=== PATIENT | male | born 1935 | race Caucasian/White ===

== ENCOUNTER 2016-10-02 16:54 | Inpatient (IN) | payer OTHER, MEDICARE ==
[~2016-10-02] VITALS: Ht 180.3 cm; Wt 67.2 kg
[~2016-10-02 16:54] MED LIST: APR25 PO; ATOR10TA88 PO; CHOL1TAB42 PO; CLON0.1T12 PO; DIGO0.122 PO; FURO-85 PO; HMLI SC; INSUINJ4 SQ; LISI-729 PO; METO1TAB70 PO; NIAC500T7 PO; OMEP40CA PO; RIVA1.5T PO
[2016-10-02] MEDS ORDERED: SODIUM CHLORIDE 0.9% 1000ML 1,000 ML IV STA (17:34)
--- NOTE | 2016-10-02 17:37 | EMERGENCY ROOM VISIT NOTE ---
History Report prepared by Ofe: Ilda Shirley. Under the Supervision of: Dr. Julia Champion D.O. First contact with patient: 17:20 Chief Complaint: ABNORMAL LABS Stated Complaint: DEHYDRATED- PHYSICIAN REFERRED History of Present Illness The patient is a 80 year old male who presents to the Emergency Room with complaints of persistent abnormal labs that began prior to arrival. The patient states that for the past two years he has had a swallowing problem. The patient states that over the past two years he has lost 25-30 pounds because he has difficulty eating. He states that he just arrived back to the area after spending two weeks at the [facility]. The patient states that while he was there he had difficulties with hyperkalemia and was hospitalized. He states that he has had difficulties in the past with his electrolytes. The patient additionally notes that over the past two years his creatinine has increased. He reports a history of hypertension, diabetes, atrial fibrillation , pancreatic cancer, and a previous Whipple. The patient states that he is scheduled to have a feeding tube placed next week. He reports normal urination , but irregular bowel movements. The patient denies any pain or vomiting. He states that he was called by both his primary care physician and framework developer and told to come to the emergency department for further evaluation and treatment. The patient had outpatient labs drawn yesterday that showed a potassium of 5.3, Sodium 128, and Creatinine of 2.9. Source of History: patient Onset: prior to arrival Position: other (global) Quality: other (abnormal labs) Timing: other (persistent) Associated Symptoms: No vomiting, No urinary symptoms Review of Systems See HPI for pertinent positives & negatives. A total of 10 systems reviewed and were otherwise negative. 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 Family History Heart disease Hypertension Social History Smoking Status: Former Smoker Alcohol Use: occasionally Drug Use: none Marital Status: Housing Status: lives with family Occupation Status: retired Current/Historical Medications Scheduled Cholecalciferol (Vitamin D), 1 TAB PO QAM Clonidine Hcl (Clonidine Hcl), 1 PATCH TD WK Furosemide (Lasix), 80 MG PO BID Hydralazine HCl (Hydralazine HCl), 150 MG PO BID Insulin Glargine (Lantus), 15 UNITS SC QPM Metoprolol Succinate (Toprol Xl), 200 MG PO QAM Omeprazole (Prilosec), 40 MG PO DAILYBB Rivaroxaban (Xarelto), 15 MG PO QPM Scheduled PRN Loperamide Hcl (Imodium), 2 MG PO for Diarrhea Miscellaneous Medications Hyoscyamine Sulfate (Hyoscyamine Sulfate), 1 TAB PO Insulin Lispro (Human) (Humalog), 1 DOSE SC Allergies Coded Allergies: No Known Allergies (Verified , 10/02/16) Physical Exam Vital Signs Date Time Temp Pulse Resp B/P (MAP) Pulse Ox O2 Delivery O2 Flow Rate FiO2 10/02/16 20:01 81 16 156/82 96 Room Air 10/02/16 18:38 92 18 156/82 98 Room Air 10/02/16 17:24 88 10/02/16 17:02 36.7 86 18 128/76 98 Room Air Physical Exam GENERAL: Thin, alert, well appearing, well nourished, no distress, non-toxic EYE EXAM: normal conjunctiva, PERRL and EOM's grossly intact OROPHARYNX: no exudate, no erythema, lips, buccal mucosa, and tongue normal and mucous membranes are mildly dry. NECK: supple, no nuchal rigidity, no adenopathy, non-tender LUNGS: Clear to auscultation. Normal chest wall mechanics HEART: no murmurs, S1 normal and S2 normal ABDOMEN: abdomen soft, non-tender, normo-active bowel sounds, no masses, no rebound or guarding. BACK: Back is symmetrical on inspection and there is no deformity, no midline tenderness, no CVA tenderness. SKIN: no rashes and no bruising UPPER EXTREMITIES: upper extremities are grossly normal. LOWER EXTREMITIES: 1+ lower extremity pedal edema. NEURO EXAM: Normal sensorium, cranial nerves II-XII grossly intact, normal speech, no gross weakness of arms, no gross weakness of legs. Medical Decision & Procedures Laboratory Results 10/02/16 17:45 Red Blood Count 3.20, Mean Corpuscular Volume 85.9, Mean Corpuscular Hemoglobin 30.3, Mean Corpuscular Hemoglobin Concent 35.3, Mean Platelet Volume 8.8, Neutrophils (%) (Auto) 69.1, Lymphocytes (%) (Auto) 16.3, Monocytes (%) (Auto) 10.9, Eosinophils (%) (Auto) 2.6, Basophils (%) (Auto) 0.5, Neutrophils # (Auto ) 4.51, Lymphocytes # (Auto) 1.06, Monocytes # (Auto) 0.71, Eosinophils # (Auto ) 0.17, Basophils # (Auto) 0.03 Test 10/02/16 17:45 White Blood Count 6.52 K/uL (4.8-10.8) Red Blood Count 3.20 M/uL (4.7-6.1) Hemoglobin 9.7 g/dL (14.0-18.0) Hematocrit 27.5 % (42-52) Mean Corpuscular Volume 85.9 fL (80-100) Mean Corpuscular Hemoglobin 30.3 pg (25-34) Mean Corpuscular Hemoglobin Concent 35.3 g/dl (32-36) Platelet Count 249 K/uL (130-400) Mean Platelet Volume 8.8 fL (7.4-10.4) Neutrophils (%) (Auto) 69.1 % Lymphocytes (%) (Auto) 16.3 % Monocytes (%) (Auto) 10.9 % Eosinophils (%) (Auto) 2.6 % Basophils (%) (Auto) 0.5 % Neutrophils # (Auto) 4.51 K/uL (1.4-6.5) Lymphocytes # (Auto) 1.06 K/uL (1.2-3.4) Monocytes # (Auto) 0.71 K/uL (0.11-0.59) Eosinophils # (Auto) 0.17 K/uL (0-0.5) Basophils # (Auto) 0.03 K/uL (0-0.2) RDW Standard Deviation 41.7 fL (36.4-46.3) RDW Coefficient of Variation 13.2 % (11.5-14.5) Immature Granulocyte % (Auto) 0.6 % Immature Granulocyte # (Auto) 0.04 K/uL (0.00-0.02) Osmolality 298 mOsm/kg (280-300) Phosphorus Level 5.6 mg/dl (2.5-4.9) Magnesium Level 1.8 mg/dl (1.8-2.4) Total Bilirubin 0.4 mg/dl (0.2-1) Aspartate Amino Transf (AST/SGOT) 35 U/L (15-37) Alanine Aminotransferase (ALT/SGPT) 50 U/L (12-78) Alkaline Phosphatase 265 U/L (45-117) Total Protein 6.5 gm/dl (6.4-8.2) Albumin 2.6 gm/dl (3.4-5.0) Globulin 3.9 gm/dl (2.5-4.0) Albumin/Globulin Ratio 0.7 (0.9-2) 25-Hydroxy Vitamin D Total 44.4 ng/ml (30-100) Beta-Hydroxybutyric Acid 1.06 mg/dL (0.2-2.81) Laboratory results per my review. Medications Administered Medications (Trade) Dose Ordered Sig/Mindy Route Start Time Stop Time Status Last Admin Dose Admin Sodium Chloride 1,000 ml @ 999 mls/hr Q1H1M STAT IV 10/02/16 17:34 10/02/16 18:34 DC 10/02/16 17:47 999 MLS/HR Insulin Human Regular (novoLIN-R U-100 PER UNIT) 6 units NOW STAT SC 10/02/16 18:52 10/02/16 18:53 DC 10/02/16 18:59 6 UNITS ED Course 1722: The patient was evaluated in room B7. A complete history and physical exam was performed. 1734: Ordered Sodium Chloride 1000 ml @ 999 mls/hr IV. 1852: Ordered Insulin Human Regular 6 units SC. 1912: I reevaluated the patient and he is resting comfortably. I discussed the exam findings with him and I discussed the treatment plan. He verbalized complete understanding and agreement. He will be evaluated for further treatment. 1923: I discussed the patients case with Sarah Jacobsen. She is going to evaluate the patient for further treatment. Medical Decision Medication Reconciliation: I attest that I have personally reviewed the patient' s current medication list. Blood pressure screening: Patient was found to have a slightly elevated blood pressure due to circumstances. I do not believe that the patient requires hypertension monitoring. She well-appearing here without complaints was advised to come in by family doctor. Patient found to have worsening creatinine, worsening hyponatremia. Discussed with patient possibly related to recent increase in furosemide daily. Doubt bacteremia/sepsis. No symptoms to suggest obstructive process. No symptoms to suggest UTI. Patient with chronic anemia that appears stable compared to prior also. Patient with ongoing outpatient evaluation for dysphagia and weight loss. Doubt GI bleed. Patient and aware of all results were agreeable with plan. Consults Time Called: 1917 Consulting Physician: Sarah Jacobsen Returned Call: 1923 I discussed the patients case with Sarah Jacobsen. She is going to evaluate the patient for further treatment. Impression Primary Impression: Acute kidney injury superimposed on chronic kidney disease Additional Impression: Hyponatremia Scribe Attestation The scribe's documentation has been prepared under my direction and personally reviewed by me in its entirety. I confirm that the note above accurately reflects all work, treatment, procedures, and medical decision making performed by me. Departure Information Dispostion Being Evaluated By Hospitalist Referrals Esther Donaldson M.D. (PCP) Problem Qualifiers
[2016-10-02] MEDS ORDERED: FURO80TA63 PO (17:58)
[2016-10-02] MEDS ORDERED: OMEP40CA41 PO (17:58)
[2016-10-02] MEDS ORDERED: INSDGI SC (17:58)
[2016-10-02] MEDS ORDERED: RIVA1.5T PO (17:58)
[2016-10-02] MEDS ORDERED: HYDR100T3 PO (17:58)
[2016-10-02] MEDS ORDERED: CLON0.3D5 TD (17:58)
[2016-10-02] MEDS ORDERED: IMD/2 PO (18:01)
[2016-10-02] MEDS ORDERED: INSU100I SC (18:01)
[2016-10-02] MEDS ORDERED: LVS125 PO (18:01)
[2016-10-02 18:11] LABS: BASO % 0.5 %; BASO ABS # 0.03 K/uL (0-0.2); COMPLETE YES; EOS % 2.6 %; HEMATOCRIT 27.5 % (42-52); IG% 0.6 %; LYMPH % 16.3 %; LYMPH ABS # 1.06 K/uL (1.2-3.4); MEAN CELL VOLUME 85.9 fL (80-100); MEAN CORPUSCULAR HEMOGLOBIN 30.3 pg (25-34); MEAN CORPUSCULAR HGB CONC 35.3 g/dl (32-36); MEAN PLATELET VOLUME 8.8 fL (7.4-10.4); MONO % 10.9 %; NEUT % 69.1 %; PLATELET COUNT 249 K/uL (130-400); WHITE BLOOD COUNT 6.52 K/uL (4.8-10.8)
[2016-10-02 18:49] LABS: ALB/GLOB RATIO 0.7 (0.9-2); BUN/CREATININE RATIO 15.6 (10-20); CALCIUM 8.6 mg/dl (8.5-10.1); CREATININE 3.3 mg/dl (0.60-1.40); MAGNESIUM 1.8 mg/dl (1.8-2.4); POTASSIUM 4.8 mmol/L (3.5-5.1)
[2016-10-02] MEDS ORDERED: NovoLIN-R INSULIN PER UNIT CHARGE SC STA (18:52)
[2016-10-02 19:20] LABS: BETA-HYDROXYBUTYRATE 1.06 mg/dL (0.2-2.81)
[2016-10-02] MEDS ORDERED: PHARMACY GLYCEMIC MGMT CONSULT PRN (20:29)
[2016-10-02] MEDS ORDERED: GLUCAGON FOR INJ 1 MG VIAL SQ PRN (20:30)
[2016-10-02] MEDS ORDERED: DEXTROSE 50% 50 ML SYR IV PRN (20:30)
[2016-10-02] MEDS ORDERED: GLUCOSE 40% GEL 15 GM TUBE PO PRN (20:30)
[2016-10-02] MEDS ORDERED: ONDANSETRON INJ 2 MG/ML 2 ML VIAL IV PRN (20:30)
[2016-10-02] MEDS ORDERED: ACETAMINOPHEN 325 MG TAB PO PRN (20:30)
[2016-10-02] MEDS ORDERED: SODIUM CHLORIDE 0.9% 1000ML 1,000 ML IV SCH (20:45)
[2016-10-02] MEDS ORDERED: RIVAROXABAN TAB 15 MG TAB PO SCH (21:00)
[2016-10-02] MEDS: INSULIN ASPART 100 UNITS/ML 3 ML PEN SC SCH ×2 (21:00→23:35)
[2016-10-02 21:10] VITALS: BP 158/64; PULSE 88; TEMP 37; O2SAT 98; BMI 19.2
[2016-10-02] MEDS ORDERED: CLONIDINE HCL 0.3 MG/24 HR TRANSDERM SYS TD SCH (22:00)
[2016-10-02] MEDS ORDERED: INSULIN GLARGINE SOLOSTAR 100 UNITS/ML 3 ML PEN SC SCH (22:00)
--- NOTE | 2016-10-02 22:21 | Pharmacy Progress Note ---
Glycemic Control Intl Consult Date of Service Oct 02, 2016. Scope Glycemic Pharmacist consulted by Dr Rosenberg on 10/02/16 for glycemic control and to write orders per [facility] inpatient glycemic control protocol Objective Weight (Kilograms): 62.600 Accuchecks BSG (last 24hrs): Test 10/02/16 17:45 10/02/16 19:28 10/02/16 21:10 Random Glucose 439 mg/dl (70-99) Bedside Glucose 351 mg/dl (70-99) 221 mg/dl (70-99) Laboratory Data (last 24hrs) Test 10/02/16 17:45 Anion Gap 9.0 mmol/L BUN/Creatinine Ratio 15.6 Blood Urea Nitrogen 51 mg/dl Creatinine 3.30 mg/dl Potassium Level 4.8 mmol/L Sodium Level 126 mmol/L White Blood Count 6.52 K/uL Red Blood Count 3.20 M/uL Hemoglobin 9.7 g/dL Hematocrit 27.5 % Mean Corpuscular Volume 85.9 fL Mean Corpuscular Hemoglobin 30.3 pg Mean Corpuscular Hemoglobin Concent 35.3 g/dl Platelet Count 249 K/uL Mean Platelet Volume 8.8 fL Neutrophils (%) (Auto) 69.1 % Lymphocytes (%) (Auto) 16.3 % Monocytes (%) (Auto) 10.9 % Eosinophils (%) (Auto) 2.6 % Basophils (%) (Auto) 0.5 % Neutrophils # (Auto) 4.51 K/uL Lymphocytes # (Auto) 1.06 K/uL Monocytes # (Auto) 0.71 K/uL Eosinophils # (Auto) 0.17 K/uL Basophils # (Auto) 0.03 K/uL Recent Pertinent Medications Outpatient Anti-diabetic Regimen: * Lantus 15 units sq qPM - patient reports adjusting Lantus dose based on oral intake throughout the day * Lispro SSI 2-8 units * 201 - 250 mg/dL 2 units * 251 - 300 mg/dL 4 units * 301 - 350 mg/dL 6 units * 351 - 480 mg/dL 8 units * A1c pending Risk Factors for Insulin Resistance: * Diet: full liquid, T2DM Assessment & Plan ASSESSMENT: * 80 yr old T2DM male admitted with dehydration secondary to progressive dysphagia and recent weight loss. * Outpatient glycemic control unknown - Alc ordered for 10/03 * Patient presented with severe hyperglycemia BSG of 439 mg/dL, which improved to 221 mg/dL 2 hours after 6 units of SQ regular insulin was given. * Spoke with patient regarding home insulin regimen * He notes self-adjusting his Lantus dose based on oral intake to avoid hypoglycemia. He took a decreased dose of 10 units last evening. * He reports feeling hypoglycemic at BSG of 100 mg/dL or less and is fearful of lows * I would be hesitant to base insulin regimen off patients home dose since dosing is not consistent. Patient refuses to take more than 5 units of Lantus tonight. * ADA & AACE recommend a goal blood sugar range 140-180 mg/dl for the majority of critically ill & non-critically ill patients. Will utilize this range initially until needs are established and A1c is known. Also, to limit the risk of hypoglycemia. PLAN FOR INPATIENT GLYCEMIC CONTROL: * A1c ordered * Basal insulin: LANTUS 5 units SQ tonight - reassess on 10/03 * Correctional Insulin with NOVOLOG per scale ACHS * Goal Range: Low 1400 mg/dL - High 180 mg/dL * Correction Factor: 35 mg/dL/unit * Nutritional / Prandial insulin per carb ratio of 1 unit per 12 grams CHO consumed * Add overnight checks at 00 and 04 * Please note that the plan above was derived based on current level of insulin resistance and hospital stress. These recommendations are appropriate for inpatient admission only. Plan of care upon discharge will need to be reassessed to avoid potential outpatient hypo/hyperglycemia. Thank you.
--- NOTE | 2016-10-02 22:54 | History and Physical ---
History & Physical Date & Time of Service: Oct 02, 2016 at 20:37 Chief Complaint: Dehydrated- Physician Referred Primary Care Physician: Esther Donaldson M.D. History of Present Illness Source: patient, clinic records, hospital records 80 yo M with prolonged progressive dysphagia and significant weight loss over two years presents to the ER at the advice of his physician for abnormal labwork. He has a history of CKD with a baseline creat around 2 and recent increase to 3.3. He was also found to have a K of 5.3 which is improved to normal today. His sodium has also decreased to 126 from normal levels. Na wsa 139 on 08/28 and 128 yesterday. The patient admits to being significantly undernourished as a result of his limited access to food from dysphagia. He exists on cream soups, milkshakes and other full liquids such as this. He reports drinking 2-3 glasses of water daily and no excessive water intake. He denies any lightheadedness with standing. He denies any nausea, vomiting or diarrhea. He was recently seen in multiple outpatient clinics at [facility] in [place] a couple of weeks ago. The following changes to his medications were made. Lasix was increased to 80mg PO BID (he takes this for h/o lymphedema and chronic leg swelling), Toprol XL was decreased to 200mg daily, digoxin was stopped and lisinopril was also stopped. He doesn't feel well overall but this is no different than over the last two years. He denies any headaches, fevers, chills, shortness of breath, chest pain, abdominal pain, or other symptom at this time. He states the issue with swallowing is structural and that he has no heartburn or problems with types of foods, no IBS. As a result of the cream in his diet, however, he can alternate between diarrhea and constipation. He denies any international travel to [place], [place] or [place] in the past. In the ER, his glucose was also found to be elevated to 430 and he was given 6 units of SQ insulin. He typically takes long and short-acting insulin at home but has been poorly controlled because of his poor diet. 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 Social History Smoking Status: Former Smoker Smokeless Tobacco Use: No Alcohol Use: socially Drug Use: none Marital Status: Housing status: lives with significant other Occupational Status: retired Immunizations History of Influenza Vaccine: Yes Influenza Vaccine Date: Dec 21, 2012 History of Tetanus Vaccine?: Yes (UTD) Tetanus Immunization Date: Aug 22, 2014 History of Pneumococcal: Yes Pneumococcal Date: July 31, 2014 History of Hepatitis B Vaccine: Yes Hepatitis Immunization Date: Sep 22, 2016 Multi-Drug Resistant Organisms History of MDRO: No Allergies Coded Allergies: No Known Allergies (Verified , 10/02/16) Home Medications Scheduled Cholecalciferol (Vitamin D), 1 TAB PO QAM Clonidine Hcl (Clonidine Hcl), 1 PATCH TD WK Furosemide (Lasix), 80 MG PO BID Hydralazine HCl (Hydralazine HCl), 150 MG PO BID Insulin Glargine (Lantus), 15 UNITS SC QPM Metoprolol Succinate (Toprol Xl), 200 MG PO QAM Omeprazole (Prilosec), 40 MG PO DAILYBB Rivaroxaban (Xarelto), 15 MG PO QPM Scheduled PRN Loperamide Hcl (Imodium), 2 MG PO for Diarrhea Miscellaneous Medications Hyoscyamine Sulfate (Hyoscyamine Sulfate), 1 TAB PO Insulin Lispro (Human) (Humalog), 1 DOSE SC Review of Systems Constitutional: + weight loss (8 lbs in last 2-3 weeks), No fever, No chills, No weakness Eyes: No problem reported ENT: + trouble swallowing, No sore throat Respiratory: No cough, No shortness of breath Cardiovascular: + edema, No chest pain, No palpitations Abdomen: + diarrhea (chronic since whipples), No pain, No nausea, No vomiting, No GI bleeding Musculoskeletal: + swelling (LE swelling chronic) Genitourinary - Male: No dysuria Neurologic: No weakness, No balance problems Psychiatric: No substance abuse Endocrine: No excessive thirst Hematologic / Lymphatic: No swollen lymph nodes Integumentary: No new/changing skin lesions Allergic / Immunologic: No food allergies Physical Exam Vital Signs Date Time Temp Pulse Resp B/P (MAP) Pulse Ox O2 Delivery O2 Flow Rate FiO2 10/02/16 20:30 84 156/78 87 172/80 91 176/86 10/02/16 20:01 81 16 156/82 96 Room Air 10/02/16 18:38 92 18 156/82 98 Room Air 10/02/16 17:24 88 10/02/16 17:02 36.7 86 18 128/76 98 Room Air GEN: thin, frail, in no acute distress, alert and appropriate HEENT: NC/AT, PERRL, normal sclerae/conjunctivae, MMM CARDIO: reg rate, S1/2 heard without m/g/r LUNGS: CTA bilaterally, no crackles, rales or wheezes, good diaphragmatic excursion ABD: soft, non-tender, non-distended, no rebound or guarding, +BS EXTREMITY: RP and DP palpable 2+ bilat, no LE swelling or edema, extremities are warm and well-perfused NEURO: CN 2-12 grossly intact, sensation intact throughout MUSC: 5/5 strength throughout, no gross focal deficits, moves all extremities with ease. Can sit up in bed on his own. SKIN: warm and dry Diagnostics Laboratory Results Results Past 24 Hours Test 10/02/16 17:45 10/02/16 19:28 10/02/16 20:32 Range/Units White Blood Count 6.52 4.8-10.8 K/uL Red Blood Count 3.20 4.7-6.1 M/uL Hemoglobin 9.7 14.0-18.0 g/dL Hematocrit 27.5 42-52 % Mean Corpuscular Volume 85.9 80-100 fL Mean Corpuscular Hemoglobin 30.3 25-34 pg Mean Corpuscular Hemoglobin Concent 35.3 32-36 g/dl Platelet Count 249 130-400 K/uL Mean Platelet Volume 8.8 7.4-10.4 fL Neutrophils (%) (Auto) 69.1 % Lymphocytes (%) (Auto) 16.3 % Monocytes (%) (Auto) 10.9 % Eosinophils (%) (Auto) 2.6 % Basophils (%) (Auto) 0.5 % Neutrophils # (Auto) 4.51 1.4-6.5 K/uL Lymphocytes # (Auto) 1.06 1.2-3.4 K/uL Monocytes # (Auto) 0.71 0.11-0.59 K/uL Eosinophils # (Auto) 0.17 0-0.5 K/uL Basophils # (Auto) 0.03 0-0.2 K/uL RDW Standard Deviation 41.7 36.4-46.3 fL RDW Coefficient of Variation 13.2 11.5-14.5 % Immature Granulocyte % (Auto) 0.6 % Immature Granulocyte # (Auto) 0.04 0.00-0.02 K/uL Sodium Level 126 136-145 mmol/L Potassium Level 4.8 3.5-5.1 mmol/L Chloride Level 87 98-107 mmol/L Carbon Dioxide Level 30 21-32 mmol/L Anion Gap 9.0 3-11 mmol/L Blood Urea Nitrogen 51 7-18 mg/dl Creatinine 3.30 0.60-1.40 mg/dl Est Creatinine Clear Calc Drug Dose 16.1 ml/min Estimated GFR () 19.5 Estimated GFR (Non- 16.8 BUN/Creatinine Ratio 15.6 10-20 Random Glucose 439 70-99 mg/dl Calcium Level 8.6 8.5-10.1 mg/dl Magnesium Level 1.8 1.8-2.4 mg/dl Total Bilirubin 0.4 0.2-1 mg/dl Aspartate Amino Transf (AST/SGOT) 35 15-37 U/L Alanine Aminotransferase (ALT/SGPT) 50 12-78 U/L Alkaline Phosphatase 265 45-117 U/L Total Protein 6.5 6.4-8.2 gm/dl Albumin 2.6 3.4-5.0 gm/dl Globulin 3.9 2.5-4.0 gm/dl Albumin/Globulin Ratio 0.7 0.9-2 Beta-Hydroxybutyric Acid 1.06 0.2-2.81 mg/dL Bedside Glucose 351 70-99 mg/dl EKG afib 81, no ST changes Impression Assessment and Plan 80 yo M with progressive dysphagia and weight loss admitted for BRANDI and hyponatremia. 1. Hypertonic hyponatremia-2/2 elevated glucose. Corrected serum sodium is 131 on admission. Will give IVF in setting of BRANDI and poor PO intake and monitor sodium frequently overnight. Correction of glucose should allow improvement. 2. BRANDI on CKD III-baseline creat 2.0, now 3.3. Lasix was recently increased which may be contributing to this issue. Holding Lasix for now; he takes this for chronic LE edema. 1L IVF ordered, urine studies still pending. Reassess PRP in am. 3. Dysphagia with progressive weight loss-ongoing for last two years, GI following patient as outpatient. Plan is for PEG tube placement next week. Goal of this admission is to optimize him from a kidney and electrolyte perspective in preparation for this. Will order Lab Clerk consult for assistance with appropriate intake. 4. h/o pancreatic cancer s/p Whipple's in 2001 5. DMII-ISS/Lantus and carb coverage ordered based on weight. Consult placed to inpatient glycemic pharmacist 6. Ecchymosis 2/2 thin skin with multiple areas on arms requiring light bandage. Pt on anticoagulation making things worse. Wound care consult placed for assistance with skin care. 7. Atrial fibrillation-chronic, on Xarelto for stroke prophylaxis and metoprolol for rate control. 8. HTN-controlled, cont current meds. Of note, patient is duet for new clonidine patch to be placed today. Cont clonidine TTS-3, Hydralazine 150 9. anemia-chronic, likely multifactorial. Cont workup and monitoring as outpatient. DVT proph-Xarelto Full Code Dispo-telemetry Safia Rosenberg DO [facility] Hospitalist Level of Care Telemetry Resuscitation Status FULL RESUSCITATION VTE Prophylaxis VTE Risk Assessment Done? Y/N: Yes Risk Level: Moderate Given or contraindicated: Other Anticoagulation
[2016-10-02 22:58] LABS: BUN/CREATININE RATIO 15.4 (10-20); CALCIUM 8.6 mg/dl (8.5-10.1); CREATININE 3.1 mg/dl (0.60-1.40); POTASSIUM 4.5 mmol/L (3.5-5.1)
[2016-10-02 23:43] VITALS: BP 143/82; PULSE 73; TEMP 36.5; O2SAT 99
[2016-10-03] VITALS (9 sets, daily range): BP systolic 119–184; BP diastolic 64–102; PULSE 76–90; TEMP 36.4–36.9; O2SAT 97–99; Ht 180.3 cm; Wt 67.2 kg
[2016-10-03 01:53] LABS: BUN/CREATININE RATIO 16.9 (10-20); CALCIUM 8.3 mg/dl (8.5-10.1); CREATININE 2.8 mg/dl (0.60-1.40); POTASSIUM 4.3 mmol/L (3.5-5.1)
[2016-10-03] MEDS: INSULIN ASPART 100 UNITS/ML 3 ML PEN SC SCH ×5 (04:00→20:52)
[2016-10-03 07:02] LABS: BUN/CREATININE RATIO 16.4 (10-20); CALCIUM 8.5 mg/dl (8.5-10.1); CREATININE 2.8 mg/dl (0.60-1.40); MAGNESIUM 1.7 mg/dl (1.8-2.4); POTASSIUM 4.4 mmol/L (3.5-5.1)
--- NOTE | 2016-10-03 07:08 | Clinical Documentation Query ---
CLINICAL DOCUMENTATION QUERY Dr. ARTHUR, In your clinical opinion is this patient being managed for: ( X ) Severe protein-calorie malnutrition ( ) Other explanation of clinical findings (Please Explain) ( ) Unable to determine (Please Define) ( ) Need to Discuss ( ) Not Agree The medical record reflects the following clinical findings, treatment, and risk factors. Clinical Indicators: 80 yo male presenting with BRANDI and hyponatremia. Pt has had a 9 kg (12%) weight loss in the past 4 weeks. Very limited oral intake--mostly full liquids due to dysphagia over the last 2 years. Treatment: IV fluids, loss prevention specialist consult pending, planning for PEG placement Risk Factors:dysphagia, DM Severe Malnutrition Criteria: (2 criteria needed) Energy intake: <75% of estimated energy requirement for > 1 month Wt loss: >5% in 1 month, > 7.5% in 3 months, >10% in 6 months, >20% in 1 year Body fat: severe loss of SQ fat from the orbits, triceps or fat overlying the ribs Muscle mass: severe muscle wasting at the temples, clavicles, shoulders, interosseous spaces, scapula, thigh, calf Fluid accumulation: severe localized or generalized edema of the extremities, vulva, scrotum-wt loss may be masked by edema Please clarify and document your clinical opinion in the progress notes and discharge summary. Terms such as "probable", "suspected", "likely", "questionable", "possible", or "still to be ruled out" are acceptable. IF IN AGREEMENT, YOU MUST DOCUMENT ABOVE DIAGNOSTIC STATEMENT IN DAILY PROGRESS NOTES AND DISCHARGE SUMMARY. This document is not part of the patient's record. Thank You, Fatuma Washington, RN [phone]
[2016-10-03] MEDS: METOPROLOL SUCC 50MG EXT REL TAB PO SCH (07:40)
[2016-10-03] MEDS: PANTOprazole SOD 40 MG TAB PO SCH (07:40)
--- NOTE | 2016-10-03 07:57 | Nephrology Consultation ---
Nephrology Consultation Date of Consultation: Oct 03, 2016. Attending Physician: Sherry Reason for Consultation: BRANDI History of Present Illness Patient is a 80 year old male with ckd stage 4 with creatinine of 2 at baseline who has had a progressive dysphagia where all he can eat is liquids and milk shakes and ice cream. pt has decided to undergo a peg tube. pt was at [facility] in [place] for a couple weeks and was evaluated there. He was having progressive lymphedema and lasix was increased to 80mg po bid and leg swelling improved immensely. pt with underlying diabetes which is not well controlled secondary to his limited food choices tertiary to the progressive dysphagia. Pt presented with brandi on ckd with creatinine up to 3.3 and k of 5.3 and sodium of 126. diuretics were held and pt was given iv fluids. currently on a clear liquid diet. Past Medical/Surgical History Medical Problems: (1) Acute kidney injury superimposed on chronic kidney disease Status: Acute (2) Hyponatremia Status: Acute Anorexia Afib ckd stage 4 with baseline creatinine of 2 Progressive dysphagia htn pancreatic cancer s/p whippe in 2001 DM Social History Smoking Status: Former Smoker Alcohol Use: occasionally Drug Use: none Marital Status: Housing Status: lives with family Occupation Status: retired Allergies Coded Allergies: No Known Allergies (Verified , 10/02/16) Medications Current Inpatient Medications Medications (Trade) Dose Ordered Sig/Mindy Route Start Time Stop Time Status Last Admin Dose Admin Acetaminophen (Tylenol Tab) 650 mg Q4H PRN PO 10/02/16 20:30 11/01/16 20:29 Ondansetron HCl (Zofran Inj) 4 mg Q6H PRN IV 10/02/16 20:30 11/01/16 20:29 Insulin Aspart (novoLOG ASPART) SLIDING SCALE If C... ACHS SC 10/02/16 21:00 11/01/16 20:59 Glucose (Glucose 40% Gel) 15-30 GRAMS 15 GRAMS... UD PRN PO 10/02/16 20:30 11/01/16 20:29 Glucose (Glucose Chew Tab) 4-8 Tablets 4 Tabl... UD PRN PO 10/02/16 20:30 11/01/16 20:29 Dextrose (Dextrose 50% 50ML Syringe) 25-50ML OF 50% DW IV FOR... UD PRN IV 10/02/16 20:30 11/01/16 20:29 Glucagon (Glucagon Inj) 1 mg UD PRN SQ 10/02/16 20:30 11/01/16 20:29 Miscellaneous Information (Consult Glycemic Management Pharmacy) 1 ea UD PRN N/A 10/02/16 20:29 11/01/16 20:28 Clonidine HCl ([id number]-2 0.3mg/24hr Patch) 1 patch Q7D@2100 TD 10/02/16 22:00 11/01/16 21:59 10/02/16 22:30 1 PATCH Metoprolol Succinate (Toprol Xl Tab) 200 mg QAM PO 10/03/16 09:00 11/02/16 08:59 Rivaroxaban (Xarelto Tab) 15 mg QPM PO 10/02/16 21:00 11/01/16 20:59 10/02/16 22:32 15 MG Hydralazine HCl (Apresoline Tab) 150 mg BID PO 10/02/16 21:00 11/01/16 20:59 10/02/16 22:32 150 MG Pantoprazole Sodium (Protonix Tab) 40 mg QAM PO 10/03/16 09:00 11/02/16 08:59 Home Meds and Scripts Medications Dose Route/Sig Max Daily Dose Days Date Category Dose Instructions Hyoscyamine Sulfate 0.125 Mg Tab 1 Tab PO 10/02/16 Reported PRN Imodium (Loperamide HCl) 2 Mg Cap 2 Mg PO PRN 10/02/16 Reported Humalog (Insulin Lispro (Human)) 100 Unit/Ml Inj 1 Dose SC 10/02/16 Reported SLIDING SCALE 201-250 = 2UNITS 251-300 = 4UNITS 301-350 = 6UNITS 351-400 = 8UNITS Clonidine Hcl 0.3 Mg/24 Hr Dis 1 Patch TD WK 10/02/16 Reported Lantus (Insulin Glargine) 100 Unit/Ml Inj 15 Units SC QPM 10/02/16 Reported Xarelto (Rivaroxaban) 15 Mg Tab 15 Mg PO QPM 10/02/16 Reported Prilosec (Omeprazole) 40 Mg Cap 40 Mg PO DAILYBB 10/02/16 Reported Hydralazine HCl 100 Mg Tab 150 Mg PO BID 10/02/16 Reported Lasix (Furosemide) 80 Mg Tab 80 Mg PO BID 10/02/16 Reported Toprol Xl (Metoprolol Succinate) 200 Mg Tab 200 Mg PO QAM 10/10/15 Reported Vitamin D (Cholecalciferol) 5,000 Unit Tab 1 Tab PO QAM 10/10/15 Reported Review of Systems Constitutional: + chills, + fatigue, No fever Eyes: No worsening of vision ENT: No hearing loss Respiratory: No shortness of breath Cardiac: + edema, No chest pain Abdomen: + dysphagia Male : No dysuria Endo: + fatigue all other review of systems otherwise negative Physical Exam Date Time Temp Pulse Resp B/P (MAP) Pulse Ox O2 Delivery O2 Flow Rate FiO2 10/03/16 04:41 36.8 76 16 122/79 (93) 98 Room Air 10/03/16 04:00 97 Room Air 10/03/16 00:00 99 Room Air 10/02/16 23:43 36.5 73 18 143/82 (102) 99 Room Air 10/02/16 21:10 37.0 88 19 158/64 98 Room Air 10/02/16 20:30 84 156/78 87 172/80 91 176/86 10/02/16 20:01 81 16 156/82 96 Room Air 10/02/16 18:38 92 18 156/82 98 Room Air 10/02/16 17:24 88 10/02/16 17:02 36.7 86 18 128/76 98 Room Air General Appearance: no apparent distress, + thin Eyes: normal inspection ENT: + pertinent finding (mmm) Neck: supple Respiratory/Chest: lungs clear, normal breath sounds Cardiovascular: regular rate, rhythm, no edema Abdomen: normal bowel sounds, non tender, soft Extremities: no pedal edema Neurologic/Psych: no motor/sensory deficits, alert Skin: normal color Diagnostics Last 24 Hours Test 10/02/16 17:45 10/02/16 19:28 10/02/16 21:10 10/02/16 22:10 White Blood Count 6.52 K/uL Red Blood Count 3.20 M/uL Hemoglobin 9.7 g/dL Hematocrit 27.5 % Mean Corpuscular Volume 85.9 fL Mean Corpuscular Hemoglobin 30.3 pg Mean Corpuscular Hemoglobin Concent 35.3 g/dl Platelet Count 249 K/uL Mean Platelet Volume 8.8 fL Neutrophils (%) (Auto) 69.1 % Lymphocytes (%) (Auto) 16.3 % Monocytes (%) (Auto) 10.9 % Eosinophils (%) (Auto) 2.6 % Basophils (%) (Auto) 0.5 % Neutrophils # (Auto) 4.51 K/uL Lymphocytes # (Auto) 1.06 K/uL Monocytes # (Auto) 0.71 K/uL Eosinophils # (Auto) 0.17 K/uL Basophils # (Auto) 0.03 K/uL RDW Standard Deviation 41.7 fL RDW Coefficient of Variation 13.2 % Immature Granulocyte % (Auto) 0.6 % Immature Granulocyte # (Auto) 0.04 K/uL Sodium Level 126 mmol/L Potassium Level 4.8 mmol/L Chloride Level 87 mmol/L Carbon Dioxide Level 30 mmol/L Anion Gap 9.0 mmol/L Blood Urea Nitrogen 51 mg/dl Creatinine 3.30 mg/dl Est Creatinine Clear Calc Drug Dose 16.1 ml/min Estimated GFR () 19.5 Estimated GFR (Non- 16.8 BUN/Creatinine Ratio 15.6 Random Glucose 439 mg/dl Osmolality 298 mOsm/kg Calcium Level 8.6 mg/dl Phosphorus Level 5.6 mg/dl Magnesium Level 1.8 mg/dl Total Bilirubin 0.4 mg/dl Aspartate Amino Transf (AST/SGOT) 35 U/L Alanine Aminotransferase (ALT/SGPT) 50 U/L Alkaline Phosphatase 265 U/L Total Protein 6.5 gm/dl Albumin 2.6 gm/dl Globulin 3.9 gm/dl Albumin/Globulin Ratio 0.7 25-Hydroxy Vitamin D Total 44.4 ng/ml Beta-Hydroxybutyric Acid 1.06 mg/dL Bedside Glucose 351 mg/dl 221 mg/dl Urine Osmolality 251 mOms/kg Urine Random Creatinine 19.0 mg/dl Urine Random Sodium 55 mEq/L Urine Random Urea Nitrogen 187 mg/dl Test 10/02/16 22:32 10/02/16 23:25 10/03/16 01:24 10/03/16 04:14 Sodium Level 130 mmol/L 133 mmol/L Potassium Level 4.5 mmol/L 4.3 mmol/L Chloride Level 92 mmol/L 95 mmol/L Carbon Dioxide Level 30 mmol/L 29 mmol/L Anion Gap 8.0 mmol/L 9.0 mmol/L Blood Urea Nitrogen 48 mg/dl 47 mg/dl Creatinine 3.10 mg/dl 2.80 mg/dl Est Creatinine Clear Calc Drug Dose 17.1 ml/min 18.9 ml/min Estimated GFR () 21.0 23.8 Estimated GFR (Non- 18.1 20.5 BUN/Creatinine Ratio 15.4 16.9 Random Glucose 227 mg/dl 144 mg/dl Calcium Level 8.6 mg/dl 8.3 mg/dl Bedside Glucose 222 mg/dl 116 mg/dl Test 10/03/16 06:05 Sodium Level 133 mmol/L Potassium Level 4.4 mmol/L Chloride Level 98 mmol/L Carbon Dioxide Level 28 mmol/L Anion Gap 7.0 mmol/L Blood Urea Nitrogen 46 mg/dl Creatinine 2.80 mg/dl Est Creatinine Clear Calc Drug Dose 19.0 ml/min Estimated GFR () 23.8 Estimated GFR (Non- 20.5 BUN/Creatinine Ratio 16.4 Random Glucose 113 mg/dl Calcium Level 8.5 mg/dl Magnesium Level 1.7 mg/dl Assessment & Plan brandi on ckd stage 4 with baseline creatinine of 2 and worsened to 3.3 in the setting of overdiuresis. edema in legs much improved on presentation in the setting of higher dose lasix. creatinine has improved to 2.8 with iv fluids and holding lasix. Will give albumin to help improve intravascular volume and continue the fluids for another 24 hours. has underlying hypertension, advanced age and diabetes contributing to his baseline ckd. hyperkalemia-k 4.8 to 4.4 and k is better with improved kidney function hyponatremia-normal serum osm, with elevated blood sugars in the 400s, sodium corrects to normal range. sodium this morning now, sodium 133. to check tsh levels to be thorough. lymphedema-edema much improved and has poor nutritional stores. albumin 2.6 and has third spacing of fluids. with no edema-pt has intravascular volume depletion. continue albumin and iv fluids. Anemia-to check iron sat and ferritin to be thorough. may benefit from iv venofer.
[2016-10-03] MEDS: ALBUMIN HUMAN 25% 12.5 GM/50 ML VIAL IV SCH ×2 (08:24→20:41)
[2016-10-03] MEDS: SODIUM CHLORIDE 0.9% 1000ML 1,000 ML IV SCH ×3 (08:25→20:00)
--- NOTE | 2016-10-03 10:33 | Pharmacy Progress Note ---
Glycemic Control Progress Note Date of Service Oct 03, 2016. Scope Glycemic Pharmacist consulted for glycemic control to write orders per [facility] inpatient glycemic control protocol. Objective Accuchecks BSG (last 24hrs): Test 10/02/16 17:45 10/02/16 19:28 10/02/16 21:10 10/02/16 22:32 Random Glucose 439 mg/dl (70-99) 227 mg/dl (70-99) Bedside Glucose 351 mg/dl (70-99) 221 mg/dl (70-99) Test 10/02/16 23:25 10/03/16 01:24 10/03/16 04:14 10/03/16 06:05 Bedside Glucose 222 mg/dl (70-99) 116 mg/dl (70-99) Random Glucose 144 mg/dl (70-99) 113 mg/dl (70-99) HbA1c: Test 10/03/16 06:05 Recent Pertinent Medications The patient is currently receiving: * Basal insulin: Lantus 5 units X 1 * Correctional Insulin: Novolog Correction per scale ACHS Goal Range: Low 140 mg/dL - High 180 mg/dL Correction Factor: 35 mg/dL/unit * Prandial insulin: Per carb ratio of 1 unit per 12 grams CHO consumed Outpatient Anti-Diabetic Meds * Lantus 15 units sq qPM - patient reports adjusting Lantus dose based on oral intake throughout the day * Lispro SSI 2-8 units * 201 - 250 mg/dL 2 units * 251 - 300 mg/dL 4 units * 301 - 350 mg/dL 6 units * 351 - 480 mg/dL 8 units Assessment & Plan ASSESSMENT: * See progress note from 10/02 for more background info, in short: * Pt receiving SQ basal bolus insulin regimen for hyperglycemia secondary to baseline DM (outpatient regimen on hold) * Patient is currently receiving an average of ~5-10 units of insulin per day * 5 units of basal insulin * BSGs improved significantly over the past 24 hours * Changes needed to insulin regimen: * AM Fasting BSG = 113 mg/dl. This is at goal range for patient based on inpatient targets and co-morbidities. Will continue basal dose. * Post-prandial BSGs are difficult to assess at this point since patient was just admitted PLAN FOR INPATIENT GLYCEMIC CONTROL: * Continue Lantus 5 units qHS * Continue correction factor of 35 mg/dl/unit * Continue carb ratio of 1 unit per 12 grams CHO consumed * Continue goal range of Low 140 mg/dL - High 180 mg/dL RECOMMENDATIONS FOR DISCHARGE: * A1c still pending - will provide recommendations once this is resulted * Please note that the plan above was derived based on current level of insulin resistance and hospital stress. These recommendations are appropriate for inpatient admission only. Plan of care upon discharge will need to be reassessed to avoid potential outpatient hypo/hyperglycemia. Thank you.
[2016-10-03 10:52] LABS: HEMATOCRIT 25.3 % (42-52); MEAN CELL VOLUME 86.1 fL (80-100); MEAN CORPUSCULAR HEMOGLOBIN 29.9 pg (25-34); MEAN CORPUSCULAR HGB CONC 34.8 g/dl (32-36); MEAN PLATELET VOLUME 9.1 fL (7.4-10.4); PLATELET COUNT 219 K/uL (130-400); RED BLOOD COUNT 2.94 M/uL (4.7-6.1); WHITE BLOOD COUNT 6.48 K/uL (4.8-10.8)
[2016-10-03 11:45] LABS: ESTIMATED AVERAGE GLUCOSE 217 mg/dl; HA1C FLAG Normal (Normal)
--- NOTE | 2016-10-03 11:49 | Progress Note ---
Internal Med Progress Note Date of Service: Oct 03, 2016. Provider Documentation: SUBJECTIVE: Seen and examined at bedside. States he is concerned about his diet and inability to maintain weight and blood sugar levels. Seen at [facility] recently for progressive dysphagia Family at bedside. Denies chest pain, SOB, abdominal pain. OBJECTIVE: Vital Signs-as noted below Physical Exam: General Appearance:Thin, frail, no apparent distress Head: normocephalic, Atraumatic Eyes: normal inspection, EOMI, PERRL Neck: supple, Trachea midline Respiratory/Chest: Diminished breath sounds, CTA Cardiovascular: Irregularly irregular, No murmur Abdomen/GI:Soft, Non tender, Bowel sounds present Extremities/Musculoskelatal:normal inspection, no edema Neurologic/Psych:AAOX3, grossly no focal neurological deficits Skin: normal color, warm Lab data as noted below. ASSESSMENT & PLAN: Patient is 80 yr male with progressive dysphagia and weight loss admitted for BRANDI and hyponatremia. Hypertonic Hyponatremia: Secondary to elevated glucose. Corrected serum sodium is 133 Continue IV fluids per Nephrology Monitor sodium levels Nephrology following TSH pending BRANDI on CKD III Likely secondary to over diuresis and poor PO intake Diuretics recently increased for leg edema baseline cr 2.0 Cr: 2.8 today Hold Lasix for now Monitor renal function Albumin per Nephrology to improve intravascular volume Severe Protein Calorie Malnutrition Progressive Dysphagia with weight loss: Recently evaluated at [facility] (Family reports it neuromuscular cause and reports no treatment available) Tabulating Supervisor and GI consulted for assistance with appropriate intake May need PEG tube CT abd pending H/O pancreatic cancer s/p Whipple's in 2001: Family reports had multiple PET scans recently which were negative Will obtain records from his Oncologist in [place] DM II: Uncontrolled secondary to diet (limited options secondary to dysphagia) ISS/Lantus Consult placed to inpatient glycemic pharmacist A1C pending Ecchymosis 2/2 thin skin with multiple areas on arms requiring light bandage. Pt on anticoagulation Wound care consulted Atrial fibrillation: chronic, on Xarelto for stroke prophylaxis and metoprolol for rate control. Xarelto on hold currently for PEG tube placement HTN: controlled continue current meds. Chronic Anemia: likely multifactorial. Cont workup: Iron studies monitor DVT Px: Xarelto Code Status: Full Code Disposition: Monitor in Tele Vital Signs: Date Time Temp Pulse Resp B/P (MAP) Pulse Ox O2 Delivery O2 Flow Rate FiO2 10/03/16 11:05 36.5 90 20 154/80 (104) 97 Room Air 10/03/16 08:04 Room Air 10/03/16 07:08 36.6 83 20 129/76 (93) 97 10/03/16 04:41 36.8 76 16 122/79 (93) 98 Room Air 10/03/16 04:00 97 Room Air 10/03/16 00:00 99 Room Air 10/02/16 23:43 36.5 73 18 143/82 (102) 99 Room Air 10/02/16 21:10 37.0 88 19 158/64 98 Room Air 10/02/16 20:30 84 156/78 87 172/80 91 176/86 10/02/16 20:01 81 16 156/82 96 Room Air 10/02/16 18:38 92 18 156/82 98 Room Air 10/02/16 17:24 88 10/02/16 17:02 36.7 86 18 128/76 98 Room Air Lab Results: Results Past 24 Hours Test 10/02/16 17:45 10/02/16 19:28 10/02/16 21:10 10/02/16 22:10 Range/Units White Blood Count 6.52 4.8-10.8 K/uL Red Blood Count 3.20 4.7-6.1 M/uL Hemoglobin 9.7 14.0-18.0 g/dL Hematocrit 27.5 42-52 % Mean Corpuscular Volume 85.9 80-100 fL Mean Corpuscular Hemoglobin 30.3 25-34 pg Mean Corpuscular Hemoglobin Concent 35.3 32-36 g/dl Platelet Count 249 130-400 K/uL Mean Platelet Volume 8.8 7.4-10.4 fL Neutrophils (%) (Auto) 69.1 % Lymphocytes (%) (Auto) 16.3 % Monocytes (%) (Auto) 10.9 % Eosinophils (%) (Auto) 2.6 % Basophils (%) (Auto) 0.5 % Neutrophils # (Auto) 4.51 1.4-6.5 K/uL Lymphocytes # (Auto) 1.06 1.2-3.4 K/uL Monocytes # (Auto) 0.71 0.11-0.59 K/uL Eosinophils # (Auto) 0.17 0-0.5 K/uL Basophils # (Auto) 0.03 0-0.2 K/uL RDW Standard Deviation 41.7 36.4-46.3 fL RDW Coefficient of Variation 13.2 11.5-14.5 % Immature Granulocyte % (Auto) 0.6 % Immature Granulocyte # (Auto) 0.04 0.00-0.02 K/uL Sodium Level 126 136-145 mmol/L Potassium Level 4.8 3.5-5.1 mmol/L Chloride Level 87 98-107 mmol/L Carbon Dioxide Level 30 21-32 mmol/L Anion Gap 9.0 3-11 mmol/L Blood Urea Nitrogen 51 7-18 mg/dl Creatinine 3.30 0.60-1.40 mg/dl Est Creatinine Clear Calc Drug Dose 16.1 ml/min Estimated GFR () 19.5 Estimated GFR (Non- 16.8 BUN/Creatinine Ratio 15.6 10-20 Random Glucose 439 70-99 mg/dl Osmolality 298 280-300 mOsm/kg Calcium Level 8.6 8.5-10.1 mg/dl Phosphorus Level 5.6 2.5-4.9 mg/dl Magnesium Level 1.8 1.8-2.4 mg/dl Total Bilirubin 0.4 0.2-1 mg/dl Aspartate Amino Transf (AST/SGOT) 35 15-37 U/L Alanine Aminotransferase (ALT/SGPT) 50 12-78 U/L Alkaline Phosphatase 265 45-117 U/L Total Protein 6.5 6.4-8.2 gm/dl Albumin 2.6 3.4-5.0 gm/dl Globulin 3.9 2.5-4.0 gm/dl Albumin/Globulin Ratio 0.7 0.9-2 25-Hydroxy Vitamin D Total 44.4 30-100 ng/ml Beta-Hydroxybutyric Acid 1.06 0.2-2.81 mg/dL Bedside Glucose 351 221 70-99 mg/dl Urine Osmolality 251 500-800 mOms/kg Urine Random Creatinine 19.0 mg/dl Urine Random Sodium 55 mEq/L Urine Random Urea Nitrogen 187 mg/dl Test 10/02/16 22:32 10/02/16 23:25 10/03/16 01:24 10/03/16 04:14 Range/Units Sodium Level 130 133 136-145 mmol/L Potassium Level 4.5 4.3 3.5-5.1 mmol/L Chloride Level 92 95 98-107 mmol/L Carbon Dioxide Level 30 29 21-32 mmol/L Anion Gap 8.0 9.0 3-11 mmol/L Blood Urea Nitrogen 48 47 7-18 mg/dl Creatinine 3.10 2.80 0.60-1.40 mg/dl Est Creatinine Clear Calc Drug Dose 17.1 18.9 ml/min Estimated GFR () 21.0 23.8 Estimated GFR (Non- 18.1 20.5 BUN/Creatinine Ratio 15.4 16.9 10-20 Random Glucose 227 144 70-99 mg/dl Calcium Level 8.6 8.3 8.5-10.1 mg/dl Bedside Glucose 222 116 70-99 mg/dl Test 10/03/16 06:05 10/03/16 06:55 10/03/16 11:07 Range/Units White Blood Count 6.48 4.8-10.8 K/uL Red Blood Count 2.94 4.7-6.1 M/uL Hemoglobin 8.8 14.0-18.0 g/dL Hematocrit 25.3 42-52 % Mean Corpuscular Volume 86.1 80-100 fL Mean Corpuscular Hemoglobin 29.9 25-34 pg Mean Corpuscular Hemoglobin Concent 34.8 32-36 g/dl RDW Standard Deviation 42.4 36.4-46.3 fL RDW Coefficient of Variation 13.3 11.5-14.5 % Platelet Count 219 130-400 K/uL Mean Platelet Volume 9.1 7.4-10.4 fL Sodium Level 133 136-145 mmol/L Potassium Level 4.4 3.5-5.1 mmol/L Chloride Level 98 98-107 mmol/L Carbon Dioxide Level 28 21-32 mmol/L Anion Gap 7.0 3-11 mmol/L Blood Urea Nitrogen 46 7-18 mg/dl Creatinine 2.80 0.60-1.40 mg/dl Est Creatinine Clear Calc Drug Dose 19.0 ml/min Estimated GFR () 23.8 Estimated GFR (Non- 20.5 BUN/Creatinine Ratio 16.4 10-20 Random Glucose 113 70-99 mg/dl Estimated Average Glucose 217 mg/dl Hemoglobin A1c 9.2 4.5-5.6 % Calcium Level 8.5 8.5-10.1 mg/dl Magnesium Level 1.7 1.8-2.4 mg/dl Bedside Glucose 121 161 70-99 mg/dl
--- NOTE | 2016-10-03 12:32 | Gastrointestinal Consultation ---
Gastrointestinal Consultation Date of Consultation: Oct 03, 2016 Attending Physician: Navjot White Consulting Physician: Bella Tucker Reason for Consultation: Dysphagia History of Present Illness Patient is a 80 year old male referred to ED for admission for progressive dysphagia, weight loss of abot 20 lbs in last 4 months, ARF (Cr ran to 2.9) and several electrolyte derangements (K 5.3, Na 128), glucose 423. He had been followed by Dr. Ibrahima Yanes in the GI office for dysphagia and malnutrition. Hx of Whipple, pylorus sparing in 2001 for pancreas cancer. He mentioned numerous workup and procedures not only by [facility], but also at [facility] and recently at [facility] for his dysphagia. Testings included manometry, barium swallowing, EGD w dilation - all quite unrevealing as etiology of pt's dysphagia. Eventually suggested by [facility] for feeding tube placement for nutrition. This had been set up for outpt procedure to be done on 10/14/16. Since admitted, Cr down to 2.8, Na 133, K 4.4, glucose 161. He feels frustrated about his chronic dysphagia and inability to get his weight up, malnourished. He admits to be able to tolerate certain solids such as chicken at times, but mostly on cream/liquid consistency foods. Past Medical/Surgical History Medical Problems: (1) Acute kidney injury superimposed on chronic kidney disease Status: Acute (2) Hyponatremia Status: Acute Past Medical History: See above, anemia, Afib on Xarelto, CKD III, Depression, GERD, HTN, Past Surgical History: Whipple Appendectomy Umbilical hernia repair T&A Family History Unrelated to current admission Social History Smoking Status: Former Smoker Alcohol Use: occasionally Drug Use: none Marital Status: Housing Status: lives with family Occupation Status: retired Allergies Coded Allergies: No Known Allergies (Verified , 10/02/16) Current Medications Home Meds and Scripts Medications Dose Route/Sig Max Daily Dose Days Date Category Dose Instructions Hyoscyamine Sulfate 0.125 Mg Tab 1 Tab PO 10/02/16 Reported PRN Imodium (Loperamide HCl) 2 Mg Cap 2 Mg PO PRN 10/02/16 Reported Humalog (Insulin Lispro (Human)) 100 Unit/Ml Inj 1 Dose SC 10/02/16 Reported SLIDING SCALE 201-250 = 2UNITS 251-300 = 4UNITS 301-350 = 6UNITS 351-400 = 8UNITS Clonidine Hcl 0.3 Mg/24 Hr Dis 1 Patch TD WK 10/02/16 Reported Lantus (Insulin Glargine) 100 Unit/Ml Inj 15 Units SC QPM 10/02/16 Reported Xarelto (Rivaroxaban) 15 Mg Tab 15 Mg PO QPM 10/02/16 Reported Prilosec (Omeprazole) 40 Mg Cap 40 Mg PO DAILYBB 10/02/16 Reported Hydralazine HCl 100 Mg Tab 150 Mg PO BID 10/02/16 Reported Lasix (Furosemide) 80 Mg Tab 80 Mg PO BID 10/02/16 Reported Toprol Xl (Metoprolol Succinate) 200 Mg Tab 200 Mg PO QAM 10/10/15 Reported Vitamin D (Cholecalciferol) 5,000 Unit Tab 1 Tab PO QAM 10/10/15 Reported Review of Systems Constitutional: + weight loss, + weakness, No fever, No chills ENT: + trouble swallowing, No pain on swallowing Respiratory: No cough, No shortness of breath Cardiac: No chest pain Abdomen: No pain, No nausea, No vomiting Endo: + fatigue Skin: No rash, No itch Physical Exam Date Time Temp Pulse Resp B/P (MAP) Pulse Ox O2 Delivery O2 Flow Rate FiO2 10/03/16 11:05 36.5 90 20 154/80 (104) 97 Room Air 10/03/16 08:04 Room Air 10/03/16 07:08 36.6 83 20 129/76 (93) 97 10/03/16 04:41 36.8 76 16 122/79 (93) 98 Room Air 10/03/16 04:00 97 Room Air 10/03/16 00:00 99 Room Air 10/02/16 23:43 36.5 73 18 143/82 (102) 99 Room Air 10/02/16 21:10 37.0 88 19 158/64 98 Room Air 10/02/16 20:30 84 156/78 87 172/80 91 176/86 10/02/16 20:01 81 16 156/82 96 Room Air 10/02/16 18:38 92 18 156/82 98 Room Air 10/02/16 17:24 88 10/02/16 17:02 36.7 86 18 128/76 98 Room Air General Appearance: WD/WN, no apparent distress, + thin Eyes: normal inspection, PERRL, EOMI Neck: supple, no JVD, trachea midline Respiratory/Chest: normal breath sounds, no respiratory distress, no accessory muscle use Cardiovascular: regular rate, rhythm, no gallop, no murmur Abdomen: normal bowel sounds, non tender, soft Extremities: normal inspection, no pedal edema, no calf tenderness Neurologic/Psych: alert, normal mood/affect, oriented x 3 Skin: normal color, no jaundice, no rash Laboratory Results Last 24 Hours Test 10/02/16 17:45 10/02/16 19:28 10/02/16 21:10 10/02/16 22:10 White Blood Count 6.52 K/uL Red Blood Count 3.20 M/uL Hemoglobin 9.7 g/dL Hematocrit 27.5 % Mean Corpuscular Volume 85.9 fL Mean Corpuscular Hemoglobin 30.3 pg Mean Corpuscular Hemoglobin Concent 35.3 g/dl Platelet Count 249 K/uL Mean Platelet Volume 8.8 fL Neutrophils (%) (Auto) 69.1 % Lymphocytes (%) (Auto) 16.3 % Monocytes (%) (Auto) 10.9 % Eosinophils (%) (Auto) 2.6 % Basophils (%) (Auto) 0.5 % Neutrophils # (Auto) 4.51 K/uL Lymphocytes # (Auto) 1.06 K/uL Monocytes # (Auto) 0.71 K/uL Eosinophils # (Auto) 0.17 K/uL Basophils # (Auto) 0.03 K/uL RDW Standard Deviation 41.7 fL RDW Coefficient of Variation 13.2 % Immature Granulocyte % (Auto) 0.6 % Immature Granulocyte # (Auto) 0.04 K/uL Sodium Level 126 mmol/L Potassium Level 4.8 mmol/L Chloride Level 87 mmol/L Carbon Dioxide Level 30 mmol/L Anion Gap 9.0 mmol/L Blood Urea Nitrogen 51 mg/dl Creatinine 3.30 mg/dl Est Creatinine Clear Calc Drug Dose 16.1 ml/min Estimated GFR () 19.5 Estimated GFR (Non- 16.8 BUN/Creatinine Ratio 15.6 Random Glucose 439 mg/dl Osmolality 298 mOsm/kg Calcium Level 8.6 mg/dl Phosphorus Level 5.6 mg/dl Magnesium Level 1.8 mg/dl Total Bilirubin 0.4 mg/dl Aspartate Amino Transf (AST/SGOT) 35 U/L Alanine Aminotransferase (ALT/SGPT) 50 U/L Alkaline Phosphatase 265 U/L Total Protein 6.5 gm/dl Albumin 2.6 gm/dl Globulin 3.9 gm/dl Albumin/Globulin Ratio 0.7 25-Hydroxy Vitamin D Total 44.4 ng/ml Beta-Hydroxybutyric Acid 1.06 mg/dL Bedside Glucose 351 mg/dl 221 mg/dl Urine Osmolality 251 mOms/kg Urine Random Creatinine 19.0 mg/dl Urine Random Sodium 55 mEq/L Urine Random Urea Nitrogen 187 mg/dl Test 10/02/16 22:32 10/02/16 23:25 10/03/16 01:24 10/03/16 04:14 Sodium Level 130 mmol/L 133 mmol/L Potassium Level 4.5 mmol/L 4.3 mmol/L Chloride Level 92 mmol/L 95 mmol/L Carbon Dioxide Level 30 mmol/L 29 mmol/L Anion Gap 8.0 mmol/L 9.0 mmol/L Blood Urea Nitrogen 48 mg/dl 47 mg/dl Creatinine 3.10 mg/dl 2.80 mg/dl Est Creatinine Clear Calc Drug Dose 17.1 ml/min 18.9 ml/min Estimated GFR () 21.0 23.8 Estimated GFR (Non- 18.1 20.5 BUN/Creatinine Ratio 15.4 16.9 Random Glucose 227 mg/dl 144 mg/dl Calcium Level 8.6 mg/dl 8.3 mg/dl Bedside Glucose 222 mg/dl 116 mg/dl Test 10/03/16 06:05 10/03/16 06:55 10/03/16 11:07 White Blood Count 6.48 K/uL Red Blood Count 2.94 M/uL Hemoglobin 8.8 g/dL Hematocrit 25.3 % Mean Corpuscular Volume 86.1 fL Mean Corpuscular Hemoglobin 29.9 pg Mean Corpuscular Hemoglobin Concent 34.8 g/dl RDW Standard Deviation 42.4 fL RDW Coefficient of Variation 13.3 % Platelet Count 219 K/uL Mean Platelet Volume 9.1 fL Sodium Level 133 mmol/L Potassium Level 4.4 mmol/L Chloride Level 98 mmol/L Carbon Dioxide Level 28 mmol/L Anion Gap 7.0 mmol/L Blood Urea Nitrogen 46 mg/dl Creatinine 2.80 mg/dl Est Creatinine Clear Calc Drug Dose 19.0 ml/min Estimated GFR () 23.8 Estimated GFR (Non- 20.5 BUN/Creatinine Ratio 16.4 Random Glucose 113 mg/dl Estimated Average Glucose 217 mg/dl Hemoglobin A1c 9.2 % Calcium Level 8.5 mg/dl Magnesium Level 1.7 mg/dl Bedside Glucose 121 mg/dl 161 mg/dl Impression Patient is a 80 year old male admitted worsening renal function, hyperkalemia, hypokalemia, hyperglycemia, progressive dysphagia and weight loss. Was already scheduled for PEG placement for the dysphagia on 10/14/16, though will try to achieve this while he's admitted. Plan - OK for MS or puree diet - Desizing Pad Operator eval - Obtain CT abd/pelvis w PO contrast only given hx of pancreatic ca and weight loss. - Hold Xarelto; need off x 5 days before PEG placement - Tenatively schedule him for PEG placement on 10/09, NPO after midnight before this procedure and will need premed w Ancef 1g IV (ordered) - He was requesting for parenteral nutrition, though I discussed w him the risk of bacteremia, further electrolyte derangements w TPN use. Would favor deferring this route of nutrition as PEG placement is already planned for next week.
--- NOTE | 2016-10-03 16:46 | DIAGNOSTIC IMAGING REPORT ---
CT OF THE ABDOMEN AND PELVIS WITH ORAL CONTRAST ONLY CLINICAL HISTORY: Weight loss and hyponatremia. Whipple procedure. COMPARISON STUDY: CT of the abdomen and pelvis September 04, 2014. TECHNIQUE: Axial images of the abdomen and pelvis were obtained without IV contrast. Oral contrast was administered. FINDINGS: Visualized portions of the lower chest demonstrate a small right pleural effusion with pleural calcification. This is unchanged since CT of September 04, 2014 and is likely chronic. Evaluation of the abdomen and pelvis is suboptimal on this unenhanced exam. Pneumobilia is noted which is expected following Whipple procedure. There is no evidence for a bowel obstruction. Evaluation of the liver is suboptimal on this unenhanced exam but no hepatic lesions are identified. There is reflux of contrast into the biliary tree which is not unexpected. Unenhanced images of the spleen, adrenal glands and kidneys are unremarkable. There is no hydronephrosis. Note is made of a 3.8 x 1.9 cm mass located anterior to the inferior vena cava just below the level of the right renal vein. This is shown on axial image 171 of 466. Note is also made of a 1.1 cm nodule located anterior to the right psoas muscle shown image 272. There is extensive sigmoid diverticulosis without evidence for acute diverticulitis. A left hip arthroplasty is noted. There is no pneumatosis, free air or portal venous gas. No suspicious skeletal lesions are present. There is partial ankylosis of the sacroiliac joints. IMPRESSION: 1. 3.8 x 1.9 cm mass located anterior to the inferior vena cava, just below level of the right renal vein. This is suspicious for neoplastic process. 2. Indeterminate 1.1 cm nodule located anterior to the right psoas muscle. 3. Status post Whipple procedure. No bowel obstruction. 4. Left colon diverticulosis without evidence for acute diverticulitis. Electronically signed by: Fabián Hutson M.D. 10/03/2016 4:44 PM Dictated Date/Time: 10/03/2016 4:18 PM
[2016-10-03] MEDS: BOOST GLUCOSE CONTROL PO SCH ×2 (17:00→20:47)
[2016-10-03] MEDS ORDERED: INSULIN GLARGINE SOLOSTAR 100 UNITS/ML 3 ML PEN SC SCH (21:00)
[2016-10-04] VITALS: O2SAT 98
[2016-10-04] MEDS: GLUCOSE 10 TABS/TUBE PO PRN ×2 (02:20→02:40)
[2016-10-04 04:00] VITALS: O2SAT 97
[2016-10-04 04:12] VITALS: BP 118/70; PULSE 100; TEMP 36.6; O2SAT 97
[2016-10-04] MEDS: SODIUM CHLORIDE 0.9% 1000ML 1,000 ML IV SCH (05:54)
[2016-10-04 06:45] LABS: BASO % 0.4 %; BASO ABS # 0.03 K/uL (0-0.2); HEMATOCRIT 23.8 % (42-52); IG% 0.4 %; LYMPH % 10.5 %; LYMPH ABS # 0.72 K/uL (1.2-3.4); MEAN CORPUSCULAR HGB CONC 35.3 g/dl (32-36); MEAN PLATELET VOLUME 8.3 fL (7.4-10.4); MONO % 8.9 %; NEUT % 78.8 %; PLATELET COUNT 207 K/uL (130-400); WHITE BLOOD COUNT 6.88 K/uL (4.8-10.8)
[2016-10-04] MEDS ORDERED: INSULIN ASPART 100 UNITS/ML 3 ML PEN SC SCH ×2 (07:00)
[2016-10-04 07:20] LABS: BUN/CREATININE RATIO 15.2 (10-20); CALCIUM 8.2 mg/dl (8.5-10.1); CREATININE 2.4 mg/dl (0.60-1.40); MAGNESIUM 1.6 mg/dl (1.8-2.4); POTASSIUM 4.7 mmol/L (3.5-5.1)
[2016-10-04 07:22] VITALS: BP 145/78; PULSE 84; TEMP 36.7; O2SAT 97
[2016-10-04 07:34] LABS: COMPLETE YES; POIKILOCYTOSIS PRESENT
[2016-10-04 07:41] LABS: FERRITIN 139.9 ng/ml (8.0-388.0); PHOSPHORUS 3.2 mg/dl (2.5-4.9); THYROID STIMULATING HORMONE 1.51 uIu/ml (0.300-4.500)
[2016-10-04] MEDS: ALBUMIN HUMAN 25% 12.5 GM/50 ML VIAL IV SCH (07:53)
[2016-10-04] MEDS: PANTOprazole SOD 40 MG TAB PO SCH (07:53)
[2016-10-04] MEDS: BOOST GLUCOSE CONTROL PO SCH (07:54)
[2016-10-04] MEDS: METOPROLOL SUCC 50MG EXT REL TAB PO SCH (07:54)
[2016-10-04] MEDS ORDERED: MAGNESIUM OXIDE 400 MG TAB PO ONE (09:45)
--- NOTE | 2016-10-04 09:49 | Progress Note ---
Internal Med Progress Note Date of Service: Oct 04, 2016. Provider Documentation: SUBJECTIVE: Seen and examined at bedside. States feeling well and eager to get discharged. Family at bedside. Denies chest pain, SOB, abdominal pain. OBJECTIVE: Vital Signs-as noted below Physical Exam: General Appearance:Thin, frail, no apparent distress Head: normocephalic, Atraumatic Eyes: normal inspection, EOMI, PERRL Neck: supple, Trachea midline Respiratory/Chest: Diminished breath sounds, CTA Cardiovascular: Irregularly irregular, No murmur Abdomen/GI:Soft, Non tender, Bowel sounds present Extremities/Musculoskelatal:normal inspection, no edema Neurologic/Psych:AAOX3, grossly no focal neurological deficits Skin: normal color, warm Lab data as noted below. ASSESSMENT & PLAN: Patient is 80 yr male with progressive dysphagia and weight loss admitted for BRANDI and hyponatremia. Hypertonic Hyponatremia: Secondary to elevated glucose. Serum sodium is 134 Continue IV fluids per Nephrology Monitor sodium levels Nephrology following TSH: normal BRANDI on CKD III Likely secondary to over diuresis and poor PO intake Diuretics recently increased for leg edema baseline cr 2.0 Cr: 3.3 >>>2.8 >>>2.4 Hold Lasix for now Monitor renal function Albumin per Nephrology to improve intravascular volume Continue IV fluids Discussed with today: cleared for discharge. Hypomagnesemia: Will replace and monitor Severe Protein Calorie Malnutrition Progressive Dysphagia with weight loss: Recently evaluated at [facility] (Family reports it neuromuscular cause and reports no treatment available) Planning Consultant and GI consulted for assistance with appropriate intake CT abd; 3.8 x 1.9 cm mass located anterior to the inferior vena cava, just below level of the right renal vein which is suspicious for neoplastic process. Discussed with today:Cleared for discharge and GI will plan to arrange for PEG placement as outpatient and contact patient with the date of procedure. H/O pancreatic cancer s/p Whipple's in 2001: Family reports had multiple PET scans recently which were negative for any activity Follow up with your oncologist as outpatient DM II: Uncontrolled secondary to diet (limited options secondary to dysphagia) ISS/Lantus Consult placed to inpatient glycemic pharmacist A1C:9.2 Ecchymosis 2/2 thin skin with multiple areas on arms requiring light bandage. Pt on anticoagulation Wound care consulted Atrial fibrillation: chronic, on Xarelto for stroke prophylaxis and metoprolol for rate control. Xarelto on hold currently for PEG tube placement HTN: controlled continue current meds. Chronic Anemia: likely multifactorial. monitor No active bleeding DVT Px: Xarelto on hold for now Code Status: Full Code Disposition: Follow up with your primary care doctor Dr.Manisha Donaldson on October 09 at 11: 05AM Follow up with clinical project coordinator for PEG tube placement as advised Get Blood test (Basic Metabolic Panel) in 1 week and follow up with with results. Follow up with your Oncologist as outpatient as advised. Follow up with your Mold Technician in 1 month. Seek immediate medical attention if your symptoms reoccur or worsen Hold Xarelto for now. Hold Xarelto for 5 days prior to procedure for PEG tube placement as advised. PROCEDURES: CT ABD: 1. 3.8 x 1.9 cm mass located anterior to the inferior vena cava, just below level of the right renal vein. This is suspicious for neoplastic process. 2. Indeterminate 1.1 cm nodule located anterior to the right psoas muscle. 3. Status post Whipple procedure. No bowel obstruction. 4. Left colon diverticulosis without evidence for acute diverticulitis. Vital Signs: Date Time Temp Pulse Resp B/P (MAP) Pulse Ox O2 Delivery O2 Flow Rate FiO2 10/04/16 08:04 Room Air 10/04/16 07:22 36.7 84 18 145/78 (100) 97 Room Air 10/04/16 04:12 36.6 100 22 118/70 (86) 97 Room Air 10/04/16 04:00 97 Room Air 10/04/16 00:00 98 Room Air 10/03/16 23:32 36.9 89 22 119/64 (82) 98 Room Air 10/03/16 20:00 99 Room Air 10/03/16 19:33 36.4 89 18 173/102 (125) 99 Room Air 10/03/16 16:05 Room Air 10/03/16 15:13 36.4 84 18 184/93 (123) 99 Room Air 10/03/16 12:03 Room Air 10/03/16 11:05 36.5 90 20 154/80 (104) 97 Room Air Lab Results: Results Past 24 Hours Test 10/03/16 11:07 10/03/16 16:05 10/03/16 20:17 10/03/16 23:05 Range/Units Bedside Glucose 161 362 392 155 70-99 mg/dl Test 10/04/16 00:27 10/04/16 02:03 10/04/16 02:25 10/04/16 02:43 Range/Units Bedside Glucose 95 86 93 163 70-99 mg/dl Test 10/04/16 04:06 10/04/16 06:27 10/04/16 06:48 Range/Units Bedside Glucose 307 216 70-99 mg/dl White Blood Count 6.88 4.8-10.8 K/uL Red Blood Count 2.80 4.7-6.1 M/uL Hemoglobin 8.4 14.0-18.0 g/dL Hematocrit 23.8 42-52 % Mean Corpuscular Volume 85.0 80-100 fL Mean Corpuscular Hemoglobin 30.0 25-34 pg Mean Corpuscular Hemoglobin Concent 35.3 32-36 g/dl Platelet Count 207 130-400 K/uL Mean Platelet Volume 8.3 7.4-10.4 fL Neutrophils (%) (Auto) 78.8 % Lymphocytes (%) (Auto) 10.5 % Monocytes (%) (Auto) 8.9 % Eosinophils (%) (Auto) 1.0 % Basophils (%) (Auto) 0.4 % Neutrophils # (Auto) 5.42 1.4-6.5 K/uL Lymphocytes # (Auto) 0.72 1.2-3.4 K/uL Monocytes # (Auto) 0.61 0.11-0.59 K/uL Eosinophils # (Auto) 0.07 0-0.5 K/uL Basophils # (Auto) 0.03 0-0.2 K/uL RDW Standard Deviation 41.3 36.4-46.3 fL RDW Coefficient of Variation 13.2 11.5-14.5 % Immature Granulocyte % (Auto) 0.4 % Immature Granulocyte # (Auto) 0.03 0.00-0.02 K/uL Poikilocytosis PRESENT Sodium Level 134 136-145 mmol/L Potassium Level 4.7 3.5-5.1 mmol/L Chloride Level 100 98-107 mmol/L Carbon Dioxide Level 27 21-32 mmol/L Anion Gap 7.0 3-11 mmol/L Blood Urea Nitrogen 37 7-18 mg/dl Creatinine 2.40 0.60-1.40 mg/dl Est Creatinine Clear Calc Drug Dose 23.7 ml/min Estimated GFR () 28.7 Estimated GFR (Non- 24.7 BUN/Creatinine Ratio 15.2 10-20 Random Glucose 206 70-99 mg/dl Calcium Level 8.2 8.5-10.1 mg/dl Phosphorus Level 3.2 2.5-4.9 mg/dl Magnesium Level 1.6 1.8-2.4 mg/dl Iron Level 51 35-175 mcg/dl Total Iron Binding Capacity 181 250-450 mcg/dl Transferrin 142 200-360 mg/dl Transferrin % Saturation 26 20-50 % Ferritin 139.9 8.0-388.0 ng/ml Thyroid Stimulating Hormone (TSH) 1.510 0.300-4.500 uIu/ml
[2016-10-04 10:50] VITALS: BP 169/90; PULSE 78; TEMP 36.5; O2SAT 99
[2016-10-04] MEDS ORDERED: FURO80TA63 PO (10:50)
[2016-10-04] MEDS ORDERED: PRT40 PO (10:50)
--- NOTE | 2016-10-04 10:53 | Discharge Summary ---
Discharge Summary Date of Service Oct 04, 2016. Discharge Summary Admission Date: Oct 02, 2016 at 20:27 Discharge Date: Oct 04, 2016 Discharge Disposition: Home with services Principal Diagnosis: BRANDI, Hyponatremia, Dysphagia Procedures: CT ABD: 1. 3.8 x 1.9 cm mass located anterior to the inferior vena cava, just below level of the right renal vein. This is suspicious for neoplastic process. 2. Indeterminate 1.1 cm nodule located anterior to the right psoas muscle. 3. Status post Whipple procedure. No bowel obstruction. 4. Left colon diverticulosis without evidence for acute diverticulitis. Consultations: GI, Nephrology Pending Studies/Follow-Up: Follow up with your primary care doctor Dr.Manisha Donaldson on October 09 at 11: 05AM Follow up with twister tender for PEG tube placement as advised Get Blood test (Basic Metabolic Panel) in 1 week and follow up with with results. Follow up with your Oncologist as outpatient as advised. Follow up with your Seam Rubbing Machine Operator in 1 month. Seek immediate medical attention if your symptoms reoccur or worsen Hold Xarelto for now. Hold Xarelto for 5 days prior to procedure for PEG tube placement as advised. Medication Reconciliation New Medications: Pantoprazole (Pantoprazole Sodium) 40 Mg Tab 40 MG PO QAM for 30 Days, #30 TAB Changed Medications: Furosemide (Lasix) 80 Mg Tab 40 MG PO BID for 30 Days, #30 TAB (Changed from: 80 MG) Continued Medications: Cholecalciferol (Vitamin D) 5,000 Unit Tab 1 TAB PO QAM Clonidine Hcl (Clonidine Hcl) 0.3 Mg/24 Hr Dis 1 PATCH TD WK Hydralazine HCl (Hydralazine HCl) 100 Mg Tab 150 MG PO BID Hyoscyamine Sulfate (Hyoscyamine Sulfate) 0.125 Mg Tab 1 TAB PO PRN Insulin Glargine (Lantus) 100 Unit/Ml Inj 15 UNITS SC QPM Insulin Lispro (Human) (Humalog) 100 Unit/Ml Inj 1 DOSE SC SLIDING SCALE 201-250 = 2UNITS 251-300 = 4UNITS 301-350 = 6UNITS 351-400 = 8UNITS Loperamide Hcl (Imodium) 2 Mg Cap 2 MG PO PRN for Diarrhea, CAP Metoprolol Succinate (Toprol Xl) 200 Mg Tab 200 MG PO QAM, TAB Omeprazole (Prilosec) 40 Mg Cap 40 MG PO DAILYBB, CAP Rivaroxaban (Xarelto) 15 Mg Tab 15 MG PO QPM, TAB Admission Information HPI (per Admitting provider): 80 yo M with prolonged progressive dysphagia and significant weight loss over two years presents to the ER at the advice of his physician for abnormal labwork. He has a history of CKD with a baseline creat around 2 and recent increase to 3.3. He was also found to have a K of 5.3 which is improved to normal today. His sodium has also decreased to 126 from normal levels. Na wsa 139 on 08/28 and 128 yesterday. The patient admits to being significantly undernourished as a result of his limited access to food from dysphagia. He exists on cream soups, milkshakes and other full liquids such as this. He reports drinking 2-3 glasses of water daily and no excessive water intake. He denies any lightheadedness with standing. He denies any nausea, vomiting or diarrhea. He was recently seen in multiple outpatient clinics at [facility] in [place] a couple of weeks ago. The following changes to his medications were made. Lasix was increased to 80mg PO BID (he takes this for h/o lymphedema and chronic leg swelling), Toprol XL was decreased to 200mg daily, digoxin was stopped and lisinopril was also stopped. He doesn't feel well overall but this is no different than over the last two years. He denies any headaches, fevers, chills, shortness of breath, chest pain, abdominal pain, or other symptom at this time. He states the issue with swallowing is structural and that he has no heartburn or problems with types of foods, no IBS. As a result of the cream in his diet, however, he can alternate between diarrhea and constipation. He denies any international travel to [place], [place] or [place] in the past. In the ER, his glucose was also found to be elevated to 430 and he was given 6 units of SQ insulin. He typically takes long and short-acting insulin at home but has been poorly controlled because of his poor diet. Physical Exam (per Admitting): GEN: thin, frail, in no acute distress, alert and appropriate HEENT: NC/AT, PERRL, normal sclerae/conjunctivae, MMM CARDIO: reg rate, S1/2 heard without m/g/r LUNGS: CTA bilaterally, no crackles, rales or wheezes, good diaphragmatic excursion ABD: soft, non-tender, non-distended, no rebound or guarding, +BS EXTREMITY: RP and DP palpable 2+ bilat, no LE swelling or edema, extremities are warm and well-perfused NEURO: CN 2-12 grossly intact, sensation intact throughout MUSC: 5/5 strength throughout, no gross focal deficits, moves all extremities with ease. Can sit up in bed on his own. SKIN: warm and dry Hospital Course Patient is 80 yr male with progressive dysphagia and weight loss admitted for BRANDI and hyponatremia. Hypertonic Hyponatremia: Secondary to elevated glucose. Serum sodium is 134 Continue IV fluids per Nephrology Monitor sodium levels Nephrology following TSH: normal BRANDI on CKD III Likely secondary to over diuresis and poor PO intake Diuretics recently increased for leg edema baseline cr 2.0 Cr: 3.3 >>>2.8 >>>2.4 Hold Lasix for now Monitor renal function Albumin per Nephrology to improve intravascular volume Continue IV fluids Discussed with today: cleared for discharge. Hypomagnesemia: Will replace and monitor Severe Protein Calorie Malnutrition Progressive Dysphagia with weight loss: Recently evaluated at [facility] (Family reports it neuromuscular cause and reports no treatment available) Government Sales Manager and GI consulted for assistance with appropriate intake CT abd; 3.8 x 1.9 cm mass located anterior to the inferior vena cava, just below level of the right renal vein which is suspicious for neoplastic process. Discussed with today:Cleared for discharge and GI will plan to arrange for PEG placement as outpatient and contact patient with the date of procedure. H/O pancreatic cancer s/p Whipple's in 2001: Family reports had multiple PET scans recently which were negative for any activity Follow up with your oncologist as outpatient DM II: Uncontrolled secondary to diet (limited options secondary to dysphagia) ISS/Lantus Consult placed to inpatient glycemic pharmacist A1C:9.2 Ecchymosis 2/2 thin skin with multiple areas on arms requiring light bandage. Pt on anticoagulation Wound care consulted Atrial fibrillation: chronic, on Xarelto for stroke prophylaxis and metoprolol for rate control. Xarelto on hold currently for PEG tube placement HTN: controlled continue current meds. Chronic Anemia: likely multifactorial. monitor No active bleeding DVT Px: Xarelto on hold for now Code Status: Full Code Disposition: Follow up with your primary care doctor Dr.Manisha Donaldson on October 09 at 11: 05AM Follow up with twister tender for PEG tube placement as advised Get Blood test (Basic Metabolic Panel) in 1 week and follow up with with results. Follow up with your Oncologist as outpatient as advised. Follow up with your Seam Rubbing Machine Operator in 1 month. Seek immediate medical attention if your symptoms reoccur or worsen Hold Xarelto for now. Hold Xarelto for 5 days prior to procedure for PEG tube placement as advised. PROCEDURES: CT ABD: 1. 3.8 x 1.9 cm mass located anterior to the inferior vena cava, just below level of the right renal vein. This is suspicious for neoplastic process. 2. Indeterminate 1.1 cm nodule located anterior to the right psoas muscle. 3. Status post Whipple procedure. No bowel obstruction. 4. Left colon diverticulosis without evidence for acute diverticulitis. Total time spent on discharge = 40 minutes This includes examination of the patient, discharge planning, medication reconciliation, and communication with other providers. Discharge Instructions Discharge Instructions Date of Service Oct 04, 2016. Admission Reason for Admission: Hyponatremia Discharge Discharge Diagnosis / Problem: BRANDI, Hyponatremia, Dysphagia Discharge Goals Goal(s): Decrease discomfort, Improve function Activity Recommendations Activity Limitations: resume your previous activity Exercise/Sports Limitations: as tolerated . Instructions / Follow-Up Instructions / Follow-Up Follow up with your primary care doctor Dr.Manisha Donaldson on October 09 at 11: 05AM Follow up with twister tender for PEG tube placement as advised Get Blood test (Basic Metabolic Panel) in 1 week and follow up with with results. Follow up with your Oncologist as outpatient as advised. Follow up with your Seam Rubbing Machine Operator in 1 month. Seek immediate medical attention if your symptoms reoccur or worsen Hold Xarelto for now. Hold Xarelto for 5 days prior to procedure for PEG tube placement as advised. Current Hospital Diet Patient's current hospital diet: Diabetes Type 2 Diet Discharge Diet Recommended Diet: Diabetes Type 2 Diet Diet Texture: Mechanical Soft (ground) Pending Studies Studies pending at discharge: no Laboratory Results Hemoglobin A1c Test 10/03/16 06:05 Range/Units Estimated Average Glucose 217 mg/dl Hemoglobin A1c 9.2 H 4.5-5.6 % Medical Emergencies . Who to Call and When: Medical Emergencies: If at any time you feel your situation is an emergency, please call 911 immediately. . Non-Emergent Contact Non-Emergency issues call your: Primary Care Provider, Band Teacher Call Non-Emergent contact if: you have a fever, your pain is not controlled, your pain is worsening, your pain is unusual for you, wound has increased pain If your symptoms reoccur or worsen. . "Provider Documentation" section prepared by Navjot White. . VTE Core Measure Inpt VTE Proph given/why not?: Other Anticoagulation (Xarelto)
[2016-10-04 11:06] VITALS: BP 169/90; PULSE 78; TEMP 36.5; O2SAT 99
[2016-10-06] MEDS ORDERED: PRLSR20 PO (14:54)
[2016-10-06] MEDS ORDERED: HYDR-4717 PO (14:54)
[2016-10-06] MEDS ORDERED: RIVA1.5T PO (14:54)
[2016-10-06] MEDS ORDERED: FRS/40 PO (14:54)
[2016-10-06] MEDS ORDERED: TYLC/3 PO (14:54)
[2016-10-09] MEDS ORDERED: CEFAZOLIN SOD 1000MG/55 ML D5W IV SCH (07:00)
== END 2016-10-04 11:27 | disposition home or self-care (01) | DRG 682 ==
LOC: C.EDB 16:55 → C.2T 20:27 → ENRESERV 20:39
PROVIDERS: ADMIT Hospitalist; ATTEND Internal Medicine
DX: N17.9 Acute kidney failure, unspecified (principal); E43 Unspecified severe protein-calorie malnutrition; E87.1 Hypo-osmolality and hyponatremia; I12.9 Hypertensive chronic kidney disease with stage 1 through stage 4 chronic kidney disease, or unspecified chronic kidney disease; I48.91 Unspecified atrial fibrillation; N18.3 Chronic kidney disease, stage 3 (moderate); F32.9 Major depressive disorder, single episode, unspecified; E11.9 Type 2 diabetes mellitus without complications; D64.9 Anemia, unspecified; Z85.07 Personal history of malignant neoplasm of pancreas; Z87.891 Personal history of nicotine dependence

== ENCOUNTER → 2016-10-08 | Day surgery (SDC) | payer OTHER, MEDICARE ==
[2016-10-06 14:55] VITALS: BMI 19.0
[~2016-10-08] VITALS: Ht 180.3 cm; Wt 62.7 kg
[~2016-10-08] MED LIST changes: -APR25 PO; -ATOR10TA88 PO; -CLON0.1T12 PO; +CLON0.3D5 TOP; -DIGO0.122 PO; +FRS/40 PO; -FURO-85 PO; -HMLI SC; +HYDR-4717 PO; +IMD/2 PO; +INSDGI SC; +INSU100I SC; -INSUINJ4 SQ; -LISI-729 PO; +LVS125 PO; -NIAC500T7 PO; -OMEP40CA PO; +PRLSR20 PO; +TYLC/3 PO
[2016-10-08 08:55] VITALS: BP 160/93; PULSE 89; TEMP 36.5; O2SAT 99; Ht 180.3 cm; Wt 62.7 kg
--- NOTE | 2016-10-08 10:11 | Anesthesiology Progress Note ---
Anesthesia Progress Note Date of Service Oct 08, 2016. Progress Notes The procedure was cancelled by Dr. Ospina because he was concerned about the patient's abdominal mass.
== END | disposition home or self-care (01) ==
LOC: C.GI 08:34
PROVIDERS: ATTEND Internal Medicine Gastroenterology
DX: Z53.09 Procedure and treatment not carried out because of other contraindication (principal); R13.10 Dysphagia, unspecified

== ENCOUNTER 2016-10-15 11:53 | Day surgery (SDC) | payer OTHER, MEDICARE ==
[~2016-10-15] VITALS: Ht 180.3 cm; Wt 65.9 kg
[~2016-10-15 11:53] MED LIST changes: +CEFAZOLIN 1000MG/55 ML D5W IV SCH; -CHOL1TAB42 PO; -CLON0.3D5 TOP; -FRS/40 PO; -HYDR-4717 PO; -IMD/2 PO; -INSDGI SC; -INSU100I SC; +LACTATED RINGER'S 1000ML 1,000 ML IV ONE; -LVS125 PO; -METO1TAB70 PO; -PRLSR20 PO; -RIVA1.5T PO; +SODIUM CHLORIDE 0.9% 1000ML 1,000 ML IV SCH; -TYLC/3 PO
--- NOTE | 2016-10-15 12:18 | Endo History and Physical ---
History & Physical Date of Service: Oct 15, 2016. Chief Complaint: Dysphagia and an abnormal CT Referring Physician: Dr. Esther Donaldson History of Present Illness 80 year old male with a prior hx of pancreatic cancer s/p pyloric sparring whipple for EUS and EGD with PEG placement today. The patient has a history of progressive solid / liquid dysphagia of unclear etiology nonresponive to medical therapy or esophageal dilation. Patient seen at [facility] recently who suggest a feeding tube due to progressive weight loss and lack of a reversible etiology to his symptoms. A recent CT did show a nonspecific mass in the right quadrant (? tumor recurrance or post-surgical changes). Past Medical History Atrial Fibrillation, Diabetes, Eating Disorders, Fractures, Cancer, High Cholesterol, Hypertension, Kidney Disease, CVA/TIA Pancreatic Cancer (s/p Whipple) Past Surgical History Hx Cardiac Surgery: No Hx Internal Defibrillator: No Hx Pacemaker: No Hx Abdominal Surgery: Yes (WHIPPLE PROCEDURE, APPENDECTOMY) Hx Post-Op Nausea and Vomiting: No Hx Cancer Surgery: Yes (MULTIPLE MOHS PROCEDURE,WHIPPLE PRODECURE) Hx Thoracic Surgery: No Hx Orthopedic: Yes (L HIP RESURFACING) Hx Urinary Tract Surgery: No Whipple procedure (Pylorus sparring) Appendectomy Umbilcal hernia repair Social History Smoking Status: Former Smoker Hx Substance Use: No Hx Alcohol Use: Yes (OCCASIONALLY) Allergies Coded Allergies: No Known Allergies (Verified , 10/15/16) Current Medications Reported Home Medications Medications Dose Route/Sig Max Daily Dose Days Date Category Dose Instructions Xarelto (Rivaroxaban) 15 Mg Tab 15 Mg PO HS 10/06/16 Reported PER PT WAS INSTRUCTED TO STOP 10/12/16 BEFORE SURG Prilosec (Omeprazole) 20 Mg Capcr 20 Mg PO QAM 10/06/16 Reported Acetaminophen/Codeine (Acetaminophen W/ Codeine) 1 Tab Tab 1 Tab PO Q4H PRN 10/06/16 Reported Apresoline (Hydralazine Hcl) 50 Mg Tab 3 Tab PO BID 10/06/16 Reported Lasix (Furosemide) 40 Mg Tab 40 Mg PO QAM 10/06/16 Reported Hyoscyamine Sulfate 0.125 Mg Tab 1 Tab PO 10/02/16 Reported PRN Imodium (Loperamide HCl) 2 Mg Cap 2 Mg PO PRN 10/02/16 Reported Humalog (Insulin Lispro (Human)) 100 Unit/Ml Inj 1 Dose SC DIRECTED 10/02/16 Reported SLIDING SCALE 201-250 = 2UNITS 251-300 = 4UNITS 301-350 = 6UNITS 351-400 = 8UNITS Clonidine Hcl 0.3 Mg/24 Hr Dis 1 Patch TD WK 10/02/16 Reported Lantus (Insulin Glargine) 100 Unit/Ml Inj 15 Units SC QPM 10/02/16 Reported WILL ADJUST PER BSG Toprol Xl (Metoprolol Succinate) 200 Mg Tab 200 Mg PO QAM 10/10/15 Reported Vitamin D (Cholecalciferol) 5,000 Unit Tab 1 Tab PO QAM 10/10/15 Reported Vital Signs Weight (Kilograms): 65.91 Height (Feet): 5 Height (Inches): 11 Physical Exam General Appearance: no apparent distress Respiratory/Chest: Auscultation: breath sounds normal Cardiovascular: Heart Auscultation: II/ YANET, pertinent finding (irregular (history of a fib)) Abdomen: Inspection & Palpation: soft Assessment and Plan Patient for EUS / EGD with PEG today. We have discussed the risks to include perforation, pain, infection, peritonitis, insufficient cellularity and need for follow--up studies.
[2016-10-15 12:31] VITALS: BP 154/75; PULSE 97; TEMP 36.5; O2SAT 97; Ht 180.3 cm; Wt 65.9 kg
[2016-10-15] MEDS ORDERED: LIDOCAINE HCL 2% 2 ML VIAL (20MG/ML) ONE (13:25)
[2016-10-15] MEDS ORDERED: PROPOFOL IV EMULSION 10 MG/ML 20 ML VIAL IV ONE (13:25)
[2016-10-15] MEDS ORDERED: FENTANYL CITRATE INJ 50 MCG/1 ML 2 ML VIAL ONE (13:25)
[2016-10-15 13:31] LABS: BUN/CREATININE RATIO 13.9 (10-20); CALCIUM 9.1 mg/dl (8.5-10.1); CREATININE 2.6 mg/dl (0.60-1.40); POTASSIUM 4.5 mmol/L (3.5-5.1)
[2016-10-15] MEDS ORDERED: MIDAZOLAM HCL 1 MG/ML 2ML VIAL ONE (13:52)
[2016-10-15] MEDS ORDERED: ESMOLOL HCL 10 MG/ML 10 ML VIAL ONE (14:28)
[2016-10-15] MEDS ORDERED: PHENYLEPHRINE HCL INJ 10 MG/ML VIAL ONE (14:28)
[2016-10-15] MEDS ORDERED: LABETALOL HCL IV 5 MG/ML 20ML IV ONE (14:28)
--- NOTE | 2016-10-15 14:42 | GI REPORT ---
Procedure Date: 10/15/2016 1:37 PM Procedure: Upper GI endoscopy Indications: Place PEG due to impaired swallowing Medicines: Monitored Anesthesia Care, Ancef 1000 mg IV Complications: No immediate complications. Estimated blood loss: Minimal. Estimated Blood Loss: Estimated blood loss was minimal. Procedure: Pre-Anesthesia Assessment: - Prior to the procedure, a History and Physical was performed, and patient medications, allergies and sensitivities were reviewed. The patient's tolerance of previous anesthesia was reviewed. - The risks and benefits of the procedure and the sedation options and risks were discussed with the patient. All questions were answered and informed consent was obtained. - Patient identification and proposed procedure were verified prior to the procedure by the physician, the nurse and the car builder. The procedure was verified in the procedure room. - Pre-procedure physical examination revealed no contraindications to sedation. - ASA Grade Assessment: III - A patient with severe systemic disease. - After reviewing the risks and benefits, the patient was deemed in satisfactory condition to undergo the procedure. - The anesthesia plan was to use general anesthesia. - Immediately prior to administration of medications, the patient was re-assessed for adequacy to receive sedatives. - The heart rate, respiratory rate, oxygen saturations, blood pressure, adequacy of pulmonary ventilation, and response to care were monitored throughout the procedure. - The physical status of the patient was re-assessed after the procedure. After obtaining informed consent, the endoscope was passed under direct vision. Throughout the procedure, the patient's blood pressure, pulse, and oxygen saturations were monitored continuously. The Scope was introduced through the mouth, and advanced to the jejunum. The upper GI endoscopy was accomplished without difficulty. The patient tolerated the procedure well. Findings: No endoscopic abnormality was evident in the esophagus to explain the patient's complaint of dysphagia. Diffuse mild inflammation characterized by congestion (edema), erythema and granularity was found in the entire examined stomach. The patient was placed in the supine position for PEG placement. The stomach was insufflated to appose gastric and abdominal rios. A site was located in the body of the stomach with excellent transillumination and manual external pressure for placement. The abdominal wall was marked and prepped in a sterile manner. The area was anesthetized with 5 mL of 1% lidocaine. The trocar needle was introduced through the abdominal wall and into the stomach under direct endoscopic view. A snare was introduced through the endoscope and opened in the gastric lumen. The guide wire was passed through the trocar and into the open snare. The snare was closed around the guide wire. The endoscope and snare were removed, pulling the wire out through the mouth. A skin incision was made at the site of needle insertion. The externally removable 20 Fr John-Cook gastrostomy tube was lubricated. The G-tube was tied to the guide wire and pulled through the mouth and into the stomach. The trocar needle was removed, and the gastrostomy tube was pulled out from the stomach through the skin. The external bumper was attached to the gastrostomy tube, and the tube was cut to remove the guide wire. The final position of the gastrostomy tube was confirmed by relook endoscopy, and skin marking noted to be 2 cm at the external bumper. The final tension and compression of the abdominal wall by the PEG tube and external bumper were checked and revealed that the bumper was moderately tight and mildly deforming the skin. The feeding tube was capped, and the tube site cleaned and dressed. Estimated blood loss was minimal. Evidence of a gastroenterostomy was found in the pylorus consistent with his history of a pyloric sparring Whipple procedure. This was characterized by healthy appearing mucosa. The examined jejunum was normal. Impression: - No endoscopic esophageal abnormality to explain patient's dysphagia. - Chronic gastritis - Normal examined jejunum. - An externally removable PEG placement was successfully completed. Recommendation: - Observe patient's clinical course following today's procedure with therapeutic intervention. - Please follow the post-PEG recommendations including: antibiotic ointment to site, change dressing once per day, clean site with soap and water daily and dry thoroughly, NPO x4 hrs then water today and may use PEG tomorrow for feedings. Ibrahima Yanes D.O. Ibrahima Yanes, 10/15/2016 2:42:30 PM This report has been signed electronically. Eriberto Palomo MD Note Initiated On: 10/15/2016 1:37 PM I attest to the content of the Intraoperative Record and orders documented therein, exceptions below
[2016-10-15] MEDS ORDERED: ONDANSETRON INJ 2 MG/ML 2 ML VIAL IV PRN ×2 (14:45→15:00)
[2016-10-15] MEDS ORDERED: FENTANYL CITRATE INJ 50 MCG/1 ML 2 ML VIAL IV PRN (14:45)
[2016-10-15] MEDS ORDERED: ATROPINE SULFATE 0.1 MG/ML 5ML SYR IV PRN (14:45)
--- NOTE | 2016-10-15 14:46 | GI REPORT ---
Procedure Date: 10/15/2016 2:04 PM Procedure: Upper EUS Indications: Suspected mass on abdominal/pelvic CT scan Medicines: General Anesthesia Complications: No immediate complications. Estimated blood loss: Minimal. Estimated Blood Loss: Estimated blood loss was minimal. Procedure: Pre-Anesthesia Assessment: - Prior to the procedure, a History and Physical was performed, and patient medications, allergies and sensitivities were reviewed. The patient's tolerance of previous anesthesia was reviewed. - The risks and benefits of the procedure and the sedation options and risks were discussed with the patient. All questions were answered and informed consent was obtained. - Patient identification and proposed procedure were verified prior to the procedure by the physician, the nurse and the brand marketing intern. The procedure was verified in the procedure room. - Pre-procedure physical examination revealed no contraindications to sedation. - ASA Grade Assessment: III - A patient with severe systemic disease. - After reviewing the risks and benefits, the patient was deemed in satisfactory condition to undergo the procedure. - The anesthesia plan was to use general anesthesia. - Immediately prior to administration of medications, the patient was re-assessed for adequacy to receive sedatives. - The heart rate, respiratory rate, oxygen saturations, blood pressure, adequacy of pulmonary ventilation, and response to care were monitored throughout the procedure. - The physical status of the patient was re-assessed after the procedure. After obtaining informed consent, the endoscope was passed under direct vision. Throughout the procedure, the patient's blood pressure, pulse, and oxygen saturations were monitored continuously. The Endosonoscope was introduced through the mouth, and advanced to the jejunum. The upper EUS was accomplished without difficulty. The patient tolerated the procedure well. Findings: Endosonographic Finding : There was no sign of significant endosonographic abnormality in the left lobe of the liver. Homogeneous parenchyma and no focal pathology were identified. There was no sign of significant endosonographic abnormality in the pancreatic body, in the pancreatic tail and in the main pancreatic duct. No masses, no cysts, the pancreatic duct was thin in caliber. The PD was 1 mm in diameter. No lymphadenopathy seen. There was no sign of significant endosonographic abnormality in the left adrenal gland. No adrenal gland enlargement was identified. Impression: - There was no evidence of significant pathology in the left lobe of the liver. - There was no sign of significant pathology in the pancreatic body, in the pancreatic tail and in the main pancreatic duct. - Endosonographic images of the left adrenal gland were unremarkable. - No mass could be identified as described on the recent CT (likely a result of the patient's post surgical anatomy. Recommendation: - Perform an upper GI endoscopy today. - Perform a PET (positron emission tomography) scan at appointment to be scheduled. - Patient will need to follow-up with his regular oncologist (determine if CT guided biopsy needed) Ibrahima Yanes D.O. Ibrahima Yanes, 10/15/2016 2:46:12 PM This report has been signed electronically. Note Initiated On: 10/15/2016 2:04 PM I attest to the content of the Intraoperative Record and orders documented therein, exceptions below
--- NOTE | 2016-10-15 14:49 | [facility] Post Operative Brief Note ---
Immediate Operative Summary Operative Date Oct 15, 2016. Pre-Operative Diagnosis Dysphagia, Mass seen on CT Post-Operative Diagnosis Gastritis Procedure(s) Performed Esophagogastroduodenoscopy; Upper Endoscopic Ultrasonography; PEG Tube Placement Surgeon Reverberatory Skimmer Surgeon(s) Estimated Blood Loss 5ml Findings Gastritis post pyloric luminal deformity consistent with prior Whipple 20 Fr feeding tube placed. Specimens All specimens handled by Endo staff Drains 20 Fr feeding tube placed Anesthesia MAC Complication(s) None Disposition Recovery Room / PACU
[2016-10-15] MEDS ORDERED: METOPROLOL TARTRATE 1 MG/ML VIAL ONE ×2 (15:06→15:40)
--- NOTE | 2016-10-15 15:18 | Discharge Instructions ---
Endoscopy Patient Instructions Date / Procedure Performed Oct 15, 2016. Percutaneous Endoscopic Gastrotomy (P.E.G) Tube Replacement / Removal Allergy Information Coded Allergies: No Known Allergies (Verified , 10/15/16) Home Medication List Scheduled Cholecalciferol (Vitamin D), 1 TAB PO QAM Clonidine Hcl (Clonidine Hcl), 1 PATCH TD WK Furosemide (Lasix), 40 MG PO BID Hydralazine Hcl (Apresoline), 3 TAB PO BID Insulin Glargine (Lantus), 15 UNITS SC QPM Insulin Lispro (Human) (Humalog), 1 DOSE SC DIRECTED Metoprolol Succinate (Toprol Xl), 200 MG PO QAM Omeprazole (Prilosec), 20 MG PO QAM Rivaroxaban (Xarelto), 15 MG PO HS Scheduled PRN Acetaminophen W/ Codeine (Acetaminophen/Codeine), 1 TAB PO Q4H PRN for Pain Loperamide Hcl (Imodium), 2 MG PO for Diarrhea Miscellaneous Medications Hyoscyamine Sulfate (Hyoscyamine Sulfate), 1 TAB PO Discharge Date / Findings Oct 15, 2016. Mild gastritis Feeding tube placed Medication Instructions Reported Home Medications Medications Dose Route/Sig Max Daily Dose Days Date Category Dose Instructions Xarelto (Rivaroxaban) 15 Mg Tab 15 Mg PO HS 10/06/16 Reported PER PT WAS INSTRUCTED TO STOP 10/12/16 BEFORE SURG Prilosec (Omeprazole) 20 Mg Capcr 20 Mg PO QAM 10/06/16 Reported Acetaminophen/Codeine (Acetaminophen W/ Codeine) 1 Tab Tab 1 Tab PO Q4H PRN 10/06/16 Reported Apresoline (Hydralazine Hcl) 50 Mg Tab 3 Tab PO BID 10/06/16 Reported Lasix (Furosemide) 40 Mg Tab 40 Mg PO BID 10/06/16 Reported Hyoscyamine Sulfate 0.125 Mg Tab 1 Tab PO 10/02/16 Reported PRN Imodium (Loperamide HCl) 2 Mg Cap 2 Mg PO PRN 10/02/16 Reported Humalog (Insulin Lispro (Human)) 100 Unit/Ml Inj 1 Dose SC DIRECTED 10/02/16 Reported SLIDING SCALE 201-250 = 2UNITS 251-300 = 4UNITS 301-350 = 6UNITS 351-400 = 8UNITS Clonidine Hcl 0.3 Mg/24 Hr Dis 1 Patch TD WK 10/02/16 Reported Lantus (Insulin Glargine) 100 Unit/Ml Inj 15 Units SC QPM 10/02/16 Reported WILL ADJUST PER BS[facility] Toprol Xl (Metoprolol Succinate) 200 Mg Tab 200 Mg PO QAM 10/10/15 Reported Vitamin D (Cholecalciferol) 5,000 Unit Tab 1 Tab PO QAM 10/10/15 Reported Provider Instructions Activity Recommendations * Resume regular activity . Diet Recommendations * Liquid diet today. * Advance diet as tolerated. * Before each feeding, aspirate the tube for residual gastric contents. Hold feedings for residual of 50 ml or more. * Elevate the head of the bed during and after feedings for 30-60 minutes . Medication Instructions * Resume usual medications. * Always flush the tube with warm water after administration of medication. Follow-Up Information Follow-up with Dr. [facility] on Thursday for a feeding tube check (1030) Tylenol 3 as needed (for pain) Restart Xarelto and aspirin in 3 days. Anesthesia Information What You Should Know You have had a procedure that required some medicine to reduce anxiety and discomfort. This treatment is called moderate sedation. After receiving the treatment, you may be sleepy, but you will be able to breathe on your own. The effects of the treatment may last for several hours. Follow these instructions along with Activity/Diet recommendations noted above: * Do NOT do anything where dizziness or clumsiness would be dangerous. * Rest quietly at home today, then you can be up and about tomorrow. * Have a responsible person stay with you the rest of today. * You may have had an I.V. today. If so, you may take the dressing off later today. Symptoms Additional Instructions If you experience any of the following symptoms after your procedure seek medical attention at your closest Emergency Room and/or call your primary care physician immediately: * Severe abdominal pain or bloating * Fever greater than 101.1 degrees within 24 hours after the procedure * Uncontrolled nausea and vomiting Avoid all tobacco products. If you need help to stop smoking, call [place] FREE QUIT LINE at [phone]. Your discharge instructions were prepared by provider Ibrahima Yanes. Patient Instructions Signature Page Hayes Li Patient (or Guardian) Signature/Date: I have read and understand the instructions given to me by my caregivers. Caregiver/RN/Doctor Signature/Date: The above-named patient and/or guardian has received patient instructions on this date. + Original Patient Signature Page (only) stays with chart. Please make copy for patient.
--- NOTE | 2016-10-15 16:04 | Anesthesiology Progress Note ---
Anesthesia Post Op Note Date & Time Oct 15, 2016 at 16:02 Vital Signs Pain Intensity: 0 Vital Signs Past 12 Hours Date Time Temp Pulse Resp B/P (MAP) Pulse Ox O2 Delivery O2 Flow Rate FiO2 10/15/16 15:58 99 18 97 10/15/16 15:58 96 18 10/15/16 15:56 137/78 10/15/16 15:53 108 26 95 10/15/16 15:53 107 26 10/15/16 15:51 139/84 10/15/16 15:48 97 20 10/15/16 15:48 94 20 95 10/15/16 15:47 113 16 92 10/15/16 15:47 108 16 10/15/16 15:46 139/87 10/15/16 15:43 103 151/88 10/15/16 15:42 109 15 10/15/16 15:42 109 15 95 10/15/16 15:41 151/88 10/15/16 15:37 107 21 10/15/16 15:37 110 21 94 10/15/16 15:36 143/91 10/15/16 15:35 170/113 10/15/16 15:32 105 26 97 10/15/16 15:32 102 26 10/15/16 15:31 163/105 10/15/16 15:27 113 28 10/15/16 15:27 109 28 96 10/15/16 15:26 149/100 10/15/16 15:23 36.3 100 20 149/100 95 Room Air 10/15/16 15:22 107 32 10/15/16 15:22 108 32 97 10/15/16 15:21 167/86 10/15/16 15:19 155/103 10/15/16 15:17 114 35 10/15/16 15:17 113 35 100 10/15/16 15:16 116 26 10/15/16 15:16 107 26 100 10/15/16 15:15 161/102 10/15/16 15:11 105 36 10/15/16 15:11 115 36 166/105 100 10/15/16 15:11 112 184/126 10/15/16 15:06 109 26 10/15/16 15:06 103 26 184/126 100 10/15/16 15:02 175/93 10/15/16 15:01 84 24 10/15/16 15:01 104 24 99 10/15/16 15:00 114 21 100 10/15/16 15:00 119 21 10/15/16 14:59 154/96 10/15/16 14:56 107 22 146/99 100 10/15/16 14:56 101 22 10/15/16 14:51 116 28 168/96 100 10/15/16 14:51 121 28 10/15/16 14:49 132/103 10/15/16 14:46 100 31 146/107 100 10/15/16 14:46 113 31 10/15/16 14:43 119/90 10/15/16 14:42 152/95 10/15/16 14:41 36.3 107 16 152/95 99 Mask 10 10/15/16 12:31 36.5 97 18 154/75 (101) 97 Room Air Notes Mental Status: alert / awake / arousable, participated in evaluation Pt Amnestic to Procedure: Yes Nausea / Vomiting: adequately controlled Pain: adequately controlled Airway Patency, RR, SpO2: stable & adequate BP & HR: stable & adequate Hydration State: stable & adequate Anesthetic Complications: no major complications apparent Patient required several doses of beta blockade to ensure HR remained in 90's ( 97 preoperatively). A fib is chronic and he denied any symptoms stemming from this. When asked about his HR recently, he stated it has been running high and he is taking increased dose of beta karli at home. Otherwise patient is feeling well and is deemed appropriate for transfer to the next level of recovery.
[2016-10-15 16:18] VITALS: BP 140/81; PULSE 100; TEMP 36.8; O2SAT 96
[2016-10-16] MEDS ORDERED: CEFAZOLIN IV 1,000 MG in DEXTROSE 5% 50ML 50 ML IV SCH (06:00)
[2016-10-29] MEDS ORDERED: TYLC/3 PO (14:54)
[2016-10-29] MEDS ORDERED: HYDR-4717 PO (14:54)
[2016-10-29] MEDS ORDERED: PRLSR20 PO ×2 (14:54→18:28)
[2016-10-29] MEDS ORDERED: FRS/40 PO ×2 (14:54→16:15)
[2016-10-29] MEDS ORDERED: RIVA1.5T PO (14:54)
== END 2016-10-15 16:55 | disposition home or self-care (01) ==
LOC: C.ACU 11:53
PROVIDERS: ATTEND Internal Medicine Gastroenterology
DX: R13.10 Dysphagia, unspecified (principal); I48.91 Unspecified atrial fibrillation; E11.9 Type 2 diabetes mellitus without complications; E78.00 Pure hypercholesterolemia, unspecified; Z86.73 Personal history of transient ischemic attack (TIA), and cerebral infarction without residual deficits; N18.9 Chronic kidney disease, unspecified; Z85.07 Personal history of malignant neoplasm of pancreas; Z90.89 Acquired absence of other organs; Z87.891 Personal history of nicotine dependence; R63.4 Abnormal weight loss; Z79.4 Long term (current) use of insulin; I10 Essential (primary) hypertension

== ENCOUNTER 2016-10-29 15:19 | Inpatient (IN) | payer OTHER, MEDICARE ==
[~2016-10-29] VITALS: Ht 180.3 cm; Wt 65.4 kg
[~2016-10-29 15:19] MED LIST changes: -CEFAZOLIN 1000MG/55 ML D5W IV SCH; +FRS/40 PO; +HYDR-4717 PO; -LACTATED RINGER'S 1000ML 1,000 ML IV ONE; +PRLSR20 PO; +RIVA1.5T PO; -SODIUM CHLORIDE 0.9% 1000ML 1,000 ML IV SCH; +TYLC/3 PO
[2016-10-29] MEDS ORDERED: SODIUM CHLORIDE 0.9% 1000ML 1,000 ML IV STA (15:27)
[2016-10-29] MEDS ORDERED: CHOL1TAB42 PO (15:32)
[2016-10-29] MEDS ORDERED: METO1TAB70 PO (15:32)
[2016-10-29] MEDS ORDERED: FRS/40 PO (16:15)
[2016-10-29 16:24] LABS: BASO % 0.1 %; BASO ABS # 0.01 K/uL (0-0.2); COMPLETE YES; EOS % 0.7 %; HEMATOCRIT 26.1 % (42-52); IG% 0.5 %; LYMPH % 6.5 %; LYMPH ABS # 0.56 K/uL (1.2-3.4); MEAN CELL VOLUME 82.3 fL (80-100); MEAN CORPUSCULAR HEMOGLOBIN 30.6 pg (25-34); MEAN CORPUSCULAR HGB CONC 37.2 g/dl (32-36); MEAN PLATELET VOLUME 9.4 fL (7.4-10.4); MONO % 7.1 %; NEUT % 85.1 %; PLATELET COUNT 262 K/uL (130-400); RED BLOOD COUNT 3.17 M/uL (4.7-6.1); WHITE BLOOD COUNT 8.58 K/uL (4.8-10.8)
[2016-10-29 16:36] LABS: PARTIAL THROMBOPLASTIN RATIO 1.1; PROTHROMBIN TIME (PATIENT) 10.3 SECONDS (9.0-12.0)
[2016-10-29 16:44] LABS: ALT/SGPT 23 U/L (12-78); BLOOD UREA NITROGEN 44 mg/dl (7-18); BUN/CREATININE RATIO 16.1 (10-20); CALCIUM 8.5 mg/dl (8.5-10.1); CARBON DIOXIDE 29 mmol/L (21-32); CHLORIDE 78 mmol/L (98-107); GLUCOSE 333 mg/dl (70-99); MAGNESIUM 2.2 mg/dl (1.8-2.4); POTASSIUM 4.3 mmol/L (3.5-5.1); SODIUM 116 mmol/L (136-145)
[2016-10-29 16:51] LABS: ALKALINE PHOSPHATASE 241 U/L (45-117); AST/SGOT 21 U/L (15-37); CKMB/CK RATIO 2.9 (0-3.0)
[2016-10-29 16:59] LABS: BETA-HYDROXYBUTYRATE 1.98 mg/dL (0.2-2.81)
[2016-10-29 17:22] LABS: URINE APPEARANCE CLEAR (CLEAR); URINE BILIRUBIN NEG (NEG); URINE COLOR YELLOW; URINE NITRITE NEG (NEG); URINE PH 6.5 (4.5-7.5); URINE SPECIFIC GRAVITY 1.014 (1.000-1.030); UROBILINOGEN NEG (NEG)
[2016-10-29 17:23] LABS: MANUAL MICROSCOPIC REQUIRED? NO; REVIEW REQ? NO
[2016-10-29 17:58] VITALS: BMI 20.4
[2016-10-29] MEDS ORDERED: CLON0.3D5 TOP (17:58)
[2016-10-29] MEDS ORDERED: INSDGI SC (17:58)
[2016-10-29] MEDS ORDERED: ALUMINUM/MAGNESIUM/SIMETH (MAALOX MAX) 30 ML UDC PO PRN (18:00)
[2016-10-29] MEDS ORDERED: ACETAMINOPHEN/CODEINE 300/30MG TAB PO PRN (18:00)
[2016-10-29] MEDS ORDERED: ONDANSETRON INJ 2 MG/ML 2 ML VIAL IV PRN (18:00)
[2016-10-29] MEDS ORDERED: ACETAMINOPHEN 325 MG TAB PO PRN (18:00)
[2016-10-29] MEDS ORDERED: LOPERAMIDE HCL 2 MG CAP PO PRN (18:00)
[2016-10-29] MEDS ORDERED: NITROGLYCERIN 0.4 MG SL PER TAB CHARGE SL PRN (18:00)
[2016-10-29] MEDS ORDERED: INSU100I SC (18:01)
[2016-10-29] MEDS ORDERED: IMD/2 PO (18:01)
[2016-10-29] MEDS ORDERED: LVS125 PO (18:01)
[2016-10-29] MEDS ORDERED: PRLSR20 PO (18:28)
--- NOTE | 2016-10-29 18:29 | EMERGENCY ROOM VISIT NOTE ---
History Report prepared by Ofe: Heavenly Desai Under the Supervision of: Dr. Scott Doherty M.D. First contact with patient: 15:26 Chief Complaint: ABNORMAL LABS Stated Complaint: LOW SODIUM History of Present Illness The patient is a 80 year old male who presents to the Emergency Room with complaints of an episode of abnormal labs and low sodium beginning today. The patient's states that the patient has a history of pancreatic cancer and had a Whipple done in 2001. She reports that his CA-19 was slightly elevated and he has had 3 PET scans before having a CT scan recently that showed a mass on his stomach. She notes that he has been fasting since last night for his PET scan and today when after his PET scan he got blood work and his sodium was found to be low. The patient states that his sodium has been low before about 1 month ago but they are not sure why. He reports that he was seen at the [facility] recently for 2 weeks for a swallowing disorder and inability to swallow food. The notes that he got a feeding tube 1 week ago and has been tolerating it well. The patient states that he has been generally weak for a while now and does not feel significantly different. Pt denies headache, fevers , chills, diaphoresis, visual changes, neck pain, chest pain, breathing difficulties, nausea, vomiting, abdominal pain, back pain, melena, hematochezia , urinary symptoms, numbness, new weakness, lymphadenopathy, rash, or other complaints. Source of History: patient Onset: today Position: other (labs) Quality: other (low sodium) Timing: constant Review of Systems See HPI for pertinent positives and negatives. A total of ten systems were reviewed and were otherwise negative. 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 Social History Smoking Status: Former Smoker Alcohol Use: occasionally Drug Use: none Marital Status: Housing Status: lives with family Occupation Status: retired Current/Historical Medications Scheduled Cholecalciferol (Vitamin D), 5,000 INTER.UNIT PO QAM Clonidine Hcl (Clonidine Hcl), 0.3 MG TOP WK Furosemide (Lasix), 40 MG PO AFTERNOON Furosemide (Lasix), 80 MG PO QAM Hydralazine Hcl (Apresoline), 150 MG PO BID Insulin Glargine (Lantus), 11-15 UNITS SC QPM Insulin Lispro (Human) (Humalog), 1 DOSE SC UD Metoprolol Succinate (Toprol Xl), 200 MG PO QAM Omeprazole (Prilosec), 20 MG PO QAM Rivaroxaban (Xarelto), 15 MG PO HS Scheduled PRN Acetaminophen W/ Codeine (Acetaminophen/Codeine), 1 TAB PO Q4H PRN for Pain Hyoscyamine Sulfate (Hyoscyamine Sulfate), 0.125 MG PO UD PRN for Abdominal Pain Loperamide Hcl (Imodium), 2 MG PO UD PRN for Diarrhea Allergies Coded Allergies: No Known Allergies (Verified , 10/15/16) Physical Exam Vital Signs Date Time Temp Pulse Resp B/P (MAP) Pulse Ox O2 Delivery O2 Flow Rate FiO2 10/29/16 17:58 Room Air 10/29/16 17:05 64 17 124/64 99 10/29/16 15:48 74 10/29/16 15:24 36.4 81 16 135/68 97 Room Air Physical Exam GENERAL: Awake, alert, frail appearing, in no distress. HENT: Normocephalic, atraumatic. Oropharynx unremarkable. EYES: Normal conjunctiva. Sclera non-icteric. NECK: Supple. No nuchal rigidity. FROM. No JVD. RESPIRATORY: Clear to auscultation. CARDIAC: Regular rate, normal rhythm. Extremities warm and well perfused. Pulses equal. ABDOMEN: Soft, non-distended. No tenderness to palpation. No rebound or guarding. No masses. Feeding tube LUQ. RECTAL: Deferred. MUSCULOSKELETAL: Chest examination reveals no tenderness.No joint edema. LOWER EXTREMITIES: Calves are equal size bilaterally and non-tender. 1+ lower extremity edema. No discoloration. NEURO: Normal sensorium. No sensory or motor deficits noted. SKIN: No rash or jaundice noted. Medical Decision & Procedures Laboratory Results 10/29/16 16:15 Red Blood Count 3.17, Mean Corpuscular Volume 82.3, Mean Corpuscular Hemoglobin 30.6, Mean Corpuscular Hemoglobin Concent 37.2, Mean Platelet Volume 9.4, Neutrophils (%) (Auto) 85.1, Lymphocytes (%) (Auto) 6.5, Monocytes (%) (Auto) 7.1, Eosinophils (%) (Auto) 0.7, Basophils (%) (Auto) 0.1, Neutrophils # (Auto) 7.30, Lymphocytes # (Auto) 0.56, Monocytes # (Auto) 0.61, Eosinophils # (Auto) 0.06, Basophils # (Auto) 0.01 Test 10/29/16 16:15 10/29/16 17:05 10/29/16 17:56 White Blood Count 8.58 K/uL (4.8-10.8) Red Blood Count 3.17 M/uL (4.7-6.1) Hemoglobin 9.7 g/dL (14.0-18.0) Hematocrit 26.1 % (42-52) Mean Corpuscular Volume 82.3 fL (80-100) Mean Corpuscular Hemoglobin 30.6 pg (25-34) Mean Corpuscular Hemoglobin Concent 37.2 g/dl (32-36) Platelet Count 262 K/uL (130-400) Mean Platelet Volume 9.4 fL (7.4-10.4) Neutrophils (%) (Auto) 85.1 % Lymphocytes (%) (Auto) 6.5 % Monocytes (%) (Auto) 7.1 % Eosinophils (%) (Auto) 0.7 % Basophils (%) (Auto) 0.1 % Neutrophils # (Auto) 7.30 K/uL (1.4-6.5) Lymphocytes # (Auto) 0.56 K/uL (1.2-3.4) Monocytes # (Auto) 0.61 K/uL (0.11-0.59) Eosinophils # (Auto) 0.06 K/uL (0-0.5) Basophils # (Auto) 0.01 K/uL (0-0.2) RDW Standard Deviation 39.6 fL (36.4-46.3) RDW Coefficient of Variation 13.1 % (11.5-14.5) Immature Granulocyte % (Auto) 0.5 % Immature Granulocyte # (Auto) 0.04 K/uL (0.00-0.02) Prothrombin Time 10.3 SECONDS (9.0-12.0) Prothromb Time International Ratio 1.0 (0.9-1.1) Activated Partial Thromboplast Time 29.8 SECONDS (21.0-31.0) Partial Thromboplastin Ratio 1.1 Est Creatinine Clear Calc Drug Dose 20.8 ml/min Magnesium Level 2.2 mg/dl (1.8-2.4) Total Bilirubin 0.4 mg/dl (0.2-1) Direct Bilirubin 0.2 mg/dl (0-0.2) Aspartate Amino Transf (AST/SGOT) 21 U/L (15-37) Alanine Aminotransferase (ALT/SGPT) 23 U/L (12-78) Alkaline Phosphatase 241 U/L (45-117) Total Creatine Kinase 58 U/L (39-308) Creatine Kinase MB 1.7 ng/ml (0.5-3.6) Creatine Kinase MB Ratio 2.9 (0-3.0) Troponin I < 0.015 ng/ml (0-0.045) Total Protein 6.8 gm/dl (6.4-8.2) Albumin 3.0 gm/dl (3.4-5.0) Beta-Hydroxybutyric Acid 1.98 mg/dL (0.2-2.81) Thyroid Stimulating Hormone (TSH) 1.300 uIu/ml (0.300-4.500) Urine Color YELLOW Urine Appearance CLEAR (CLEAR) Urine pH 6.5 (4.5-7.5) Urine Specific [place] 1.014 (1.000-1.030) Urine Protein 3+ (NEG) Urine Glucose (UA) 1+ (NEG) Urine Ketones NEG (NEG) Urine Occult Blood NEG (NEG) Urine Nitrite NEG (NEG) Urine Bilirubin NEG (NEG) Urine Urobilinogen NEG (NEG) Urine Leukocyte Esterase NEG (NEG) Urine WBC (Auto) 1-5 /hpf (0-5) Urine RBC (Auto) 0-4 /hpf (0-4) Urine Hyaline Casts (Auto) 1-5 /lpf (0-5) Urine Epithelial Cells (Auto) 5-10 /lpf (0-5) Urine Bacteria (Auto) NEG (NEG) Urine Random Sodium 31 mEq/L Laboratory results reviewed by me Medications Administered Medications (Trade) Dose Ordered Sig/Mindy Route Start Time Stop Time Status Last Admin Dose Admin Sodium Chloride 1,000 ml @ 125 mls/hr Q8H STAT IV 10/29/16 15:27 10/29/16 17:10 DC 10/29/16 16:12 125 MLS/HR ECG Indication: weakness Rate (beats per minute): 78 Rhythm: atrial fibrillation Findings: no acute ischemic change, no ectopy ED Course 1526: The patient was evaluated in room C7. A complete history and physical exam was performed. 1527: Sodium Chloride 1000 ml @ 125 mls/hr IV. 1647: I updated and reevaluated the patient. 1659: Discussed the patient's case with Dr. Borja. The patient will be evaluated for further treatment and disposition. 1718: Upon reexamination, the patient was doing well. I discussed the test results and treatment plan with him. The patient will be evaluated for further management. Medical Decision Triage Nursing notes reviewed. The patient's presentation and history were concerning for his complex medical history and possible hyponatremia. Etiologies such as metabolic, infection, hypo/hyperglycemia, electrolyte abnormalities, cardiac sources, intracerebral event, toxicologic, neurologic, as well as others were entertained. The patient was evaluated. Blood work was obtained. EKG performed. The patient was found to have fairly significant hyponatremia. He was mildly hyperglycemic. Even with correction he is still below 120. His confirms his outpatient hyponatremia. The patient has a stable but elevated creatinine. He will need further evaluation and management in the hospital. His initial IV fluids were stopped. Consultation was made with internal medicine. The patient was evaluated and admitted for further treatment. Medication Reconcilliation Current Medication List: was personally reviewed by me Blood Pressure Screening Patient's blood pressure: Elevated blood pressure Blood pressure disposition: Elevated BP felt to be situational Consults Time Called: [id number] Consulting Physician: Dr. Chet Smith Returned Call: [phone] Discussed the patient's case with Dr. Borja. The patient will be evaluated for further treatment and disposition. Impression Primary Impression: Hyponatremia Scribe Attestation The scribe's documentation has been prepared under my direction and personally reviewed by me in its entirety. I confirm that the note above accurately reflects all work, treatment, procedures, and medical decision making performed by me. Departure Information Dispostion Being Evaluated By Hospitalist Referrals No Doctor, Assigned (PCP) Patient Instructions My [facility]
[2016-10-29] MEDS ORDERED: GLUCAGON FOR INJ 1 MG VIAL SQ PRN (18:45)
[2016-10-29] MEDS ORDERED: GLUCOSE 10 TABS/TUBE PO PRN (18:45)
[2016-10-29] MEDS ORDERED: DEXTROSE 50% 50 ML SYR IV PRN (18:45)
[2016-10-29] MEDS ORDERED: GLUCOSE 40% GEL 15 GM TUBE PO PRN (18:45)
[2016-10-29 19:02] VITALS: O2SAT 97
[2016-10-29] MEDS: SODIUM CHLORIDE 0.9% 1000ML 1,000 ML IV SCH (19:12)
[2016-10-29 20:00] VITALS: BP 153/77; PULSE 65; TEMP 36.5; O2SAT 99
[2016-10-29 20:06] LABS: BUN/CREATININE RATIO 16.8 (10-20); CALCIUM 8.6 mg/dl (8.5-10.1); CREATININE 2.6 mg/dl (0.60-1.40); POTASSIUM 4.3 mmol/L (3.5-5.1)
[2016-10-29] MEDS ORDERED: CLONIDINE HCL 0.3 MG/24 HR TRANSDERM SYS TD SCH (20:39)
--- NOTE | 2016-10-29 20:39 | HISTORY & PHYSICAL EXAMINATION ---
DATE OF ADMISSION: 10/29/2016 CHIEF COMPLAINT: Low sodium. HISTORY OF PRESENT ILLNESS: This is a 80-year-old male with past medical history CHIEF COMPLAINT: Low sodium. 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 He is getting one can 4 times a day with 60 mL of free water flush with each can. Patient has dysphagia to solids only, and he is eating liquid diet. As per the , patient drinks about 16 ounces of milkshake, 2 big glasses of water, orange juice and coffee every day. He was admitted in September for acute renal failure thought to be from increased diuretics for his lower extremity edema. He was on 80 mg of Lasix twice daily which was cut back to 40 twice daily, but patient says that he was put back on Lasix of 80 in a.m. and 40 in p.m. There is no edema in his lower extremity. The patient says he is eating fairly okay, ambulates with a cane. Bowels are sometimes constipated, sometimes loose stools. Last bowel movement was yesterday, no blood in the stools. Normal bladder movements. No burning micturition, no blood in the urine. No abdominal pain, no nausea, no vomiting, no chest pain, no shortness of breath, no cough, no fever, no chills, no headaches, no blurred vision, no dizziness. On routine labs, his be sodium was 119 which is chronically in 126-129 range. Patient had a PET scan yesterday and did not eat anything and the recent CAT scan elevation in September which showed some abdominal mass. His oncologist is in [place]. 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 Routine labs today showed sodium of low sodium and he was brought here. In the ER, his sodium was 116 and patient is alert and oriented, hemodynamically stable. He got IV fluids in the ER. ALLERGIES: HYDROCODONE. PAST MEDICAL HISTORY: As mentioned above. PAST SURGICAL HISTORY: Cataract surgery, colonoscopy with biopsy, EGD with biopsy, spinal shots, appendectomy, Whipple procedure, tonsillectomy and adenoidectomy, inguinal hernia repair. MEDICATIONS: The patient is on Lasix 80 in a.m. and 40 mg in p.m., tube feeds 4 times daily, Xarelto 50 mg p.o. daily, Lantus 10-15 units daily in the evening, insulin sliding scale, loperamide 2 mg p.o. q.i.d. p.r.n., clonidine 0.3 mg weekly patch, hydralazine 150 mg p.o. b.i.d., Tylenol with codeine 1 tablet p.o. every 4 hours p.r.n., vitamin D 5000 units p.o. daily, omeprazole 40 mg p.o. daily, hyoscyamine 0.125 mg p.r.n., Toprol-XL 200 mg p.o. daily. FAMILY HISTORY: Significant for mother at 80 and father in 80s. SOCIAL HISTORY: Former smoker, quit in 1985. Alcohol 2 drinks per week. No drug use. Retired banker. REVIEW OF SYMPTOMS: As per HPI. Rest of review of symptoms negative. PHYSICAL EXAMINATION: GENERAL: The patient is of moderate build, not in distress. VITAL SIGNS: Temperature 36.4, pulse 64, respiratory rate 17, blood pressure 124/64, oxygen 99% on room air. HEENT: No pallor, no icterus. Pupils equal, round, and reactive to light. Oral mucosa moist. NECK: No JVD, no neck masses, no carotid bruits. CARDIOVASCULAR: S1, S2 heard. Regular rate and rhythm. No murmur, no gallop. RESPIRATORY SYSTEM: Clear to auscultation bilaterally. No wheezing, no crackles. ABDOMEN: Soft, bowel sounds present, nontender. No distention. CENTRAL NERVOUS SYSTEM: Cranial nerves II-XII grossly intact. Nonfocal. EXTREMITIES: No edema, no erythema. LABORATORIES: WBC 8.5, hemoglobin 9.7, hematocrit 26.1, platelets 262. Sodium 116, potassium 4.3, chloride 78, CO2 29, BUN 44, creatinine 2.7, serum glucose 333. Serum osmolality 271, calcium 8.5, magnesium 2.2, total bilirubin 0.4, direct bilirubin 0.2, AST 21, ALT 23 alkaline phosphatase of 241, total creatinine kinase of 58. Troponin I less than 0.015. TSH 1.3. Beta hydroxybutyric acid 1.98. PT 10.3, INR 1, APTT 29.8. Urinalysis negative. Random urine sodium is 31. IMAGING: EKG - atrial fibrillation, rate of 78, no acute ST changes seen. ASSESSMENT AND PLAN: This is a 80-year-old male with a history of pancreatic cancer presents with hyponatremia. 1. Hyponatremia. 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 We will check urine osmolality. He is getting IV fluids 100 mL per hour for now, will continue the same until we get a stat BMP again. Notified nephrology. Nephrology will follow the BMP results and decide about the further plan. Close monitoring of the labs. Will slowly bring the potassium up, not more than 8 points in a day. We will hold the Lasix for now. Monitor on tele floor. 2. Acute on chronic kidney disease secondary to hypertension and diabetes. Baseline creatinine around 2, Holding the Lasix. We will follow the labs, nephrology consulted. 3. History of atrial fibrillation, on Toprol and Xarelto, which will continue. Toprol is not on the epic, but the patient says he is on Toprol, will closely monitor. 4. History of pancreatic cancer status post Whipple procedure. Last admission CAT scan showed a 3.8 x 1.9 cm mass located anterior to the inferior vena cava. He just had a PET scan yesterday, needs to followup with GI and oncology. 5. Hypertension, continue his clonidine, Toprol, hydralazine. Will monitor his blood pressure. 6. Diabetes. The patient takes 10-15 units of Lantus at home and an insulin sliding scale. patient says he cannot tolerate blood sugars less than 120, his usual range is from 120-200. [address] place him on Lantus 10 units at bedtime and place him on Insulin sliding scale and monitor the blood sugar. 7. Deep vein thrombosis prophylaxis on Xarelto. 8. Code status: Level 1 full code. 9. Disposition. Close monitor on the tele floor. Disposition to be determined. Follow up with the family doctor and nephrology at the time of discharge. CHRISTIANO
[2016-10-29] MEDS: INSULIN ASPART 100 UNITS/ML 3 ML PEN SC SCH (21:00)
[2016-10-29] MEDS: RIVAROXABAN TAB 15 MG TAB PO SCH (21:38)
[2016-10-29] MEDS: FUROSEMIDE INJ 40 MG in SYRINGE 0 ML IV SCH (21:39)
[2016-10-29] MEDS: INSULIN GLARGINE SOLOSTAR 100 UNITS/ML 3 ML PEN SC SCH (21:42)
[2016-10-29 21:54] LABS: BUN/CREATININE RATIO 17.6 (10-20); CALCIUM 8.3 mg/dl (8.5-10.1); CREATININE 2.5 mg/dl (0.60-1.40); POTASSIUM 4.3 mmol/L (3.5-5.1)
[2016-10-29] MEDS: [UNRECOGNIZED DRUG - REMARK] SCH (23:57)
[2016-10-29] MEDS: CHECK CLONIDINE PATCH PLACEMENT SCH (23:57)
[2016-10-29 23:59] LABS: CALCIUM 8.2 mg/dl (8.5-10.1); CREATININE 2.4 mg/dl (0.60-1.40); POTASSIUM 4.3 mmol/L (3.5-5.1)
[2016-10-30 00:02] VITALS: BP 129/62; PULSE 79; TEMP 36.5; O2SAT 99
[2016-10-30] MEDS: SODIUM CHLORIDE 0.9% 1000ML 1,000 ML IV SCH ×2 (04:17→14:12)
[2016-10-30 04:38] VITALS: BP 129/63; PULSE 68; TEMP 36.6; O2SAT 98
[2016-10-30 06:08] LABS: BASO % 0.7 %; BASO ABS # 0.04 K/uL (0-0.2); EOS % 2.9 %; HEMATOCRIT 21.9 % (42-52); IG% 0.3 %; LYMPH % 19.4 %; LYMPH ABS # 1.14 K/uL (1.2-3.4); MEAN CELL VOLUME 82.6 fL (80-100); MEAN CORPUSCULAR HEMOGLOBIN 30.6 pg (25-34); MEAN PLATELET VOLUME 9.2 fL (7.4-10.4); NEUT % 66.7 %; PLATELET COUNT 200 K/uL (130-400); RED BLOOD COUNT 2.65 M/uL (4.7-6.1); WHITE BLOOD COUNT 5.89 K/uL (4.8-10.8)
[2016-10-30] MEDS: FUROSEMIDE INJ 40 MG in SYRINGE 0 ML IV SCH ×2 (06:32→14:12)
[2016-10-30 06:46] LABS: CALCIUM 8.4 mg/dl (8.5-10.1); CREATININE 2.3 mg/dl (0.60-1.40); MAGNESIUM 2.1 mg/dl (1.8-2.4)
[2016-10-30 06:56] LABS: COMPLETE YES
[2016-10-30] MEDS: INSULIN ASPART 100 UNITS/ML 3 ML PEN SC SCH ×4 (07:00→20:50)
[2016-10-30 07:54] VITALS: BP 131/69; PULSE 70; TEMP 36.5; O2SAT 98
[2016-10-30] MEDS: [UNRECOGNIZED DRUG - REMARK] SCH ×2 (08:00→15:42)
[2016-10-30] MEDS: CHECK CLONIDINE PATCH PLACEMENT SCH ×2 (08:14→16:00)
[2016-10-30] MEDS: CHOLECALCIFEROL 1000 INTER.UNIT TAB PO SCH (08:16)
[2016-10-30] MEDS: METOPROLOL SUCC 50MG EXT REL TAB PO SCH (08:17)
[2016-10-30 11:06] VITALS: BP 107/62; PULSE 73; TEMP 36.3; O2SAT 99
--- NOTE | 2016-10-30 13:05 | Clinical Documentation Query ---
CLINICAL DOCUMENTATION QUERY Dr. TERRY, In your clinical opinion is this patient being managed for: ( x) Acute kidney failure on CKD stage IV ( ) Other explanation of clinical findings (Please Explain) ( ) Unable to determine (Please Define) ( ) Need to Discuss ( ) Not Agree The medical record reflects the following clinical findings, treatment, and risk factors. Clinical Indicators: 80 yo male presenting with hyponatremia. Documentation in the H/P indicates acute on chronic kidney disease. Noted to have baseline Cr of 2.0. Review of GFR over the past 6 months revealed range of 16.8-26. Noted documentation of CKD stage III is currently noted in the clinical record. Treatment: IV fluids, serial PRP's, pending nephrology consult Risk Factors: CKD, DM, HTN, restrictive cardiomyopathy, hyponatremia Please clarify and document your clinical opinion in the progress notes and discharge summary. Terms such as "probable", "suspected", "likely", "questionable", "possible", or "still to be ruled out" are acceptable. IF IN AGREEMENT, YOU MUST DOCUMENT ABOVE DIAGNOSTIC STATEMENT IN DAILY PROGRESS NOTES AND DISCHARGE SUMMARY. This document is not part of the patient's record. Thank You, Fatuma Washington, RN [phone]
[2016-10-30 13:41] VITALS: Ht 180.3 cm; Wt 65.4 kg
[2016-10-30 15:37] VITALS: BP 140/76; TEMP 36.7; O2SAT 97
[2016-10-30 15:51] LABS: BUN/CREATININE RATIO 17.6 (10-20); CALCIUM 8.4 mg/dl (8.5-10.1); CREATININE 2.4 mg/dl (0.60-1.40); POTASSIUM 4.1 mmol/L (3.5-5.1)
--- NOTE | 2016-10-30 16:01 | Discharge Instructions ---
Discharge Instructions Date of Service Oct 30, 2016. Admission Reason for Admission: Hyponatremia Discharge Discharge Diagnosis / Problem: HYPONATREMIA Discharge Goals Goal(s): Decrease discomfort, Improve disease control, Diagnostic testing, Therapeutic intervention Activity Recommendations Activity Limitations: resume your previous activity . Instructions / Follow-Up Instructions / Follow-Up HOSPITAL FOLLOW UP : 11/03/2016 12: 45 PM Marita Deluna DO General Internal Medicine [facility] LAB WORK : BASIC METABOLIC PANEL ON 11/03/16 PLEASE FLUID INTAKE DAILY TO 1000 ML /DAILY cut the free water flushes in half-so half syringe pre and half syringe after can feeding via tube Current Hospital Diet Patient's current hospital diet: Clear Liquid Diet, Diabetes Type 2 Diet Discharge Diet Recommended Diet: Clear Liquid Diet, Diabetes Type 2 Diet Fluid Restriction: 1000 ml (4 cups) Pending Studies Studies pending at discharge: yes List of pending studies: BASIC METABOLIC PANEL ON Thursday11/03/16 Laboratory Results Hemoglobin A1c Test 10/03/16 06:05 Range/Units Estimated Average Glucose 217 mg/dl Hemoglobin A1c 9.2 H 4.5-5.6 % Medical Emergencies . Who to Call and When: Medical Emergencies: If at any time you feel your situation is an emergency, please call 911 immediately. . Non-Emergent Contact Non-Emergency issues call your: Primary Care Provider . . "Provider Documentation" section prepared by Brenda Owen. . VTE Core Measure Inpt VTE Proph given/why not?: Stalin Maldonado, SCD's
--- NOTE | 2016-10-30 16:41 | NEPHROLOGY CONSULTATION ---
DATE OF CONSULTATION: 10/30/2016 ATTENDING OF RECORD: Dr. Owen. REASON FOR CONSULTATION: Hyponatremia. HISTORY OF PRESENT ILLNESS: This 80-year-old male who follows with my partner, Dr. 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 The patient underwent a PEG tube about a week ago and was started on tube feeds, has slowly brought himself up to 4 cans a day with 70 mL flush before and after. The patient though has still been able to drink plenty of liquid orally and no significant diarrhea. The patient has had a significant weight loss over the past 2 years. The patient was recently in the hospital in September for acute renal failure thought to be from increased diuretics for his lower extremity edema, had 80 mg of Lasix twice a day and was decreased to 40 mg twice daily, but is currently on Lasix 80 mg in the morning and 40 mg at night. No swelling at this time. The patient denies any significant diarrhea. The patient had a PET scan the day before where he was n.p.o. from 7:00 p.m. on word. The patient's sodium levels were done and showed a sodium level below 120 and was sent to the Emergency Room. In the ER, sodium level was 116. The patient was feeling a little tired but otherwise doing fine. Denies any headaches or confusion. The patient was started on normal saline and the sodium level has trended up nicely from 116 up to 123 this morning. The patient's urine osmol was 172 with a random sodium of 31. The patient's creatinine has improved from 2.7 down to 2.3. Sodium level has improved up to 123, albumin of 3, TSH 1.3, INR of 1. The patient this afternoon is wanting to go home and appears frustrated along with his significant other with multiple hospital admissions. PAST MEDICAL HISTORY: Hyponatremia, pancreatic cancer status post Whipple, diabetes, hypertension, AFib, dysphagia with an esophageal dysmotility requiring a PEG tube. PAST SURGICAL HISTORY: Cataract surgery, Whipple surgery, appendectomy, tonsillectomy, and inguinal hernia repair. SOCIAL HISTORY: Former smoker. Positive social alcohol, no drugs. FAMILY HISTORY: Significant for no renal disease in family. REVIEW OF SYSTEMS: Positive weight loss. Positive dysphagia. No fevers or chills. Positive fatigue. No headaches. No blurry vision. No chest pain, no shortness of breath. No diarrhea. No dysuria. No rash or itching. All other review of systems is otherwise negative. CURRENT MEDICATIONS: Vitamin D 5000 units daily, Toprol-XL 200 mg daily, clonidine patch, hydralazine 150 p.o. b.i.d., Xarelto 15 mg at night, Lantus 10 units subQ at night, Lasix 40 mg IV q. 8, normal saline at 100 mL an hour. PHYSICAL EXAMINATION: VITAL SIGNS: Temperature 36.3, pulse 73, respiratory rate is 18, blood pressure 107/62, satting 99% on room air. GENERAL: Awake, alert, oriented x3, cachectic. EYES: No scleral icterus. HEENT: Mucous membranes are dry. NECK: Supple. PULMONARY: Irregularly irregular. ABDOMEN: Bowel sounds positive, soft, nontender. Positive PEG tube. CHEST: Clear to auscultation. EXTREMITIES: No significant clubbing, cyanosis or edema. NEUROLOGICALLY: Nonfocal. DERMATOLOGIC: No rash or ulcers noted. LABORATORIES: Pending for this afternoon. Last labs sodium level of 123, potassium 4, chloride is 86, bicarbonate is 29, BUN is 41, creatinine is 2.3, glucose 155. Calcium is 8.4, mag is 2.1. White count is 5. H&H 8.1 and 21.9, platelet count is 200. INR is 1. IMPRESSION AND PLAN: 1. 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 In my opinion, the patient appears euvolemic, has been drinking lots of liquids orally and then just recently started on feeds with 1 syringe pre and post between each can of about 70 mL syringe. Would decrease the flushes to half a syringe pre and post each can and to limit the amount of total liquids orally and repeat lab work on Thursday. I would continue the outpatient Lasix dose since no significant edema and volume status appears appropriate. I feel the patient is overall getting too much total body oral liquids. Patient may have an element of syndrome of inappropriate secretion of antidiuretic hormone however with a urine osmolality under 300 likely could keep sodium up with fluid restriction and lasix alone. Would like to repeat blood work on Thursday. The patient is relatively asymptomatic. I have encouraged the patient to stay till tomorrow morning to get the sodium levels further stabilized; however, patient is adamant that he would like to leave now. Repeating a stat BMP now to see the sodium trends and I will continue to support him from home as best as possible. Case discussed with Dr. Owen, primary hospitalist who agrees with the plan. Current BMP pending, currently on IV Lasix and normal saline and sodium levels are improving, discharge on oral Lasix home dose and place on one liter fluid restriction if repeat sodium levels continue to improve. I appreciate consultation. CHRISTIANO
--- NOTE | 2016-10-30 17:43 | Progress Note ---
Internal Med Progress Note Date of Service: Oct 30, 2016. Provider Documentation: SUBJECTIVE: denies of any symptom of dizzy spell , no weakness very disappointed to know that he can not go home today OBJECTIVE: Vital Signs-as noted below Exam: General-chronically ill appearing Eyes-sclera non icteric ENT-NAD Neck-no JVD Lungs-CTA Heart-regular S1/S2 Abdomen-soft, non tender Extremities-no rash or deformity Neuro-no focal deficit , AAO x3 Lab data as noted below. ASSESSMENT & PLAN: 1. Hyponatremia. hx of chronic hyponatremia with sodium usually in the 120-126 range presented with Na 116 appreciate input from Nephrology Na level improved to 123 this AM repeat Lab in afternoon 122 asked to hold IV fluid , 1000ml water restriction hold free water flushes with tube feeding repeat BMP /urine OSM in AM in AM 2. BRANDI : has underlying CKD stage 3-4 Cr improved to approx baseline D/C IVF 3. History of atrial fibrillation: on Toprol and Xarelto, 4. History of pancreatic cancer status post Whipple procedure. Last admission CAT scan showed a 3.8 x 1.9 cm mass located anterior to the inferior vena cava. recent PET scan done out pt continue followup with GI in office 5. Hypertension continue his clonidine, Toprol, hydralazine. 6. Diabetes type 2 : cont basal Lantus and insulin SSI 7. Deep vein thrombosis prophylaxis on Xarelto. 8. Code status: Level 1 full code. DISPOSITION possible discharge home tomorrow appointment scheduled with Dr Deluna on Thursday10/03/16 @ 1 pm will have lab work : BMP check on 10/03/16 Vital Signs: Date Time Temp Pulse Resp B/P (MAP) Pulse Ox O2 Delivery O2 Flow Rate FiO2 10/30/16 15:37 36.7 20 140/76 (97) 97 Room Air 10/30/16 12:00 Room Air 10/30/16 11:06 36.3 73 18 107/62 (77) 99 Room Air 10/30/16 08:00 Room Air 10/30/16 07:54 36.5 70 18 131/69 (89) 98 Room Air 10/30/16 04:38 36.6 68 16 129/63 (85) 98 Room Air 10/30/16 04:00 Room Air 10/30/16 00:02 36.5 79 16 129/62 (84) 99 Room Air 10/29/16 23:59 Room Air 10/29/16 20:00 Room Air 10/29/16 20:00 36.5 65 20 153/77 (102) 99 Room Air 10/29/16 19:02 75 17 120/60 97 10/29/16 17:58 Room Air Lab Results: Results Past 24 Hours Test 10/29/16 19:36 10/29/16 20:30 10/29/16 21:09 10/29/16 21:22 Range/Units Sodium Level 117 117 136-145 mmol/L Potassium Level 4.3 4.3 3.5-5.1 mmol/L Chloride Level 79 80 98-107 mmol/L Carbon Dioxide Level 30 30 21-32 mmol/L Anion Gap 8.0 7.0 3-11 mmol/L Blood Urea Nitrogen 44 44 7-18 mg/dl Creatinine 2.60 2.50 0.60-1.40 mg/dl Est Creatinine Clear Calc Drug Dose 21.6 22.5 ml/min Estimated GFR () 26.0 27.3 Estimated GFR (Non- 22.4 23.5 BUN/Creatinine Ratio 16.8 17.6 10-20 Random Glucose 271 273 70-99 mg/dl Calcium Level 8.6 8.3 8.5-10.1 mg/dl Urine Osmolality 172 500-800 mOms/kg Bedside Glucose 330 70-99 mg/dl Test 10/29/16 22:59 10/30/16 01:00 10/30/16 05:47 10/30/16 06:40 Range/Units Sodium Level 121 123 136-145 mmol/L Potassium Level 4.3 4.0 3.5-5.1 mmol/L Chloride Level 83 86 98-107 mmol/L Carbon Dioxide Level 30 29 21-32 mmol/L Anion Gap 8.0 8.0 3-11 mmol/L Blood Urea Nitrogen 41 41 7-18 mg/dl Creatinine 2.40 2.30 0.60-1.40 mg/dl Est Creatinine Clear Calc Drug Dose 23.4 23.9 ml/min Estimated GFR () 28.7 30.2 Estimated GFR (Non- 24.7 26.0 BUN/Creatinine Ratio 17.0 18.0 10-20 Random Glucose 221 155 70-99 mg/dl Calcium Level 8.2 8.4 8.5-10.1 mg/dl Bedside Glucose 216 146 70-99 mg/dl White Blood Count 5.89 4.8-10.8 K/uL Red Blood Count 2.65 4.7-6.1 M/uL Hemoglobin 8.1 14.0-18.0 g/dL Hematocrit 21.9 42-52 % Mean Corpuscular Volume 82.6 80-100 fL Mean Corpuscular Hemoglobin 30.6 25-34 pg Mean Corpuscular Hemoglobin Concent 37.0 32-36 g/dl Platelet Count 200 130-400 K/uL Mean Platelet Volume 9.2 7.4-10.4 fL Neutrophils (%) (Auto) 66.7 % Lymphocytes (%) (Auto) 19.4 % Monocytes (%) (Auto) 10.0 % Eosinophils (%) (Auto) 2.9 % Basophils (%) (Auto) 0.7 % Neutrophils # (Auto) 3.93 1.4-6.5 K/uL Lymphocytes # (Auto) 1.14 1.2-3.4 K/uL Monocytes # (Auto) 0.59 0.11-0.59 K/uL Eosinophils # (Auto) 0.17 0-0.5 K/uL Basophils # (Auto) 0.04 0-0.2 K/uL RDW Standard Deviation 40.8 36.4-46.3 fL RDW Coefficient of Variation 13.3 11.5-14.5 % Immature Granulocyte % (Auto) 0.3 % Immature Granulocyte # (Auto) 0.02 0.00-0.02 K/uL Red Blood Cell Morphology Unremarkable Magnesium Level 2.1 1.8-2.4 mg/dl Test 10/30/16 11:27 10/30/16 15:07 10/30/16 16:07 Range/Units Bedside Glucose 350 296 70-99 mg/dl Sodium Level 122 136-145 mmol/L Potassium Level 4.1 3.5-5.1 mmol/L Chloride Level 85 98-107 mmol/L Carbon Dioxide Level 28 21-32 mmol/L Anion Gap 9.0 3-11 mmol/L Blood Urea Nitrogen 42 7-18 mg/dl Creatinine 2.40 0.60-1.40 mg/dl Est Creatinine Clear Calc Drug Dose 22.9 ml/min Estimated GFR () 28.7 Estimated GFR (Non- 24.7 BUN/Creatinine Ratio 17.6 10-20 Random Glucose 222 70-99 mg/dl Calcium Level 8.4 8.5-10.1 mg/dl
[2016-10-30] MEDS ORDERED: FUROSEMIDE 40 MG TAB PO SCH (18:00)
[2016-10-30 19:36] VITALS: BP 172/81; PULSE 68; TEMP 36.2; O2SAT 99
[2016-10-30] MEDS: RIVAROXABAN TAB 15 MG TAB PO SCH (20:50)
[2016-10-30] MEDS: INSULIN GLARGINE SOLOSTAR 100 UNITS/ML 3 ML PEN SC SCH (20:52)
[2016-10-31 00:10] VITALS: BP 123/60; PULSE 74; TEMP 36.5; O2SAT 98
[2016-10-31] MEDS: CHECK CLONIDINE PATCH PLACEMENT SCH ×2 (00:33→08:21)
[2016-10-31] MEDS: [UNRECOGNIZED DRUG - REMARK] SCH ×2 (00:33→07:26)
[2016-10-31 03:51] VITALS: BP 149/69; PULSE 81; TEMP 36.5; O2SAT 98
[2016-10-31] MEDS: INSULIN ASPART 100 UNITS/ML 3 ML PEN SC SCH (07:00)
[2016-10-31 07:26] LABS: BUN/CREATININE RATIO 16.9 (10-20); CALCIUM 8.6 mg/dl (8.5-10.1); CREATININE 2.3 mg/dl (0.60-1.40); MAGNESIUM 2.2 mg/dl (1.8-2.4); POTASSIUM 4.4 mmol/L (3.5-5.1)
[2016-10-31 07:45] VITALS: BP 153/81; PULSE 60; TEMP 36.5; O2SAT 96
--- NOTE | 2016-10-31 08:02 | Nephrology Progress Note ---
Nephrology Progress Note Date of Service: Oct 31, 2016. Subjective 80 yo male with esophageal dysmotility who is able to ingest liquids but no solids and now with peg tube who presented with hyponatremia. pt also with underlying ckd stage 4 as well. pts sodium levels are up to 126 this morning. on 1 liter fluid restriction and oral lasix. was on normal saline and iv lasix which was stopped. pt would like to go home this morning. Objective Date Time Temp Pulse Resp B/P (MAP) Pulse Ox O2 Delivery O2 Flow Rate FiO2 10/31/16 07:45 36.5 60 19 153/81 (105) 96 Room Air 10/31/16 04:07 Room Air 10/31/16 03:51 36.5 81 16 149/69 (95) 98 Room Air 10/31/16 00:10 36.5 74 16 123/60 (81) 98 Room Air 10/31/16 00:01 Room Air 10/30/16 20:00 Room Air 10/30/16 19:36 36.2 68 20 172/81 (111) 99 Room Air 10/30/16 16:00 Room Air 10/30/16 15:37 36.7 20 140/76 (97) 97 Room Air 10/30/16 12:00 Room Air 10/30/16 11:06 36.3 73 18 107/62 (77) 99 Room Air 10/30/16 08:00 Room Air Physical Exam: General-aaox3, cachectic Eyes-no scleral icterus ENT-mmm Neck-supple Lungs-cta Heart-irregular Abdomen-bs+ s/nt/+peg Extremities-no c/c/e Neuro-nonfocal Current Inpatient Medications Medications (Trade) Dose Ordered Sig/Mindy Route Start Time Stop Time Status Last Admin Dose Admin Acetaminophen (Tylenol Tab) 650 mg Q4H PRN PO 10/29/16 18:00 11/28/16 17:59 Al Hydrox/Mg Hydrox/Simethicone (Maalox Max Susp) 15 ml Q4H PRN PO 10/29/16 18:00 11/28/16 17:59 Ondansetron HCl (Zofran Inj) 4 mg Q6H PRN IV 10/29/16 18:00 11/28/16 17:59 Nitroglycerin (Nitrostat Tab) 0.4 mg UD PRN SL 10/29/16 18:00 11/28/16 17:59 Acetaminophen/ Codeine Phosphate (Tylenol w/ Codeine #3 Tab) 1 tab Q4H PRN PO 10/29/16 18:00 11/28/16 17:59 10/30/16 04:17 1 TAB Clonidine HCl (Puzdypjg-Jpk-9 0.3mg/24hr Patch) 0.3 patch We@1000 TD 10/29/16 20:39 11/28/16 20:38 10/29/16 20:39 0.3 PATCH Hydralazine HCl (Apresoline Tab) 150 mg BID PO 10/29/16 21:00 11/28/16 20:59 10/30/16 20:49 150 MG Miscellaneous Information (Order Awaiting Action) 1 ea QS N/A 10/30/16 00:00 11/29/16 00:00 Loperamide HCl (Imodium Cap) 2 mg UD PRN PO 10/29/16 18:00 11/28/16 17:59 Rivaroxaban (Xarelto Tab) 15 mg HS PO 10/29/16 21:00 11/28/16 20:59 10/30/16 20:50 15 MG Cholecalciferol (Vitamin D Tab) 5,000 inter.unit DAILY PO 10/30/16 09:00 11/29/16 08:59 10/30/16 08:16 5,000 INTER.UNIT Metoprolol Succinate (Toprol Xl Tab) 200 mg QAM PO 10/30/16 09:00 11/29/16 08:59 10/30/16 08:17 200 MG Insulin Glargine (Lantus Solostar Pen) 10 units HS SC 10/29/16 21:00 11/28/16 20:59 10/30/16 20:52 10 UNITS Insulin Aspart (novoLOG ASPART) SLIDING SCALE G... ACHS SC 10/29/16 21:00 11/28/16 20:59 10/30/16 17:36 3 UNITS Glucose (Glucose 40% Gel) 15-30 GRAMS 15 GRAMS... UD PRN PO 10/29/16 18:45 11/28/16 18:44 Glucose (Glucose Chew Tab) 4-8 Tablets 4 Tabl... UD PRN PO 10/29/16 18:45 11/28/16 18:44 Dextrose (Dextrose 50% 50ML Syringe) 25-50ML OF 50% DW IV FOR... UD PRN IV 10/29/16 18:45 11/28/16 18:44 Glucagon (Glucagon Inj) 1 mg UD PRN SQ 10/29/16 18:45 11/28/16 18:44 Miscellaneous Information (Check Clonidine Patch Placement) 1 ea QS N/A 10/30/16 00:00 11/29/16 00:00 10/31/16 00:33 1 EA Miscellaneous (Remove Clonidine Patch) 1 ea We@0959 N/A 10/29/16 20:41 11/28/16 20:40 10/29/16 20:41 1 EA Furosemide (Lasix Tab) 40 mg DAILY@1800 PO 10/30/16 18:00 11/29/16 17:59 10/30/16 18:44 40 MG Furosemide (Lasix Tab) 80 mg QAM PO 10/31/16 09:00 11/30/16 08:59 Pantoprazole Sodium (Protonix Tab) 40 mg QAM PO 10/31/16 09:00 11/30/16 08:59 Last 24 Hours Test 10/30/16 11:27 10/30/16 15:07 10/30/16 16:07 10/30/16 20:40 Bedside Glucose 350 mg/dl 296 mg/dl 180 mg/dl Sodium Level 122 mmol/L Potassium Level 4.1 mmol/L Chloride Level 85 mmol/L Carbon Dioxide Level 28 mmol/L Anion Gap 9.0 mmol/L Blood Urea Nitrogen 42 mg/dl Creatinine 2.40 mg/dl Est Creatinine Clear Calc Drug Dose 22.9 ml/min Estimated GFR () 28.7 Estimated GFR (Non- 24.7 BUN/Creatinine Ratio 17.6 Random Glucose 222 mg/dl Calcium Level 8.4 mg/dl Test 10/31/16 06:39 10/31/16 06:53 10/31/16 07:56 Sodium Level 126 mmol/L Potassium Level 4.4 mmol/L Chloride Level 89 mmol/L Carbon Dioxide Level 30 mmol/L Anion Gap 7.0 mmol/L Blood Urea Nitrogen 39 mg/dl Creatinine 2.30 mg/dl Est Creatinine Clear Calc Drug Dose 24.1 ml/min Estimated GFR () 30.2 Estimated GFR (Non- 26.0 BUN/Creatinine Ratio 16.9 Random Glucose 146 mg/dl Calcium Level 8.6 mg/dl Magnesium Level 2.2 mg/dl Bedside Glucose 165 mg/dl Assessment & Plan hyponatremia-appears euvolemic to me and with urine osm under 300, feel fluid restriction and lasix should help bring sodium levels up. pt though was not eating and losing weight so at risk for volume depletion as well. recommend 1 liter fluid restriction and to cut the free water flushes in half-so half syringe pre and half syringe post can. pt asymptomatic. will recheck bmp again on thursday. if sodium levels still low on thursday, would consider stopping the free water flushes altogether since he drinks well.
[2016-10-31] MEDS: CHOLECALCIFEROL 1000 INTER.UNIT TAB PO SCH (08:19)
[2016-10-31] MEDS: METOPROLOL SUCC 50MG EXT REL TAB PO SCH (08:20)
[2016-10-31] MEDS ORDERED: FUROSEMIDE 80 MG TAB PO SCH (09:00)
[2016-10-31] MEDS ORDERED: PANTOprazole SOD 40 MG TAB PO SCH (09:00)
[2016-10-31 10:07] VITALS: BP 153/81; PULSE 60; TEMP 36.5; O2SAT 96
--- NOTE | 2016-10-31 10:23 | Progress Note ---
Internal Med Progress Note Date of Service: Oct 31, 2016. Provider Documentation: SUBJECTIVE: offers no complain had uneventful night ready to be discharged home today Na level appropriately improved to 126 overnight with 1 liter fluid restriction OBJECTIVE: Vital Signs-as noted below Exam: General-chronically ill appearing Eyes-sclera non icteric ENT-NAD Neck-no JVD Lungs-CTA Heart-regular S1/S2 Abdomen-soft, non tender Extremities-no rash or deformity Neuro-no focal deficit , AAO x3 Lab data as noted below. ASSESSMENT & PLAN: 1. Hyponatremia. improved Na level 126 after starting on 1 liter fluid restriction , IV Lasix d/ce d pt is switched to PO Lasix out pt regimen hx of chronic hyponatremia with sodium usually in the 120-126 range presented with Na 116 appreciate input from Nephrology pt is stable to be discharged home today instructed to have basic metabolic panel checked on Friday 11/03 scheduled to have follow up with Nephrology on Dec 05 pt is instructed to have 1 liter fluid restriction in oral intake cut free water flushed to 1/2 syringes ( 30 ml ) before and after Can /Tube feeding total of free water 240 ml /day pt was asking regarding Salt Tab - instructed to D/w nephrology on next visit , decision can be made after his Lab -Na level with adjustment of fluid regimen 2. BRANDI : resolved has underlying CKD stage 3-4 Cr improved to approx baseline D/C IVF 3. History of atrial fibrillation: on Toprol and Xarelto, 4. History of pancreatic cancer status post Whipple procedure. Last admission CAT scan showed a 3.8 x 1.9 cm mass located anterior to the inferior vena cava. recent PET scan at [facility] -shows no increased uptake suggestive of neoplasm Pt and family updated pt will continue followup with GI in office 5. Hypertension continue his clonidine, Toprol, hydralazine. 6. Diabetes type 2 : cont basal Lantus and insulin SSI 7. Deep vein thrombosis prophylaxis on Xarelto. 8. Code status: Level 1 full code. DISPOSITION discharge home today appointment scheduled with Dr Deluna on Thursday10/03/16 @ 1 pm will have lab work : BMP check on 10/03/16 Vital Signs: Date Time Temp Pulse Resp B/P (MAP) Pulse Ox O2 Delivery O2 Flow Rate FiO2 10/31/16 07:45 36.5 60 19 153/81 (105) 96 Room Air 8/11/17 04:07 Room Air 10/31/16 03:51 36.5 81 16 149/69 (95) 98 Room Air 10/31/16 00:10 36.5 74 16 123/60 (81) 98 Room Air 10/31/16 00:01 Room Air 10/30/16 20:00 Room Air 10/30/16 19:36 36.2 68 20 172/81 (111) 99 Room Air 10/30/16 16:00 Room Air 10/30/16 15:37 36.7 20 140/76 (97) 97 Room Air 10/30/16 12:00 Room Air 10/30/16 11:06 36.3 73 18 107/62 (77) 99 Room Air Lab Results: Results Past 24 Hours Test 10/30/16 11:27 10/30/16 15:07 10/30/16 16:07 10/30/16 20:40 Range/Units Bedside Glucose 350 296 180 70-99 mg/dl Sodium Level 122 136-145 mmol/L Potassium Level 4.1 3.5-5.1 mmol/L Chloride Level 85 98-107 mmol/L Carbon Dioxide Level 28 21-32 mmol/L Anion Gap 9.0 3-11 mmol/L Blood Urea Nitrogen 42 7-18 mg/dl Creatinine 2.40 0.60-1.40 mg/dl Est Creatinine Clear Calc Drug Dose 22.9 ml/min Estimated GFR () 28.7 Estimated GFR (Non- 24.7 BUN/Creatinine Ratio 17.6 10-20 Random Glucose 222 70-99 mg/dl Calcium Level 8.4 8.5-10.1 mg/dl Test 10/31/16 06:39 10/31/16 06:53 10/31/16 07:50 Range/Units Sodium Level 126 136-145 mmol/L Potassium Level 4.4 3.5-5.1 mmol/L Chloride Level 89 98-107 mmol/L Carbon Dioxide Level 30 21-32 mmol/L Anion Gap 7.0 3-11 mmol/L Blood Urea Nitrogen 39 7-18 mg/dl Creatinine 2.30 0.60-1.40 mg/dl Est Creatinine Clear Calc Drug Dose 24.1 ml/min Estimated GFR () 30.2 Estimated GFR (Non- 26.0 BUN/Creatinine Ratio 16.9 10-20 Random Glucose 146 70-99 mg/dl Calcium Level 8.6 8.5-10.1 mg/dl Magnesium Level 2.2 1.8-2.4 mg/dl Bedside Glucose 165 70-99 mg/dl Urine Osmolality 170 500-800 mOms/kg
--- NOTE | 2016-10-31 10:25 | Discharge Summary ---
Discharge Summary Date of Service Oct 31, 2016. Discharge Summary Admission Date: Oct 29, 2016 at 18:15 Discharge Date: Oct 31, 2016 Discharge Disposition: Home Principal Diagnosis: HYPONATREMIA Consultations: [facility] Medication Reconciliation Continued Medications: Acetaminophen W/ Codeine (Acetaminophen/Codeine) 1 Tab Tab 1 TAB PO Q4H PRN for Pain Cholecalciferol (Vitamin D) 5,000 Unit Tab 5000 INTER.UNIT PO QAM Clonidine Hcl (Clonidine Hcl) 0.3 Mg/24 Hr Dis 0.3 MG TOP WK Furosemide (Lasix) 40 Mg Tab 40 MG PO AFTERNOON, TAB Furosemide (Lasix) 40 Mg Tab 80 MG PO QAM, TAB Hydralazine Hcl (Apresoline) 50 Mg Tab 150 MG PO BID, TAB Hyoscyamine Sulfate (Hyoscyamine Sulfate) 0.125 Mg Tab 0.125 MG PO UD PRN for Abdominal Pain TAKE MD DIRECTS Insulin Glargine (Lantus) 100 Unit/Ml Inj 11-15 UNITS SC QPM ADJUST DOSE NEEDED Insulin Lispro (Human) (Humalog) 100 Unit/Ml Inj 1 DOSE SC UD COVERAGE DIRECTED BY FOLLOWING SLIDING SCALE: 201 - 250 2 UNITS 251 - 300 4 UNITS 301 - 350 6 UNITS 351 - 400 8 UNITS Loperamide Hcl (Imodium) 2 Mg Cap 2 MG PO UD PRN for Diarrhea, CAP TAKE MD DIRECTS Metoprolol Succinate (Toprol Xl) 200 Mg Tab 200 MG PO QAM, TAB Omeprazole (Prilosec) 20 Mg Capcr 40 MG PO QAM, #60 CAP Rivaroxaban (Xarelto) 15 Mg Tab 15 MG PO HS, TAB Admission Information HPI (per Admitting provider): DATE OF ADMISSION: 10/29/2016 CHIEF COMPLAINT: Low sodium. HISTORY OF PRESENT ILLNESS: This is a 80-year-old male with past medical history CHIEF COMPLAINT: Low sodium. HISTORY OF PRESENT ILLNESS: This 80-year-old male with past medical history significant for pancreatic cancer status post Whipple procedure, diabetes, hypertension, atrial fibrillation, vertigo, anemia, history of dysphagia secondary to muscular causes, esophageal dysmotility for which he followed [facility], currently status post PEG tube placement about a week ago and started on tube feeds. He is getting one can 4 times a day with 60 mL of free water flush and he has a dysphagia to solids only, so weak and he is eating liquid diet. As per the , patient drinks about 16 ounces of milkshake, 2 glasses of water, orange juice and coffee every day. He was admitted in September for acute renal failure thought to be from increased diuretics for his lower extremity edema. He was on 80 mg of Lasix twice daily which was cut back to 40 twice daily, but patient says that he was put back on Lasix of 80 in a.m. and 40 in p.m. There is no edema in his lower extremity. The patient says he is eating fairly okay, ambulates with a cane. Bowels are sometimes constipated, sometimes loose stools. Last bowel movement was yesterday, no blood in the stools. Normal bladder movements. No burning micturition, no blood in the urine. No abdominal pain, no nausea, no vomiting, no chest pain, no shortness of breath, no cough, no fever, no chills, no headaches, no blurred vision, no dizziness. On routine labs, his be sodium is mostly in 120s, Patient had a PET scan yesterday and did not eat anything and the recent CAT scan elevation in September which showed some abdominal mass. His oncologist is in [place]. He lives most of the time in [place] and he also sees a hot wire glass tube cutter there. Routine labs today showed sodium of low sodium and he was brought here. In the ER, his sodium was 116 and patient is alert and oriented, hemodynamically stable. He got IV fluids in the ER. ALLERGIES: HYDROCODONE. PAST MEDICAL HISTORY: As mentioned above. PAST SURGICAL HISTORY: Cataract surgery, colonoscopy with biopsy, EGD with biopsy, spinal shots, appendectomy, Whipple procedure, tonsillectomy and adenoidectomy, inguinal hernia repair. MEDICATIONS: The patient is on Lasix 80 in a.m. and 40 mg in p.m., tube feeds 4 times daily, Xarelto 50 mg p.o. daily, Lantus 10-15 units daily in the evening, insulin sliding scale, loperamide 2 mg p.o. q.i.d. p.r.n., clonidine 0.3 mg weekly patch, hydralazine 150 mg p.o. b.i.d., Tylenol with codeine 1 tablet p.o. every 4 hours p.r.n., vitamin D 5000 units p.o. daily, omeprazole 40 mg p.o. daily, hyoscyamine 0.125 mg p.r.n., Toprol-XL 200 mg p.o. daily. FAMILY HISTORY: Significant for mother at 80 and father in 80s. SOCIAL HISTORY: Former smoker, quit in 1985. Alcohol 2 drinks per week. No drug use. Retired banker. Physical Exam (per Admitting): REVIEW OF SYMPTOMS: As per HPI. Rest of review of symptoms negative. PHYSICAL EXAMINATION: GENERAL: The patient is of moderate build, not in distress. VITAL SIGNS: Temperature 36.4, pulse 64, respiratory rate 17, blood pressure 124/64, oxygen 99% on room air. HEENT: No pallor, no icterus. Pupils equal, round, and reactive to light. Oral mucosa moist. NECK: No JVD, no neck masses, no carotid bruits. CARDIOVASCULAR: S1, S2 heard. Regular rate and rhythm. No murmur, no gallop. RESPIRATORY SYSTEM: Clear to auscultation bilaterally. No wheezing, no crackles. ABDOMEN: Soft, bowel sounds present, nontender. No distention. CENTRAL NERVOUS SYSTEM: Cranial nerves II-XII grossly intact. Nonfocal. EXTREMITIES: No edema, no erythema. Hospital Course 1. Hyponatremia. improved Na level 126 after starting on 1 liter fluid restriction , IV Lasix d/ce d pt is switched to PO Lasix out pt regimen hx of chronic hyponatremia with sodium usually in the 120-126 range presented with Na 116 appreciate input from Nephrology pt is stable to be discharged home today instructed to have basic metabolic panel checked on Friday 11/03 scheduled to have follow up with Nephrology on Dec 05 pt is instructed to have 1 liter fluid restriction in oral intake cut free water flushed to 1/2 syringes ( 30 ml ) before and after Can /Tube feeding total of free water 240 ml /day pt was asking regarding Salt Tab - instructed to D/w nephrology on next visit , decision can be made after his Lab -Na level with adjustment of fluid regimen 2. BRANDI : resolved has underlying CKD stage 3-4 Cr improved to approx baseline D/C IVF 3. History of atrial fibrillation: on Toprol and Xarelto, 4. History of pancreatic cancer status post Whipple procedure. Last admission CAT scan showed a 3.8 x 1.9 cm mass located anterior to the inferior vena cava. recent PET scan at [facility] -shows no increased uptake suggestive of neoplasm Pt and family updated pt will continue followup with GI in office 5. Hypertension continue his clonidine, Toprol, hydralazine. 6. Diabetes type 2 : cont basal Lantus and insulin SSI 7. Deep vein thrombosis prophylaxis on Xarelto. 8. Code status: Level 1 full code. DISPOSITION discharge home today appointment scheduled with Dr Deluna on Thursday10/03/16 @ 1 pm will have lab work : BMP check on 10/03/16 Total time spent on discharge = 40 min This includes examination of the patient, discharge planning, medication reconciliation, and communication with other providers. Discharge Instructions Discharge Instructions Date of Service Oct 30, 2016. Admission Reason for Admission: Hyponatremia Discharge Discharge Diagnosis / Problem: HYPONATREMIA Discharge Goals Goal(s): Decrease discomfort, Improve disease control, Diagnostic testing, Therapeutic intervention Activity Recommendations Activity Limitations: resume your previous activity . Instructions / Follow-Up Instructions / Follow-Up HOSPITAL FOLLOW UP : 11/03/2016 12: 45 PM Marita Deluna DO General Internal Medicine [facility] LAB WORK : BASIC METABOLIC PANEL ON 11/03/16 PLEASE FLUID INTAKE DAILY TO 1000 ML /DAILY cut the free water flushes in half-so half syringe pre and half syringe after can feeding via tube Current Hospital Diet Patient's current hospital diet: Clear Liquid Diet, Diabetes Type 2 Diet Discharge Diet Recommended Diet: Clear Liquid Diet, Diabetes Type 2 Diet Fluid Restriction: 1000 ml (4 cups) Pending Studies Studies pending at discharge: yes List of pending studies: BASIC METABOLIC PANEL ON Thursday11/03/16 Laboratory Results Hemoglobin A1c Test 10/03/16 06:05 Range/Units Estimated Average Glucose 217 mg/dl Hemoglobin A1c 9.2 H 4.5-5.6 % Medical Emergencies . Who to Call and When: Medical Emergencies: If at any time you feel your situation is an emergency, please call 911 immediately. . Non-Emergent Contact Non-Emergency issues call your: Primary Care Provider . . "Provider Documentation" section prepared by Brenda Owen. . VTE Core Measure Inpt VTE Proph given/why not?: Stalin Maldonado, SCD's Additional Copies To Marita Deluna D.O.
== END 2016-10-31 10:40 | disposition home health service (06) | DRG 683 ==
LOC: C.EDB 15:20 → C.2T 18:15 → ENRESERV 18:27
PROVIDERS: ADMIT Internal Medicine; ATTEND Hospitalist
DX: N17.9 Acute kidney failure, unspecified (principal); E87.1 Hypo-osmolality and hyponatremia; I42.5 Other restrictive cardiomyopathy; N18.4 Chronic kidney disease, stage 4 (severe); I48.91 Unspecified atrial fibrillation; E11.22 Type 2 diabetes mellitus with diabetic chronic kidney disease; I12.9 Hypertensive chronic kidney disease with stage 1 through stage 4 chronic kidney disease, or unspecified chronic kidney disease; D64.9 Anemia, unspecified; R42 Dizziness and giddiness; K22.4 Dyskinesia of esophagus; Z87.891 Personal history of nicotine dependence; Z93.1 Gastrostomy status; Z79.899 Other long term (current) drug therapy; Z79.891 Long term (current) use of opiate analgesic; Z79.4 Long term (current) use of insulin; Z85.07 Personal history of malignant neoplasm of pancreas; Z79.01 Long term (current) use of anticoagulants

== ENCOUNTER 2016-11-10 13:56 | Inpatient (IN) | payer OTHER, MEDICARE ==
[~2016-11-10] VITALS: Ht 180.3 cm; Wt 67.0 kg
[~2016-11-10 13:56] MED LIST changes: +CHOL1TAB42 PO; +CLON0.3D5 TOP; +IMD/2 PO; +INSDGI SC; +INSU100I SC; +LVS125 PO; +METO1TAB70 PO
--- NOTE | 2016-11-10 16:01 | EMERGENCY ROOM VISIT NOTE ---
History Report prepared by Ofe: Yong Pierson Under the Supervision of: Dr. Julia Champion D.O. First contact with patient: 15:15 Chief Complaint: WEAKNESS Stated Complaint: LOW SODIUM, WEAKNESS Nursing Triage Summary: triage note: pt reports generalized weakness. pt reports he had blood drawn today and was called and told his sodium is low and to come to the ed for further eval. History of Present Illness The patient is a 80 year old male who presents to the Emergency Room with complaints of worsening low sodium for a while. The patient states that he got his blood drawn this morning at [facility], and it was 116. He was called by his family doctor and told to come to the ER. The patient states that last week his sodium levels was 123. He states that he has been on a liquid diet since he cannot swallow, and he states that he has not been gaining any weight. The patient additionally states that he has been feeling very weak today, and he has been having leg swelling. He states that his diuretic has been changing recently. The patient states that the hyponatremia is from an unknown cause since one doctor some overhydrated and one said under hydrated. The patient additionally states that he has a history of pancreatic cancer. Pt denies headache, change in vision, fevers, chest pain, shortness of breath, nausea, vomiting, diarrhea, pain with urination, and melena. Pt states his lab results were sent to Dr. Macias also. Source of History: patient Onset: a while ago Position: other (global) Quality: other (low sodium) Timing: worsening Associated Symptoms: + weakness Note: Associated symptoms: leg swelling Review of Systems See HPI for pertinent positives & negatives. A total of 10 systems reviewed and were otherwise negative. 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 Surgical Problems: (1) H/O hand surgery (2) H/o spinal injection (3) History of cataract surgery (4) S/P appendectomy (5) S/P inguinal hernia repair (6) S/P percutaneous endoscopic gastrostomy (PEG) tube placement (7) S/P tonsillectomy and adenoidectomy (8) S/p whipple procedure (9) Status post Mohs surgery Social History Smoking Status: Never Smoker Alcohol Use: occasionally Drug Use: none Marital Status: Housing Status: lives with family Occupation Status: retired Current/Historical Medications Scheduled Cholecalciferol (Vitamin D), 5,000 INTER.UNIT PO QAM Clonidine Hcl (Clonidine Hcl), 0.3 MG TOP WK Furosemide (Lasix), 40 MG PO AFTERNOON Furosemide (Lasix), 40 MG PO QAM Hydralazine Hcl (Apresoline), 150 MG PO BID Insulin Glargine (Lantus), 11-15 UNITS SC QPM Insulin Lispro (Human) (Humalog), 1 DOSE SC UD Metoprolol Succinate (Toprol Xl), 200 MG PO QAM Omeprazole (Prilosec), 40 MG PO QAM Rivaroxaban (Xarelto), 15 MG PO HS Scheduled PRN Acetaminophen W/ Codeine (Acetaminophen/Codeine), 1 TAB PO Q4H PRN for Pain Hyoscyamine Sulfate (Hyoscyamine Sulfate), 0.125 MG PO UD PRN for Abdominal Pain Loperamide Hcl (Imodium), 2 MG PO UD PRN for Diarrhea Allergies Coded Allergies: No Known Allergies (Verified , 11/10/16) Physical Exam Vital Signs Date Time Temp Pulse Resp B/P (MAP) Pulse Ox O2 Delivery O2 Flow Rate FiO2 11/10/16 16:40 69 16 127/78 97 Room Air 11/10/16 14:00 36.5 68 18 138/79 99 Room Air Physical Exam GENERAL: alert, well appearing, well nourished, no acute distress, non-toxic EYE EXAM: normal conjunctiva, PERRL and EOM's grossly intact OROPHARYNX: no exudate, no erythema, lips, buccal mucosa, and tongue normal and mucous membranes are moist NECK: supple, no nuchal rigidity, no adenopathy, non-tender LUNGS: Clear to auscultation. Normal chest wall mechanics HEART: no murmurs, S1 normal and S2 normal ABDOMEN: Mild abdominal tenderness around his feeding tube. Abdomen soft, normo- active bowel sounds, no masses, no rebound or guarding. BACK: Back is symmetrical on inspection and there is no deformity, no midline tenderness, no CVA tenderness. SKIN: no rashes and no bruising UPPER EXTREMITIES: upper extremities are grossly normal. LOWER EXTREMITIES: 1+ pitting edema. NEURO EXAM: Normal sensorium, cranial nerves II-XII grossly intact, normal speech, no gross weakness of arms, no gross weakness of legs. Gross sensation intact. Medical Decision & Procedures Laboratory Results Test 11/10/16 16:25 Immature Granulocyte % (Auto) 0.3 % White Blood Count 6.91 K/uL (4.8-10.8) Red Blood Count 2.87 M/uL (4.7-6.1) Hemoglobin 8.9 g/dL (14.0-18.0) Hematocrit 23.7 % (42-52) Mean Corpuscular Volume 82.6 fL (80-100) Mean Corpuscular Hemoglobin 31.0 pg (25-34) Mean Corpuscular Hemoglobin Concent 37.6 g/dl (32-36) Platelet Count 167 K/uL (130-400) Mean Platelet Volume 9.6 fL (7.4-10.4) Neutrophils (%) (Auto) 76.5 % Lymphocytes (%) (Auto) 8.2 % Monocytes (%) (Auto) 12.2 % Eosinophils (%) (Auto) 2.5 % Basophils (%) (Auto) 0.3 % Neutrophils # (Auto) 5.29 K/uL (1.4-6.5) Lymphocytes # (Auto) 0.57 K/uL (1.2-3.4) Monocytes # (Auto) 0.84 K/uL (0.11-0.59) Eosinophils # (Auto) 0.17 K/uL (0-0.5) Basophils # (Auto) 0.02 K/uL (0-0.2) Immature Granulocyte # (Auto) 0.02 K/uL (0.00-0.02) Anisocytosis PRESENT Osmolality 277 mOsm/kg (280-300) Phosphorus Level 3.5 mg/dl (2.5-4.9) Magnesium Level 2.4 mg/dl (1.8-2.4) Laboratory results per my review. ED Course 1540: The patient was evaluated in room C7. A complete history and physical exam was performed. 1610: I reevaluated the patient and updated him on treatment plan, and he was agreeable. 1641: Sodium Chloride 1000 ml @ 125 mls/hr IV 1655: I reviewed the patient's case with Dr. White. He will evaluate the patient for further management. 165: Sodium Chloride 1000 ml @ 80 mls/hr IV Medical Decision Differential diagnosis: Etiologies such as metabolic, infection, hypo/hyperglycemia, electrolyte abnormalities, cardiac sources, intracerebral event, toxicologic, neurologic, as well as others were entertained. Pt with acute exacerbation of chronic hyponatremia. Renal dysfunction stable compared to prior. Pt well appearing with stable VS. Aware of all results. No hx of seizures despite prior episodes of significant hyponatremia. Doubt occult infection. Possibly med related. Medication Reconcilliation Current Medication List: was personally reviewed by me Blood Pressure Screening Patient's blood pressure: Normal blood pressure Consults Time Called: 1640 Consulting Physician: Dr. White Returned Call: 1654 I reviewed the patient's case with . He will evaluate the patient for further management. Impression Primary Impression: Chronic hyponatremia Additional Impressions: Chronic kidney disease Generalized weakness Dysphagia Scribe Attestation The scribe's documentation has been prepared under my direction and personally reviewed by me in its entirety. I confirm that the note above accurately reflects all work, treatment, procedures, and medical decision making performed by me. Departure Information Dispostion Being Evaluated By Hospitalist Esther Carpenter M.D. (PCP) Patient Instructions My [facility] Problem Qualifiers Additional Impressions: Chronic kidney disease Chronic kidney disease stage: unspecified stage Qualified Codes: N18.9 - Chronic kidney disease, unspecified Dysphagia Dysphagia type: unspecified Qualified Codes: R13.10 - Dysphagia, unspecified
[2016-11-10 16:41] LABS: BASO % 0.3 %; BASO ABS # 0.02 K/uL (0-0.2); EOS % 2.5 %; HEMATOCRIT 23.7 % (42-52); IG% 0.3 %; LYMPH % 8.2 %; LYMPH ABS # 0.57 K/uL (1.2-3.4); MEAN CELL VOLUME 82.6 fL (80-100); MEAN CORPUSCULAR HGB CONC 37.6 g/dl (32-36); MEAN PLATELET VOLUME 9.6 fL (7.4-10.4); MONO % 12.2 %; NEUT % 76.5 %; PLATELET COUNT 167 K/uL (130-400); RED BLOOD COUNT 2.87 M/uL (4.7-6.1); WHITE BLOOD COUNT 6.91 K/uL (4.8-10.8)
[2016-11-10] MEDS ORDERED: SODIUM CHLORIDE 0.9% 1000ML 1,000 ML IV STA ×2 (16:41→16:58)
[2016-11-10 17:06] LABS: BUN/CREATININE RATIO 20.6 (10-20); CALCIUM 8.4 mg/dl (8.5-10.1); CREATININE 2.7 mg/dl (0.60-1.40); MAGNESIUM 2.4 mg/dl (1.8-2.4); PHOSPHORUS 3.5 mg/dl (2.5-4.9); POTASSIUM 4.4 mmol/L (3.5-5.1)
[2016-11-10 17:15] LABS: ANISOCYTOSIS PRESENT; COMPLETE YES
[2016-11-10 17:22] LABS: BETA-HYDROXYBUTYRATE 2.35 mg/dL (0.2-2.81)
[2016-11-10] MEDS ORDERED: ACETAMINOPHEN 325 MG TAB PO PRN (18:00)
[2016-11-10] MEDS ORDERED: ONDANSETRON INJ 2 MG/ML 2 ML VIAL IV PRN (18:00)
[2016-11-10] MEDS ORDERED: GLUCOSE 40% GEL 15 GM TUBE PO PRN (18:15)
[2016-11-10] MEDS ORDERED: ACETAMINOPHEN/CODEINE 300/30MG TAB PO PRN (18:15)
[2016-11-10] MEDS ORDERED: GLUCOSE 10 TABS/TUBE PO PRN (18:15)
[2016-11-10] MEDS ORDERED: DEXTROSE 50% 50 ML SYR IV PRN (18:15)
[2016-11-10] MEDS ORDERED: GLUCAGON FOR INJ 1 MG VIAL SQ PRN (18:15)
[2016-11-10] MEDS ORDERED: PHARMACY GLYCEMIC MGMT CONSULT PRN (18:30)
--- NOTE | 2016-11-10 18:46 | History and Physical ---
History & Physical Date & Time of Service: Nov 10, 2016 at 18:36 Chief Complaint: Low Sodium, Weakness Primary Care Physician: Esther Donaldson M.D. History of Present Illness Source: patient, family Patient is a 80 yr male with PMH of Pancreatic cancer S/P whipple procedure, DM II, HTN, Atrial fibrillation, Chronic anemia, H/O Dysphagia secondary to muscular dysmotility for which he follows with [facility], currently on Tube Feeds presents with history of worsening generalized weakness and abnormal labs. He visited his engraving operator today and was found to have uncontrolled blood sugar levels and sodium level of 122 (Corrected) and was sent to ED for further evaluation. Patient reports he has been taking excess calories ( Milkshakes/Ice cream) to gain weight and improve his weakness but is unsuccessful. He admits to changing his Insulin dosing by himself based on his calorie Intake as he has very low threshold for hypoglycemia. He missed his Insulin therapy today. His diuretic dosing was adjusted recently. Denies any SOB , chest pain, abd pain, fever, chills, nausea, vomiting, headache, change in vision, urinary symptoms. He is also on liquid diet and has chronic dysphagia to solids. 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 Family History Reviewed, not relevant Social History Smoking Status: Never Smoker Alcohol Use: none Drug Use: none Marital Status: Housing status: lives with significant other Occupational Status: retired Immunizations History of Influenza Vaccine: Yes Influenza Vaccine Date: Dec 21, 2012 History of Tetanus Vaccine?: Yes Tetanus Immunization Date: Aug 22, 2014 History of Pneumococcal: Yes Pneumococcal Date: July 31, 2014 History of Hepatitis B Vaccine: Yes Hepatitis Immunization Date: Sep 22, 2016 Multi-Drug Resistant Organisms History of MDRO: No Allergies Coded Allergies: No Known Allergies (Verified , 11/10/16) Home Medications Scheduled Cholecalciferol (Vitamin D), 5,000 INTER.UNIT PO QAM Clonidine Hcl (Clonidine Hcl), 0.3 MG TOP WK Furosemide (Lasix), 40 MG PO AFTERNOON Furosemide (Lasix), 40 MG PO QAM Hydralazine Hcl (Apresoline), 150 MG PO BID Insulin Glargine (Lantus), 11-15 UNITS SC QPM Insulin Lispro (Human) (Humalog), 1 DOSE SC UD Metoprolol Succinate (Toprol Xl), 200 MG PO QAM Omeprazole (Prilosec), 40 MG PO QAM Rivaroxaban (Xarelto), 15 MG PO HS Scheduled PRN Acetaminophen W/ Codeine (Acetaminophen/Codeine), 1 TAB PO Q4H PRN for Pain Hyoscyamine Sulfate (Hyoscyamine Sulfate), 0.125 MG PO UD PRN for Abdominal Pain Loperamide Hcl (Imodium), 2 MG PO UD PRN for Diarrhea Review of Systems See HPI for pertinent positives & negatives. A total of 10 systems reviewed and were otherwise negative. Physical Exam Vital Signs Date Time Temp Pulse Resp B/P (MAP) Pulse Ox O2 Delivery O2 Flow Rate FiO2 11/10/16 16:40 69 16 127/78 97 Room Air 11/10/16 14:00 36.5 68 18 138/79 99 Room Air General Appearance: no apparent distress, + thin Head: normocephalic, atraumatic Eyes: normal inspection, PERRL, EOMI ENT: normal ENT inspection, hearing grossly normal Neck: supple, trachea midline Respiratory/Chest: chest non-tender, lungs clear, normal breath sounds, no respiratory distress, no accessory muscle use Cardiovascular: no edema, + irregularly irregular Abdomen/GI: normal bowel sounds, non tender, soft, + pertinent finding (PEG tube) Back: normal inspection Extremities/Musculoskelatal: normal inspection, no pedal edema Neurologic/Psych: branner machine tender II-XII nml as tested, no motor/sensory deficits, alert, normal mood/affect, oriented x 3 Skin: normal color, warm/dry Diagnostics Laboratory Results Results Past 24 Hours Test 11/10/16 16:25 Range/Units White Blood Count 6.91 4.8-10.8 K/uL Red Blood Count 2.87 4.7-6.1 M/uL Hemoglobin 8.9 14.0-18.0 g/dL Hematocrit 23.7 42-52 % Mean Corpuscular Volume 82.6 80-100 fL Mean Corpuscular Hemoglobin 31.0 25-34 pg Mean Corpuscular Hemoglobin Concent 37.6 32-36 g/dl Platelet Count 167 130-400 K/uL Mean Platelet Volume 9.6 7.4-10.4 fL Neutrophils (%) (Auto) 76.5 % Lymphocytes (%) (Auto) 8.2 % Monocytes (%) (Auto) 12.2 % Eosinophils (%) (Auto) 2.5 % Basophils (%) (Auto) 0.3 % Neutrophils # (Auto) 5.29 1.4-6.5 K/uL Lymphocytes # (Auto) 0.57 1.2-3.4 K/uL Monocytes # (Auto) 0.84 0.11-0.59 K/uL Eosinophils # (Auto) 0.17 0-0.5 K/uL Basophils # (Auto) 0.02 0-0.2 K/uL RDW Standard Deviation 40.4 36.4-46.3 fL RDW Coefficient of Variation 13.2 11.5-14.5 % Immature Granulocyte % (Auto) 0.3 % Immature Granulocyte # (Auto) 0.02 0.00-0.02 K/uL Anisocytosis PRESENT Sodium Level 118 136-145 mmol/L Potassium Level 4.4 3.5-5.1 mmol/L Chloride Level 80 98-107 mmol/L Carbon Dioxide Level 29 21-32 mmol/L Anion Gap 9.0 3-11 mmol/L Blood Urea Nitrogen 56 7-18 mg/dl Creatinine 2.70 0.60-1.40 mg/dl Est Creatinine Clear Calc Drug Dose 21.5 ml/min Estimated GFR () 24.9 Estimated GFR (Non- 21.4 BUN/Creatinine Ratio 20.6 10-20 Random Glucose 361 70-99 mg/dl Calcium Level 8.4 8.5-10.1 mg/dl Phosphorus Level 3.5 2.5-4.9 mg/dl Magnesium Level 2.4 1.8-2.4 mg/dl Beta-Hydroxybutyric Acid 2.35 0.2-2.81 mg/dL Impression Assessment and Plan Hyponatremia: In setting of Hyperglycemia H/O chronic Hyponatremia (Usually ranges in Mid 120s) Check BMP Q4H for 24 hours Control blood sugar levels Check Serum/Urine Osmolality, Urine sodium, UA with microscopy, Orthostatics Free water flushes 60ml Before and after tube feeds 1.5 litres fluids/day restriction Discussed with Nephrology . Appreciate Input DM II: uncontrolled on Tube feeds (2cans TID) Onsite Case Manager consulted ISS, Lantus, Accu checks Update A1c Pharmacy Glycemic control consult Free water flushes 60ml Before and after tube feeds CKD IV: Cr at baseline H/O Pancreatic cancer S/P Whipple procedure Follows with [facility] Follows with GI and Oncology HTN: Stable Continue usual meds Atrial fibrillation: Rate controlled continue BB, Xarelto H/O Dysphagia secondary to muscular dysmotility On Tube feeds Dysphagia to solids DVT Px: On Xarelto Code Status: Full Code Disposition: Monitor in Tele VTE Prophylaxis VTE Risk Assessment Done? Y/N: Yes Risk Level: Moderate
[2016-11-10 19:10] VITALS: BP 186/66; PULSE 95; TEMP 36.5; O2SAT 96; BMI 20.8
[2016-11-10 19:52] VITALS: BP 186/86; PULSE 75; TEMP 36.6; O2SAT 95
--- NOTE | 2016-11-10 19:59 | Nephrology Consultation ---
Nephrology Consultation Date of Consultation: Nov 10, 2016. Attending Physician: Dr White Requesting Physician: Dr White Reason for Consultation: hyponatremia History of Present Illness 80 year old male w/ stage 4 CKD w/ baseline creatinine this spring / summer mid 2's, DM, severe wt loss from esophageal dysmotility over past few years s/p PEG placement late 09/2016, remote pancreatic CA, more recent melanoma, chronic lymphedema admitted today at my request after outpt labs showed worsening hyponatremia in setting of uncontrolled BG and w/ generalized weakness, malaise. His is at bedside today. Today as an outpt his sNa was 117, sCreat 2.4, BG 420 nonfasting (corrected sNa 122). Given weakness, he agreed to come to ER. Had been advised to do so on but had refused. he was admitted here for 48 hrs at the middle of last month for BRANDI, hyponatremia in the setting of dysphagia. At that d/c his lasix was reduced from 80 mg bid to 40 bid. shortly after that admission had PEG placed late last month. admitted here 10/29-10/31 for hyponatremia w/ presenting sodium 116 and hyperglycemia. he was d/c on 1L daily fluid limit po, lasix 80/40, his free water flushes w/ TF were cut to 30 mL before / after TF. he is very focused on regaining some weight and is therefore increasing calorie intake. His feeding regimen has changed recently > On 11/04, he increased TF volume from 2 cans twice daily to 2 cans tid; he was until 11/07 following 1L daily fluid limit, lasix 80/40 (on this form hospital d/c), and 30 mL free water pre/post each feeding. he had been having a lot of ice cream and milkshakes but since starting TF wants these less On 11/06 he had nonfasting outpt labs showing BG 313, sCreat 2.9, sNa 123, ( corrected Na 126) trending down from 127 at hospital d/c f/u labs on 11/03 w/ sNa 127, BG 175 (corrected 128). W/ worsened renal function and onging uncontrolled BG, I asked him to liberalize fluid intake by upping pre/post flushes to 60 mL each meal (but he did not do this and stayed at 30 mL pre/post ) and by lowering lasix to 40 mg bid and by liberalizing fluid restriction to 1.5 L daily. he has been feeling weaker recently; no falls; more gas/bloating w/ 6 cans; some exertional dyspnea. checks BG at home in am once daily only; does not follow w/ pharmacy or MTM; anxious about low BG w/ insulin changes. Past Medical/Surgical History Medical Problems: (1) Acute kidney injury superimposed on chronic kidney disease Status: Acute (2) Chronic hyponatremia Status: Acute (3) Chronic kidney disease Status: Acute (4) Generalized weakness Status: Acute (5) Hyponatremia Status: Acute -CKD 3/4 baseline creatinine about 2 w/ 2-3 gm proteinuria, attributed to DM/HTN ; follows w/ me in CKD clinic -HTN -DM on insulin; no retinopathy -permanent A fib follows w/ Dr. Porras -unexplained wt loss 15% of total body wt as of 11/2015 (baseline 165-170 lb as of 11/2012-11/2015; was 136 09/26/16; was 152 07/2016; 147 11/03 in clinic) >> s/p PEG placement 10/17/16 -remote pancreatic CA s/p Whipple procedure 2004 -melanoma s/p excision x 2 most recently winter 2014-2016 Family History noncontributory Social History Smoking Status: Never Smoker Alcohol Use: occasionally Drug Use: none Marital Status: Housing Status: lives with family Occupation Status: retired Allergies Coded Allergies: No Known Allergies (Verified , 11/10/16) Medications Current Inpatient Medications Medications (Trade) Dose Ordered Sig/Mindy Route Start Time Stop Time Status Last Admin Dose Admin Sodium Chloride 1,000 ml @ 80 mls/hr [id number] STAT IV 11/10/16 16:58 11/11/16 05:27 Home Meds and Scripts Medications Dose Route/Sig Max Daily Dose Days Date Category Dose Instructions Prilosec (Omeprazole) 20 Mg Capcr 40 Mg PO QAM 10/29/16 Rx Lasix (Furosemide) 40 Mg Tab 40 Mg PO QAM 10/29/16 Reported Xarelto (Rivaroxaban) 15 Mg Tab 15 Mg PO HS 10/06/16 Reported Acetaminophen/Codeine (Acetaminophen W/ Codeine) 1 Tab Tab 1 Tab PO Q4H PRN 10/06/16 Reported Apresoline (Hydralazine Hcl) 50 Mg Tab 150 Mg PO BID 10/06/16 Reported Lasix (Furosemide) 40 Mg Tab 40 Mg PO AFTERNOON 10/06/16 Reported Hyoscyamine Sulfate 0.125 Mg Tab 0.125 Mg PO UD PRN 10/02/16 Reported TAKE MD DIRECTS Imodium (Loperamide HCl) 2 Mg Cap 2 Mg PO UD PRN 10/02/16 Reported TAKE MD DIRECTS Humalog (Insulin Lispro (Human)) 100 Unit/Ml Inj 1 Dose SC UD 10/02/16 Reported COVERAGE DIRECTED BY FOLLOWING SLIDING SCALE: 201 - 250 2 UNITS 251 - 300 4 UNITS 301 - 350 6 UNITS 351 - 400 8 UNITS Clonidine Hcl 0.3 Mg/24 Hr Dis 0.3 Mg TOP WK 10/02/16 Reported Lantus (Insulin Glargine) 100 Unit/Ml Inj 11-15 Units SC QPM 10/02/16 Reported ADJUST DOSE NEEDED Toprol Xl (Metoprolol Succinate) 200 Mg Tab 200 Mg PO QAM 10/10/15 Reported Vitamin D (Cholecalciferol) 5,000 Unit Tab 5,000 Inter.unit PO QAM 10/10/15 Reported Review of Systems Constitutional: + weakness (generalized), + fatigue (too tired to go up stairs) , No fever Eyes: No worsening of vision Respiratory: No cough, No shortness of breath Cardiac: + edema (worsening BLE since I lowered diuretics late last week) Abdomen: + dysphagia (stable chronic), + problem reported (had one episode heartburn; notes satiety w/ taking 2 cans), No pain, No nausea, No vomiting, No diarrhea, No constipation Male : + urinary frequency, + nocturia more than once/night (generally every 1.5 hrs; last few days q45 min), No dysuria, No hematuria Psych: No depression symptoms, No anxiety Heme: + abnormal bleeding/bruising Endo: + fatigue, + excessive urination Skin: No rash Physical Exam Date Time Temp Pulse Resp B/P (MAP) Pulse Ox O2 Delivery O2 Flow Rate FiO2 11/10/16 16:40 69 16 127/78 97 Room Air 11/10/16 14:00 36.5 68 18 138/79 99 Room Air Diagnostics Last 24 Hours Test 11/10/16 16:25 White Blood Count 6.91 K/uL Red Blood Count 2.87 M/uL Hemoglobin 8.9 g/dL Hematocrit 23.7 % Mean Corpuscular Volume 82.6 fL Mean Corpuscular Hemoglobin 31.0 pg Mean Corpuscular Hemoglobin Concent 37.6 g/dl Platelet Count 167 K/uL Mean Platelet Volume 9.6 fL Neutrophils (%) (Auto) 76.5 % Lymphocytes (%) (Auto) 8.2 % Monocytes (%) (Auto) 12.2 % Eosinophils (%) (Auto) 2.5 % Basophils (%) (Auto) 0.3 % Neutrophils # (Auto) 5.29 K/uL Lymphocytes # (Auto) 0.57 K/uL Monocytes # (Auto) 0.84 K/uL Eosinophils # (Auto) 0.17 K/uL Basophils # (Auto) 0.02 K/uL RDW Standard Deviation 40.4 fL RDW Coefficient of Variation 13.2 % Immature Granulocyte % (Auto) 0.3 % Immature Granulocyte # (Auto) 0.02 K/uL Anisocytosis PRESENT Sodium Level 118 mmol/L Potassium Level 4.4 mmol/L Chloride Level 80 mmol/L Carbon Dioxide Level 29 mmol/L Anion Gap 9.0 mmol/L Blood Urea Nitrogen 56 mg/dl Creatinine 2.70 mg/dl Est Creatinine Clear Calc Drug Dose 21.5 ml/min Estimated GFR () 24.9 Estimated GFR (Non- 21.4 BUN/Creatinine Ratio 20.6 Random Glucose 361 mg/dl Calcium Level 8.4 mg/dl Phosphorus Level 3.5 mg/dl Magnesium Level 2.4 mg/dl Beta-Hydroxybutyric Acid 2.35 mg/dL Diagnostic Radiology: OCTOBER 03, 2016 CT abd/pelvis -3.9 cm x 2 cm mass near IVC, R renal vein, suspicious for malignancy -1.1 cm nodule R psoas PET CT 10/2016 no focal uptake to suggest neoplasm; focal uptake in sacrum concerning for remote fracture or needs mri if no trauma hx Assessment & Plan complex 80 y/o M w/ labile and mostly elevated BG, generalized weakness, worsening chronic hyponatremia, CKD4 w/ significant wt loss from unexplained esophageal dysmotility past few years w/ progressive malnutrition s/p PEG late last month now on changing regimen of TF, dietary intake. it has been challenging to manage his chemistries as an outpatient; pt is frustrated by so many hospital admissions. Goal to start will be to simulate as much as possible regimen from home and adjust from there > believe he will need however to be more free water restricted; he absolutely needs better BG control and will need plan to do this at home/independently after d/c he has crackles at his lung bases, mild edema, periorobital edema > suspect mild volume overload in setting of chronic hyponatremia but await labs -check BMP q6h -defer to hospitalist to control BG w/ goal to a regimen he can work with at home; [facility]; consider diabetes education -d/c NS -order serum osms, urine osms, rd urine sodium, uacm now -fluid restriction for now 1.5L -will increase lasix to 40 am and 20 1600 IV -cont 6 cans TF total daily (2 cans tid) and w/ 30 mL water pre and post each can Anemia in 2017 which is markedly worse than labs last year. Last colonoscopy 2013; has annual endoscopies -iron studies in AM -recommend FOBT -consider epo >> would need clarification from appropriate team that mass on 2016 imaging is not worrisome for malignancy; pt does not follow w/ [facility] Appreciate consult; will follow with you. Care coordinated w/ Dr White.
--- NOTE | 2016-11-10 20:26 | Pharmacy Progress Note ---
Glycemic Control Intl Consult Date of Service Nov 10, 2016. Scope Glycemic Pharmacist consulted by Dr White on 11/11/16 for glycemic control and to write orders per [facility] inpatient glycemic control protocol Objective Weight (Kilograms): 67.600 Accuchecks BSG (last 24hrs): Test 11/10/16 16:25 Random Glucose 361 mg/dl (70-99) Laboratory Data (last 24hrs) Test 11/10/16 16:25 Anion Gap 9.0 mmol/L BUN/Creatinine Ratio 20.6 Blood Urea Nitrogen 56 mg/dl Creatinine 2.70 mg/dl Potassium Level 4.4 mmol/L Sodium Level 118 mmol/L White Blood Count 6.91 K/uL Red Blood Count 2.87 M/uL Hemoglobin 8.9 g/dL Hematocrit 23.7 % Mean Corpuscular Volume 82.6 fL Mean Corpuscular Hemoglobin 31.0 pg Mean Corpuscular Hemoglobin Concent 37.6 g/dl Platelet Count 167 K/uL Mean Platelet Volume 9.6 fL Neutrophils (%) (Auto) 76.5 % Lymphocytes (%) (Auto) 8.2 % Monocytes (%) (Auto) 12.2 % Eosinophils (%) (Auto) 2.5 % Basophils (%) (Auto) 0.3 % Neutrophils # (Auto) 5.29 K/uL Lymphocytes # (Auto) 0.57 K/uL Monocytes # (Auto) 0.84 K/uL Eosinophils # (Auto) 0.17 K/uL Basophils # (Auto) 0.02 K/uL Recent Pertinent Medications Outpatient Anti-diabetic Regimen: * Lantus 11-15 units SQ (dependent on food intake) + Humalog per sliding scale * A1c = 9.2 % 10/03/16 Risk Factors for Insulin Resistance: * IVF: Lasix twice daily * Diet: type 2 diet, utilizes liquid diet as has dysphagia Assessment & Plan ASSESSMENT: * ADA & AACE recommend a goal blood sugar range 140-180 mg/dl for the majority of critically ill & non-critically ill patients. However, more stringent targets may be selected in individual cases. * Mr Li is a 80 y/o M well known to the glycemic service who was admitted for hyponatremia and weakness. He has a PMH of atrial fibrillation, pancreatic ca s/p whipple procedure, and esophageal dysmotility. Whenever previously here, patient is difficult to control due secondary to his insulin sensitivity and refusal of some insulin doses. * For Lantus, previous admission data indicates that Lantus 5 units SQ daily is sufficient. Will utilize this as a starting point and titrate as appropriate. * For Novolog, previous data indicates that patient will refuse some doses as well as request lower doses that what the scale provides. Still with these occurrences, it appears that the previous scale was too tight. The patient experience stacking. Therefore, will utilize a looser scale. On admission the patient's blood sugar was elevated at 361 mg/dL. He received no insulin today. Caution in utilizing insulin IV secondary to patient's sensitivity. Previously subcutaneous regular insulin was sufficient to provide blood sugar reduction. PLAN FOR INPATIENT GLYCEMIC CONTROL: * Basal insulin with LANTUS 5 units SQ HS * Correctional Insulin with NOVOLOG per scale ACHS * Goal Range: Low 140 mg/dL - High 180 mg/dL * Correction Factor: 55 mg/dL/unit * Nutritional / Prandial insulin per carb ratio of 1 unit per 18 grams CHO consumed * Please note that the plan above was derived based on current level of insulin resistance and hospital stress. These recommendations are appropriate for inpatient admission only. Plan of care upon discharge will need to be reassessed to avoid potential outpatient hypo/hyperglycemia. Thank you.
[2016-11-10] MEDS: RIVAROXABAN TAB 15 MG TAB PO SCH (20:41)
[2016-11-10] MEDS ORDERED: FUROSEMIDE INJ 20 MG in SYRINGE 0 ML IV SCH (21:00)
[2016-11-10] MEDS: INSULIN GLARGINE SOLOSTAR 100 UNITS/ML 3 ML PEN SC SCH (21:00)
[2016-11-10] MEDS: INSULIN ASPART 100 UNITS/ML 3 ML PEN SC SCH ×2 (21:00→23:34)
[2016-11-10 21:08] LABS: URINE APPEARANCE CLEAR (CLEAR); URINE BILIRUBIN NEG (NEG); URINE COLOR YELLOW; URINE NITRITE NEG (NEG); URINE PH 6.5 (4.5-7.5); URINE SPECIFIC GRAVITY 1.013 (1.000-1.030); UROBILINOGEN NEG (NEG)
[2016-11-10 21:11] LABS: MANUAL MICROSCOPIC REQUIRED? NO; REVIEW REQ? YES
--- NOTE | 2016-11-10 21:14 | DIAGNOSTIC IMAGING REPORT ---
CHEST 2 VIEWS ROUTINE HISTORY: ?aspiration COMPARISON: Chest 09/04/2014. FINDINGS: No pneumothorax. Stable blunting of the right lateral costophrenic sulcus. The heart is normal in size. Mild interstitial thickening at the lung bases. There are few bibasilar linear densities suggesting subsegmental atelectasis. Patchy left retrocardiac and right infrahilar densities. IMPRESSION: Patchy bibasilar densities. This could represent atelectasis or pneumonia. Electronically signed by: Mack Schilling M.D. 11/10/2016 9:13 PM Dictated Date/Time: 11/10/2016 9:11 PM
[2016-11-10 21:22] LABS: URINE EPITHELIAL CELL AUTO 0-5 /lpf (0-5)
[2016-11-10] MEDS ORDERED: INSULIN GLARGINE SOLOSTAR 100 UNITS/ML 3 ML PEN SC SCH (21:30)
[2016-11-10 22:20] LABS: BUN/CREATININE RATIO 20.5 (10-20); CALCIUM 8.3 mg/dl (8.5-10.1); CREATININE 2.6 mg/dl (0.60-1.40); POTASSIUM 4.1 mmol/L (3.5-5.1)
[2016-11-10 22:35] LABS: BETA-HYDROXYBUTYRATE 2.15 mg/dL (0.2-2.81)
[2016-11-10] MEDS: CHECK CLONIDINE PATCH PLACEMENT SCH (23:04)
[2016-11-11] VITALS (7 sets, daily range): BP systolic 109–143; BP diastolic 57–82; PULSE 61–82; TEMP 36.3–36.8; O2SAT 95–99; BMI 20.6
[2016-11-11] MEDS ORDERED: INSULIN ASPART 100 UNITS/ML 3 ML PEN SC SCH (02:00)
[2016-11-11] MEDS: INSULIN ASPART 100 UNITS/ML 3 ML PEN SC SCH ×5 (04:00→21:49)
[2016-11-11 05:42] LABS: HEMATOCRIT 21.5 % (42-52); MEAN CELL VOLUME 82.7 fL (80-100); MEAN CORPUSCULAR HEMOGLOBIN 30.4 pg (25-34); MEAN CORPUSCULAR HGB CONC 36.7 g/dl (32-36); MEAN PLATELET VOLUME 9.7 fL (7.4-10.4); PLATELET COUNT 155 K/uL (130-400); WHITE BLOOD COUNT 6.79 K/uL (4.8-10.8)
[2016-11-11 06:10] LABS: TOTAL IRON BINDING CAPACITY 258 mcg/dl (250-450)
[2016-11-11] MEDS: TUBE FEEDING WATER FLUSH PO SCH ×6 (07:00→17:15)
[2016-11-11 07:16] LABS: ESTIMATED AVERAGE GLUCOSE 226 mg/dl; HA1C FLAG Normal (Normal)
[2016-11-11 08:03] LABS: CALCIUM 8.5 mg/dl (8.5-10.1); CREATININE 2.6 mg/dl (0.60-1.40); POTASSIUM 4.3 mmol/L (3.5-5.1)
[2016-11-11] MEDS: CHECK CLONIDINE PATCH PLACEMENT SCH ×3 (08:29→23:36)
[2016-11-11] MEDS: FUROSEMIDE INJ 40 MG in SYRINGE 0 ML IV SCH (08:30)
[2016-11-11] MEDS: METOPROLOL SUCC 50MG EXT REL TAB PO SCH (08:32)
[2016-11-11] MEDS: PANTOprazole SOD 40 MG TAB PO SCH (08:33)
[2016-11-11] MEDS: CHOLECALCIFEROL 1000 INTER.UNIT TAB PO SCH (08:33)
[2016-11-11] MEDS: IRON SUCROSE INJ 300 MG in SODIUM CHLORIDE 0.9% 100ML 100 ML IV SCH (09:31)
[2016-11-11 10:01] LABS: BUN/CREATININE RATIO 20.1 (10-20); CALCIUM 8.5 mg/dl (8.5-10.1); CREATININE 2.6 mg/dl (0.60-1.40)
[2016-11-11] MEDS ORDERED: HYOSCYAMINE SULFATE 0.125 MG SL TAB PO PRN (10:15)
--- NOTE | 2016-11-11 10:20 | Pharmacy Progress Note ---
Pharmacy Glycemic Sign Off Nt Date of Service Nov 11, 2016. Assessment & Plan ASSESSMENT: * Pharmacy was consulted by Dr White on 11/10/16 for glycemic control and to write orders per [facility] inpatient glycemic control protocol. * Patient has been refusing Novolog insulin X 3 checks and refused ordered dose of Lantus last night- pt preferred home dose which has been known to cause Fasting BSGs below goal range in past admissions. * Since we are unable to titrate insulin due to refusal- pharmacy unable to assist in BSG management PLAN FOR INPATIENT GLYCEMIC CONTROL: * Continue current regimen * Pharmacy is signing off of glycemic consult and will no longer be making adjustments to inpatient regimen. Please feel free to re-consult if needed. Thank you.
--- NOTE | 2016-11-11 11:46 | Progress Note ---
Internal Med Progress Note Date of Service: Nov 11, 2016. Provider Documentation: SUBJECTIVE: The patient was seen and examined Still complains of extreme tiredness Denies any other symptoms OBJECTIVE: Vital Signs-as noted below Exam: General-No distress at rest Eyes-normal ENT-normal Neck-supple Lungs-Clear to ausucltate bilaterally Heart-Regular,no9 murmur appreciated Abdomen-Benign,no masses,bowel sound present Extremities-No edema Neuro-AAOx3,generally weak but no focal sensory and or motor deficit Lab data as noted below. 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, Nutritional and Renal loss Control blood sugar levels Urine Osmolality low at 202 and random Sodium 22 Free water flushes 60ml Before and after tube feeds 1.5 liters fluids/day restriction Sodium improved to 122 but again down to 120 Appreciate Nephrology input and recommendation Continue current treatment DM II:uncontrolled with Hyperglycemia on Tube feeds (2cans TID) Bread Baker consulted ISS, Lantus, Accu checks Update A1c High at 9.5 Pharmacy Glycemic control consult-signed off due to noncompliance Free water flushes 60ml Before and after tube feeds Patient controls his own Insulin doses 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 Cr at baseline Nephrology following H/O Pancreatic cancer S/P Whipple procedure Follows with [facility] Follows with GI and Oncology Not getting any Chemo now Anemia Secondary to CKD and complicated by Pancreatic cancer Check Occult blood May need transfusion HTN: Stable Continue usual meds Atrial fibrillation: Rate controlled continue BB, Xarelto No acute issue H/O Dysphagia secondary to muscular dysmotility On Tube feeds Dysphagia to solids DVT Px: On Xarelto Code Status: Full Code Disposition: Monitor in Tele Vital Signs: Date Time Temp Pulse Resp B/P (MAP) Pulse Ox O2 Delivery O2 Flow Rate FiO2 11/11/16 08:00 Room Air 11/11/16 07:37 36.8 61 18 120/71 (87) 95 11/11/16 04:00 36.3 63 16 114/64 (81) 99 Room Air 11/11/16 04:00 Room Air 11/11/16 00:00 36.6 68 18 111/57 (75) 96 Room Air 73 125/63 (83) 79 121/64 (83) 11/10/16 23:59 Room Air 11/10/16 19:52 36.6 75 20 186/86 (119) 95 Room Air 11/10/16 19:10 36.5 95 16 186/66 96 Room Air 11/10/16 18:35 36.5 69 16 127/78 97 11/10/16 16:40 69 16 127/78 97 Room Air 11/10/16 14:00 36.5 68 18 138/79 99 Room Air Lab Results: Results Past 24 Hours Test 11/10/16 16:25 11/10/16 20:39 11/10/16 21:01 11/10/16 21:36 Range/Units White Blood Count 6.91 4.8-10.8 K/uL Red Blood Count 2.87 4.7-6.1 M/uL Hemoglobin 8.9 14.0-18.0 g/dL Hematocrit 23.7 42-52 % Mean Corpuscular Volume 82.6 80-100 fL Mean Corpuscular Hemoglobin 31.0 25-34 pg Mean Corpuscular Hemoglobin Concent 37.6 32-36 g/dl Platelet Count 167 130-400 K/uL Mean Platelet Volume 9.6 7.4-10.4 fL Neutrophils (%) (Auto) 76.5 % Lymphocytes (%) (Auto) 8.2 % Monocytes (%) (Auto) 12.2 % Eosinophils (%) (Auto) 2.5 % Basophils (%) (Auto) 0.3 % Neutrophils # (Auto) 5.29 1.4-6.5 K/uL Lymphocytes # (Auto) 0.57 1.2-3.4 K/uL Monocytes # (Auto) 0.84 0.11-0.59 K/uL Eosinophils # (Auto) 0.17 0-0.5 K/uL Basophils # (Auto) 0.02 0-0.2 K/uL RDW Standard Deviation 40.4 36.4-46.3 fL RDW Coefficient of Variation 13.2 11.5-14.5 % Immature Granulocyte % (Auto) 0.3 % Immature Granulocyte # (Auto) 0.02 0.00-0.02 K/uL Anisocytosis PRESENT Sodium Level 118 118 136-145 mmol/L Potassium Level 4.4 4.1 3.5-5.1 mmol/L Chloride Level 80 80 98-107 mmol/L Carbon Dioxide Level 29 29 21-32 mmol/L Anion Gap 9.0 9.0 3-11 mmol/L Blood Urea Nitrogen 56 53 7-18 mg/dl Creatinine 2.70 2.60 0.60-1.40 mg/dl Est Creatinine Clear Calc Drug Dose 21.5 22.0 ml/min Estimated GFR () 24.9 26.0 Estimated GFR (Non- 21.4 22.4 BUN/Creatinine Ratio 20.6 20.5 10-20 Random Glucose 361 358 70-99 mg/dl Osmolality 277 280-300 mOsm/kg Calcium Level 8.4 8.3 8.5-10.1 mg/dl Phosphorus Level 3.5 2.5-4.9 mg/dl Magnesium Level 2.4 1.8-2.4 mg/dl Beta-Hydroxybutyric Acid 2.35 2.15 0.2-2.81 mg/dL Bedside Glucose 408 70-99 mg/dl Urine Color YELLOW Urine Appearance CLEAR CLEAR Urine pH 6.5 4.5-7.5 Urine Specific [place] 1.013 1.000-1.030 Urine Protein 2+ NEG Urine Glucose (UA) 2+ NEG Urine Ketones NEG NEG Urine Occult Blood NEG NEG Urine Nitrite NEG NEG Urine Bilirubin NEG NEG Urine Urobilinogen NEG NEG Urine Leukocyte Esterase NEG NEG Urine WBC (Auto) 0 0-5 /hpf Urine RBC (Auto) 0-4 0-4 /hpf Urine Hyaline Casts (Auto) 0 0-5 /lpf Urine Epithelial Cells (Auto) 0-5 0-5 /lpf Urine Bacteria (Auto) NEG NEG Urine Osmolality 202 500-800 mOms/kg Urine Random Sodium 22 mEq/L Test 11/10/16 23:14 11/11/16 04:12 11/11/16 05:09 11/11/16 07:11 Range/Units Bedside Glucose 353 197 139 70-99 mg/dl White Blood Count 6.79 4.8-10.8 K/uL Red Blood Count 2.60 4.7-6.1 M/uL Hemoglobin 7.9 14.0-18.0 g/dL Hematocrit 21.5 42-52 % Mean Corpuscular Volume 82.7 80-100 fL Mean Corpuscular Hemoglobin 30.4 25-34 pg Mean Corpuscular Hemoglobin Concent 36.7 32-36 g/dl RDW Standard Deviation 40.1 36.4-46.3 fL RDW Coefficient of Variation 13.2 11.5-14.5 % Platelet Count 155 130-400 K/uL Mean Platelet Volume 9.7 7.4-10.4 fL Sodium Level 122 136-145 mmol/L Potassium Level 4.3 3.5-5.1 mmol/L Chloride Level 83 98-107 mmol/L Carbon Dioxide Level 31 21-32 mmol/L Anion Gap 8.0 3-11 mmol/L Blood Urea Nitrogen 55 7-18 mg/dl Creatinine 2.60 0.60-1.40 mg/dl Est Creatinine Clear Calc Drug Dose 21.8 ml/min Estimated GFR () 26.0 Estimated GFR (Non- 22.4 BUN/Creatinine Ratio 21.0 10-20 Random Glucose 149 70-99 mg/dl Estimated Average Glucose 226 mg/dl Hemoglobin A1c 9.5 4.5-5.6 % Calcium Level 8.5 8.5-10.1 mg/dl Iron Level 58 35-175 mcg/dl Total Iron Binding Capacity 258 250-450 mcg/dl Transferrin 208 200-360 mg/dl Transferrin % Saturation 20 20-50 % Test 11/11/16 09:13 Range/Units Sodium Level 120 136-145 mmol/L Potassium Level 4.0 3.5-5.1 mmol/L Chloride Level 81 98-107 mmol/L Carbon Dioxide Level 34 21-32 mmol/L Anion Gap 5.0 3-11 mmol/L Blood Urea Nitrogen 52 7-18 mg/dl Creatinine 2.60 0.60-1.40 mg/dl Est Creatinine Clear Calc Drug Dose 21.8 ml/min Estimated GFR () 26.0 Estimated GFR (Non- 22.4 BUN/Creatinine Ratio 20.1 10-20 Random Glucose 233 70-99 mg/dl Calcium Level 8.5 8.5-10.1 mg/dl
[2016-11-11 16:04] LABS: BUN/CREATININE RATIO 21.1 (10-20); CALCIUM 8.4 mg/dl (8.5-10.1); CREATININE 2.6 mg/dl (0.60-1.40); POTASSIUM 4.4 mmol/L (3.5-5.1)
[2016-11-11] MEDS ORDERED: SODIUM CHLORIDE 1 GM TAB PO ONE (16:28)
[2016-11-11] MEDS ORDERED: NURSING VERBAL MED ORDER ONE (17:00)
[2016-11-11] MEDS ORDERED: ZOLPIDEM TARTRATE 5 MG TAB PO PRN (17:45)
--- NOTE | 2016-11-11 17:47 | Nephrology Progress Note ---
Nephrology Progress Note Date of Service: Nov 11, 2016. Subjective Na 122 this am and then down to 118; did have BG 373 between these labs; was getting 60 mL flushes pre/post TF; some gas/bloating w/ 6 cans/day but wants to cont; no dsypnea, no N, no HOPKINS, no confusion; resists pharmacy recs for insulin Objective Date Time Temp Pulse Resp B/P (MAP) Pulse Ox O2 Delivery O2 Flow Rate FiO2 11/11/16 07:37 36.8 61 18 120/71 (87) 95 11/11/16 04:00 36.3 63 16 114/64 (81) 99 Room Air 11/11/16 04:00 Room Air 11/11/16 00:00 36.6 68 18 111/57 (75) 96 Room Air 73 125/63 (83) 79 121/64 (83) 11/10/16 23:59 Room Air 11/10/16 19:52 36.6 75 20 186/86 (119) 95 Room Air 11/10/16 19:10 36.5 95 16 186/66 96 Room Air 11/10/16 18:35 36.5 69 16 127/78 97 11/10/16 16:40 69 16 127/78 97 Room Air 11/10/16 14:00 36.5 68 18 138/79 99 Room Air Physical Exam: General-on RA sitting on side of bed nad oriented x 3 cachectic no resp distress or cough Eyes-eomi ENT-dry mm Neck-supple Lungs-diminished bibasilar crx Heart-RRR 1+ BL ankle edema Abdomen-PEG present; +BS, no peterson soft Extremities-no c/c Neuro-lim, fluent speech Current Inpatient Medications Medications (Trade) Dose Ordered Sig/Mindy Route Start Time Stop Time Status Last Admin Dose Admin Acetaminophen (Tylenol Tab) 650 mg Q4H PRN PO 11/10/16 18:00 12/10/16 17:59 Ondansetron HCl (Zofran Inj) 4 mg Q6H PRN IV 11/10/16 18:00 12/10/16 17:59 Insulin Aspart (novoLOG ASPART) SLIDING SCALE If C... ACHS SC 11/10/16 21:00 12/10/16 20:59 Glucose (Glucose 40% Gel) 15-30 GRAMS 15 GRAMS... UD PRN PO 11/10/16 18:15 12/10/16 18:14 Glucose (Glucose Chew Tab) 4-8 Tablets 4 Tabl... UD PRN PO 11/10/16 18:15 12/10/16 18:14 Dextrose (Dextrose 50% 50ML Syringe) 25-50ML OF 50% DW IV FOR... UD PRN IV 11/10/16 18:15 12/10/16 18:14 Glucagon (Glucagon Inj) 1 mg UD PRN SQ 11/10/16 18:15 12/10/16 18:14 Miscellaneous Information (Consult Glycemic Management Pharmacy) 1 ea UD PRN N/A 11/10/16 18:30 12/10/16 18:29 Acetaminophen/ Codeine Phosphate (Tylenol w/ Codeine #3 Tab) 1 tab Q4H PRN PO 11/10/16 18:15 12/10/16 18:14 11/10/16 23:39 1 TAB Clonidine HCl (Arwlmgnc-Gpq-6 0.3mg/24hr Patch) 0.3 patch Felder@0900 TD 11/16/16 09:00 12/16/16 08:59 Hydralazine HCl (Apresoline Tab) 150 mg BID PO 11/10/16 21:00 12/10/16 20:59 11/11/16 08:33 150 MG Miscellaneous Information (Order Awaiting Action) 1 ea QS N/A 11/11/16 00:00 12/11/16 00:00 Insulin Glargine (Lantus Solostar Pen) 5 units QPM SC 11/10/16 21:00 12/10/16 20:59 Future hold Metoprolol Succinate (Toprol Xl Tab) 200 mg QAM PO 11/11/16 09:00 12/11/16 08:59 11/11/16 08:32 200 MG Rivaroxaban (Xarelto Tab) 15 mg HS PO 11/10/16 21:00 12/10/16 20:59 11/10/16 20:41 15 MG Cholecalciferol (Vitamin D Tab) 5,000 inter.unit QAM PO 11/11/16 09:00 12/11/16 08:59 11/11/16 08:33 5,000 INTER.UNIT Pantoprazole Sodium (Protonix Tab) 40 mg QAM PO 11/11/16 09:00 12/11/16 08:59 11/11/16 08:33 40 MG Sterile Water (Tube Feeding Water Flush) 1 ea AC PO 11/11/16 07:00 12/11/16 06:59 11/11/16 07:00 1 EA Furosemide 40 mg/ Syringe 4 ml @ 4 mls/min DAILY@0700 IV 11/11/16 07:00 12/11/16 06:59 11/11/16 08:30 4 MLS/MIN Furosemide 20 mg/ Syringe 2 ml @ 4 mls/min DAILYBD IV 11/11/16 16:15 12/11/16 16:14 Sterile Water (Tube Feeding Water Flush) 1 ea PC PO 11/11/16 08:00 12/11/16 07:59 11/11/16 08:29 1 EA Miscellaneous (Remove Clonidine Patch) 1 ea Q7D@0859 N/A 11/16/16 08:59 12/16/16 08:58 Miscellaneous Information (Check Clonidine Patch Placement) 1 ea QS N/A 11/11/16 00:00 12/11/16 00:00 11/11/16 08:29 1 EA Iron Sucrose 300 mg/Sodium Chloride 115 ml @ 420 mls/hr DAILY IV 11/11/16 09:00 11/14/16 09:00 UNV Last 24 Hours Test 11/10/16 16:25 11/10/16 20:39 11/10/16 21:01 11/10/16 21:36 White Blood Count 6.91 K/uL Red Blood Count 2.87 M/uL Hemoglobin 8.9 g/dL Hematocrit 23.7 % Mean Corpuscular Volume 82.6 fL Mean Corpuscular Hemoglobin 31.0 pg Mean Corpuscular Hemoglobin Concent 37.6 g/dl Platelet Count 167 K/uL Mean Platelet Volume 9.6 fL Neutrophils (%) (Auto) 76.5 % Lymphocytes (%) (Auto) 8.2 % Monocytes (%) (Auto) 12.2 % Eosinophils (%) (Auto) 2.5 % Basophils (%) (Auto) 0.3 % Neutrophils # (Auto) 5.29 K/uL Lymphocytes # (Auto) 0.57 K/uL Monocytes # (Auto) 0.84 K/uL Eosinophils # (Auto) 0.17 K/uL Basophils # (Auto) 0.02 K/uL RDW Standard Deviation 40.4 fL RDW Coefficient of Variation 13.2 % Immature Granulocyte % (Auto) 0.3 % Immature Granulocyte # (Auto) 0.02 K/uL Anisocytosis PRESENT Sodium Level 118 mmol/L 118 mmol/L Potassium Level 4.4 mmol/L 4.1 mmol/L Chloride Level 80 mmol/L 80 mmol/L Carbon Dioxide Level 29 mmol/L 29 mmol/L Anion Gap 9.0 mmol/L 9.0 mmol/L Blood Urea Nitrogen 56 mg/dl 53 mg/dl Creatinine 2.70 mg/dl 2.60 mg/dl Est Creatinine Clear Calc Drug Dose 21.5 ml/min 22.0 ml/min Estimated GFR () 24.9 26.0 Estimated GFR (Non- 21.4 22.4 BUN/Creatinine Ratio 20.6 20.5 Random Glucose 361 mg/dl 358 mg/dl Osmolality 277 mOsm/kg Calcium Level 8.4 mg/dl 8.3 mg/dl Phosphorus Level 3.5 mg/dl Magnesium Level 2.4 mg/dl Beta-Hydroxybutyric Acid 2.35 mg/dL 2.15 mg/dL Bedside Glucose 408 mg/dl Urine Color YELLOW Urine Appearance CLEAR Urine pH 6.5 Urine Specific [place] 1.013 Urine Protein 2+ Urine Glucose (UA) 2+ Urine Ketones NEG Urine Occult Blood NEG Urine Nitrite NEG Urine Bilirubin NEG Urine Urobilinogen NEG Urine Leukocyte Esterase NEG Urine WBC (Auto) 0 /hpf Urine RBC (Auto) 0-4 /hpf Urine Hyaline Casts (Auto) 0 /lpf Urine Epithelial Cells (Auto) 0-5 /lpf Urine Bacteria (Auto) NEG Urine Osmolality 202 mOms/kg Urine Random Sodium 22 mEq/L Test 11/10/16 23:14 11/11/16 04:12 11/11/16 05:09 11/11/16 07:11 Bedside Glucose 353 mg/dl 197 mg/dl 139 mg/dl White Blood Count 6.79 K/uL Red Blood Count 2.60 M/uL Hemoglobin 7.9 g/dL Hematocrit 21.5 % Mean Corpuscular Volume 82.7 fL Mean Corpuscular Hemoglobin 30.4 pg Mean Corpuscular Hemoglobin Concent 36.7 g/dl RDW Standard Deviation 40.1 fL RDW Coefficient of Variation 13.2 % Platelet Count 155 K/uL Mean Platelet Volume 9.7 fL Sodium Level 122 mmol/L Potassium Level 4.3 mmol/L Chloride Level 83 mmol/L Carbon Dioxide Level 31 mmol/L Anion Gap 8.0 mmol/L Blood Urea Nitrogen 55 mg/dl Creatinine 2.60 mg/dl Est Creatinine Clear Calc Drug Dose 21.8 ml/min Estimated GFR () 26.0 Estimated GFR (Non- 22.4 BUN/Creatinine Ratio 21.0 Random Glucose 149 mg/dl Estimated Average Glucose 226 mg/dl Hemoglobin A1c 9.5 % Calcium Level 8.5 mg/dl Iron Level 58 mcg/dl Total Iron Binding Capacity 258 mcg/dl Transferrin 208 mg/dl Transferrin % Saturation 20 % Other Studies: cxr 11/10 patcy bibasilar densities atelectasis v pna Assessment & Plan complex 80 y/o M w/ labile and mostly elevated BG, generalized weakness, worsening chronic hyponatremia, CKD4 w/ significant wt loss from unexplained esophageal dysmotility past few years w/ progressive malnutrition s/p PEG late last month now on changing regimen of TF, dietary intake. it has been challenging to manage his chemistries as an outpatient; pt is frustrated by so many hospital admissions. Goal to start will be to get better BG control, to monitor fluid intake/output and labs closely and correct sodium. he absolutely needs better BG control and will need plan to do this at home/independently after d/c doubt PNA he has crackles at his lung bases, mild edema, periorobital edema > suspect mild volume overload in setting of chronic hyponatremia. note that serum osms 277 << >> reflects elevated blood glucose complicating mgt of low Na -check BMP q8h and again at 2000 today -needs diabetes education; would he benefit from a pump <> BG seem to yo yo -ordered serum osms, urine osms, rd urine sodium daily for now -fluid restriction for now 1.5L >> includes water, coffee, tea, clear soda, jello, juices; NOT including TF, flushes pre/post -cont increased lasix at mg 40 am and 20 1600 IV -cont 6 cans TF total daily (2 cans tid) and trial of 15 mL water pre and post each can -trial sodium chloride tab 1 gm bid -may need 3% saline this sushila if Na worsens more; consider NS/ lasix regimen w/ peterson if not improving tomorrow Anemia in 2017 which is markedly worse than labs last year. Last colonoscopy 2013; has annual endoscopies -iron studies show iron deficiency >> cont iron load -f/u FOBT -consider epo after iron loaded Appreciate consult; will follow with you. Care coordinated w/ Dr Rivas.
[2016-11-11] MEDS: FUROSEMIDE INJ 20 MG in SYRINGE 0 ML IV SCH (18:05)
[2016-11-11 20:32] LABS: BUN/CREATININE RATIO 20.1 (10-20); CALCIUM 8.5 mg/dl (8.5-10.1); CREATININE 2.7 mg/dl (0.60-1.40); POTASSIUM 4.6 mmol/L (3.5-5.1)
[2016-11-11] MEDS ORDERED: SODIUM CHLORIDE 3% INJ 100 ML IV ONE (21:15)
[2016-11-11] MEDS: RIVAROXABAN TAB 15 MG TAB PO SCH (21:50)
[2016-11-11] MEDS: SODIUM CHLORIDE 1 GM TAB PO SCH (21:51)
[2016-11-11] MEDS: INSULIN GLARGINE SOLOSTAR 100 UNITS/ML 3 ML PEN SC SCH (21:53)
[2016-11-12 00:49] LABS: BUN/CREATININE RATIO 21.4 (10-20); CALCIUM 8.6 mg/dl (8.5-10.1); CREATININE 2.6 mg/dl (0.60-1.40); POTASSIUM 4.6 mmol/L (3.5-5.1)
[2016-11-12 04:00] VITALS: BP 124/65; PULSE 72; TEMP 36.5; O2SAT 98
[2016-11-12 05:37] LABS: HEMATOCRIT 22.4 % (42-52); MEAN CELL VOLUME 83.3 fL (80-100); MEAN CORPUSCULAR HEMOGLOBIN 30.5 pg (25-34); MEAN CORPUSCULAR HGB CONC 36.6 g/dl (32-36); MEAN PLATELET VOLUME 9.2 fL (7.4-10.4); PLATELET COUNT 145 K/uL (130-400); RED BLOOD COUNT 2.69 M/uL (4.7-6.1)
[2016-11-12 06:16] LABS: BUN/CREATININE RATIO 21.4 (10-20); CALCIUM 8.7 mg/dl (8.5-10.1); CREATININE 2.6 mg/dl (0.60-1.40); POTASSIUM 4.5 mmol/L (3.5-5.1)
[2016-11-12 08:17] VITALS: BP 151/83; PULSE 65; TEMP 36.8; O2SAT 96
[2016-11-12 08:35] VITALS: Ht 180.3 cm; Wt 67.0 kg
--- NOTE | 2016-11-12 09:15 | Nephrology Progress Note ---
Nephrology Progress Note Date of Service: Nov 12, 2016. Subjective Na 121 this am after dropping ON to 118; needed 3% saline one dose ON; many changes made yesterday; BG better controlled; no N; tolerating salt tabs; no confusion or uncontrolled pain; weak but makes himself move Objective Date Time Temp Pulse Resp B/P (MAP) Pulse Ox O2 Delivery O2 Flow Rate FiO2 11/12/16 04:15 Room Air 11/12/16 04:00 36.5 72 20 124/65 (84) 98 Room Air 11/12/16 00:00 Room Air 11/11/16 23:15 36.6 73 16 129/64 (85) 96 Room Air 11/11/16 20:00 Room Air 11/11/16 19:41 36.7 68 22 143/72 (95) 96 Room Air 11/11/16 16:00 Room Air 11/11/16 15:22 36.5 62 22 109/60 (76) 97 Room Air 82 113/62 (79) 67 109/57 (74) 11/11/16 12:02 36.4 75 18 136/82 (100) 97 Room Air 70 137/65 (89) 68 128/64 (85) 11/11/16 12:00 Room Air 11/11/16 08:00 Room Air 11/11/16 07:37 36.8 61 18 120/71 (87) 95 Physical Exam: General-on RA maneuvers w/ asst; nad oriented x 3 cachectic no resp distress or cough Eyes-eomi ENT-dry mm Neck-supple Lungs-diminished bibasilar crx Heart-RRR trace - 1+ BL ankle edema Abdomen-PEG present; +BS, no peterson soft Extremities-no c/c Neuro-lim, fluent speech Current Inpatient Medications Medications (Trade) Dose Ordered Sig/Mindy Route Start Time Stop Time Status Last Admin Dose Admin Acetaminophen (Tylenol Tab) 650 mg Q4H PRN PO 11/10/16 18:00 12/10/16 17:59 Ondansetron HCl (Zofran Inj) 4 mg Q6H PRN IV 11/10/16 18:00 12/10/16 17:59 Insulin Aspart (novoLOG ASPART) SLIDING SCALE If C... ACHS SC 11/10/16 21:00 12/10/16 20:59 11/11/16 18:05 2 UNITS Glucose (Glucose 40% Gel) 15-30 GRAMS 15 GRAMS... UD PRN PO 11/10/16 18:15 12/10/16 18:14 Glucose (Glucose Chew Tab) 4-8 Tablets 4 Tabl... UD PRN PO 11/10/16 18:15 12/10/16 18:14 Dextrose (Dextrose 50% 50ML Syringe) 25-50ML OF 50% DW IV FOR... UD PRN IV 11/10/16 18:15 12/10/16 18:14 Glucagon (Glucagon Inj) 1 mg UD PRN SQ 11/10/16 18:15 12/10/16 18:14 Acetaminophen/ Codeine Phosphate (Tylenol w/ Codeine #3 Tab) 1 tab Q4H PRN PO 11/10/16 18:15 12/10/16 18:14 11/10/16 23:39 1 TAB Clonidine HCl (Xgbncksf-Cis-7 0.3mg/24hr Patch) 0.3 patch Felder@0900 TD 11/16/16 09:00 12/16/16 08:59 Hydralazine HCl (Apresoline Tab) 150 mg BID PO 11/10/16 21:00 12/10/16 20:59 11/11/16 21:51 150 MG Insulin Glargine (Lantus Solostar Pen) 5 units QPM SC 11/10/16 21:00 12/10/16 20:59 Future hold 11/11/16 21:53 11 UNITS Metoprolol Succinate (Toprol Xl Tab) 200 mg QAM PO 11/11/16 09:00 12/11/16 08:59 11/11/16 08:32 200 MG Rivaroxaban (Xarelto Tab) 15 mg HS PO 11/10/16 21:00 12/10/16 20:59 11/11/16 21:50 15 MG Cholecalciferol (Vitamin D Tab) 5,000 inter.unit QAM PO 11/11/16 09:00 12/11/16 08:59 11/11/16 08:33 5,000 INTER.UNIT Pantoprazole Sodium (Protonix Tab) 40 mg QAM PO 11/11/16 09:00 12/11/16 08:59 11/11/16 08:33 40 MG Sterile Water (Tube Feeding Water Flush) 1 ea AC PO 11/11/16 07:00 12/11/16 06:59 11/11/16 16:15 1 EA Furosemide 40 mg/ Syringe 4 ml @ 4 mls/min DAILY@0700 IV 11/11/16 07:00 12/11/16 06:59 11/11/16 08:30 4 MLS/MIN Furosemide 20 mg/ Syringe 2 ml @ 4 mls/min DAILYBD IV 11/11/16 16:15 12/11/16 16:14 11/11/16 18:05 4 MLS/MIN Sterile Water (Tube Feeding Water Flush) 1 ea PC PO 11/11/16 08:00 12/11/16 07:59 11/11/16 17:15 1 EA Miscellaneous (Remove Clonidine Patch) 1 ea Q7D@0859 N/A 11/16/16 08:59 12/16/16 08:58 Miscellaneous Information (Check Clonidine Patch Placement) 1 ea QS N/A 11/11/16 00:00 12/11/16 00:00 11/11/16 23:36 1 EA Iron Sucrose 300 mg/Sodium Chloride 115 ml @ 150 mls/hr DAILY IV 11/11/16 09:00 11/14/16 09:45 11/11/16 09:31 150 MLS/HR Hyoscyamine Sulfate (Levsin Tab) 0.125 mg DAILY PRN PO 11/11/16 10:15 12/11/16 10:14 Sodium Chloride (Sodium Chloride Tab) 1 gm BID PO 11/11/16 21:00 12/11/16 20:59 11/11/16 21:51 1 GM Zolpidem Tartrate (Ambien Tab) 5 mg HS PRN PO 11/11/16 17:45 12/11/16 17:44 Last 24 Hours Test 11/11/16 09:13 11/11/16 11:26 11/11/16 15:22 11/11/16 16:21 Sodium Level 120 mmol/L 119 mmol/L Potassium Level 4.0 mmol/L 4.4 mmol/L Chloride Level 81 mmol/L 82 mmol/L Carbon Dioxide Level 34 mmol/L 29 mmol/L Anion Gap 5.0 mmol/L 9.0 mmol/L Blood Urea Nitrogen 52 mg/dl 55 mg/dl Creatinine 2.60 mg/dl 2.60 mg/dl Est Creatinine Clear Calc Drug Dose 21.8 ml/min 21.8 ml/min Estimated GFR () 26.0 26.0 Estimated GFR (Non- 22.4 22.4 BUN/Creatinine Ratio 20.1 21.1 Random Glucose 233 mg/dl 214 mg/dl Calcium Level 8.5 mg/dl 8.4 mg/dl Bedside Glucose 373 mg/dl 224 mg/dl Test 11/11/16 19:46 11/11/16 20:25 11/12/16 00:22 11/12/16 05:17 Sodium Level 118 mmol/L 120 mmol/L 121 mmol/L Potassium Level 4.6 mmol/L 4.6 mmol/L 4.5 mmol/L Chloride Level 82 mmol/L 83 mmol/L 85 mmol/L Carbon Dioxide Level 27 mmol/L 31 mmol/L 30 mmol/L Anion Gap 9.0 mmol/L 6.0 mmol/L 6.0 mmol/L Blood Urea Nitrogen 54 mg/dl 56 mg/dl 56 mg/dl Creatinine 2.70 mg/dl 2.60 mg/dl 2.60 mg/dl Est Creatinine Clear Calc Drug Dose 21.0 ml/min 21.8 ml/min 21.8 ml/min Estimated GFR () 24.9 26.0 26.0 Estimated GFR (Non- 21.4 22.4 22.4 BUN/Creatinine Ratio 20.1 21.4 21.4 Random Glucose 270 mg/dl 244 mg/dl 124 mg/dl Calcium Level 8.5 mg/dl 8.6 mg/dl 8.7 mg/dl Bedside Glucose 331 mg/dl White Blood Count 7.60 K/uL Red Blood Count 2.69 M/uL Hemoglobin 8.2 g/dL Hematocrit 22.4 % Mean Corpuscular Volume 83.3 fL Mean Corpuscular Hemoglobin 30.5 pg Mean Corpuscular Hemoglobin Concent 36.6 g/dl RDW Standard Deviation 40.9 fL RDW Coefficient of Variation 13.4 % Platelet Count 145 K/uL Mean Platelet Volume 9.2 fL Osmolality 274 mOsm/kg Test 11/12/16 07:05 Bedside Glucose 120 mg/dl Assessment & Plan complex 80 y/o M w/ labile and mostly elevated BG, generalized weakness, worsening chronic hyponatremia, CKD4 w/ significant wt loss from unexplained esophageal dysmotility past few years w/ progressive malnutrition s/p PEG late last month now on changing regimen of TF, dietary intake. it has been challenging to manage his chemistries as an outpatient; pt is frustrated by so many hospital admissions. Goal to start will be to get better BG control, to monitor fluid intake/output and labs closely and correct sodium. he absolutely needs better BG control and will need a plan on how to do this at home/independently after d/c doubt PNA he has crackles at his lung bases, mild edema, periorobital edema > suspect mild volume overload in setting of chronic hyponatremia. note that serum osms 277 << >> reflects elevated blood glucose complicating mgt of low Na -cont to check BMP q8h -needs diabetes education; would he benefit from a pump <> BG seem to yo yo -cont serum osms, urine osms, rd urine sodium daily for now -fluid restriction for now 1.5L >> includes water, coffee, tea, clear soda, jello, juices; NOT including TF, flushes pre/post -cont increased lasix at mg 40 am and 20 1600 IV -cont 6 cans TF total daily (2 cans tid) and trial of 15 mL water pre and post each can started evening 11/11 -trial sodium chloride tab 1 gm bid started evening 11/11 -consider NS/ lasix regimen w/ peterson if not improving Anemia in 2017 which is markedly worse than labs last year. Last colonoscopy 2013; has annual endoscopies -iron studies show iron deficiency >> cont iron load (including today 3 more days -f/u FOBT -consider epo after iron loaded Appreciate consult; will follow with you. Care coordinated w/ dr esparza
[2016-11-12] MEDS: INSULIN ASPART 100 UNITS/ML 3 ML PEN SC SCH ×4 (09:29→21:00)
[2016-11-12] MEDS: TUBE FEEDING WATER FLUSH PO SCH ×6 (09:30→17:31)
[2016-11-12] MEDS: FUROSEMIDE INJ 40 MG in SYRINGE 0 ML IV SCH (09:30)
[2016-11-12] MEDS: IRON SUCROSE INJ 300 MG in SODIUM CHLORIDE 0.9% 100ML 100 ML IV SCH (09:30)
[2016-11-12] MEDS: SODIUM CHLORIDE 1 GM TAB PO SCH ×2 (09:31→21:00)
[2016-11-12] MEDS: PANTOprazole SOD 40 MG TAB PO SCH (09:31)
[2016-11-12] MEDS: METOPROLOL SUCC 50MG EXT REL TAB PO SCH (09:32)
[2016-11-12] MEDS: CHOLECALCIFEROL 1000 INTER.UNIT TAB PO SCH (09:32)
[2016-11-12] MEDS: CHECK CLONIDINE PATCH PLACEMENT SCH ×2 (09:32→16:00)
[2016-11-12 09:51] LABS: BUN/CREATININE RATIO 21.2 (10-20); CALCIUM 8.7 mg/dl (8.5-10.1); CREATININE 2.7 mg/dl (0.60-1.40); POTASSIUM 4.6 mmol/L (3.5-5.1)
[2016-11-12 12:08] VITALS: BP 142/66; PULSE 66; TEMP 36.7; O2SAT 99
--- NOTE | 2016-11-12 13:36 | Progress Note ---
Internal Med Progress Note Date of Service: Nov 12, 2016. Provider Documentation: SUBJECTIVE: The patient was seen and examined Still complains of extreme tiredness again today Denies any other symptoms OBJECTIVE: Vital Signs-as noted below Exam: General-No distress at rest Eyes-normal ENT-normal Neck-supple Lungs-Clear to ausucltate bilaterally Heart-Regular,no9 murmur appreciated Abdomen-Benign,no masses,bowel sound present Extremities-No edema Neuro-AAOx3,generally weak but no focal sensory and or motor deficit Lab data as noted below. 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, Nutritional and Renal loss Control blood sugar levels Urine Osmolality low at 202 and random Sodium 22 Free water flushes 60ml Before and after tube feeds 1.5 liters fluids/day restriction Sodium improved to 122 but again down to 120 Appreciate Nephrology input and recommendation Received small amount of Hypertonic saline and now on Sodium tabs Sodium level remains at 121-will monitor DM II:uncontrolled with Hyperglycemia on Tube feeds (2cans TID) [employer] Material Technician consulted ISS, Lantus, Accu checks Update A1c High at 9.5 Pharmacy Glycemic control consult-signed off due to noncompliance Free water flushes 60ml Before and after tube feeds Patient controls his own Insulin doses and does not want any intervention 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 Cr at baseline Nephrology following Creatinine remains at baseline H/O Pancreatic cancer S/P Whipple procedure Follows with [facility] Follows with GI and Oncology Not getting any Chemo now Anemia Secondary to CKD and complicated by Pancreatic cancer Check Occult blood May need transfusion Hb >8 HTN: Stable Continue usual meds Atrial fibrillation: Rate controlled continue BB, Xarelto No acute issue H/O Dysphagia secondary to muscular dysmotility On Tube feeds Dysphagia to solids DVT Px: On Xarelto Code Status: Full Code Disposition: Monitor in Tele Vital Signs: Date Time Temp Pulse Resp B/P (MAP) Pulse Ox O2 Delivery O2 Flow Rate FiO2 11/12/16 12:08 36.7 66 18 142/66 (91) 99 11/12/16 12:00 Room Air 11/12/16 08:17 36.8 65 18 151/83 (105) 96 11/12/16 08:00 Room Air 8/23/17 04:15 Room Air 11/12/16 04:00 36.5 72 20 124/65 (84) 98 Room Air 11/12/16 00:00 Room Air 11/11/16 23:15 36.6 73 16 129/64 (85) 96 Room Air 11/11/16 20:00 Room Air 11/11/16 19:41 36.7 68 22 143/72 (95) 96 Room Air 11/11/16 16:00 Room Air 11/11/16 15:22 36.5 62 22 109/60 (76) 97 Room Air 82 113/62 (79) 67 109/57 (74) Lab Results: Results Past 24 Hours Test 11/11/16 15:22 11/11/16 16:21 11/11/16 19:46 11/11/16 20:25 Range/Units Sodium Level 119 118 136-145 mmol/L Potassium Level 4.4 4.6 3.5-5.1 mmol/L Chloride Level 82 82 98-107 mmol/L Carbon Dioxide Level 29 27 21-32 mmol/L Anion Gap 9.0 9.0 3-11 mmol/L Blood Urea Nitrogen 55 54 7-18 mg/dl Creatinine 2.60 2.70 0.60-1.40 mg/dl Est Creatinine Clear Calc Drug Dose 21.8 21.0 ml/min Estimated GFR () 26.0 24.9 Estimated GFR (Non- 22.4 21.4 BUN/Creatinine Ratio 21.1 20.1 10-20 Random Glucose 214 270 70-99 mg/dl Calcium Level 8.4 8.5 8.5-10.1 mg/dl Bedside Glucose 224 331 70-99 mg/dl Test 11/12/16 00:00 11/12/16 00:22 11/12/16 05:17 11/12/16 07:05 Range/Units Urine Osmolality 221 500-800 mOms/kg Urine Random Sodium 12 mEq/L Sodium Level 120 121 136-145 mmol/L Potassium Level 4.6 4.5 3.5-5.1 mmol/L Chloride Level 83 85 98-107 mmol/L Carbon Dioxide Level 31 30 21-32 mmol/L Anion Gap 6.0 6.0 3-11 mmol/L Blood Urea Nitrogen 56 56 7-18 mg/dl Creatinine 2.60 2.60 0.60-1.40 mg/dl Est Creatinine Clear Calc Drug Dose 21.8 21.8 ml/min Estimated GFR () 26.0 26.0 Estimated GFR (Non- 22.4 22.4 BUN/Creatinine Ratio 21.4 21.4 10-20 Random Glucose 244 124 70-99 mg/dl Calcium Level 8.6 8.7 8.5-10.1 mg/dl White Blood Count 7.60 4.8-10.8 K/uL Red Blood Count 2.69 4.7-6.1 M/uL Hemoglobin 8.2 14.0-18.0 g/dL Hematocrit 22.4 42-52 % Mean Corpuscular Volume 83.3 80-100 fL Mean Corpuscular Hemoglobin 30.5 25-34 pg Mean Corpuscular Hemoglobin Concent 36.6 32-36 g/dl RDW Standard Deviation 40.9 36.4-46.3 fL RDW Coefficient of Variation 13.4 11.5-14.5 % Platelet Count 145 130-400 K/uL Mean Platelet Volume 9.2 7.4-10.4 fL Osmolality 274 280-300 mOsm/kg Bedside Glucose 120 70-99 mg/dl Test 11/12/16 09:01 11/12/16 13:06 Range/Units Sodium Level 121 136-145 mmol/L Potassium Level 4.6 3.5-5.1 mmol/L Chloride Level 85 98-107 mmol/L Carbon Dioxide Level 28 21-32 mmol/L Anion Gap 8.0 3-11 mmol/L Blood Urea Nitrogen 57 7-18 mg/dl Creatinine 2.70 0.60-1.40 mg/dl Est Creatinine Clear Calc Drug Dose 21.0 ml/min Estimated GFR () 24.9 Estimated GFR (Non- 21.4 BUN/Creatinine Ratio 21.2 10-20 Random Glucose 168 70-99 mg/dl Calcium Level 8.7 8.5-10.1 mg/dl
[2016-11-12 14:10] LABS: BUN/CREATININE RATIO 20.6 (10-20); CALCIUM 8.6 mg/dl (8.5-10.1); CREATININE 2.8 mg/dl (0.60-1.40); POTASSIUM 5.1 mmol/L (3.5-5.1)
[2016-11-12 14:20] LABS: BETA-HYDROXYBUTYRATE 1.84 mg/dL (0.2-2.81)
[2016-11-12 15:09] VITALS: BP 102/59; PULSE 58; TEMP 36.4; O2SAT 98
[2016-11-12] MEDS ORDERED: SODIUM CHLORIDE 3% INJ 100 ML IV ONE (15:45)
[2016-11-12] MEDS: FUROSEMIDE INJ 20 MG in SYRINGE 0 ML IV SCH (16:27)
[2016-11-12 17:40] LABS: BUN/CREATININE RATIO 22.6 (10-20); CALCIUM 8.7 mg/dl (8.5-10.1); CREATININE 2.7 mg/dl (0.60-1.40); POTASSIUM 4.5 mmol/L (3.5-5.1)
[2016-11-12 19:16] VITALS: BP 141/71; PULSE 64; TEMP 36.4; O2SAT 97
[2016-11-12] MEDS: RIVAROXABAN TAB 15 MG TAB PO SCH (20:59)
[2016-11-12] MEDS: INSULIN GLARGINE SOLOSTAR 100 UNITS/ML 3 ML PEN SC SCH (21:14)
[2016-11-12 21:45] LABS: BUN/CREATININE RATIO 21.9 (10-20); CALCIUM 8.8 mg/dl (8.5-10.1); CREATININE 2.8 mg/dl (0.60-1.40); POTASSIUM 4.4 mmol/L (3.5-5.1)
[2016-11-13] VITALS: BP 134/71; PULSE 70; TEMP 36.7; O2SAT 95
[2016-11-13] MEDS: CHECK CLONIDINE PATCH PLACEMENT SCH ×4 (00:02→23:37)
[2016-11-13 04:03] VITALS: BP 129/79; PULSE 82; TEMP 36.7; O2SAT 93
[2016-11-13 06:10] LABS: BUN/CREATININE RATIO 21.1 (10-20); CALCIUM 8.6 mg/dl (8.5-10.1); CREATININE 2.9 mg/dl (0.60-1.40); POTASSIUM 4.4 mmol/L (3.5-5.1)
[2016-11-13] MEDS: TUBE FEEDING WATER FLUSH PO SCH ×6 (07:00→16:24)
[2016-11-13 07:18] VITALS: BP 140/72; PULSE 86; TEMP 36.6; O2SAT 95
[2016-11-13] MEDS: INSULIN ASPART 100 UNITS/ML 3 ML PEN SC SCH ×4 (07:48→21:00)
[2016-11-13] MEDS: FUROSEMIDE INJ 40 MG in SYRINGE 0 ML IV SCH (07:48)
[2016-11-13] MEDS: CHOLECALCIFEROL 1000 INTER.UNIT TAB PO SCH (07:50)
[2016-11-13] MEDS: SODIUM CHLORIDE 1 GM TAB PO SCH ×4 (07:50→21:07)
[2016-11-13] MEDS: PANTOprazole SOD 40 MG TAB PO SCH (07:50)
[2016-11-13] MEDS: METOPROLOL SUCC 50MG EXT REL TAB PO SCH (07:50)
[2016-11-13] MEDS: IRON SUCROSE INJ 300 MG in SODIUM CHLORIDE 0.9% 100ML 100 ML IV SCH (07:51)
[2016-11-13] MEDS ORDERED: BISACODYL 10 MG SUPP PR PRN (10:15)
[2016-11-13 11:08] VITALS: BP 120/58; PULSE 69; TEMP 36.3; O2SAT 97
[2016-11-13] MEDS ORDERED: PSYLLIUM 58.6% PWD PACK S\\F PO ONE (11:30)
--- NOTE | 2016-11-13 13:28 | Progress Note ---
Internal Med Progress Note Date of Service: Nov 13, 2016. Provider Documentation: SUBJECTIVE: The patient was seen and examined Still complains of extreme tiredness again today Denies any other symptoms Says has not had any symptoms OBJECTIVE: Vital Signs-as noted below Exam: General-No distress at rest Sitting on a chair Eyes-normal ENT-normal Neck-supple Lungs-Clear to ausucltate bilaterally Heart-Regular,no9 murmur appreciated Abdomen-Benign,no masses,bowel sound present Extremities-No edema Neuro-AAOx3,generally weak but no focal sensory and or motor deficit Lab data as noted below. 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, Nutritional and Renal loss Control blood sugar levels Urine Osmolality low at 202 and random Sodium 22 Free water flushes 60ml Before and after tube feeds 1.5 liters fluids/day restriction Sodium improved to 122 but again down to 120 Appreciate Nephrology input and recommendation Received small amount of Hypertonic saline and now on Sodium tabs -increased the dose Sodium level remains at 122-will monitor Will need to have a stable Sodium level before discharge DM II:uncontrolled with Hyperglycemia on Tube feeds (2cans TID) Loans Officer consulted ISS, Lantus, Accu checks Update A1c High at 9.5 Pharmacy Glycemic control consult-signed off due to noncompliance Free water flushes 60ml Before and after tube feeds Patient controls his own Insulin doses and does not want any intervention whatsoever Diabetic Education to improve Blood sugar level 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 Cr at baseline Nephrology following Creatinine is a little worse today H/O Pancreatic cancer S/P Whipple procedure Follows with [facility] Follows with GI and Oncology Not getting any Chemo now Anemia Secondary to CKD and complicated by Pancreatic cancer Check Occult blood May need transfusion Hb >8 HTN: Stable Continue usual meds Atrial fibrillation: Rate controlled continue BB, Xarelto No acute issue H/O Dysphagia secondary to muscular dysmotility On Tube feeds Dysphagia to solids DVT Px: On Xarelto Code Status: Full Code Disposition: Monitor in Tele Vital Signs: Date Time Temp Pulse Resp B/P (MAP) Pulse Ox O2 Delivery O2 Flow Rate FiO2 11/13/16 11:33 Room Air 11/13/16 11:08 36.3 69 20 120/58 (78) 97 11/13/16 08:00 Room Air 11/13/16 07:18 36.6 86 20 140/72 (94) 95 Room Air 11/13/16 04:03 Room Air 11/13/16 04:03 36.7 82 16 129/79 (96) 93 Room Air 11/13/16 00:00 Room Air 11/13/16 00:00 36.7 70 18 134/71 (92) 95 Room Air 11/12/16 20:00 Room Air 11/12/16 19:16 36.4 64 16 141/71 (94) 97 Room Air 11/12/16 16:00 Room Air 11/12/16 15:09 36.4 58 16 102/59 (73) 98 Room Air Lab Results: Results Past 24 Hours Test 11/12/16 16:35 11/12/16 16:40 11/12/16 20:42 11/12/16 21:11 Range/Units Bedside Glucose 254 320 70-99 mg/dl Sodium Level 119 119 136-145 mmol/L Potassium Level 4.5 4.4 3.5-5.1 mmol/L Chloride Level 82 83 98-107 mmol/L Carbon Dioxide Level 28 28 21-32 mmol/L Anion Gap 8.0 8.0 3-11 mmol/L Blood Urea Nitrogen 61 61 7-18 mg/dl Creatinine 2.70 2.80 0.60-1.40 mg/dl Est Creatinine Clear Calc Drug Dose 21.0 20.2 ml/min Estimated GFR () 24.9 23.8 Estimated GFR (Non- 21.4 20.5 BUN/Creatinine Ratio 22.6 21.9 10-20 Random Glucose 224 285 70-99 mg/dl Calcium Level 8.7 8.8 8.5-10.1 mg/dl Test 11/13/16 04:11 11/13/16 05:03 11/13/16 06:51 11/13/16 10:40 Range/Units Urine Random Sodium 16 mEq/L Sodium Level 122 136-145 mmol/L Potassium Level 4.4 3.5-5.1 mmol/L Chloride Level 86 98-107 mmol/L Carbon Dioxide Level 31 21-32 mmol/L Anion Gap 5.0 3-11 mmol/L Blood Urea Nitrogen 61 7-18 mg/dl Creatinine 2.90 0.60-1.40 mg/dl Est Creatinine Clear Calc Drug Dose 19.5 ml/min Estimated GFR () 22.8 Estimated GFR (Non- 19.7 BUN/Creatinine Ratio 21.1 10-20 Random Glucose 125 70-99 mg/dl Osmolality 273 280-300 mOsm/kg Calcium Level 8.6 8.5-10.1 mg/dl Bedside Glucose 117 70-99 mg/dl Stool Occult Blood POSITIVE NEGATIVE Test 11/13/16 13:15 Range/Units
[2016-11-13 13:50] LABS: BUN/CREATININE RATIO 21.3 (10-20); CALCIUM 8.4 mg/dl (8.5-10.1); CREATININE 2.9 mg/dl (0.60-1.40); POTASSIUM 4.7 mmol/L (3.5-5.1)
[2016-11-13 15:20] VITALS: BP 136/67; PULSE 72; TEMP 36.2; O2SAT 98
[2016-11-13] MEDS: FUROSEMIDE INJ 20 MG in SYRINGE 0 ML IV SCH (15:37)
--- NOTE | 2016-11-13 17:11 | Nephrology Progress Note ---
Nephrology Progress Note Date of Service: Nov 13, 2016. Subjective seen on rounds this am 0900; Na 122 this am after dropping ON to 118; needed 3 % saline one dose ON again; BG better controlled; no N; tolerating salt tabs; no confusion or uncontrolled pain; still very weak but makes himself move Objective Date Time Temp Pulse Resp B/P (MAP) Pulse Ox O2 Delivery O2 Flow Rate FiO2 11/13/16 15:30 Room Air 11/13/16 15:20 36.2 72 16 136/67 (90) 98 Room Air 11/13/16 11:33 Room Air 11/13/16 11:08 36.3 69 20 120/58 (78) 97 11/13/16 08:00 Room Air 11/13/16 07:18 36.6 86 20 140/72 (94) 95 Room Air 11/13/16 04:03 Room Air 11/13/16 04:03 36.7 82 16 129/79 (96) 93 Room Air 11/13/16 00:00 Room Air 11/13/16 00:00 36.7 70 18 134/71 (92) 95 Room Air 11/12/16 20:00 Room Air 11/12/16 19:16 36.4 64 16 141/71 (94) 97 Room Air Physical Exam: General-on RA maneuvers w/ asst; nad oriented x 3 cachectic no resp distress or cough Eyes-eomi ENT-dry mm Neck-supple Lungs-diminished bibasilar crx Heart-RRR trace - 1+ BL ankle edema Abdomen-PEG present; +BS, no peterson soft Extremities-no c/c Neuro-lim, fluent speech Current Inpatient Medications Medications (Trade) Dose Ordered Sig/Mindy Route Start Time Stop Time Status Last Admin Dose Admin Acetaminophen (Tylenol Tab) 650 mg Q4H PRN PO 11/10/16 18:00 12/10/16 17:59 Ondansetron HCl (Zofran Inj) 4 mg Q6H PRN IV 11/10/16 18:00 12/10/16 17:59 Insulin Aspart (novoLOG ASPART) SLIDING SCALE If C... ACHS SC 11/10/16 21:00 12/10/16 20:59 11/13/16 16:29 5 UNITS Glucose (Glucose 40% Gel) 15-30 GRAMS 15 GRAMS... UD PRN PO 11/10/16 18:15 12/10/16 18:14 Glucose (Glucose Chew Tab) 4-8 Tablets 4 Tabl... UD PRN PO 11/10/16 18:15 12/10/16 18:14 Dextrose (Dextrose 50% 50ML Syringe) 25-50ML OF 50% DW IV FOR... UD PRN IV 11/10/16 18:15 12/10/16 18:14 Glucagon (Glucagon Inj) 1 mg UD PRN SQ 11/10/16 18:15 12/10/16 18:14 Acetaminophen/ Codeine Phosphate (Tylenol w/ Codeine #3 Tab) 1 tab Q4H PRN PO 11/10/16 18:15 12/10/16 18:14 11/10/16 23:39 1 TAB Clonidine HCl (Pascpsxz-Usw-9 0.3mg/24hr Patch) 0.3 patch Felder@0900 TD 11/16/16 09:00 12/16/16 08:59 Hydralazine HCl (Apresoline Tab) 150 mg BID PO 11/10/16 21:00 12/10/16 20:59 11/13/16 07:49 150 MG Insulin Glargine (Lantus Solostar Pen) 5 units QPM SC 11/10/16 21:00 12/10/16 20:59 Future hold 11/12/16 21:14 11 UNITS Metoprolol Succinate (Toprol Xl Tab) 200 mg QAM PO 11/11/16 09:00 12/11/16 08:59 11/13/16 07:50 200 MG Rivaroxaban (Xarelto Tab) 15 mg HS PO 11/10/16 21:00 12/10/16 20:59 11/12/16 20:59 15 MG Cholecalciferol (Vitamin D Tab) 5,000 inter.unit QAM PO 11/11/16 09:00 12/11/16 08:59 11/13/16 07:50 5,000 INTER.UNIT Pantoprazole Sodium (Protonix Tab) 40 mg QAM PO 11/11/16 09:00 12/11/16 08:59 11/13/16 07:50 40 MG Sterile Water (Tube Feeding Water Flush) 1 ea AC PO 11/11/16 07:00 12/11/16 06:59 11/13/16 15:35 1 EA Furosemide 40 mg/ Syringe 4 ml @ 4 mls/min DAILY@0700 IV 11/11/16 07:00 12/11/16 06:59 11/13/16 07:48 4 MLS/MIN Furosemide 20 mg/ Syringe 2 ml @ 4 mls/min DAILYBD IV 11/11/16 16:15 12/11/16 16:14 11/13/16 15:37 4 MLS/MIN Sterile Water (Tube Feeding Water Flush) 1 ea PC PO 11/11/16 08:00 12/11/16 07:59 11/13/16 16:24 1 EA Miscellaneous (Remove Clonidine Patch) 1 ea Q7D@0859 N/A 11/16/16 08:59 12/16/16 08:58 Miscellaneous Information (Check Clonidine Patch Placement) 1 ea QS N/A 11/11/16 00:00 12/11/16 00:00 11/13/16 15:33 1 EA Iron Sucrose 300 mg/Sodium Chloride 115 ml @ 150 mls/hr DAILY IV 11/11/16 09:00 11/14/16 09:45 11/13/16 07:51 150 MLS/HR Hyoscyamine Sulfate (Levsin Tab) 0.125 mg DAILY PRN PO 11/11/16 10:15 12/11/16 10:14 Zolpidem Tartrate (Ambien Tab) 5 mg HS PRN PO 11/11/16 17:45 12/11/16 17:44 Psyllium Hydrophilic Mucilloid (Metamucil Powder) 1 pkt QAM PO 11/14/16 09:00 12/14/16 08:59 Bisacodyl (Dulcolax Supp) 10 mg DAILY PRN ME 11/13/16 10:15 12/13/16 10:14 Sodium Chloride (Sodium Chloride Tab) 1 gm QID PO 11/13/16 13:00 12/11/16 20:59 11/13/16 16:29 1 GM Last 24 Hours Test 11/12/16 20:42 11/12/16 21:11 11/13/16 04:11 11/13/16 05:03 Bedside Glucose 320 mg/dl Sodium Level 119 mmol/L 122 mmol/L Potassium Level 4.4 mmol/L 4.4 mmol/L Chloride Level 83 mmol/L 86 mmol/L Carbon Dioxide Level 28 mmol/L 31 mmol/L Anion Gap 8.0 mmol/L 5.0 mmol/L Blood Urea Nitrogen 61 mg/dl 61 mg/dl Creatinine 2.80 mg/dl 2.90 mg/dl Est Creatinine Clear Calc Drug Dose 20.2 ml/min 19.5 ml/min Estimated GFR () 23.8 22.8 Estimated GFR (Non- 20.5 19.7 BUN/Creatinine Ratio 21.9 21.1 Random Glucose 285 mg/dl 125 mg/dl Calcium Level 8.8 mg/dl 8.6 mg/dl Urine Random Sodium 16 mEq/L Osmolality 273 mOsm/kg Test 11/13/16 06:51 11/13/16 10:40 11/13/16 11:09 11/13/16 13:15 Bedside Glucose 117 mg/dl 293 mg/dl Stool Occult Blood POSITIVE Sodium Level 121 mmol/L Potassium Level 4.7 mmol/L Chloride Level 85 mmol/L Carbon Dioxide Level 27 mmol/L Anion Gap 9.0 mmol/L Blood Urea Nitrogen 62 mg/dl Creatinine 2.90 mg/dl Est Creatinine Clear Calc Drug Dose 20.4 ml/min Estimated GFR () 22.8 Estimated GFR (Non- 19.7 BUN/Creatinine Ratio 21.3 Random Glucose 269 mg/dl Calcium Level 8.4 mg/dl Test 11/13/16 16:22 Bedside Glucose 374 mg/dl Assessment & Plan complex 80 y/o M w/ labile and mostly elevated BG, generalized weakness, worsening chronic hyponatremia, CKD4 w/ significant wt loss from unexplained esophageal dysmotility past few years w/ progressive malnutrition s/p PEG late last month now on changing regimen of TF, dietary intake. it has been challenging to manage his chemistries as an outpatient; pt is frustrated by so many hospital admissions. Goal to start will be to get better BG control, to monitor fluid intake/output and labs closely and correct sodium. he absolutely needs better BG control and will need a plan on how to do this at home/independently after d/c doubt PNA he has crackles at his lung bases, mild edema, periorobital edema > suspect mild volume overload in setting of chronic hyponatremia. note that serum osms 277 << >> reflects elevated blood glucose complicating mgt of low Na -cont to check BMP q8h -needs diabetes education; would he benefit from a pump <> BG seem to yo yo -to lower yoyo of BG > lowered total TF and moved to 1 can qid from 2 cans tid -cont serum osms, urine osms, rd urine sodium, standing wt daily for now -tightened fluid restriction to 1.2L >> includes water, coffee, tea, clear soda , jello, juices; NOT including TF, flushes pre/post -cont increased lasix at mg 40 am and 20 1600 IV -cont 15 mL water pre and post each can started evening 11/11 -trial sodium chloride tab 1 gm bid started evening 11/11 > increased to 1 gm qid today -consider NS/ lasix regimen w/ peterson if not improving Anemia in 2017 which is markedly worse than labs last year. Last colonoscopy 2013; has annual endoscopies -iron studies show iron deficiency >> cont iron load (including today 3 more days -f/u FOBT -consider epo after iron loaded Appreciate consult; will follow with you. Care coordinated w/ dr esparza
[2016-11-13 20:16] VITALS: BP 141/83; PULSE 77; TEMP 36.7; O2SAT 91
[2016-11-13] MEDS: INSULIN GLARGINE SOLOSTAR 100 UNITS/ML 3 ML PEN SC SCH (21:06)
[2016-11-13] MEDS: RIVAROXABAN TAB 15 MG TAB PO SCH (21:07)
[2016-11-13 21:54] LABS: BUN/CREATININE RATIO 20.4 (10-20); CALCIUM 8.5 mg/dl (8.5-10.1); POTASSIUM 4.9 mmol/L (3.5-5.1)
[2016-11-14] VITALS (9 sets, daily range): BP systolic 115–181; BP diastolic 69–110; PULSE 77–123; TEMP 36.4–37; O2SAT 83–96
[2016-11-14 06:52] LABS: BUN/CREATININE RATIO 19.7 (10-20); CALCIUM 8.3 mg/dl (8.5-10.1); CREATININE 3.3 mg/dl (0.60-1.40); POTASSIUM 5.1 mmol/L (3.5-5.1)
[2016-11-14] MEDS: INSULIN ASPART 100 UNITS/ML 3 ML PEN SC SCH ×4 (07:00→21:00)
[2016-11-14] MEDS: TUBE FEEDING WATER FLUSH PO SCH ×6 (07:30→17:21)
[2016-11-14] MEDS: IRON SUCROSE INJ 300 MG in SODIUM CHLORIDE 0.9% 100ML 100 ML IV SCH (07:41)
[2016-11-14] MEDS: PANTOprazole SOD 40 MG TAB PO SCH (07:42)
[2016-11-14] MEDS: METOPROLOL SUCC 50MG EXT REL TAB PO SCH (07:42)
[2016-11-14] MEDS: FUROSEMIDE INJ 40 MG in SYRINGE 0 ML IV SCH (07:42)
[2016-11-14] MEDS: CHECK CLONIDINE PATCH PLACEMENT SCH ×2 (07:42→15:53)
[2016-11-14] MEDS: PSYLLIUM 58.6% PWD PACK S\\F PO SCH (07:43)
[2016-11-14] MEDS: SODIUM CHLORIDE 1 GM TAB PO SCH (07:43)
[2016-11-14] MEDS: CHOLECALCIFEROL 1000 INTER.UNIT TAB PO SCH (07:43)
[2016-11-14] MEDS ORDERED: SODIUM CHLORIDE 0.9% 1000ML 1,000 ML IV STA (10:36)
[2016-11-14] MEDS: FUROSEMIDE INJ 30 MG in SYRINGE 0 ML IV SCH ×3 (11:27→19:05)
--- NOTE | 2016-11-14 11:28 | Nephrology Progress Note ---
Nephrology Progress Note Date of Service: Nov 14, 2016. Subjective seen on rounds this am 0930; Na 121 this am after dropping ON; BG low this am too; no N; tolerating salt tabs; no confusion or uncontrolled pain; remains very weak Objective Date Time Temp Pulse Resp B/P (MAP) Pulse Ox O2 Delivery O2 Flow Rate FiO2 11/14/16 08:00 Room Air 11/14/16 07:08 36.5 100 20 125/75 (92) 91 Room Air 11/14/16 04:20 Room Air 11/14/16 04:00 36.7 82 18 115/73 (87) 92 Room Air 11/14/16 00:00 Room Air 11/14/16 00:00 36.6 84 18 127/81 (96) 90 Room Air 11/13/16 21:00 Room Air 11/13/16 20:16 36.7 77 18 141/83 (102) 91 Room Air 11/13/16 15:30 Room Air 11/13/16 15:20 36.2 72 16 136/67 (90) 98 Room Air 11/13/16 11:33 Room Air Physical Exam: General-on RA maneuvers w/ asst; nad oriented x 3 cachectic no resp distress or cough Eyes-eomi ENT-dry mm Neck-supple Lungs-diminished bibasilar crx Heart-RRR trace - 1+ BL ankle edema Abdomen-PEG present; +BS, no peterson soft Extremities-no c/c Neuro-lim, fluent speech, good insight Current Inpatient Medications Medications (Trade) Dose Ordered Sig/Mindy Route Start Time Stop Time Status Last Admin Dose Admin Acetaminophen (Tylenol Tab) 650 mg Q4H PRN PO 11/10/16 18:00 12/10/16 17:59 Ondansetron HCl (Zofran Inj) 4 mg Q6H PRN IV 11/10/16 18:00 12/10/16 17:59 Insulin Aspart (novoLOG ASPART) SLIDING SCALE If C... ACHS SC 11/10/16 21:00 12/10/16 20:59 11/13/16 16:29 5 UNITS Glucose (Glucose 40% Gel) 15-30 GRAMS 15 GRAMS... UD PRN PO 11/10/16 18:15 12/10/16 18:14 Glucose (Glucose Chew Tab) 4-8 Tablets 4 Tabl... UD PRN PO 11/10/16 18:15 12/10/16 18:14 11/14/16 06:59 4 TABS Dextrose (Dextrose 50% 50ML Syringe) 25-50ML OF 50% DW IV FOR... UD PRN IV 11/10/16 18:15 12/10/16 18:14 Glucagon (Glucagon Inj) 1 mg UD PRN SQ 11/10/16 18:15 12/10/16 18:14 Acetaminophen/ Codeine Phosphate (Tylenol w/ Codeine #3 Tab) 1 tab Q4H PRN PO 11/10/16 18:15 12/10/16 18:14 11/10/16 23:39 1 TAB Clonidine HCl (Xhofkmwi-Lrn-0 0.3mg/24hr Patch) 0.3 patch Felder@0900 TD 11/16/16 09:00 12/16/16 08:59 Hydralazine HCl (Apresoline Tab) 150 mg BID PO 11/10/16 21:00 12/10/16 20:59 11/14/16 07:43 150 MG Insulin Glargine (Lantus Solostar Pen) 5 units QPM SC 11/10/16 21:00 12/10/16 20:59 Future hold 11/13/16 21:06 11 UNITS Metoprolol Succinate (Toprol Xl Tab) 200 mg QAM PO 11/11/16 09:00 12/11/16 08:59 11/14/16 07:42 200 MG Rivaroxaban (Xarelto Tab) 15 mg HS PO 11/10/16 21:00 12/10/16 20:59 11/13/16 21:07 15 MG Cholecalciferol (Vitamin D Tab) 5,000 inter.unit QAM PO 11/11/16 09:00 12/11/16 08:59 11/14/16 07:43 5,000 INTER.UNIT Pantoprazole Sodium (Protonix Tab) 40 mg QAM PO 11/11/16 09:00 12/11/16 08:59 11/14/16 07:42 40 MG Sterile Water (Tube Feeding Water Flush) 1 ea AC PO 11/11/16 07:00 12/11/16 06:59 11/14/16 07:30 1 EA Sterile Water (Tube Feeding Water Flush) 1 ea PC PO 11/11/16 08:00 12/11/16 07:59 11/14/16 07:41 1 EA Miscellaneous (Remove Clonidine Patch) 1 ea Q7D@0859 N/A 11/16/16 08:59 12/16/16 08:58 Miscellaneous Information (Check Clonidine Patch Placement) 1 ea QS N/A 11/11/16 00:00 12/11/16 00:00 11/14/16 07:42 1 EA Hyoscyamine Sulfate (Levsin Tab) 0.125 mg DAILY PRN PO 11/11/16 10:15 12/11/16 10:14 Zolpidem Tartrate (Ambien Tab) 5 mg HS PRN PO 11/11/16 17:45 12/11/16 17:44 Psyllium Hydrophilic Mucilloid (Metamucil Powder) 1 pkt QAM PO 11/14/16 09:00 12/14/16 08:59 Bisacodyl (Dulcolax Supp) 10 mg DAILY PRN IN 11/13/16 10:15 12/13/16 10:14 Sodium Chloride 1,000 ml @ 150 mls/hr Q6H40M STAT IV 11/14/16 10:36 11/14/16 17:15 Furosemide 30 mg/ Syringe 3 ml @ 4 mls/min Q4H IV 11/14/16 11:00 12/14/16 10:59 Last 24 Hours Test 11/13/16 13:15 11/13/16 16:22 11/13/16 20:14 11/13/16 21:04 Sodium Level 121 mmol/L 119 mmol/L Potassium Level 4.7 mmol/L 4.9 mmol/L Chloride Level 85 mmol/L 84 mmol/L Carbon Dioxide Level 27 mmol/L 28 mmol/L Anion Gap 9.0 mmol/L 9.0 mmol/L Blood Urea Nitrogen 62 mg/dl 61 mg/dl Creatinine 2.90 mg/dl 3.00 mg/dl Est Creatinine Clear Calc Drug Dose 20.4 ml/min 19.7 ml/min Estimated GFR () 22.8 21.9 Estimated GFR (Non- 19.7 18.9 BUN/Creatinine Ratio 21.3 20.4 Random Glucose 269 mg/dl 258 mg/dl Calcium Level 8.4 mg/dl 8.5 mg/dl Bedside Glucose 374 mg/dl 330 mg/dl Test 11/14/16 05:50 11/14/16 06:52 11/14/16 07:12 11/14/16 07:40 Sodium Level 121 mmol/L Potassium Level 5.1 mmol/L Chloride Level 86 mmol/L Carbon Dioxide Level 28 mmol/L Anion Gap 7.0 mmol/L Blood Urea Nitrogen 65 mg/dl Creatinine 3.30 mg/dl Est Creatinine Clear Calc Drug Dose 17.8 ml/min Estimated GFR () 19.5 Estimated GFR (Non- 16.8 BUN/Creatinine Ratio 19.7 Random Glucose 65 mg/dl Calcium Level 8.3 mg/dl Bedside Glucose 74 mg/dl 99 mg/dl 161 mg/dl Test 11/14/16 07:45 Urine Osmolality 233 mOms/kg Urine Random Sodium 9 mEq/L Assessment & Plan complex 80 y/o M w/ labile and mostly elevated BG, generalized weakness, worsening chronic hyponatremia, CKD4 w/ significant wt loss from unexplained esophageal dysmotility past few years w/ progressive malnutrition s/p PEG late last month now on changing regimen of TF, dietary intake. it has been challenging to manage his chemistries as an outpatient; pt is frustrated by so many hospital admissions. VERY CHALLENGING CASE of mildly hypoosmolar hyponatremia attributed in past to hyperglycemia but concern may be other process as well; we have made little headway w/ restricting fluids/starting salt tabs/giving lasix. now also with acute on chronic renal failure stage 4, borderline hyperkalemia. implications of abnormally elevated osmolality were discussed w/ pt and . -cont efforts to control BG/ DM education >> we need a plan for dm mgt after d/ c that pt will actually follow -cont 1 can qid TF and 15 mL free water flush pre/post -stop salt tabs -place peterson -start NS and lower lasix dose but increase frequency -recheck bmp, serum osms 1600 today -check for other osm contributors > spep/upep, ca 19-9; in am for lipids -very important to cont daily standing wt and po fluid limit 1.2L -cont daily rd urine Na, urine osms -fluid restriction includes water, coffee, tea, clear soda, jello, juices; NOT including TF, flushes pre/post Anemia in 2017 which is markedly worse than labs last year. Last colonoscopy 2013; has annual endoscopies -s/p iron load -f/u FOBT -will talk to him in am about starting epo Acute renal failure on CKD 4 -suspect prerenal; check uacm; FENa not useful in ckd4 -may need renal diet if worsens further Appreciate consult; will follow with you.
[2016-11-14 17:08] LABS: BUN/CREATININE RATIO 19.9 (10-20); CALCIUM 8.3 mg/dl (8.5-10.1); CREATININE 3.3 mg/dl (0.60-1.40); POTASSIUM 4.9 mmol/L (3.5-5.1)
--- NOTE | 2016-11-14 18:06 | Progress Note ---
Internal Med Progress Note Date of Service: Nov 14, 2016. Provider Documentation: SUBJECTIVE: The patient was seen and examined Still complains of extreme tiredness again today Denies any other symptoms Says has not had any symptoms Remains stable OBJECTIVE: Vital Signs-as noted below Exam: General-No distress at rest Sitting on a chair Eyes-normal ENT-normal Neck-supple Lungs-Clear to ausucltate bilaterally Heart-Regular,no9 murmur appreciated Abdomen-Benign,no masses,bowel sound present Extremities-No edema Neuro-AAOx3,generally weak but no focal sensory and or motor deficit Lab data as noted below. 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, Nutritional and Renal loss Control blood sugar levels Urine Osmolality low at 202 and random Sodium 22 Free water flushes 60ml Before and after tube feeds 1.5 liters fluids/day restriction Sodium improved to 122 but again down to 120 Appreciate Nephrology input and recommendation Received small amount of Hypertonic saline and now on Sodium tabs -increased the dose Sodium level remains at 122-will monitor Will need to have a stable Sodium level before discharge Sodium remains low at 121 Aggressive management with IV Saline and Lasix as per supervisor liquid yeast DM II:uncontrolled with Hyperglycemia on Tube feeds (2cans TID) Instrument Assembler consulted ISSTod, Accu checks Update A1c High at 9.5 Pharmacy Glycemic control consult-signed off due to noncompliance Free water flushes 60ml Before and after tube feeds Patient controls his own Insulin doses and does not want any intervention whatsoever Diabetic Education to improve Blood sugar level Dietitian consulted 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 Cr at baseline Nephrology following Creatinine getting worse H/O Pancreatic cancer S/P Whipple procedure Follows with [facility] Follows with GI and Oncology Not getting any Chemo now Sees Oncologist in [place] once a year Last seen in June this year Will get Ca-19 level Anemia Secondary to CKD and complicated by Pancreatic cancer Check Occult blood May need transfusion Hb >8 HTN: Stable Continue usual meds Atrial fibrillation: Rate controlled continue BB, Xarelto No acute issue H/O Dysphagia secondary to muscular dysmotility On Tube feeds Dysphagia to solids DVT Px: On Xarelto Code Status: Full Code Disposition: Monitor in Tele Vital Signs: Date Time Temp Pulse Resp B/P (MAP) Pulse Ox O2 Delivery O2 Flow Rate FiO2 11/14/16 16:32 Room Air 11/14/16 16:32 36.4 97 20 163/94 (117) 91 Nasal Cannula 2.0 11/14/16 12:00 Room Air 11/14/16 11:15 37.0 77 20 134/78 (96) 91 Room Air 11/14/16 08:00 Room Air 11/14/16 07:08 36.5 100 20 125/75 (92) 91 Room Air 11/14/16 04:20 Room Air 11/14/16 04:00 36.7 82 18 115/73 (87) 92 Room Air 11/14/16 00:00 Room Air 11/14/16 00:00 36.6 84 18 127/81 (96) 90 Room Air 11/13/16 21:00 Room Air 11/13/16 20:16 36.7 77 18 141/83 (102) 91 Room Air Lab Results: Results Past 24 Hours Test 11/13/16 20:14 11/13/16 21:04 11/14/16 05:50 11/14/16 06:52 Range/Units Bedside Glucose 330 74 70-99 mg/dl Sodium Level 119 121 136-145 mmol/L Potassium Level 4.9 5.1 3.5-5.1 mmol/L Chloride Level 84 86 98-107 mmol/L Carbon Dioxide Level 28 28 21-32 mmol/L Anion Gap 9.0 7.0 3-11 mmol/L Blood Urea Nitrogen 61 65 7-18 mg/dl Creatinine 3.00 3.30 0.60-1.40 mg/dl Est Creatinine Clear Calc Drug Dose 19.7 17.8 ml/min Estimated GFR () 21.9 19.5 Estimated GFR (Non- 18.9 16.8 BUN/Creatinine Ratio 20.4 19.7 10-20 Random Glucose 258 65 70-99 mg/dl Calcium Level 8.5 8.3 8.5-10.1 mg/dl Test 11/14/16 07:12 11/14/16 07:40 11/14/16 07:45 11/14/16 11:30 Range/Units Bedside Glucose 99 161 240 70-99 mg/dl Urine Osmolality 233 500-800 mOms/kg Urine Random Sodium 9 mEq/L Test 11/14/16 12:55 11/14/16 16:03 11/14/16 16:34 Range/Units Sodium Level 120 136-145 mmol/L Potassium Level 4.9 3.5-5.1 mmol/L Chloride Level 86 98-107 mmol/L Carbon Dioxide Level 25 21-32 mmol/L Anion Gap 8.0 3-11 mmol/L Blood Urea Nitrogen 66 7-18 mg/dl Creatinine 3.30 0.60-1.40 mg/dl Est Creatinine Clear Calc Drug Dose 17.8 ml/min Estimated GFR () 19.5 Estimated GFR (Non- 16.8 BUN/Creatinine Ratio 19.9 10-20 Random Glucose 268 70-99 mg/dl Osmolality 280 280-300 mOsm/kg Calcium Level 8.3 8.5-10.1 mg/dl Bedside Glucose 277 70-99 mg/dl
--- NOTE | 2016-11-14 18:52 | Progress Note ---
Progress Note Date of Service Nov 14, 2016. Progress Note Asked to see Required more Oxygen following tube feed Pt denies any symptoms Mild SOB at rest Chest -crackles and wheezing bilaterally Plan -Stat CXR ,D/C IVF and give Lasix and Albuterol Nebs DR Rivas
[2016-11-14] MEDS ORDERED: ALBUTEROL 0.083% NEBU SOLN 3 ML VIAL INH PRN (19:00)
[2016-11-14] MEDS ORDERED: HydrALAZINE HCL 20 MG/ML VIAL IV. STA (19:25)
[2016-11-14] MEDS ORDERED: HydrALAZINE HCL 20 MG/ML VIAL ONE (19:29)
--- NOTE | 2016-11-14 19:42 | DIAGNOSTIC IMAGING REPORT ---
CHEST ONE VIEW PORTABLE CLINICAL HISTORY: 80 years-old Male presenting with r/o CHF. TECHNIQUE: Portable upright AP view of the chest was obtained. COMPARISON: 11/10/2016. FINDINGS: Atherosclerosis of aortic arch. Cardiac silhouette top normal in size. Interval development of perihilar groundglass opacities as well as bibasilar hazy opacities. Ovoid well-defined opacity in the right mid lung may represent fluid within the fissure versus focal consolidation. Small right effusion noted. No pneumothorax. Degenerative changes of the spine. Upper abdomen normal. IMPRESSION: 1. Findings most consistent with pulmonary edema and small right pleural effusion. Electronically signed by: Ke Spears M.D. 11/14/2016 7:41 PM Dictated Date/Time: 11/14/2016 7:39 PM
[2016-11-14] MEDS ORDERED: FUROSEMIDE 40 MG/4 ML VIAL ONE (19:46)
[2016-11-14] MEDS ORDERED: DILTIAZEM HCL 5 MG/ML 5 ML VIAL IV STA (19:50)
[2016-11-14] MEDS ORDERED: DILTIAZEM HCL 5 MG/ML 5 ML VIAL ONE (19:55)
[2016-11-14] MEDS ORDERED: FUROSEMIDE INJ 80 MG in SYRINGE 0 ML IV ONE (20:00)
--- NOTE | 2016-11-14 20:09 | Progress Note ---
Progress Note Date of Service Nov 14, 2016. Progress Note DIRECTOR OF AGRICULTURE ATTENDING NOTE: pt developed acute SOB , tachycardic -Afib RVR with hypertensive urgency in evening evaluated at bedside by myself and Dr Stoney Rodarte -manoj and clammy on 6 L 02 via nasal canula , using accessory muscles pt was tachypneic, Rapid Afib in 120's BP 170/110 + JVD Lungs: + crackles at base , diffuse wheeze stat portable Cxray shows pulmonary congestion IVF was discontinued earlier ICU was contacted for for acute respiratory failure /Flash pulmonary edema associated with Afib RVR , hypertensive urgency -needs possible transfer respiratory updated for BiPAP pt evaluated by Internal Control Consultant at bedside pt got evening dose of Lasix 30 mg with minimum urine out put ordered for 80 mg IV Lasix( got total 110 mg IV ) pt's breathing was improved after IV Lasix , Cardizem 30 mg IV X1 ordered -lead to improvement of HR to 80's rate controlled Afib /BP to 120 /80 Acute CHF with possible diastolic dysfunction -developed vol overload /flash pulm edema with ongoing IVF for hyponatremia leading to rapid Afib /hypertensive urgency pt was much comfortable after diuresis , Spo2 96 % on 6 L Bipap was not initiated pt clinically improved -stable to be evaluated and managed in PCU will continue to have ongoing diuresis , given Stage 4 CKD -needs higher dose of Lasix pt may require dialysis in future -will defer the discussion to cosmetic consultant - poor prognosis last ECHO in 2011 -EF 50-55% repeat ECHO ordered Cardiology Dr Porras consulted -pt follows with him in office pt will be continued to be monitored in Tele cont to monitor I's O's hep lock repeat Cxray in AM for improvement Acute Hypoxemic respiratory failure : due to acute CHF /Vol overload was not on home 02 , now requiring 5-6 L via NC will need 2 step exercise prior to discharge will update AM provider
[2016-11-14] MEDS: LEVALBUTEROL 1.25MG/0.5ML NEB INH SCH (20:31)
[2016-11-14] MEDS: IPRATROPIUM BROMIDE NEB SOLN 0.02% 2.5 ML VIAL INH SCH (20:32)
[2016-11-14 20:57] LABS: BUN/CREATININE RATIO 20.7 (10-20); CALCIUM 8.6 mg/dl (8.5-10.1); CREATININE 3.4 mg/dl (0.60-1.40); POTASSIUM 4.7 mmol/L (3.5-5.1)
[2016-11-14] MEDS ORDERED: LEVALBUTEROL/IPRATROPIUM NEB INH SCH (21:00)
[2016-11-14] MEDS: RIVAROXABAN TAB 15 MG TAB PO SCH (21:02)
[2016-11-14] MEDS: INSULIN GLARGINE SOLOSTAR 100 UNITS/ML 3 ML PEN SC SCH (21:05)
[2016-11-14 21:09] LABS: BETA-HYDROXYBUTYRATE 2.15 mg/dL (0.2-2.81)
[2016-11-14] MEDS ORDERED: FUROSEMIDE INJ 40 MG in SYRINGE 0 ML IV STA (23:51)
[2016-11-15] VITALS (11 sets, daily range): BP systolic 113–131; BP diastolic 61–87; PULSE 79–102; TEMP 36.6–37.1; O2SAT 93–99
[2016-11-15] MEDS ORDERED: NURSING VERBAL MED ORDER ONE ×2 (00:15→17:45)
[2016-11-15] MEDS: IPRATROPIUM BROMIDE NEB SOLN 0.02% 2.5 ML VIAL INH SCH ×4 (01:43→19:31)
[2016-11-15] MEDS: LEVALBUTEROL 1.25MG/0.5ML NEB INH SCH ×4 (01:43→19:31)
[2016-11-15] MEDS ORDERED: FUROSEMIDE INJ 40 MG in SYRINGE 0 ML IV SCH ×2 (03:00→04:00)
[2016-11-15] MEDS: FUROSEMIDE INJ 80 MG in SYRINGE 0 ML IV SCH ×2 (03:54→11:05)
[2016-11-15 06:01] LABS: HEMATOCRIT 21.2 % (42-52); MEAN CELL VOLUME 85.5 fL (80-100); MEAN CORPUSCULAR HEMOGLOBIN 29.4 pg (25-34); MEAN CORPUSCULAR HGB CONC 34.4 g/dl (32-36); MEAN PLATELET VOLUME 9.2 fL (7.4-10.4); PLATELET COUNT 160 K/uL (130-400); RED BLOOD COUNT 2.48 M/uL (4.7-6.1); WHITE BLOOD COUNT 13.39 K/uL (4.8-10.8)
[2016-11-15 06:07] LABS: BUN/CREATININE RATIO 19.5 (10-20); CALCIUM 8.4 mg/dl (8.5-10.1); CREATININE 3.5 mg/dl (0.60-1.40); MAGNESIUM 2.4 mg/dl (1.8-2.4); POTASSIUM 4.7 mmol/L (3.5-5.1)
[2016-11-15 06:10] LABS: CHOLESTEROL/HDL RATIO 1.1
[2016-11-15] MEDS ORDERED: LABETALOL HCL IV 5 MG/ML 20ML IV PRN (07:00)
--- NOTE | 2016-11-15 07:32 | DIAGNOSTIC IMAGING REPORT ---
CHEST ONE VIEW PORTABLE CLINICAL HISTORY: 80 years-old Male presenting with CHF. TECHNIQUE: Portable upright AP view of the chest was obtained. COMPARISON: 11/14/2016. FINDINGS: Slight decreased prominence of the cardiac silhouette. Atherosclerosis of aortic arch. Slight interval decrease in perihilar and bibasilar hazy opacities. Improved vascular distinctness. Slight interval decrease in pulmonary vascular congestion. Decreased size of the ovoid well-defined opacity likely representing fluid in the right major fissure. Persistent blunting of the bilateral costophrenic angles, likely small pleural effusions. No pneumothorax. Degenerative changes of the spine. Upper abdomen normal. IMPRESSION: 1. Decreased perihilar and bibasilar opacities with decreased pulmonary vascular congestion, likely representing decreased pulmonary edema. 2. Persistent small bilateral pleural effusions with pleural fluid noted in the right fissure. Electronically signed by: Ke Spears M.D. 11/15/2016 7:31 AM Dictated Date/Time: 11/15/2016 7:29 AM
[2016-11-15] MEDS ORDERED: PERFLUTREN LIPID MICROSPHERE (DEFINITY) IV ONE (08:06)
[2016-11-15] MEDS: PANTOprazole SOD 40 MG TAB PO SCH (08:13)
[2016-11-15] MEDS: METOPROLOL SUCC 50MG EXT REL TAB PO SCH (08:13)
[2016-11-15] MEDS: CHOLECALCIFEROL 1000 INTER.UNIT TAB PO SCH (08:14)
[2016-11-15] MEDS: PSYLLIUM 58.6% PWD PACK S\\F PO SCH (08:14)
[2016-11-15] MEDS: CHECK CLONIDINE PATCH PLACEMENT SCH ×3 (08:15→15:36)
[2016-11-15] MEDS: TUBE FEEDING WATER FLUSH PO SCH ×6 (08:15→16:14)
[2016-11-15] MEDS: INSULIN ASPART 100 UNITS/ML 3 ML PEN SC SCH ×4 (08:17→21:00)
--- NOTE | 2016-11-15 09:30 | ECHOCARDIOGRAM REPORT ---
*NOTICE TO RECEIVING REPUBLICAN AGENCY This information is strictly Confidential and protected under [place] law. [place] law prohibits you from making any further disclosure of this information unless further disclosure is expressly permitted by the written consent of the person to whom it pertains or is authorized by law. A general authorization for the release of medical or other information is not sufficient for this purpose. Hospital accepts no responsibility if the information is made available to any other person, INCLUDING THE PATIENT. Interpretation Summary * Name: VLAD WEATHERS Study Date: 11/15/2016 07:35 AM BP: 123/71 mmHg * Patient Location: C.2E\S\E202\S\1 HR: 103 * : 1935 (M/d/yyyy) Gender: Male Height: 71 in * Age: 80 yrs Ethnicity: CA Weight: 153 lb * Ordering Physician: Brenda Owen * Referring Physician: No Doctor, Assigned * Performed By: Ilda Solis RDCS * * Reason For Study: CHF * BSA: 1.9 m2 * -- Conclusions -- * There is mild concentric left ventricular hypertrophy. * Left ventricular systolic function is normal. * Borderline right ventricular enlargement. * The left atrium is moderately dilated. * The right atrium is mildly dilated. * Right ventricular systolic pressure is elevated at 40-50mmHg. * Compared to a study from 2012, the estimated pulmonary pressures are higher. Procedure Details * A complete two-dimensional transthoracic echocardiogram was performed (2D, M-mode, Doppler and color flow Doppler). * A contrast injection of Definity was performed to improve assessment of LV function. * Contrast was injected into an intravenous site in the left arm. * One vial of Definity ultrasound contrast was diluted in normal saline to a total volume of 10 ml. A total of '2' ml of solution was administered during imaging. * Lot # [id number] of Definity utilized for procedure. * Expiration date JAN 07. Left Ventricle * The left ventricle is normal in size. * There is mild concentric left ventricular hypertrophy. * Ejection Fraction = 60-65%. * Left ventricular systolic function is normal. * The left ventricular wall motion is normal. Right Ventricle * Borderline right ventricular enlargement. * The right ventricular systolic function is normal. * The right ventricular systolic function is normal as assessed by tricuspid annular plane systolic excursion (TAPSE) (normal >1.5 cm). Atria * The left atrium is moderately dilated. * The right atrium is mildly dilated. Mitral Valve * The mitral valve is grossly normal. * Significant mitral regurgitation is absent. Tricuspid Valve * The tricuspid valve is not well visualized, but is grossly normal. * There is mild tricuspid regurgitation. * Right ventricular systolic pressure is elevated at 40-50mmHg. Aortic Valve * The aortic valve is not well visualized. * No hemodynamically significant valvular aortic stenosis. * There is no significant aortic regurgitation. Pericardium/Pleural * There is no pericardial effusion. MMode 2D Measurements and Calculations IVSd 1.3 cm IVSs 1.9 cm LVIDd 4.5 cm LVIDs 2.8 cm LVPWd 1.5 cm LVPWs 2.0 cm IVS/LVPW 0.86 FS 36.9 % EDV(Teich) 90.2 ml ESV(Teich) 29.8 ml EF(Teich) 67.0 % EDV(cubed) 88.3 ml ESV(cubed) 22.2 ml EF(cubed) 74.9 % % IVS thick 47.9 % % LVPW thick 33.3 % LV mass(C)d 242.8 grams LV mass(C)dI 129.0 grams/m\S\2 LV mass(C)s 233.7 grams LV mass(C)sI 124.2 grams/m\S\2 SV(Teich) 60.4 ml SI(Teich) 32.1 ml/m\S\2 SV(cubed) 66.2 ml SI(cubed) 35.1 ml/m\S\2 LVAd ap4 20.8 cm\S\2 LVLd ap4 7.4 cm EDV(MOD-sp4) 47.2 ml EDV(sp4-el) 49.6 ml LVAs ap4 12.1 cm\S\2 LVLs ap4 6.6 cm ESV(MOD-sp4) 17.7 ml ESV(sp4-el) 18.8 ml EF(MOD-sp4) 62.4 % EF(sp4-el) 62.1 % SV(MOD-sp4) 29.4 ml SI(MOD-sp4) 15.6 ml/m\S\2 SV(sp4-el) 30.8 ml SI(sp4-el) 16.4 ml/m\S\2 Doppler Measurements and Calculations MV E max shaniqua 119.2 cm/sec MV dec time 0.12 sec Ao V2 max 159.9 cm/sec Ao max PG 10.2 mmHg Ao max PG (full) 5.0 mmHg LV V1 max PG 5.2 mmHg LV V1 max 114.3 cm/sec TR max shaniqua 328.3 cm/sec
--- NOTE | 2016-11-15 12:03 | Cardiology Consultation ---
Cardiology Consultation Date of Consultation: Nov 15, 2016. Requesting Physician: Rob Reason for Consultation: AF with RVR, CHF History of Present Illness The patient is a 80-year-old gentleman with a history of pancreatic cancer status post Whipple procedure who was noted by his housefellow to have severe hyponatremia and progressive weakness with a decline in his functional status. The patient was subsequently admitted to [facility] for evaluation. Yesterday afternoon the patient was noted to become acutely short of breath. This occurred over a short period of time and was in the setting of higher blood pressure. Patient appeared to have an element acute pulmonary edema is transferred to the intensive care unit for management. He underwent an element of diuresis with improvement in his symptoms in oxygenation. Patient states that he did become more short of breath but denied symptoms of chest discomfort at that time. He has not been feeling well in general. Normally he is very sedentary individual who by his own admission is a couch potato. He has some difficulty with ambulation due to weakness but is currently using a cane. He has been attempting to increase his oral volume intake and calories. He can only swallow liquids and receives most of his nutrition via tube feeds. Generally speaking he is not limited by significant breathing difficulty. He is unaware of any palpitations. Currently he is feeling better than yesterday but does report a sensation of needing to take deeper breaths. He denies chest pain currently. He has no palpitations currently. Past Medical/Surgical History Pancreatic cancer status post Whipple procedure, currently using tube feeds for primary nutrition Permanent atrial fibrillation Diabetes mellitus currently on insulin therapy Esophageal reflux Hyperlipidemia Hypertension Renal insufficiency Hyponatremia Past surgical history With of procedure Hip surgery Appendectomy Family History Noncontributory Social History Smoking Status: Never Smoker History of Alcohol Use: Yes (Very rare.) Review of Systems Constitutional: + see HPI Respiratory: No cough, No shortness of breath Cardiac: + see HPI, + edema (worsening BLE since I lowered diuretics late last week) Abdomen: + see HPI Male : + see HPI Neurologic: + see HPI Heme: + see HPI Endo: + see HPI Skin: + see HPI Patient has been very weak. Minimal ambulation. Difficulty with swallowing as noticed above. He states that he does have some edema in his legs on occasion but currently they are not swollen. Not aware of palpitations. All Other Systems: Reviewed and Negative Allergies Coded Allergies: No Known Allergies (Verified , 8/21/17) Medications Current Inpatient Medications Medications (Trade) Dose Ordered Sig/Mindy Route Start Time Stop Time Status Last Admin Dose Admin Acetaminophen (Tylenol Tab) 650 mg Q4H PRN PO 11/10/16 18:00 12/10/16 17:59 Ondansetron HCl (Zofran Inj) 4 mg Q6H PRN IV 11/10/16 18:00 12/10/16 17:59 Insulin Aspart (novoLOG ASPART) SLIDING SCALE If C... ACHS SC 11/10/16 21:00 12/10/16 20:59 11/15/16 11:27 5 UNITS Glucose (Glucose 40% Gel) 15-30 GRAMS 15 GRAMS... UD PRN PO 11/10/16 18:15 12/10/16 18:14 Glucose (Glucose Chew Tab) 4-8 Tablets 4 Tabl... UD PRN PO 11/10/16 18:15 12/10/16 18:14 11/14/16 06:59 4 TABS Dextrose (Dextrose 50% 50ML Syringe) 25-50ML OF 50% DW IV FOR... UD PRN IV 11/10/16 18:15 12/10/16 18:14 Glucagon (Glucagon Inj) 1 mg UD PRN SQ 11/10/16 18:15 12/10/16 18:14 Acetaminophen/ Codeine Phosphate (Tylenol w/ Codeine #3 Tab) 1 tab Q4H PRN PO 11/10/16 18:15 12/10/16 18:14 11/10/16 23:39 1 TAB Clonidine HCl (Sgdhpgnl-Cbj-3 0.3mg/24hr Patch) 0.3 patch Felder@0900 TD 11/16/16 09:00 12/16/16 08:59 Hydralazine HCl (Apresoline Tab) 150 mg BID PO 11/10/16 21:00 12/10/16 20:59 11/15/16 08:14 150 MG Insulin Glargine (Lantus Solostar Pen) 5 units QPM SC 11/10/16 21:00 12/10/16 20:59 Future hold 11/14/16 21:05 5 UNITS Metoprolol Succinate (Toprol Xl Tab) 200 mg QAM PO 11/11/16 09:00 12/11/16 08:59 11/15/16 08:13 200 MG Rivaroxaban (Xarelto Tab) 15 mg HS PO 11/10/16 21:00 12/10/16 20:59 11/14/16 21:02 15 MG Cholecalciferol (Vitamin D Tab) 5,000 inter.unit QAM PO 11/11/16 09:00 12/11/16 08:59 11/15/16 08:14 5,000 INTER.UNIT Pantoprazole Sodium (Protonix Tab) 40 mg QAM PO 11/11/16 09:00 12/11/16 08:59 11/15/16 08:13 40 MG Sterile Water (Tube Feeding Water Flush) 1 ea AC PO 11/11/16 07:00 12/11/16 06:59 11/15/16 10:54 1 EA Sterile Water (Tube Feeding Water Flush) 1 ea PC PO 11/11/16 08:00 12/11/16 07:59 11/15/16 11:28 1 EA Miscellaneous (Remove Clonidine Patch) 1 ea Q7D@0859 N/A 11/16/16 08:59 12/16/16 08:58 Miscellaneous Information (Check Clonidine Patch Placement) 1 ea QS N/A 11/11/16 00:00 12/11/16 00:00 11/15/16 08:15 1 EA Hyoscyamine Sulfate (Levsin Tab) 0.125 mg DAILY PRN PO 11/11/16 10:15 12/11/16 10:14 Zolpidem Tartrate (Ambien Tab) 5 mg HS PRN PO 11/11/16 17:45 12/11/16 17:44 Psyllium Hydrophilic Mucilloid (Metamucil Powder) 1 pkt QAM PO 11/14/16 09:00 12/14/16 08:59 Bisacodyl (Dulcolax Supp) 10 mg DAILY PRN HI 11/13/16 10:15 12/13/16 10:14 Ipratropium Lenore (Atrovent 0.02% 0.5MG/2.5ML Neb) 0.5 mg Q6R INH 11/14/16 21:00 12/14/16 20:59 11/15/16 07:10 0.5 MG Levalbuterol (Xopenex 1.25MG/ 0.5ML Neb) 1.25 mg Q6R INH 11/14/16 21:00 12/14/16 20:59 11/15/16 07:10 1.25 MG Furosemide 80 mg/ Syringe 8 ml @ 4 mls/min Q8H IV 11/15/16 04:00 12/15/16 03:59 11/15/16 11:05 4 MLS/MIN Labetalol HCl (Normodyne IV) 10 mg Q8 PRN IV 11/15/16 07:00 12/15/16 06:59 Physical Exam Vital Signs Past 12 Hours Date Time Temp Pulse Resp B/P (MAP) Pulse Ox O2 Delivery O2 Flow Rate FiO2 11/15/16 11:32 36.8 90 18 113/61 (78) 98 2.0 11/15/16 11:30 Nasal Cannula 2.0 11/15/16 08:00 Nasal Cannula 2.0 11/15/16 07:44 36.7 80 18 123/71 (88) 97 2.0 11/15/16 07:10 87 16 98 Nasal Cannula 2.0 11/15/16 04:00 Room Air 11/15/16 03:52 36.6 85 18 114/63 (80) 97 Nasal Cannula 3.0 11/15/16 01:43 83 16 97 Nasal Cannula 3.0 11/15/16 00:13 37.1 90 18 125/87 (100) 96 Nasal Cannula 4.0 11/14/16 23:59 Room Air The patient is alert and oriented. Mood and affect appeared normal. He answered all questions appropriately. Cachectic HEENT: Pupils are equal and reactive to light and accommodation. Extraocular movements are intact. The sclerae are anicteric. Neuro: Cranial nerves intact Neck: Patient's neck is supple. He has palpable carotid pulses bilaterally without bruits on auscultation. There is no evidence of jugular venous distention. The thyroid is not enlarged. Lungs: Crackles in the bases bilaterally. He has good air movement without use of accessory muscles. No rales wheezes or rhonchi. Cardiac: Heart demonstrates an irregular rate and rhythm. Normal S1 and S2. No murmurs on examination. Pulses: The patient has palpable radial pulses bilaterally that are equal in intensity Extremities: There was no evidence of hypoperfusion. There is no cyanosis or clubbing. There is no edema. Skin: I did not appreciate any rashes on examination today. Data Laboratory Results: Last 24 Hours Test 11/14/16 12:55 11/14/16 16:03 11/14/16 16:34 11/14/16 19:58 Sodium Level 120 mmol/L 120 mmol/L Potassium Level 4.9 mmol/L 4.7 mmol/L Chloride Level 86 mmol/L 86 mmol/L Carbon Dioxide Level 25 mmol/L 24 mmol/L Anion Gap 8.0 mmol/L 9.0 mmol/L Blood Urea Nitrogen 66 mg/dl 70 mg/dl Creatinine 3.30 mg/dl 3.40 mg/dl Est Creatinine Clear Calc Drug Dose 17.8 ml/min 17.3 ml/min Estimated GFR () 19.5 18.8 Estimated GFR (Non- 16.8 16.2 BUN/Creatinine Ratio 19.9 20.7 Random Glucose 268 mg/dl 343 mg/dl Osmolality 280 mOsm/kg Calcium Level 8.3 mg/dl 8.6 mg/dl Bedside Glucose 277 mg/dl Pro-B-Type Natriuretic Peptide 00830 pg/ml Beta-Hydroxybutyric Acid 2.15 mg/dL Test 11/14/16 20:32 11/15/16 05:26 11/15/16 06:50 11/15/16 07:30 Bedside Glucose 427 mg/dl 224 mg/dl White Blood Count 13.39 K/uL Red Blood Count 2.48 M/uL Hemoglobin 7.3 g/dL Hematocrit 21.2 % Mean Corpuscular Volume 85.5 fL Mean Corpuscular Hemoglobin 29.4 pg Mean Corpuscular Hemoglobin Concent 34.4 g/dl RDW Standard Deviation 41.7 fL RDW Coefficient of Variation 13.6 % Platelet Count 160 K/uL Mean Platelet Volume 9.2 fL Sodium Level 123 mmol/L Potassium Level 4.7 mmol/L Chloride Level 87 mmol/L Carbon Dioxide Level 25 mmol/L Anion Gap 11.0 mmol/L Blood Urea Nitrogen 68 mg/dl Creatinine 3.50 mg/dl Est Creatinine Clear Calc Drug Dose 16.8 ml/min Estimated GFR () 18.2 Estimated GFR (Non- 15.7 BUN/Creatinine Ratio 19.5 Random Glucose 199 mg/dl Calcium Level 8.4 mg/dl Magnesium Level 2.4 mg/dl Triglycerides Level 15 mg/dl Cholesterol Level 100 mg/dl HDL Cholesterol 91 mg/dl LDL Cholesterol, Calculated 6 mg/dl VLDL Cholesterol, Calculated 3 mg/dl Cholesterol/HDL Ratio 1.1 Urine Osmolality 236 mOms/kg Urine Random Sodium 47 mEq/L Test 11/15/16 11:24 Bedside Glucose 354 mg/dl Imaging: Chest x-ray obtained yesterday during his breathing difficulty demonstrated pulmonary vascular congestion, improved on today's x-ray EKG: Atrial fibrillation without acute ST or T-wave changes Telemetry reviewed: Persistent atrial fibrillation Echocardiogram obtained today revealed preserved LV systolic function. Pulmonary hypertension noted Assessment & Plan 1. Acute decompensated diastolic heart failure: Patient was noted to have some elevated blood pressures at the time of this exacerbation. It is not clear whether this was a result of his distress or precipitated an element of diastolic dysfunction. He has preserved LV systolic function. He did obviously have pulmonary vascular congestion based on his symptoms, exam, hypoxia, imaging and N terminal proBNP. He did effect an element of diuresis and certainly feels better today. His oxygenation is improved. He still has an element of vascular congestion, but aggressive diuresis may be complicated by worsening renal function and electrolyte abnormalities. I think the primary intervention is simply control of his blood pressure. Continuation of his diuretics will likely effect more improvement in his oxygenation and pulmonary vascular congestion. He is likely to simply resolved the remainder of his pulmonary symptoms without any additional aggressive intervention. 2. Atrial fibrillation: Permanent. Generally speaking he has good rate control. Yesterday he had some elevated heart rates during his acute episode which are to be expected. Can be maintained on his outpatient medical regimen. He appears to have previously been on digoxin which has been appropriately discontinued. He can be continued on his current anticoagulation indefinitely. 3. Hypertension: Somewhat elevated yesterday. He is on several agents for hypertension and with adequate control he is likely to avoid additional episodes of diastolic heart failure. Four. Pulmonary hypertension: This was noted on his current echocardiogram, but may be related to the acute exacerbation diastolic heart failure and pulmonary vascular congestion. I think treatment of that process will result in lower pulmonary pressures.
--- NOTE | 2016-11-15 15:00 | Progress Note ---
Internal Med Progress Note Date of Service: Nov 15, 2016. Provider Documentation: SUBJECTIVE: The patient was seen and examined Has had more SOB last evening associated with AF with RVR Received a dose of Cardizem and higher dose of Lasix Much better this Morning OBJECTIVE: Vital Signs-as noted below Exam: General-No distress at rest Resting in bed Eyes-normal ENT-normal Neck-supple Lungs-Clear to ausucltate bilaterally Heart-Regular,no9 murmur appreciated Abdomen-Benign,no masses,bowel sound present Extremities-No edema Neuro-AAOx3,generally weak but no focal sensory and or motor deficit Lab data as noted below. ASSESSMENT & PLAN: Acute Diastolic CHF complicated by AF with RVR and Volume Overload Plate Shop Helper more IV Lasix and a dose of IV Cardizem Was evaluated by the Cardiology and The Radio Operator Clinically much better this Morning Will continue current medications except IVF Hyponatremia: In setting of Hyperglycemia H/O chronic Hyponatremia (Usually ranges in Mid 120s),Causes could be SIADH, Nutritional and Renal loss Control blood sugar levels Urine Osmolality low at 202 and random Sodium 22 Free water flushes 60ml Before and after tube feeds 1.5 liters fluids/day restriction Sodium improved to 122 but again down to 120 Appreciate Nephrology input and recommendation Received small amount of Hypertonic saline and now on Sodium tabs -increased the dose Sodium level remains at 122-will monitor Will need to have a stable Sodium level before discharge Sodium remains low at 121 Aggressive management with IV Saline and Lasix as per telecommunication operator Fluid is on Hold now Lasix continued Sodium level 123 on 11/15/16 DM II:uncontrolled with Hyperglycemia on Tube feeds (2cans TID) Meat Carver consulted ISS, Lantus, Accu checks Update A1c High at 9.5 Pharmacy Glycemic control consult-signed off due to noncompliance Free water flushes 60ml Before and after tube feeds Patient controls his own Insulin doses and does not want any intervention whatsoever Diabetic Education to improve Blood sugar level Dietitian consulted 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 Cr at baseline Nephrology following Creatinine getting worse H/O Pancreatic cancer S/P Whipple procedure Follows with [facility] Follows with GI and Oncology Not getting any Chemo now Sees Oncologist in [place] once a year Last seen in June this year Will get Ca-19 level Anemia Secondary to CKD and complicated by Pancreatic cancer Check Occult blood May need transfusion Hb >8 HTN: Stable Continue usual meds Atrial fibrillation: Rate controlled continue BB, Xarelto No acute issue H/O Dysphagia secondary to muscular dysmotility On Tube feeds Dysphagia to solids DVT Px: On Xarelto Code Status: Full Code Disposition: Monitor in Tele Vital Signs: Date Time Temp Pulse Resp B/P (MAP) Pulse Ox O2 Delivery O2 Flow Rate FiO2 11/15/16 14:17 79 16 99 Nasal Cannula 2.0 11/15/16 11:32 36.8 90 18 113/61 (78) 98 2.0 11/15/16 11:30 Nasal Cannula 2.0 11/15/16 08:00 Nasal Cannula 2.0 11/15/16 07:44 36.7 80 18 123/71 (88) 97 2.0 11/15/16 07:10 87 16 98 Nasal Cannula 2.0 11/15/16 04:00 Room Air 11/15/16 03:52 36.6 85 18 114/63 (80) 97 Nasal Cannula 3.0 11/15/16 01:43 83 16 97 Nasal Cannula 3.0 11/15/16 00:13 37.1 90 18 125/87 (100) 96 Nasal Cannula 4.0 11/14/16 23:59 Room Air 11/14/16 20:00 Room Air 11/14/16 20:00 87 123/69 (87) 96 Nasal Cannula 6.0 11/14/16 19:55 98 20 94 Nasal Cannula 6.0 11/14/16 19:55 123 153/99 (117) 11/14/16 19:13 108 22 92 Nasal Cannula 6.0 11/14/16 18:55 36.5 114 24 181/110 (133) 83 Nasal Cannula 3.0 11/14/16 16:32 Room Air 11/14/16 16:32 36.4 97 20 163/94 (117) 91 Nasal Cannula 2.0 Lab Results: Results Past 24 Hours Test 11/14/16 16:03 11/14/16 16:34 11/14/16 19:58 11/14/16 20:32 Range/Units Sodium Level 120 120 136-145 mmol/L Potassium Level 4.9 4.7 3.5-5.1 mmol/L Chloride Level 86 86 98-107 mmol/L Carbon Dioxide Level 25 24 21-32 mmol/L Anion Gap 8.0 9.0 3-11 mmol/L Blood Urea Nitrogen 66 70 7-18 mg/dl Creatinine 3.30 3.40 0.60-1.40 mg/dl Est Creatinine Clear Calc Drug Dose 17.8 17.3 ml/min Estimated GFR () 19.5 18.8 Estimated GFR (Non- 16.8 16.2 BUN/Creatinine Ratio 19.9 20.7 10-20 Random Glucose 268 343 70-99 mg/dl Osmolality 280 280-300 mOsm/kg Calcium Level 8.3 8.6 8.5-10.1 mg/dl Bedside Glucose 277 427 70-99 mg/dl Pro-B-Type Natriuretic Peptide 38125 0-1800 pg/ml Beta-Hydroxybutyric Acid 2.15 0.2-2.81 mg/dL Test 11/15/16 05:26 11/15/16 06:50 11/15/16 07:30 11/15/16 11:24 Range/Units White Blood Count 13.39 4.8-10.8 K/uL Red Blood Count 2.48 4.7-6.1 M/uL Hemoglobin 7.3 14.0-18.0 g/dL Hematocrit 21.2 42-52 % Mean Corpuscular Volume 85.5 80-100 fL Mean Corpuscular Hemoglobin 29.4 25-34 pg Mean Corpuscular Hemoglobin Concent 34.4 32-36 g/dl RDW Standard Deviation 41.7 36.4-46.3 fL RDW Coefficient of Variation 13.6 11.5-14.5 % Platelet Count 160 130-400 K/uL Mean Platelet Volume 9.2 7.4-10.4 fL Sodium Level 123 136-145 mmol/L Potassium Level 4.7 3.5-5.1 mmol/L Chloride Level 87 98-107 mmol/L Carbon Dioxide Level 25 21-32 mmol/L Anion Gap 11.0 3-11 mmol/L Blood Urea Nitrogen 68 7-18 mg/dl Creatinine 3.50 0.60-1.40 mg/dl Est Creatinine Clear Calc Drug Dose 16.8 ml/min Estimated GFR () 18.2 Estimated GFR (Non- 15.7 BUN/Creatinine Ratio 19.5 10-20 Random Glucose 199 70-99 mg/dl Calcium Level 8.4 8.5-10.1 mg/dl Magnesium Level 2.4 1.8-2.4 mg/dl Triglycerides Level 15 0-150 mg/dl Cholesterol Level 100 0-200 mg/dl HDL Cholesterol 91 mg/dl LDL Cholesterol, Calculated 6 mg/dl VLDL Cholesterol, Calculated 3 mg/dl Cholesterol/HDL Ratio 1.1 Bedside Glucose 224 354 70-99 mg/dl Urine Osmolality 236 500-800 mOms/kg Urine Random Sodium 47 mEq/L
--- NOTE | 2016-11-15 16:32 | Nephrology Progress Note ---
Nephrology Progress Note Date of Service: Nov 15, 2016. Subjective after discussion yesterday started IVF high rate + lasix but pt w/ lasix tolerance and went into flash pulm edema last evening. IVF stopped, weaning peak 02nc 4L > 2L > RA now; on IV lasix 80 mg q 8h currently; at bedside; pt c/o dry mouth and feeling progressively weaker; got TTE today Objective Date Time Temp Pulse Resp B/P (MAP) Pulse Ox O2 Delivery O2 Flow Rate FiO2 11/15/16 11:32 36.8 90 18 113/61 (78) 98 2.0 11/15/16 11:30 Nasal Cannula 2.0 11/15/16 08:00 Nasal Cannula 2.0 11/15/16 07:44 36.7 80 18 123/71 (88) 97 2.0 11/15/16 07:10 87 16 98 Nasal Cannula 2.0 11/15/16 04:00 Room Air 11/15/16 03:52 36.6 85 18 114/63 (80) 97 Nasal Cannula 3.0 11/15/16 01:43 83 16 97 Nasal Cannula 3.0 11/15/16 00:13 37.1 90 18 125/87 (100) 96 Nasal Cannula 4.0 11/14/16 23:59 Room Air 11/14/16 20:00 Room Air 11/14/16 20:00 87 123/69 (87) 96 Nasal Cannula 6.0 11/14/16 19:55 98 20 94 Nasal Cannula 6.0 11/14/16 19:55 123 153/99 (117) 11/14/16 19:13 108 22 92 Nasal Cannula 6.0 11/14/16 18:55 36.5 114 24 181/110 (133) 83 Nasal Cannula 3.0 11/14/16 16:32 Room Air 11/14/16 16:32 36.4 97 20 163/94 (117) 91 Nasal Cannula 2.0 Physical Exam: General-on RA maneuvers w/ asst; nad oriented x 3 cachectic no resp distress or cough Eyes-eomi ENT-dry mm Neck-supple Lungs-diminished bibasilar; no crackles Heart-RRR trace - 1+ BL ankle edema Abdomen-PEG present; +BS, +peterson, soft Extremities-no c/c Neuro-lim, fluent speech, good insight Current Inpatient Medications Medications (Trade) Dose Ordered Sig/Mindy Route Start Time Stop Time Status Last Admin Dose Admin Acetaminophen (Tylenol Tab) 650 mg Q4H PRN PO 11/10/16 18:00 12/10/16 17:59 Ondansetron HCl (Zofran Inj) 4 mg Q6H PRN IV 11/10/16 18:00 12/10/16 17:59 Insulin Aspart (novoLOG ASPART) SLIDING SCALE If C... ACHS SC 11/10/16 21:00 12/10/16 20:59 11/15/16 11:27 5 UNITS Glucose (Glucose 40% Gel) 15-30 GRAMS 15 GRAMS... UD PRN PO 11/10/16 18:15 12/10/16 18:14 Glucose (Glucose Chew Tab) 4-8 Tablets 4 Tabl... UD PRN PO 11/10/16 18:15 12/10/16 18:14 11/14/16 06:59 4 TABS Dextrose (Dextrose 50% 50ML Syringe) 25-50ML OF 50% DW IV FOR... UD PRN IV 11/10/16 18:15 12/10/16 18:14 Glucagon (Glucagon Inj) 1 mg UD PRN SQ 11/10/16 18:15 12/10/16 18:14 Acetaminophen/ Codeine Phosphate (Tylenol w/ Codeine #3 Tab) 1 tab Q4H PRN PO 11/10/16 18:15 12/10/16 18:14 11/10/16 23:39 1 TAB Clonidine HCl (Aknvvwnl-Dea-5 0.3mg/24hr Patch) 0.3 patch Felder@0900 TD 11/16/16 09:00 12/16/16 08:59 Hydralazine HCl (Apresoline Tab) 150 mg BID PO 11/10/16 21:00 12/10/16 20:59 11/15/16 08:14 150 MG Insulin Glargine (Lantus Solostar Pen) 5 units QPM SC 11/10/16 21:00 12/10/16 20:59 Future hold 11/14/16 21:05 5 UNITS Metoprolol Succinate (Toprol Xl Tab) 200 mg QAM PO 11/11/16 09:00 12/11/16 08:59 8/26/17 08:13 200 MG Rivaroxaban (Xarelto Tab) 15 mg HS PO 11/10/16 21:00 12/10/16 20:59 11/14/16 21:02 15 MG Cholecalciferol (Vitamin D Tab) 5,000 inter.unit QAM PO 11/11/16 09:00 12/11/16 08:59 11/15/16 08:14 5,000 INTER.UNIT Pantoprazole Sodium (Protonix Tab) 40 mg QAM PO 11/11/16 09:00 12/11/16 08:59 11/15/16 08:13 40 MG Sterile Water (Tube Feeding Water Flush) 1 ea AC PO 11/11/16 07:00 12/11/16 06:59 11/15/16 10:54 1 EA Sterile Water (Tube Feeding Water Flush) 1 ea PC PO 11/11/16 08:00 12/11/16 07:59 11/15/16 11:28 1 EA Miscellaneous (Remove Clonidine Patch) 1 ea Q7D@0859 N/A 11/16/16 08:59 12/16/16 08:58 Miscellaneous Information (Check Clonidine Patch Placement) 1 ea QS N/A 11/11/16 00:00 12/11/16 00:00 11/15/16 08:15 1 EA Hyoscyamine Sulfate (Levsin Tab) 0.125 mg DAILY PRN PO 11/11/16 10:15 12/11/16 10:14 Zolpidem Tartrate (Ambien Tab) 5 mg HS PRN PO 11/11/16 17:45 12/11/16 17:44 Psyllium Hydrophilic Mucilloid (Metamucil Powder) 1 pkt QAM PO 11/14/16 09:00 12/14/16 08:59 Bisacodyl (Dulcolax Supp) 10 mg DAILY PRN [place] 11/13/16 10:15 12/13/16 10:14 Ipratropium [place] (Atrovent 0.02% 0.5MG/2.5ML Neb) 0.5 mg Q6R INH 11/14/16 21:00 12/14/16 20:59 11/15/16 14:02 0.5 MG Levalbuterol (Xopenex 1.25MG/ 0.5ML Neb) 1.25 mg Q6R INH 11/14/16 21:00 12/14/16 20:59 11/15/16 14:02 1.25 MG Furosemide 80 mg/ Syringe 8 ml @ 4 mls/min Q8H IV 11/15/16 04:00 12/15/16 03:59 11/15/16 11:05 4 MLS/MIN Labetalol HCl (Normodyne IV) 10 mg Q8 PRN IV 11/15/16 07:00 12/15/16 06:59 Last 24 Hours Test 11/14/16 16:03 11/14/16 16:34 11/14/16 19:58 11/14/16 20:32 Sodium Level 120 mmol/L 120 mmol/L Potassium Level 4.9 mmol/L 4.7 mmol/L Chloride Level 86 mmol/L 86 mmol/L Carbon Dioxide Level 25 mmol/L 24 mmol/L Anion Gap 8.0 mmol/L 9.0 mmol/L Blood Urea Nitrogen 66 mg/dl 70 mg/dl Creatinine 3.30 mg/dl 3.40 mg/dl Est Creatinine Clear Calc Drug Dose 17.8 ml/min 17.3 ml/min Estimated GFR () 19.5 18.8 Estimated GFR (Non- 16.8 16.2 BUN/Creatinine Ratio 19.9 20.7 Random Glucose 268 mg/dl 343 mg/dl Osmolality 280 mOsm/kg Calcium Level 8.3 mg/dl 8.6 mg/dl Bedside Glucose 277 mg/dl 427 mg/dl Pro-B-Type Natriuretic Peptide 33452 pg/ml Beta-Hydroxybutyric Acid 2.15 mg/dL Test 11/15/16 05:26 11/15/16 06:50 11/15/16 07:30 11/15/16 11:24 White Blood Count 13.39 K/uL Red Blood Count 2.48 M/uL Hemoglobin 7.3 g/dL Hematocrit 21.2 % Mean Corpuscular Volume 85.5 fL Mean Corpuscular Hemoglobin 29.4 pg Mean Corpuscular Hemoglobin Concent 34.4 g/dl RDW Standard Deviation 41.7 fL RDW Coefficient of Variation 13.6 % Platelet Count 160 K/uL Mean Platelet Volume 9.2 fL Sodium Level 123 mmol/L Potassium Level 4.7 mmol/L Chloride Level 87 mmol/L Carbon Dioxide Level 25 mmol/L Anion Gap 11.0 mmol/L Blood Urea Nitrogen 68 mg/dl Creatinine 3.50 mg/dl Est Creatinine Clear Calc Drug Dose 16.8 ml/min Estimated GFR () 18.2 Estimated GFR (Non- 15.7 BUN/Creatinine Ratio 19.5 Random Glucose 199 mg/dl Calcium Level 8.4 mg/dl Magnesium Level 2.4 mg/dl Triglycerides Level 15 mg/dl Cholesterol Level 100 mg/dl HDL Cholesterol 91 mg/dl LDL Cholesterol, Calculated 6 mg/dl VLDL Cholesterol, Calculated 3 mg/dl Cholesterol/HDL Ratio 1.1 Bedside Glucose 224 mg/dl 354 mg/dl Urine Osmolality 236 mOms/kg Urine Random Sodium 47 mEq/L Assessment & Plan complex 80 y/o M w/ labile and mostly elevated BG, generalized weakness, worsening chronic hyponatremia, CKD4 w/ significant wt loss from unexplained esophageal dysmotility past few years w/ progressive malnutrition s/p PEG late last month now on changing regimen of TF, dietary intake. it has been challenging to manage his chemistries as an outpatient; pt is frustrated by so many hospital admissions. VERY CHALLENGING CASE of only mildly hypoosmolar or normoosmolar hyponatremia attributed in past to hyperglycemia but concern may be other process as well; we have made little headway w/ restricting fluids/starting salt tabs/giving lasix. now also with acute on chronic renal failure stage 4, borderline hyperkalemia, worsening anemia. implications of abnormally elevated osmolality were discussed w/ pt and . -cont efforts to control BG/ DM education >> we need a plan for dm mgt after d/ c that pt will actually follow -cont 1 can qid TF and 15 mL free water flush pre/post -cont peterson -cont lasix 80 mg IV tid for now >> though will look to hold evening dose depending on chemistries/renal function -recheck bmp 1600 today -check for other osm contributors > spep/upep, ca 19-9 pending; lipids are normal; BG alone can't explain normal osms -very important to cont daily standing wt and po fluid limit 1.2L -cont daily rd urine Na, urine osms -fluid restriction includes water, coffee, tea, clear soda, jello, juices; NOT including TF, flushes pre/post >>>>plan is to rest/recover and f/u TTE >> then tomorrow restart aggressive IVF with lasix to see if we can move sodium, assuming renal function tolerates Anemia in 2017 which is markedly worse than labs last year. Last colonoscopy 2013; has annual endoscopies -s/p iron load -fobt + -will talk to him in am about starting epo>> he agrees and we will do this Acute renal failure on CKD 4 -suspect prerenal; check uacm; FENa not useful in ckd4 -may need renal diet if worsens further -cannot rule out need for dialysis this admission or in future; pt aware; this was discussed at length w/ pt and his Appreciate consult; will follow with you. Care coordinated w/ dr esparza
[2016-11-15 17:22] LABS: URINE APPEARANCE CLEAR (CLEAR); URINE BILIRUBIN NEG (NEG); URINE COLOR YELLOW; URINE NITRITE NEG (NEG); URINE PH 6.5 (4.5-7.5); URINE SPECIFIC GRAVITY 1.011 (1.000-1.030); UROBILINOGEN NEG (NEG); ZZURINE CULT IF INDIC CATH NO
[2016-11-15 17:24] LABS: MANUAL MICROSCOPIC REQUIRED? NO; REVIEW REQ? NO
[2016-11-15 17:25] LABS: BUN/CREATININE RATIO 20.5 (10-20); CALCIUM 8.4 mg/dl (8.5-10.1); CREATININE 3.6 mg/dl (0.60-1.40); POTASSIUM 4.6 mmol/L (3.5-5.1)
[2016-11-15] MEDS ORDERED: EPOETIN ALFA 20,000 UNITS/ML VIAL SQ SCH (20:00)
[2016-11-15] MEDS: RIVAROXABAN TAB 15 MG TAB PO SCH (21:34)
[2016-11-15] MEDS: INSULIN GLARGINE SOLOSTAR 100 UNITS/ML 3 ML PEN SC SCH (21:35)
[2016-11-15] MEDS ORDERED: TOLVAPTAN TAB 15 MG TAB PO STA (23:40)
[2016-11-16] VITALS (19 sets, daily range): BP systolic 111–157; BP diastolic 60–83; PULSE 85–135; TEMP 36.2–36.7; O2SAT 91–99
[2016-11-16] MEDS: CHECK CLONIDINE PATCH PLACEMENT SCH ×3 (00:04→15:27)
[2016-11-16] MEDS: LEVALBUTEROL 1.25MG/0.5ML NEB INH SCH ×4 (01:57→20:19)
[2016-11-16] MEDS: IPRATROPIUM BROMIDE NEB SOLN 0.02% 2.5 ML VIAL INH SCH ×4 (01:57→20:18)
[2016-11-16] MEDS ORDERED: METOPROLOL TARTRATE 1 MG/ML VIAL IV STA (02:41)
[2016-11-16] MEDS ORDERED: NURSING VERBAL MED ORDER ONE ×2 (02:45→08:45)
[2016-11-16 06:08] LABS: HEMATOCRIT 20.1 % (42-52); MEAN CELL VOLUME 85.2 fL (80-100); MEAN CORPUSCULAR HEMOGLOBIN 30.1 pg (25-34); MEAN CORPUSCULAR HGB CONC 35.3 g/dl (32-36); MEAN PLATELET VOLUME 9.5 fL (7.4-10.4); PLATELET COUNT 170 K/uL (130-400); RED BLOOD COUNT 2.36 M/uL (4.7-6.1); WHITE BLOOD COUNT 10.18 K/uL (4.8-10.8)
[2016-11-16 06:20] LABS: BUN/CREATININE RATIO 19.8 (10-20); CALCIUM 8.4 mg/dl (8.5-10.1); CREATININE 3.7 mg/dl (0.60-1.40); MAGNESIUM 2.5 mg/dl (1.8-2.4); POTASSIUM 4.4 mmol/L (3.5-5.1)
[2016-11-16] MEDS: TUBE FEEDING WATER FLUSH PO SCH ×6 (07:14→16:39)
--- NOTE | 2016-11-16 07:31 | DIAGNOSTIC IMAGING REPORT ---
CHEST ONE VIEW PORTABLE HISTORY: 80 years-old Male congestive heart failure. COMPARISON: Portable chest radiograph 11/15/2016 TECHNIQUE: Portable upright AP view of the chest FINDINGS: Cardiac silhouette is again mildly enlarged. Slightly decreased background interstitial coarsening with perihilar opacities are noted. There is persistent mild pulmonary vascular congestion and decreased bibasilar opacities without pneumothorax. There is persistent mild blunting of the costophrenic angles suggesting small effusions. There is trace fluid in the minor fissure. Right hemidiaphragmatic elevation is redemonstrated. The bones are grossly intact. IMPRESSION: 1. Cardiomegaly with mildly improved pulmonary edema pattern. 2. Slightly decreased bibasilar opacities with persistent small pleural effusions. The above report was generated using voice recognition software. It may contain grammatical, syntax or spelling errors. Electronically signed by: Bjorn Rod M.D. 11/16/2016 7:29 AM Dictated Date/Time: 11/16/2016 7:27 AM
[2016-11-16] MEDS: CHOLECALCIFEROL 1000 INTER.UNIT TAB PO SCH (07:39)
[2016-11-16] MEDS: PANTOprazole SOD 40 MG TAB PO SCH (07:39)
[2016-11-16] MEDS: METOPROLOL SUCC 50MG EXT REL TAB PO SCH (07:39)
[2016-11-16] MEDS: PSYLLIUM 58.6% PWD PACK S\\F PO SCH (07:39)
[2016-11-16] MEDS: INSULIN ASPART 100 UNITS/ML 3 ML PEN SC SCH ×4 (07:42→20:35)
[2016-11-16] MEDS ORDERED: METOPROLOL TARTRATE 1 MG/ML VIAL ONE (08:29)
[2016-11-16] MEDS ORDERED: CLONIDINE HCL 0.3 MG/24 HR TRANSDERM SYS TD SCH (09:00)
--- NOTE | 2016-11-16 10:46 | Cardiology Follow-Up ---
Subjective Date of Service: Nov 16, 2016. Pt evaluation today including: conversation w/ patient, physical exam, chart review, lab review, review of studies History of Present Illness This morning the patient continues to be tired and weak. He was able to ambulate to the toilet but was very weak in doing so. He did report a brief episode of dyspnea earlier today while lying in bed. This appears to have resolved spontaneously. He did not report worsening dyspnea with ambulation. He has no symptoms of chest discomfort currently. Social History Smoking Status: Never Smoker History of Alcohol Use: Yes (Very rare.) Review of Systems Respiratory: No cough, No shortness of breath Cardiac: + see HPI, + edema (worsening BLE since I lowered diuretics late last week) Patient has been very weak. Minimal ambulation. Difficulty with swallowing as noticed above. He states that he does have some edema in his legs on occasion but currently they are not swollen. Not aware of palpitations. Objective Vital Signs Past 12 Hours Date Time Temp Pulse Resp B/P (MAP) Pulse Ox O2 Delivery O2 Flow Rate FiO2 11/16/16 10:27 36.7 102 20 122/64 93 11/16/16 09:53 36.3 100 20 130/83 93 11/16/16 09:30 36.5 118 20 126/75 96 11/16/16 09:18 36.7 93 24 157/70 93 11/16/16 08:33 135 112/60 (77) 11/16/16 08:31 135 11/16/16 08:00 Room Air 11/16/16 07:55 36.5 101 18 122/71 (88) 94 Room Air 11/16/16 07:24 105 16 95 Room Air 11/16/16 04:00 Room Air 11/16/16 03:57 36.5 103 20 125/74 (91) 99 Nasal Cannula 2.0 11/16/16 03:02 117 11/16/16 02:39 130 11/16/16 02:12 121/75 (90) 11/16/16 01:57 88 16 98 Nasal Cannula 2.0 11/15/16 23:59 Room Air 11/15/16 23:21 36.7 102 20 130/65 (86) 96 Nasal Cannula 2.0 Last Recorded Weight-Kilograms: 70.900 Physical Exam The patient is alert and oriented. Mood and affect appeared normal. He answered all questions appropriately. Cachectic HEENT: Pupils are equal and reactive to light and accommodation. Extraocular movements are intact. The sclerae are anicteric. Neuro: Cranial nerves intact Lungs: No rales currently. He has good air movement without use of accessory muscles. No rales wheezes or rhonchi. Cardiac: Heart demonstrates an irregular rate and rhythm. Normal S1 and S2. No murmurs on examination. Pulses: The patient has palpable radial pulses bilaterally that are equal in intensity Data Laboratory Results: Last 24 Hours Test 11/15/16 11:24 11/15/16 16:35 11/15/16 16:45 11/15/16 17:10 Bedside Glucose 354 mg/dl 252 mg/dl Sodium Level 121 mmol/L Potassium Level 4.6 mmol/L Chloride Level 84 mmol/L Carbon Dioxide Level 27 mmol/L Anion Gap 10.0 mmol/L Blood Urea Nitrogen 74 mg/dl Creatinine 3.60 mg/dl Est Creatinine Clear Calc Drug Dose 16.8 ml/min Estimated GFR () 17.6 Estimated GFR (Non- 15.1 BUN/Creatinine Ratio 20.5 Random Glucose 216 mg/dl Calcium Level 8.4 mg/dl Urine Color YELLOW Urine Appearance CLEAR Urine pH 6.5 Urine Specific [place] 1.011 Urine Protein 2+ Urine Glucose (UA) NEG Urine Ketones NEG Urine Occult Blood 2+ Urine Nitrite NEG Urine Bilirubin NEG Urine Urobilinogen NEG Urine Leukocyte Esterase TRACE Urine WBC (Auto) 1-5 /hpf Urine RBC (Auto) 5-10 /hpf Urine Hyaline Casts (Auto) 1-5 /lpf Urine Epithelial Cells (Auto) 10-20 /lpf Urine Bacteria (Auto) NEG Test 11/15/16 19:58 11/15/16 23:30 11/16/16 05:23 11/16/16 06:26 Bedside Glucose 271 mg/dl 242 mg/dl Urine Osmolality 247 mOms/kg Urine Random Sodium 29 mEq/L Urine Random Potassium 23.8 mEq/L White Blood Count 10.18 K/uL Red Blood Count 2.36 M/uL Hemoglobin 7.1 g/dL Hematocrit 20.1 % Mean Corpuscular Volume 85.2 fL Mean Corpuscular Hemoglobin 30.1 pg Mean Corpuscular Hemoglobin Concent 35.3 g/dl RDW Standard Deviation 41.7 fL RDW Coefficient of Variation 13.5 % Platelet Count 170 K/uL Mean Platelet Volume 9.5 fL Sodium Level 122 mmol/L Potassium Level 4.4 mmol/L Chloride Level 87 mmol/L Carbon Dioxide Level 26 mmol/L Anion Gap 9.0 mmol/L Blood Urea Nitrogen 73 mg/dl Creatinine 3.70 mg/dl Est Creatinine Clear Calc Drug Dose 16.3 ml/min Estimated GFR () 17.0 Estimated GFR (Non- 14.7 BUN/Creatinine Ratio 19.8 Random Glucose 228 mg/dl Calcium Level 8.4 mg/dl Magnesium Level 2.5 mg/dl Test 11/16/16 07:30 11/16/16 10:30 Urine Osmolality 161 mOms/kg Imaging: Chest x-ray today demonstrated some mild pulmonary vascular congestion but improved Telemetry reviewed: Atrial fibrillation with slowly rising ventricular rates Assessment and Plan 1. Acute decompensated diastolic heart failure: Clinically he is much improved. He has had some subjective improvement on the x-ray as well. She is oxygenating well on room air. He did describe a brief episode of dyspnea but this appears to have resolved. Blood pressures appear well controlled currently. At this point would seem reasonable to reinitiate his therapy for hyponatremia to include volume administration. We can continue to monitor symptoms and oxygenation. Some of his dyspnea may also improve with the planned blood transfusion. 2. Atrial fibrillation: Permanent. His overall heart rates have risen slightly. This may be related to an element of volume depletion and anemia. He is receiving a transfusion currently and I will be anxious to see if this improves his heart rates as well. He can be continued on his beta-karli currently. If he continues to have higher heart rates despite be euvolemic, consideration could be given to low-dose calcium channel karli as well. 3. Hypertension: Good control currently. It is very possible that the higher blood pressures precipitated his acute decompensation.
--- NOTE | 2016-11-16 12:19 | Progress Note ---
Internal Med Progress Note Date of Service: Nov 16, 2016. Provider Documentation: SUBJECTIVE: The patient was seen and examined Has had more SOB last evening of 11/14 associated with AF with RVR Received a dose of Cardizem and higher dose of Lasix Much better this Morning Has had Increased heart rate this Morning with Palpitation Given a small dose of IV Lopressor OBJECTIVE: Vital Signs-as noted below Exam: General-Minimal Palpitation at rest Resting in bed Eyes-normal ENT-normal Neck-supple Lungs-Clear to ausucltate bilaterally though right side with slight decrease in breath sound Heart-Regular,no9 murmur appreciated Abdomen-Benign,no masses,bowel sound present Extremities-No edema Neuro-AAOx3,generally weak but no focal sensory and or motor deficit Lab data as noted below. ASSESSMENT & PLAN: Acute Diastolic CHF complicated by AF with RVR and Volume Overload Fitting Supervisor more IV Lasix and a dose of IV Cardizem Was evaluated by the Cardiology and [employer] Sales Representative Clinically much better this Morning 11/15 Appreciate Cardiology input Will continue current medications except IVF CXR-shows improvement of the CHF Will get 1 unit of PRBC If the rate is not controlled will need to add a small dose of CCB Hyponatremia: In setting of Hyperglycemia H/O chronic Hyponatremia (Usually ranges in Mid 120s),Causes could be SIADH, Nutritional and Renal loss Control blood sugar levels Urine Osmolality low at 202 and random Sodium 22 Free water flushes 60ml Before and after tube feeds 1.5 liters fluids/day restriction Sodium improved to 122 but again down to 120 Appreciate Nephrology input and recommendation Received small amount of Hypertonic saline and now on Sodium tabs -increased the dose Sodium level remains at 122-will monitor Will need to have a stable Sodium level before discharge Sodium remains low at 121 Aggressive management with IV Saline and Lasix as per dye range operator cloth Received 1 dose of Tolvaptan yesterday ,Sodium did not show any change Continuation of this med per Nephrology DM II:uncontrolled with Hyperglycemia on Tube feeds (2cans TID) [employer] Mechanic Helper consulted Tod MIGUEL, Dereku checks Update A1c High at 9.5 Pharmacy Glycemic control consult-signed off due to noncompliance Free water flushes 60ml Before and after tube feeds Patient controls his own Insulin doses and does not want any intervention whatsoever Diabetic Education to improve Blood sugar level Dietitian consulted 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 Cr at baseline Nephrology following Creatinine getting worse H/O Pancreatic cancer S/P Whipple procedure Follows with [facility] Follows with GI and Oncology Not getting any Chemo now Sees Oncologist in [place] once a year Last seen in June this year Will get Ca-19 level Anemia Secondary to CKD and complicated by Pancreatic cancer Check Occult blood May need transfusion Hb >8 HTN: Stable Continue usual meds Atrial fibrillation: Rate controlled continue BB, Xarelto No acute issue H/O Dysphagia secondary to muscular dysmotility On Tube feeds Dysphagia to solids DVT Px: On Xarelto Code Status: Full Code Disposition: Monitor in Tele Vital Signs: Date Time Temp Pulse Resp B/P (MAP) Pulse Ox O2 Delivery O2 Flow Rate FiO2 11/16/16 11:44 36.4 108 18 115/76 (89) 93 Room Air 11/16/16 11:33 Room Air 11/16/16 11:11 36.2 101 20 122/79 93 11/16/16 10:27 36.7 102 20 122/64 93 11/16/16 09:53 36.3 100 20 130/83 93 11/16/16 09:30 36.5 118 20 126/75 96 11/16/16 09:18 36.7 93 24 157/70 93 11/16/16 08:33 135 112/60 (77) 11/16/16 08:31 135 11/16/16 08:00 Room Air 11/16/16 07:55 36.5 101 18 122/71 (88) 94 Room Air 11/16/16 07:24 105 16 95 Room Air 11/16/16 04:00 Room Air 11/16/16 03:57 36.5 103 20 125/74 (91) 99 Nasal Cannula 2.0 11/16/16 03:02 117 11/16/16 02:39 130 11/16/16 02:12 121/75 (90) 11/16/16 01:57 88 16 98 Nasal Cannula 2.0 11/15/16 23:59 Room Air 11/15/16 23:21 36.7 102 20 130/65 (86) 96 Nasal Cannula 2.0 11/15/16 20:06 Room Air 11/15/16 19:31 97 16 94 Room Air 11/15/16 19:21 36.6 91 20 122/68 (86) 95 Room Air 11/15/16 16:20 36.6 92 20 131/79 (96) 94 Room Air 11/15/16 16:00 Nasal Cannula 2.0 11/15/16 14:17 79 16 99 Nasal Cannula 2.0 Lab Results: Results Past 24 Hours Test 11/15/16 16:35 11/15/16 16:45 11/15/16 17:10 11/15/16 19:58 Range/Units Bedside Glucose 252 271 70-99 mg/dl Sodium Level 121 136-145 mmol/L Potassium Level 4.6 3.5-5.1 mmol/L Chloride Level 84 98-107 mmol/L Carbon Dioxide Level 27 21-32 mmol/L Anion Gap 10.0 3-11 mmol/L Blood Urea Nitrogen 74 7-18 mg/dl Creatinine 3.60 0.60-1.40 mg/dl Est Creatinine Clear Calc Drug Dose 16.8 ml/min Estimated GFR () 17.6 Estimated GFR (Non- 15.1 BUN/Creatinine Ratio 20.5 10-20 Random Glucose 216 70-99 mg/dl Calcium Level 8.4 8.5-10.1 mg/dl Urine Color YELLOW Urine Appearance CLEAR CLEAR Urine pH 6.5 4.5-7.5 Urine Specific [place] 1.011 1.000-1.030 Urine Protein 2+ NEG Urine Glucose (UA) NEG NEG Urine Ketones NEG NEG Urine Occult Blood 2+ NEG Urine Nitrite NEG NEG Urine Bilirubin NEG NEG Urine Urobilinogen NEG NEG Urine Leukocyte Esterase TRACE NEG Urine WBC (Auto) 1-5 0-5 /hpf Urine RBC (Auto) 5-10 0-4 /hpf Urine Hyaline Casts (Auto) 1-5 0-5 /lpf Urine Epithelial Cells (Auto) 10-20 0-5 /lpf Urine Bacteria (Auto) NEG NEG Test 11/15/16 23:30 11/16/16 05:23 11/16/16 06:26 11/16/16 07:30 Range/Units Urine Osmolality 247 161 500-800 mOms/kg Urine Random Sodium 29 mEq/L Urine Random Potassium 23.8 mEq/L White Blood Count 10.18 4.8-10.8 K/uL Red Blood Count 2.36 4.7-6.1 M/uL Hemoglobin 7.1 14.0-18.0 g/dL Hematocrit 20.1 42-52 % Mean Corpuscular Volume 85.2 80-100 fL Mean Corpuscular Hemoglobin 30.1 25-34 pg Mean Corpuscular Hemoglobin Concent 35.3 32-36 g/dl RDW Standard Deviation 41.7 36.4-46.3 fL RDW Coefficient of Variation 13.5 11.5-14.5 % Platelet Count 170 130-400 K/uL Mean Platelet Volume 9.5 7.4-10.4 fL Sodium Level 122 136-145 mmol/L Potassium Level 4.4 3.5-5.1 mmol/L Chloride Level 87 98-107 mmol/L Carbon Dioxide Level 26 21-32 mmol/L Anion Gap 9.0 3-11 mmol/L Blood Urea Nitrogen 73 7-18 mg/dl Creatinine 3.70 0.60-1.40 mg/dl Est Creatinine Clear Calc Drug Dose 16.3 ml/min Estimated GFR () 17.0 Estimated GFR (Non- 14.7 BUN/Creatinine Ratio 19.8 10-20 Random Glucose 228 70-99 mg/dl Calcium Level 8.4 8.5-10.1 mg/dl Magnesium Level 2.5 1.8-2.4 mg/dl Bedside Glucose 242 70-99 mg/dl Test 11/16/16 10:30 11/16/16 11:19 Range/Units Urine Osmolality 174 500-800 mOms/kg Bedside Glucose 337 70-99 mg/dl
[2016-11-16] MEDS ORDERED: FUROSEMIDE INJ 60 MG in SYRINGE 0 ML IV SCH (13:00)
--- NOTE | 2016-11-16 13:21 | Nephrology Progress Note ---
Nephrology Progress Note Date of Service: Nov 16, 2016. Subjective ongoing weakness, more fatigue, anorexia. he had episode of dyspnea/ tachycardia today > resolved spontaneously; cxr stable/slightly improved; getting pRBC Objective Date Time Temp Pulse Resp B/P (MAP) Pulse Ox O2 Delivery O2 Flow Rate FiO2 11/16/16 12:28 36.7 90 18 128/65 93 11/16/16 11:44 36.4 108 18 115/76 (89) 93 Room Air 11/16/16 11:33 Room Air 11/16/16 11:11 36.2 101 20 122/79 93 11/16/16 10:27 36.7 102 20 122/64 93 11/16/16 09:53 36.3 100 20 130/83 93 11/16/16 09:30 36.5 118 20 126/75 96 11/16/16 09:18 36.7 93 24 157/70 93 11/16/16 08:33 135 112/60 (77) 11/16/16 08:31 135 11/16/16 08:00 Room Air 11/16/16 07:55 36.5 101 18 122/71 (88) 94 Room Air 11/16/16 07:24 105 16 95 Room Air 11/16/16 04:00 Room Air 11/16/16 03:57 36.5 103 20 125/74 (91) 99 Nasal Cannula 2.0 11/16/16 03:02 117 11/16/16 02:39 130 11/16/16 02:12 121/75 (90) 11/16/16 01:57 88 16 98 Nasal Cannula 2.0 11/15/16 23:59 Room Air 11/15/16 23:21 36.7 102 20 130/65 (86) 96 Nasal Cannula 2.0 11/15/16 20:06 Room Air 11/15/16 19:31 97 16 94 Room Air 11/15/16 19:21 36.6 91 20 122/68 (86) 95 Room Air 11/15/16 16:20 36.6 92 20 131/79 (96) 94 Room Air 11/15/16 16:00 Nasal Cannula 2.0 11/15/16 14:17 79 16 99 Nasal Cannula 2.0 Physical Exam: General-on RA maneuvers w/ much asst; nad oriented x 3 cachectic no resp distress or cough, tired Eyes-eomi ENT-dry mm Neck-supple Lungs-diminished bibasilar; bibasilar crackles Heart-irregular in 90s trace - 1+ BL ankle edema Abdomen-PEG present; +BS, +peterson, soft Extremities-no c/c Neuro-lim, fluent speech, good insight,jaw tremor today again Current Inpatient Medications Medications (Trade) Dose Ordered Sig/Mindy Route Start Time Stop Time Status Last Admin Dose Admin Acetaminophen (Tylenol Tab) 650 mg Q4H PRN PO 11/10/16 18:00 12/10/16 17:59 Ondansetron HCl (Zofran Inj) 4 mg Q6H PRN IV 11/10/16 18:00 12/10/16 17:59 Insulin Aspart (novoLOG ASPART) SLIDING SCALE If C... ACHS SC 11/10/16 21:00 12/10/16 20:59 11/16/16 11:41 5 UNITS Glucose (Glucose 40% Gel) 15-30 GRAMS 15 GRAMS... UD PRN PO 11/10/16 18:15 12/10/16 18:14 Glucose (Glucose Chew Tab) 4-8 Tablets 4 Tabl... UD PRN PO 11/10/16 18:15 12/10/16 18:14 11/14/16 06:59 4 TABS Dextrose (Dextrose 50% 50ML Syringe) 25-50ML OF 50% DW IV FOR... UD PRN IV 11/10/16 18:15 12/10/16 18:14 Glucagon (Glucagon Inj) 1 mg UD PRN SQ 11/10/16 18:15 12/10/16 18:14 Acetaminophen/ Codeine Phosphate (Tylenol w/ Codeine #3 Tab) 1 tab Q4H PRN PO 11/10/16 18:15 12/10/16 18:14 11/10/16 23:39 1 TAB Clonidine HCl ([id number]-[id number]-3 0.3mg/24hr Patch) 0.3 patch Felder@0900 TD 11/16/16 09:00 12/16/16 08:59 11/16/16 07:40 0.3 PATCH Hydralazine HCl (Apresoline Tab) 150 mg BID PO 11/10/16 21:00 12/10/16 20:59 8/27/17 07:39 150 MG Insulin Glargine (Lantus Solostar Pen) 5 units QPM SC 11/10/16 21:00 12/10/16 20:59 Future hold 11/15/16 21:35 5 UNITS Metoprolol Succinate (Toprol Xl Tab) 200 mg QAM PO 11/11/16 09:00 12/11/16 08:59 11/16/16 07:39 200 MG Rivaroxaban (Xarelto Tab) 15 mg HS PO 11/10/16 21:00 12/10/16 20:59 Future hold 11/15/16 21:34 15 MG Cholecalciferol (Vitamin D Tab) 5,000 inter.unit QAM PO 11/11/16 09:00 12/11/16 08:59 11/16/16 07:39 5,000 INTER.UNIT Pantoprazole Sodium (Protonix Tab) 40 mg QAM PO 11/11/16 09:00 12/11/16 08:59 11/16/16 07:39 40 MG Sterile Water (Tube Feeding Water Flush) 1 ea AC PO 11/11/16 07:00 12/11/16 06:59 11/16/16 11:00 1 EA Sterile Water (Tube Feeding Water Flush) 1 ea PC PO 11/11/16 08:00 12/11/16 07:59 11/16/16 11:43 1 EA Miscellaneous (Remove Clonidine Patch) 1 ea Q7D@0859 N/A 11/16/16 08:59 12/16/16 08:58 11/16/16 07:38 1 EA Miscellaneous Information (Check Clonidine Patch Placement) 1 ea QS N/A 11/11/16 00:00 12/11/16 00:00 11/16/16 07:15 1 EA Hyoscyamine Sulfate (Levsin Tab) 0.125 mg DAILY PRN PO 11/11/16 10:15 12/11/16 10:14 Zolpidem Tartrate (Ambien Tab) 5 mg HS PRN PO 11/11/16 17:45 12/11/16 17:44 Psyllium Hydrophilic Mucilloid (Metamucil Powder) 1 pkt QAM PO 11/14/16 09:00 12/14/16 08:59 Bisacodyl (Dulcolax Supp) 10 mg DAILY PRN CA 11/13/16 10:15 12/13/16 10:14 Ipratropium [place] (Atrovent 0.02% 0.5MG/2.5ML Neb) 0.5 mg Q6R INH 11/14/16 21:00 12/14/16 20:59 11/16/16 07:24 0.5 MG Levalbuterol (Xopenex 1.25MG/ 0.5ML Neb) 1.25 mg Q6R INH 11/14/16 21:00 12/14/16 20:59 11/16/16 07:24 1.25 MG Labetalol HCl (Normodyne IV) 10 mg Q8 PRN IV 11/15/16 07:00 12/15/16 06:59 Furosemide 60 mg/ Syringe 6 ml @ 4 mls/min TODAY@1300 IV 11/16/16 13:00 11/16/16 16:00 11/16/16 12:57 4 MLS/MIN Last 24 Hours Test 11/15/16 16:35 11/15/16 16:45 11/15/16 17:10 11/15/16 19:58 Bedside Glucose 252 mg/dl 271 mg/dl Sodium Level 121 mmol/L Potassium Level 4.6 mmol/L Chloride Level 84 mmol/L Carbon Dioxide Level 27 mmol/L Anion Gap 10.0 mmol/L Blood Urea Nitrogen 74 mg/dl Creatinine 3.60 mg/dl Est Creatinine Clear Calc Drug Dose 16.8 ml/min Estimated GFR () 17.6 Estimated GFR (Non- 15.1 BUN/Creatinine Ratio 20.5 Random Glucose 216 mg/dl Calcium Level 8.4 mg/dl Urine Color YELLOW Urine Appearance CLEAR Urine pH 6.5 Urine Specific [place] 1.011 Urine Protein 2+ Urine Glucose (UA) NEG Urine Ketones NEG Urine Occult Blood 2+ Urine Nitrite NEG Urine Bilirubin NEG Urine Urobilinogen NEG Urine Leukocyte Esterase TRACE Urine WBC (Auto) 1-5 /hpf Urine RBC (Auto) 5-10 /hpf Urine Hyaline Casts (Auto) 1-5 /lpf Urine Epithelial Cells (Auto) 10-20 /lpf Urine Bacteria (Auto) NEG Test 11/15/16 23:30 11/16/16 05:23 11/16/16 06:26 11/16/16 07:30 Urine Osmolality 247 mOms/kg 161 mOms/kg Urine Random Sodium 29 mEq/L Urine Random Potassium 23.8 mEq/L White Blood Count 10.18 K/uL Red Blood Count 2.36 M/uL Hemoglobin 7.1 g/dL Hematocrit 20.1 % Mean Corpuscular Volume 85.2 fL Mean Corpuscular Hemoglobin 30.1 pg Mean Corpuscular Hemoglobin Concent 35.3 g/dl RDW Standard Deviation 41.7 fL RDW Coefficient of Variation 13.5 % Platelet Count 170 K/uL Mean Platelet Volume 9.5 fL Sodium Level 122 mmol/L Potassium Level 4.4 mmol/L Chloride Level 87 mmol/L Carbon Dioxide Level 26 mmol/L Anion Gap 9.0 mmol/L Blood Urea Nitrogen 73 mg/dl Creatinine 3.70 mg/dl Est Creatinine Clear Calc Drug Dose 16.3 ml/min Estimated GFR () 17.0 Estimated GFR (Non- 14.7 BUN/Creatinine Ratio 19.8 Random Glucose 228 mg/dl Calcium Level 8.4 mg/dl Magnesium Level 2.5 mg/dl Bedside Glucose 242 mg/dl Test 11/16/16 10:30 11/16/16 11:19 Urine Osmolality 174 mOms/kg Bedside Glucose 337 mg/dl Assessment & Plan complex 80 y/o M w/ labile and mostly elevated BG, generalized weakness, worsening chronic hyponatremia, CKD4 w/ significant wt loss from unexplained esophageal dysmotility past few years w/ progressive malnutrition s/p PEG late last month now on changing regimen of TF, dietary intake. it has been challenging to manage his chemistries as an outpatient; pt is frustrated by so many hospital admissions. VERY CHALLENGING CASE of only mildly hypoosmolar or normoosmolar but intractable severe hyponatremia attributed in past to hyperglycemia but concern may be other process as well; we have made little headway w/ restricting fluids/ starting salt tabs/giving lasix. now also with acute on chronic renal failure stage 4, acute diastolic HF w/ atrial fibrillation, borderline hyperkalemia, worsening anemia. implications of abnormally elevated osmolality were discussed w/ pt and . had a dose of tolvaptan but I am reluctant to continue it with worsening renal function; he is already borderline in terms of this being an acceptable med for him had been euvolemic hyponatremia but now more hypervolemic picture -cont efforts to control BG/ DM education >> we need a plan for dm mgt after d/ c that pt will actually follow -cont 1 can qid TF and 15 mL free water flush pre/post -cont peterson -got lasix 60 mg IV after pRBC; I will give another 60 mg this evening and reinstitute fluid limit assuming 1800 labs indicate this -check for other osm contributors > spep/upep, ca 19-9 pending; lipids are normal; BG alone can't explain normal osms -very important to cont daily standing wt -after tolvaptan I am monitoring urine osms and he is voiding free water > expect sNa to go up; f/u pending midday bmp -cont daily rd urine Na, urine osms -fluid restriction includes water, coffee, tea, clear soda, jello, juices; NOT including TF, flushes pre/post >>>>plan is to rest/recover and f/u TTE >> then tomorrow restart aggressive IVF with lasix to see if we can move sodium, assuming renal function tolerates Anemia in 2017 which is markedly worse than labs last year. Last colonoscopy 2013; has annual endoscopies -s/p iron load -fobt + >> defer to primary service on further eval -had 1 epo dose 11/15; pRBC 11/16 Acute renal failure on CKD 4 w/ acute diastolic HF, permanent a fib -suspect prerenal; check uacm; FENa not useful in ckd4 -may need renal diet if worsens further -cannot rule out need for dialysis this admission; pt aware and willing to do dialysis; this was discussed at length w/ pt and his Appreciate consult; will follow with you. Care coordinated w/ dr esparza
[2016-11-16 14:28] LABS: BUN/CREATININE RATIO 20.5 (10-20); CALCIUM 8.6 mg/dl (8.5-10.1); CREATININE 3.5 mg/dl (0.60-1.40); POTASSIUM 4.3 mmol/L (3.5-5.1)
[2016-11-16 18:16] LABS: BUN/CREATININE RATIO 21.8 (10-20); CALCIUM 8.4 mg/dl (8.5-10.1); CREATININE 3.4 mg/dl (0.60-1.40); POTASSIUM 4.3 mmol/L (3.5-5.1)
[2016-11-16] MEDS: INSULIN GLARGINE SOLOSTAR 100 UNITS/ML 3 ML PEN SC SCH (20:30)
[2016-11-16] MEDS: RIVAROXABAN TAB 15 MG TAB PO SCH (20:31)
[2016-11-16] MEDS ORDERED: DIGOXIN IV 125 MCG in SYRINGE 9.5 ML IV STA (21:04)
[2016-11-17] VITALS (9 sets, daily range): BP systolic 110–130; BP diastolic 60–80; PULSE 85–101; TEMP 36.3–36.9; O2SAT 92–97
[2016-11-17] MEDS: CHECK CLONIDINE PATCH PLACEMENT SCH ×4 (00:36→23:41)
[2016-11-17] MEDS: LEVALBUTEROL 1.25MG/0.5ML NEB INH SCH ×4 (01:54→20:21)
[2016-11-17] MEDS: IPRATROPIUM BROMIDE NEB SOLN 0.02% 2.5 ML VIAL INH SCH ×4 (01:54→20:21)
[2016-11-17 05:57] LABS: HEMATOCRIT 24.2 % (42-52); MEAN CELL VOLUME 85.2 fL (80-100); MEAN CORPUSCULAR HEMOGLOBIN 29.6 pg (25-34); MEAN CORPUSCULAR HGB CONC 34.7 g/dl (32-36); MEAN PLATELET VOLUME 9.1 fL (7.4-10.4); PLATELET COUNT 208 K/uL (130-400); RED BLOOD COUNT 2.84 M/uL (4.7-6.1); WHITE BLOOD COUNT 9.93 K/uL (4.8-10.8)
[2016-11-17 06:29] LABS: BUN/CREATININE RATIO 21.8 (10-20); CALCIUM 8.9 mg/dl (8.5-10.1); CREATININE 3.3 mg/dl (0.60-1.40); MAGNESIUM 2.4 mg/dl (1.8-2.4)
[2016-11-17] MEDS: TUBE FEEDING WATER FLUSH PO SCH ×6 (07:00→17:34)
[2016-11-17] MEDS: INSULIN ASPART 100 UNITS/ML 3 ML PEN SC SCH ×4 (07:00→20:46)
[2016-11-17] MEDS: FUROSEMIDE INJ 60 MG in SYRINGE 0 ML IV SCH ×2 (07:33→17:24)
[2016-11-17] MEDS: PANTOprazole SOD 40 MG TAB PO SCH (07:34)
[2016-11-17] MEDS: METOPROLOL SUCC 50MG EXT REL TAB PO SCH (07:34)
[2016-11-17] MEDS: PSYLLIUM 58.6% PWD PACK S\\F PO SCH (07:34)
[2016-11-17] MEDS: CHOLECALCIFEROL 1000 INTER.UNIT TAB PO SCH (07:34)
--- NOTE | 2016-11-17 11:02 | Cardiology Follow-Up ---
Subjective Date of Service: Nov 17, 2016. Pt evaluation today including: conversation w/ patient, physical exam, lab review, review of studies, review of inpatient medication list History of Present Illness Today he feels quite weak, he has a lot of difficulty with minimal ambulation. He is however sitting in a chair at his bedside. He is discouraged about his current situation. He is not having chest discomfort, he does not of palpitations and he is currently not having shortness of breath. He reports several brief episodes of shortness of breath over the last several days but lasting only a few minutes he believes. No orthopnea or PND. Social History Smoking Status: Never Smoker History of Alcohol Use: Yes (Very rare.) Review of Systems Respiratory: No cough, No shortness of breath Cardiac: + see HPI, + edema (worsening BLE since I lowered diuretics late last week) Patient has been very weak. Minimal ambulation. Difficulty with swallowing as noticed above. He states that he does have some edema in his legs on occasion but currently they are not swollen. Not aware of palpitations. Medications Cardiovascular: Item Value Date Time Furosemide 60 mg/ 6 ml @ 4 mls/min 11/17/16 0900 Syringe BID17/IV 11/17/16 0733 Labetalol HCl 10 mg 11/15/16 0700 (Normodyne IV) Q8 PRN/IV Metoprolol 200 mg 11/11/16 0900 Succinate QAM/PO 11/17/16 0734 (Toprol Xl Tab) Hydralazine HCl 150 mg 11/10/16 2100 (Apresoline Tab) BID/PO 11/17/16 0734 Rivaroxaban 15 mg 11/10/16 2100 (Xarelto Tab) HS/PO 11/16/162030 Objective Vital Signs Past 12 Hours Date Time Temp Pulse Resp B/P (MAP) Pulse Ox O2 Delivery O2 Flow Rate FiO2 11/17/16 08:00 Room Air 11/17/16 07:10 94 18 93 Room Air 11/17/16 07:06 36.5 101 20 127/76 (93) 96 Room Air 11/17/16 04:00 Room Air 11/17/16 03:39 36.9 99 17 130/72 (91) 94 Room Air 11/16/16 23:59 Room Air 11/16/16 23:26 36.6 110 17 111/83 (92) 92 Room Air Last Recorded Weight-Kilograms: 68.900 Physical Exam Constitutional: General Apperance: too thin Level of Distress: NAD Lungs: Auscultation: breath sounds normal Cardiovascular: Heart Auscultation: no murmurs, irregular rate rhythm Data Laboratory Results: Last 24 Hours Test 11/16/16 11:19 11/16/16 13:41 11/16/16 16:31 11/16/16 16:32 Bedside Glucose 337 mg/dl 323 mg/dl 319 mg/dl Sodium Level 122 mmol/L Potassium Level 4.3 mmol/L Chloride Level 87 mmol/L Carbon Dioxide Level 26 mmol/L Anion Gap 9.0 mmol/L Blood Urea Nitrogen 72 mg/dl Creatinine 3.50 mg/dl Est Creatinine Clear Calc Drug Dose 17.2 ml/min Estimated GFR () 18.2 Estimated GFR (Non- 15.7 BUN/Creatinine Ratio 20.5 Random Glucose 263 mg/dl Calcium Level 8.6 mg/dl Test 11/16/16 17:35 11/16/16 19:00 11/16/16 20:07 11/16/16 20:08 Sodium Level 123 mmol/L Potassium Level 4.3 mmol/L Chloride Level 85 mmol/L Carbon Dioxide Level 26 mmol/L Anion Gap 12.0 mmol/L Blood Urea Nitrogen 74 mg/dl Creatinine 3.40 mg/dl Est Creatinine Clear Calc Drug Dose 17.7 ml/min Estimated GFR () 18.8 Estimated GFR (Non- 16.2 BUN/Creatinine Ratio 21.8 Random Glucose 292 mg/dl Calcium Level 8.4 mg/dl Urine Osmolality 182 mOms/kg Bedside Glucose 320 mg/dl 329 mg/dl Test 11/16/16 23:30 11/17/16 05:22 Urine Osmolality 173 mOms/kg White Blood Count 9.93 K/uL Red Blood Count 2.84 M/uL Hemoglobin 8.4 g/dL Hematocrit 24.2 % Mean Corpuscular Volume 85.2 fL Mean Corpuscular Hemoglobin 29.6 pg Mean Corpuscular Hemoglobin Concent 34.7 g/dl RDW Standard Deviation 43.3 fL RDW Coefficient of Variation 14.0 % Platelet Count 208 K/uL Mean Platelet Volume 9.1 fL Sodium Level 126 mmol/L Potassium Level 4.0 mmol/L Chloride Level 90 mmol/L Carbon Dioxide Level 27 mmol/L Anion Gap 9.0 mmol/L Blood Urea Nitrogen 72 mg/dl Creatinine 3.30 mg/dl Est Creatinine Clear Calc Drug Dose 18.2 ml/min Estimated GFR () 19.5 Estimated GFR (Non- 16.8 BUN/Creatinine Ratio 21.8 Random Glucose 173 mg/dl Calcium Level 8.9 mg/dl Magnesium Level 2.4 mg/dl Imaging: Chest x-ray yesterday shows probable mild pulmonary vascular congestion. EKG: This morning probably atrial fibrillation although there is some organized atrial activity suggesting a wandering atrial pacemaker at times or MAT. Telemetry reviewed: Atrial fibrillation with a variable heart rate, averaging around 100 bpm. Assessment and Plan #1. Weakness: This is most likely multifactorial, he has gone through a lot but I doubt this is primarily cardiac. #2. Congestive heart failure: He had an episode of congestive heart failure which appeared diastolic, he has not lost a lot of fluid weight but does not seem to be in heart failure now. This may have been due to severe hypertension rather than fluid overload. Currently this does not seem to be a major issue. I would agree with his current fluid management. #3. Atrial arrhythmia: He has a history of atrial fibrillation although on this morning's tracing there appears to be some organized atrial activity, so he may have periods of wandering atrial pacemaker or MAT. In any case the heart rate is reasonably well controlled and I would continue anticoagulation and rate control (currently metoprolol and Xarelto adjusted for renal insufficiency). #4. Hypertension: His blood pressure is currently well controlled on his regimen. I would continue it. #5. Hyponatremia: He remains hyponatremic however his sodium is up a bit today. I would continue current management. #6. Acute on chronic renal insufficiency: His creatinine is higher than it has been as an outpatient in the past, but it has been relatively stable here. Thank you for allowing me to participate in his care.
--- NOTE | 2016-11-17 14:48 | Progress Note ---
Internal Med Progress Note Date of Service: Nov 17, 2016. Provider Documentation: SUBJECTIVE: The patient was seen and examined Has had more SOB last evening of 11/14 associated with AF with RVR Received a dose of Cardizem and higher dose of Lasix Has had Increased heart rate yesterday Morning with Palpitation and last night Given a small dose of IV Lopressor and Digoxin last evening OBJECTIVE: Vital Signs-as noted below Exam: General-Minimal Palpitation at rest Resting in bed Eyes-normal ENT-normal Neck-supple Lungs-Clear to ausucltate bilaterally though right side with slight decrease in breath sound Heart-Regular,no9 murmur appreciated Abdomen-Benign,no masses,bowel sound present Extremities-No edema Neuro-AAOx3,generally weak but no focal sensory and or motor deficit Lab data as noted below. ASSESSMENT & PLAN: Acute Diastolic CHF complicated by AF with RVR and Volume Overload Complicated by episodes of MAT [employer] more IV Lasix and a dose of IV Cardizem Was evaluated by the Cardiology and The [employer] Clinically much better this Morning 11/15 Appreciate Cardiology input Will continue current medications except IVF CXR-shows improvement of the CHF Will get 1 unit of PRBC If the rate is not controlled will need to add a small dose of CCB Continue current Fluid restriction and Diuretics Hyponatremia: In setting of Hyperglycemia H/O chronic Hyponatremia (Usually ranges in Mid 120s),Causes could be SIADH, Nutritional and Renal loss Control blood sugar levels Urine Osmolality low at 202 and random Sodium 22 Free water flushes 60ml Before and after tube feeds 1.5 liters fluids/day restriction Sodium improved to 122 but again down to 120 Appreciate Nephrology input and recommendation Received small amount of Hypertonic saline and now on Sodium tabs -increased the dose Sodium level remains at 122-will monitor Will need to have a stable Sodium level before discharge Sodium remains low at 121 Aggressive management with IV Saline and Lasix as per social studies department chair Received 1 dose of Tolvaptan yesterday ,Sodium did not show any change Continuation of this med per Nephrology Sodium is 126 today In stable or increasing by tomorrow -can be sent home .please coordinate with Fire Technician DM II:uncontrolled with Hyperglycemia on Tube feeds (2cans TID) Detective consulted ISS, Lantus, Accu checks Update A1c High at 9.5 Pharmacy Glycemic control consult-signed off due to noncompliance Free water flushes 60ml Before and after tube feeds Patient controls his own Insulin doses and does not want any intervention whatsoever Diabetic Education to improve Blood sugar level Dietitian consulted 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 Cr at baseline Nephrology following Creatinine getting worse As per Nephrology H/O Pancreatic cancer S/P Whipple procedure Follows with [facility] Follows with GI and Oncology Not getting any Chemo now Sees Oncologist in [place] once a year Last seen in June this year Will get Ca-19 level -pending Anemia Secondary to CKD and complicated by Pancreatic cancer Check Occult blood May need transfusion Hb >8 HTN: Stable Continue usual meds Atrial fibrillation: Rate controlled continue BB, Xarelto No acute issue H/O Dysphagia secondary to muscular dysmotility On Tube feeds Dysphagia to solids DVT Px: On Xarelto Code Status: Full Code Disposition: Monitor in Tele Likely discharge in a day or two. Vital Signs: Date Time Temp Pulse Resp B/P (MAP) Pulse Ox O2 Delivery O2 Flow Rate FiO2 11/17/16 14:00 87 18 92 Room Air 11/17/16 11:42 Room Air 11/17/16 11:23 36.3 86 16 123/72 (89) 97 Room Air 11/17/16 08:00 Room Air 11/17/16 07:10 94 18 93 Room Air 11/17/16 07:06 36.5 101 20 127/76 (93) 96 Room Air 11/17/16 04:00 Room Air 11/17/16 03:39 36.9 99 17 130/72 (91) 94 Room Air 11/16/16 23:59 Room Air 11/16/16 23:26 36.6 110 17 111/83 (92) 92 Room Air 11/16/16 21:33 134 11/16/16 20:21 90 18 91 Nasal Cannula 2.0 11/16/16 20:00 Room Air 11/16/16 19:00 36.3 98 18 116/75 (89) 98 Nasal Cannula 2.0 11/16/16 15:49 Room Air 11/16/16 15:28 85 16 99 Nasal Cannula 2.0 11/16/16 15:09 36.2 93 18 133/78 (96) 98 Nasal Cannula 2.0 Lab Results: Results Past 24 Hours Test 11/16/16 16:31 11/16/16 16:32 11/16/16 17:35 11/16/16 19:00 Range/Units Bedside Glucose 323 319 70-99 mg/dl Sodium Level 123 136-145 mmol/L Potassium Level 4.3 3.5-5.1 mmol/L Chloride Level 85 98-107 mmol/L Carbon Dioxide Level 26 21-32 mmol/L Anion Gap 12.0 3-11 mmol/L Blood Urea Nitrogen 74 7-18 mg/dl Creatinine 3.40 0.60-1.40 mg/dl Est Creatinine Clear Calc Drug Dose 17.7 ml/min Estimated GFR () 18.8 Estimated GFR (Non- 16.2 BUN/Creatinine Ratio 21.8 10-20 Random Glucose 292 70-99 mg/dl Calcium Level 8.4 8.5-10.1 mg/dl Urine Osmolality 182 500-800 mOms/kg Test 11/16/16 20:07 11/16/16 20:08 11/16/16 23:30 11/17/16 05:22 Range/Units Bedside Glucose 320 329 70-99 mg/dl Urine Osmolality 173 500-800 mOms/kg White Blood Count 9.93 4.8-10.8 K/uL Red Blood Count 2.84 4.7-6.1 M/uL Hemoglobin 8.4 14.0-18.0 g/dL Hematocrit 24.2 42-52 % Mean Corpuscular Volume 85.2 80-100 fL Mean Corpuscular Hemoglobin 29.6 25-34 pg Mean Corpuscular Hemoglobin Concent 34.7 32-36 g/dl RDW Standard Deviation 43.3 36.4-46.3 fL RDW Coefficient of Variation 14.0 11.5-14.5 % Platelet Count 208 130-400 K/uL Mean Platelet Volume 9.1 7.4-10.4 fL Sodium Level 126 136-145 mmol/L Potassium Level 4.0 3.5-5.1 mmol/L Chloride Level 90 98-107 mmol/L Carbon Dioxide Level 27 21-32 mmol/L Anion Gap 9.0 3-11 mmol/L Blood Urea Nitrogen 72 7-18 mg/dl Creatinine 3.30 0.60-1.40 mg/dl Est Creatinine Clear Calc Drug Dose 18.2 ml/min Estimated GFR () 19.5 Estimated GFR (Non- 16.8 BUN/Creatinine Ratio 21.8 10-20 Random Glucose 173 70-99 mg/dl Calcium Level 8.9 8.5-10.1 mg/dl Magnesium Level 2.4 1.8-2.4 mg/dl Test 11/17/16 11:28 Range/Units Bedside Glucose 316 70-99 mg/dl
--- NOTE | 2016-11-17 16:56 | Nephrology Progress Note ---
Nephrology Progress Note Date of Service: Nov 17, 2016. Subjective 80 yo male with isoosmolar hyponatremia who is very weak. has four cans of tube feeds a day with half tube of flush pre and post. currently on fluid restriction and lasix. pt has noticed worsening breathing at night. he would like to eventually go home but is concerned if he will have enough support at home to help given his overall weakness. Objective Date Time Temp Pulse Resp B/P (MAP) Pulse Ox O2 Delivery O2 Flow Rate FiO2 11/17/16 16:00 94 Room Air 11/17/16 15:38 36.6 92 18 124/80 (95) 95 Room Air 11/17/16 14:00 87 18 92 Room Air 11/17/16 11:42 Room Air 11/17/16 11:23 36.3 86 16 123/72 (89) 97 Room Air 11/17/16 08:00 Room Air 11/17/16 07:10 94 18 93 Room Air 11/17/16 07:06 36.5 101 20 127/76 (93) 96 Room Air 11/17/16 04:00 Room Air 11/17/16 03:39 36.9 99 17 130/72 (91) 94 Room Air 11/16/16 23:59 Room Air 11/16/16 23:26 36.6 110 17 111/83 (92) 92 Room Air 11/16/16 21:33 134 11/16/16 20:21 90 18 91 Nasal Cannula 2.0 11/16/16 20:00 Room Air 11/16/16 19:00 36.3 98 18 116/75 (89) 98 Nasal Cannula 2.0 Physical Exam: General-aaox3, cachectic Eyes-no scleral icterus ENT-mm dry Neck-supple Lungs-cta Heart-irregularly irregular Abdomen-+peg, bs+/s/nd Extremities-no c/c/e Neuro-nonfocal gu-+peg Current Inpatient Medications Medications (Trade) Dose Ordered Sig/Mindy Route Start Time Stop Time Status Last Admin Dose Admin Acetaminophen (Tylenol Tab) 650 mg Q4H PRN PO 11/10/16 18:00 12/10/16 17:59 Ondansetron HCl (Zofran Inj) 4 mg Q6H PRN IV 11/10/16 18:00 12/10/16 17:59 Insulin Aspart (novoLOG ASPART) SLIDING SCALE If C... ACHS SC 11/10/16 21:00 12/10/16 20:59 11/17/16 11:35 4 UNITS Glucose (Glucose 40% Gel) 15-30 GRAMS 15 GRAMS... UD PRN PO 11/10/16 18:15 12/10/16 18:14 Glucose (Glucose Chew Tab) 4-8 Tablets 4 Tabl... UD PRN PO 11/10/16 18:15 12/10/16 18:14 11/14/16 06:59 4 TABS Dextrose (Dextrose 50% 50ML Syringe) 25-50ML OF 50% DW IV FOR... UD PRN IV 11/10/16 18:15 12/10/16 18:14 Glucagon (Glucagon Inj) 1 mg UD PRN SQ 11/10/16 18:15 12/10/16 18:14 Acetaminophen/ Codeine Phosphate (Tylenol w/ Codeine #3 Tab) 1 tab Q4H PRN PO 11/10/16 18:15 12/10/16 18:14 11/10/16 23:39 1 TAB Clonidine HCl (Dxdtnciw-Xkf-1 0.3mg/24hr Patch) 0.3 patch Felder@0900 TD 11/16/16 09:00 12/16/16 08:59 11/16/16 07:40 0.3 PATCH Hydralazine HCl (Apresoline Tab) 150 mg BID PO 11/10/16 21:00 12/10/16 20:59 11/17/16 07:34 150 MG Insulin Glargine (Lantus Solostar Pen) 5 units QPM SC 11/10/16 21:00 12/10/16 20:59 Future hold 11/16/16 20:30 5 UNITS Metoprolol Succinate (Toprol Xl Tab) 200 mg QAM PO 11/11/16 09:00 12/11/16 08:59 11/17/16 07:34 200 MG Rivaroxaban (Xarelto Tab) 15 mg HS PO 11/10/16 21:00 12/10/16 20:59 Future hold 11/16/16 20:31 15 MG Cholecalciferol (Vitamin D Tab) 5,000 inter.unit QAM PO 11/11/16 09:00 12/11/16 08:59 11/17/16 07:34 5,000 INTER.UNIT Pantoprazole Sodium (Protonix Tab) 40 mg QAM PO 11/11/16 09:00 12/11/16 08:59 11/17/16 07:34 40 MG Sterile Water (Tube Feeding Water Flush) 1 ea AC PO 11/11/16 07:00 12/11/16 06:59 11/17/16 11:17 1 EA Sterile Water (Tube Feeding Water Flush) 1 ea PC PO 11/11/16 08:00 12/11/16 07:59 11/17/16 11:35 1 EA Miscellaneous (Remove Clonidine Patch) 1 ea Q7D@0859 N/A 11/16/16 08:59 12/16/16 08:58 11/16/16 07:38 1 EA Miscellaneous Information (Check Clonidine Patch Placement) 1 ea QS N/A 11/11/16 00:00 12/11/16 00:00 11/17/16 15:42 1 EA Hyoscyamine Sulfate (Levsin Tab) 0.125 mg DAILY PRN PO 11/11/16 10:15 12/11/16 10:14 Zolpidem Tartrate (Ambien Tab) 5 mg HS PRN PO 11/11/16 17:45 12/11/16 17:44 Psyllium Hydrophilic Mucilloid (Metamucil Powder) 1 pkt QAM PO 11/14/16 09:00 12/14/16 08:59 Bisacodyl (Dulcolax Supp) 10 mg DAILY PRN ND 11/13/16 10:15 12/13/16 10:14 Ipratropium [place] (Atrovent 0.02% 0.5MG/2.5ML Neb) 0.5 mg Q6R INH 11/14/16 21:00 12/14/16 20:59 11/17/16 13:56 0.5 MG Levalbuterol (Xopenex 1.25MG/ 0.5ML Neb) 1.25 mg Q6R INH 11/14/16 21:00 12/14/16 20:59 11/17/16 13:56 1.25 MG Labetalol HCl (Normodyne IV) 10 mg Q8 PRN IV 11/15/16 07:00 12/15/16 06:59 Furosemide 60 mg/ Syringe 6 ml @ 4 mls/min BID17 IV 11/17/16 09:00 12/17/16 08:59 11/17/16 07:33 4 MLS/MIN Last 24 Hours Test 11/16/16 17:35 11/16/16 19:00 11/16/16 20:08 11/16/16 23:30 Sodium Level 123 mmol/L Potassium Level 4.3 mmol/L Chloride Level 85 mmol/L Carbon Dioxide Level 26 mmol/L Anion Gap 12.0 mmol/L Blood Urea Nitrogen 74 mg/dl Creatinine 3.40 mg/dl Est Creatinine Clear Calc Drug Dose 17.7 ml/min Estimated GFR () 18.8 Estimated GFR (Non- 16.2 BUN/Creatinine Ratio 21.8 Random Glucose 292 mg/dl Calcium Level 8.4 mg/dl Urine Osmolality 182 mOms/kg 173 mOms/kg Bedside Glucose 329 mg/dl Test 11/17/16 05:22 11/17/16 11:28 White Blood Count 9.93 K/uL Red Blood Count 2.84 M/uL Hemoglobin 8.4 g/dL Hematocrit 24.2 % Mean Corpuscular Volume 85.2 fL Mean Corpuscular Hemoglobin 29.6 pg Mean Corpuscular Hemoglobin Concent 34.7 g/dl RDW Standard Deviation 43.3 fL RDW Coefficient of Variation 14.0 % Platelet Count 208 K/uL Mean Platelet Volume 9.1 fL Sodium Level 126 mmol/L Potassium Level 4.0 mmol/L Chloride Level 90 mmol/L Carbon Dioxide Level 27 mmol/L Anion Gap 9.0 mmol/L Blood Urea Nitrogen 72 mg/dl Creatinine 3.30 mg/dl Est Creatinine Clear Calc Drug Dose 18.2 ml/min Estimated GFR () 19.5 Estimated GFR (Non- 16.8 BUN/Creatinine Ratio 21.8 Random Glucose 173 mg/dl Calcium Level 8.9 mg/dl Magnesium Level 2.4 mg/dl Bedside Glucose 316 mg/dl Assessment & Plan hyponatremia-isoosmolar which is concerning. ca 19-9 is pending. has been high in the past and followed by oncologist in [place]. likely will come back high and will need to speak to oncologist in [place] to get trend to see if abnormally different from previous levels. currently on fluid restriction and lasix. if sodium is 126 or higher tomorrow, will plan on peterson catheter removal and ok from renal perspective to go home with appropriate windows support engineer. to avoid salt tabs and iv fluids with propensity to go into heart failure. ckd stage 4-creatinine in the low 3s. not uremic but may eventually need dialysis. once on dialysis, will be easier to control sodium levels. pt concerned about dialysis in [place] [facility]. for now, follow creatinine trend. overall poor prognosis given his overall weakness, failure to thrive, hyponatremia, ckd stage 4.
[2016-11-17] MEDS: INSULIN GLARGINE SOLOSTAR 100 UNITS/ML 3 ML PEN SC SCH (20:46)
[2016-11-17] MEDS: RIVAROXABAN TAB 15 MG TAB PO SCH (20:48)
[2016-11-18] VITALS: BP 156/78; PULSE 89; TEMP 36.5; O2SAT 97
[2016-11-18] MEDS: LEVALBUTEROL 1.25MG/0.5ML NEB INH SCH ×2 (01:52→07:03)
[2016-11-18] MEDS: IPRATROPIUM BROMIDE NEB SOLN 0.02% 2.5 ML VIAL INH SCH ×2 (01:52→07:03)
[2016-11-18 04:00] VITALS: BP 133/72; PULSE 95; TEMP 36.6; O2SAT 98
[2016-11-18 05:39] LABS: ALPHA-2-GLOBULIN % 9.53 %; BETA GLOBULIN % 14.75 %; CREATININE UR 54 MG/DL (20-370); GAMMA GLOBULIN % 10.41 %
[2016-11-18] MEDS: INSULIN ASPART 100 UNITS/ML 3 ML PEN SC SCH ×2 (07:00→10:54)
[2016-11-18 07:04] VITALS: PULSE 93; O2SAT 97
[2016-11-18 07:11] VITALS: BP 136/73; PULSE 106; TEMP 36; O2SAT 99
[2016-11-18 07:29] LABS: BUN/CREATININE RATIO 21.7 (10-20); CALCIUM 8.9 mg/dl (8.5-10.1); CREATININE 3.2 mg/dl (0.60-1.40); MAGNESIUM 2.3 mg/dl (1.8-2.4); POTASSIUM 3.8 mmol/L (3.5-5.1)
[2016-11-18] MEDS: TUBE FEEDING WATER FLUSH PO SCH ×4 (07:56→10:51)
[2016-11-18] MEDS: FUROSEMIDE INJ 60 MG in SYRINGE 0 ML IV SCH (07:58)
[2016-11-18] MEDS: METOPROLOL SUCC 50MG EXT REL TAB PO SCH (07:59)
[2016-11-18] MEDS: CHOLECALCIFEROL 1000 INTER.UNIT TAB PO SCH (07:59)
[2016-11-18] MEDS: PSYLLIUM 58.6% PWD PACK S\\F PO SCH (08:00)
[2016-11-18] MEDS: PANTOprazole SOD 40 MG TAB PO SCH (08:00)
[2016-11-18] MEDS: CHECK CLONIDINE PATCH PLACEMENT SCH (08:05)
--- NOTE | 2016-11-18 09:29 | Progress Note ---
Internal Med Progress Note Date of Service: Nov 18, 2016. Provider Documentation: SUBJECTIVE: The patient was seen and examined Has had more SOB last evening of 11/14 associated with AF with RVR Received a dose of Cardizem and higher dose of Lasix Has had Increased heart rate yesterday Morning with Palpitation and last night Given a small dose of IV Lopressor and Digoxin last evening Rate is controlled this morning Feeling a lot better to be discharged OBJECTIVE: Vital Signs-as noted below Exam: General-Minimal Palpitation at rest Resting in bed Eyes-normal ENT-normal Neck-supple Lungs-Clear to ausucltate bilaterally though right side with slight decrease in breath sound Heart-Regular,no9 murmur appreciated Abdomen-Benign,no masses,bowel sound present Extremities-No edema Neuro-AAOx3,generally weak but no focal sensory and or motor deficit Lab data as noted below. ASSESSMENT & PLAN: Acute Diastolic CHF complicated by AF with RVR and Volume Overload Complicated by episodes of MAT Tie Maker more IV Lasix and a dose of IV Cardizem Was evaluated by the Cardiology and The Section Supervisor Clinically much better this Morning 11/15 Appreciate Cardiology input Will continue current medications except IVF CXR-shows improvement of the CHF Will get 1 unit of PRBC If the rate is not controlled will need to add a small dose of CCB Continue current Fluid restriction and Diuretics Discussed with the stereotype molder -can be discharged Hyponatremia: In setting of Hyperglycemia H/O chronic Hyponatremia (Usually ranges in Mid 120s),Causes could be SIADH, Nutritional and Renal loss Control blood sugar levels Urine Osmolality low at 202 and random Sodium 22 Free water flushes 60ml Before and after tube feeds 1.5 liters fluids/day restriction Sodium improved to 122 but again down to 120 Appreciate Nephrology input and recommendation Received small amount of Hypertonic saline and now on Sodium tabs -increased the dose Sodium level remains at 122-will monitor Will need to have a stable Sodium level before discharge Sodium remains low at 121 Aggressive management with IV Saline and Lasix as per systems analysis manager Received 1 dose of Tolvaptan yesterday ,Sodium did not show any change Continuation of this med per Nephrology Sodium is 126 today In stable or increasing by tomorrow -can be sent home .please coordinate with Commercial Counsel Sodium is improved to 132 and the Kidney function is better DM II:uncontrolled with Hyperglycemia on Tube feeds (2cans TID) Hvac Project Engineer consulted Tod MIGUEL Accu checks Update A1c High at 9.5 Pharmacy Glycemic control consult-signed off due to noncompliance Free water flushes 60ml Before and after tube feeds Patient controls his own Insulin doses and does not want any intervention whatsoever Diabetic Education to improve Blood sugar level Dietitian consulted 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 Cr at baseline Nephrology following Creatinine getting worse As per Nephrology Renal function is a little improved H/O Pancreatic cancer S/P Whipple procedure Follows with [facility] Follows with GI and Oncology Not getting any Chemo now Sees Oncologist in [place] once a year Last seen in June this year Will get Ca-19 level -pending May need to communicate with the Oncologist if noted to be high Anemia Secondary to CKD and complicated by Pancreatic cancer Check Occult blood May need transfusion Hb >8 HTN: Stable Continue usual meds Atrial fibrillation: Rate controlled continue BB, Xarelto No acute issue H/O Dysphagia secondary to muscular dysmotility On Tube feeds Dysphagia to solids DVT Px: On Xarelto Code Status: Full Code Disposition: Monitor in Tele D/C Robert,make sure he pees and then Discharge home Vital Signs: Date Time Temp Pulse Resp B/P (MAP) Pulse Ox O2 Delivery O2 Flow Rate FiO2 11/18/16 07:11 36.0 106 22 136/73 (94) 99 Room Air 11/18/16 07:04 93 18 97 Room Air 11/18/16 04:00 36.6 95 133/72 (92) 98 Room Air 11/18/16 04:00 98 Room Air 11/18/16 00:00 36.5 89 156/78 (104) 97 Room Air 11/18/16 00:00 97 Room Air 11/17/16 20:25 88 18 95 Room Air 11/17/16 20:11 36.7 85 20 110/60 (77) 96 Room Air 11/17/16 20:00 Room Air 11/17/16 16:00 94 Room Air 11/17/16 15:38 36.6 92 18 124/80 (95) 95 Room Air 11/17/16 14:00 87 18 92 Room Air 11/17/16 11:42 Room Air 11/17/16 11:23 36.3 86 16 123/72 (89) 97 Room Air Lab Results: Results Past 24 Hours Test 11/17/16 11:28 11/17/16 16:10 11/17/16 20:14 11/18/16 06:06 Range/Units Bedside Glucose 316 313 461 70-99 mg/dl Sodium Level 132 136-145 mmol/L Potassium Level 3.8 3.5-5.1 mmol/L Chloride Level 93 98-107 mmol/L Carbon Dioxide Level 30 21-32 mmol/L Anion Gap 9.0 3-11 mmol/L Blood Urea Nitrogen 69 7-18 mg/dl Creatinine 3.20 0.60-1.40 mg/dl Est Creatinine Clear Calc Drug Dose 17.7 ml/min Estimated GFR () 20.2 Estimated GFR (Non- 17.5 BUN/Creatinine Ratio 21.7 10-20 Random Glucose 127 70-99 mg/dl Calcium Level 8.9 8.5-10.1 mg/dl Magnesium Level 2.3 1.8-2.4 mg/dl Test 11/18/16 06:21 Range/Units Bedside Glucose 154 70-99 mg/dl
[2016-11-18 11:02] VITALS: BP 127/91; PULSE 96; TEMP 36.3; O2SAT 96
--- NOTE | 2016-11-18 11:12 | Discharge Instructions ---
Discharge Instructions Date of Service Nov 18, 2016. Admission Reason for Admission: Generalized Weakness, Hyponatremia Discharge Discharge Diagnosis / Problem: Hyponatremia,Atrial Fibrillation,Ca Pancreas s/ p Whipple's procedure Discharge Goals Goal(s): Prevent Disease Progression Activity Recommendations Activity Limitations: resume your previous activity . Instructions / Follow-Up Instructions / Follow-Up Dr Rodger Donaldson on 11/21/16 at 11:30 AM.Please have PRP checked and report to Dr Valente Current Hospital Diet Patient's current hospital diet: Diabetes Type 2 Diet Discharge Diet Recommended Diet: Diabetes Type 2 Diet Fluid Restriction: 1500 ml (6 cups) Pending Studies Studies pending at discharge: no Laboratory Results Hemoglobin A1c Test 11/11/16 05:09 Range/Units Estimated Average Glucose 226 mg/dl Hemoglobin A1c 9.5 H 4.5-5.6 % Lipid Panel Test 11/15/16 05:26 Range/Units Triglycerides Level 15 0-150 mg/dl Cholesterol Level 100 0-200 mg/dl HDL Cholesterol 91 mg/dl Cholesterol/HDL Ratio 1.1 LDL Cholesterol, Calculated 6 mg/dl Medical Emergencies . Who to Call and When: Medical Emergencies: If at any time you feel your situation is an emergency, please call 911 immediately. . Non-Emergent Contact Non-Emergency issues call your: Primary Care Provider . Past History Medical & Surgical History: (1) Atrial fibrillation (2) Pancreatic cancer (3) Hypertension (4) Chronic hyponatremia (5) DM type 2 (diabetes mellitus, type 2) (6) Restrictive cardiomyopathy (7) H/o spinal injection (8) S/P appendectomy (9) S/p whipple procedure (10) S/P tonsillectomy and adenoidectomy (11) H/O hand surgery (12) S/P inguinal hernia repair (13) S/P percutaneous endoscopic gastrostomy (PEG) tube placement . "Provider Documentation" section prepared by Mendel Rivas. . VTE Core Measure Inpt VTE Proph given/why not?: Other Anticoagulation
[2016-11-18 11:27] VITALS: BP 127/91; PULSE 96; TEMP 36.3; O2SAT 96
--- NOTE | 2016-11-18 11:35 | Discharge Summary ---
Discharge Summary Date of Service Nov 18, 2016. Discharge Summary Admission Date: Nov 10, 2016 at 18:04 Discharge Date: Nov 18, 2016 Discharge Disposition: Home Principal Diagnosis: Hyponatremia,Atrial Fibrillation,Ca Pancreas s/p Whipple's procedure Secondary Diagnoses/Problems: Please see H&P and Hospital Progress note Consultations: Cardiology and Nephrology Medication Reconciliation Continued Medications: Acetaminophen W/ Codeine (Acetaminophen/Codeine) 1 Tab Tab 1 TAB PO Q4H PRN for Pain Cholecalciferol (Vitamin D) 5,000 Unit Tab 5000 INTER.UNIT PO QAM Clonidine Hcl (Clonidine Hcl) 0.3 Mg/24 Hr Dis 0.3 MG TOP WK Furosemide (Lasix) 40 Mg Tab 40 MG PO AFTERNOON, TAB Furosemide (Lasix) 40 Mg Tab 40 MG PO QAM, TAB Hydralazine Hcl (Apresoline) 50 Mg Tab 150 MG PO BID, TAB Hyoscyamine Sulfate (Hyoscyamine Sulfate) 0.125 Mg Tab 0.125 MG PO UD PRN for Abdominal Pain TAKE MD DIRECTS Insulin Glargine (Lantus) 100 Unit/Ml Inj 11-15 UNITS SC QPM ADJUST DOSE NEEDED Insulin Lispro (Human) (Humalog) 100 Unit/Ml Inj 1 DOSE SC UD COVERAGE DIRECTED BY FOLLOWING SLIDING SCALE: 201 - 250 2 UNITS 251 - 300 4 UNITS 301 - 350 6 UNITS 351 - 400 8 UNITS Loperamide Hcl (Imodium) 2 Mg Cap 2 MG PO UD PRN for Diarrhea, CAP TAKE MD DIRECTS Metoprolol Succinate (Toprol Xl) 200 Mg Tab 200 MG PO QAM, TAB Omeprazole (Prilosec) 20 Mg Capcr 40 MG PO QAM, #60 CAP Rivaroxaban (Xarelto) 15 Mg Tab 15 MG PO HS, TAB Admission Information HPI (per Admitting provider): Patient is a 80 yr male with PMH of Pancreatic cancer S/P whipple procedure, DM II, HTN, Atrial fibrillation, Chronic anemia, H/O Dysphagia secondary to muscular dysmotility for which he follows with [facility], currently on Tube Feeds presents with history of worsening generalized weakness and abnormal labs. He visited his early childhood worker today and was found to have uncontrolled blood sugar levels and sodium level of 122 (Corrected) and was sent to ED for further evaluation. Patient reports he has been taking excess calories ( Milkshakes/Ice cream) to gain weight and improve his weakness but is unsuccessful. He admits to changing his Insulin dosing by himself based on his calorie Intake as he has very low threshold for hypoglycemia. He missed his Insulin therapy today. His diuretic dosing was adjusted recently. Denies any SOB , chest pain, abd pain, fever, chills, nausea, vomiting, headache, change in vision, urinary symptoms. He is also on liquid diet and has chronic dysphagia to solids. 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 Family History Reviewed, not relevant Social History Smoking Status: Never Smoker Alcohol Use: none Drug Use: none Marital Status: Housing status: lives with significant other Occupational Status: retired Immunizations History of Influenza Vaccine: Yes Influenza Vaccine Date: Dec 21, 2012 History of Tetanus Vaccine?: Yes Tetanus Immunization Date: Aug 22, 2014 History of Pneumococcal: Yes Pneumococcal Date: July 31, 2014 History of Hepatitis B Vaccine: Yes Hepatitis Immunization Date: Sep 22, 2016 Multi-Drug Resistant Organisms History of MDRO: No Allergies Coded Allergies: No Known Allergies (Verified , 11/10/16) Home Medications Scheduled Cholecalciferol (Vitamin D), 5,000 INTER.UNIT PO QAM Clonidine Hcl (Clonidine Hcl), 0.3 MG TOP WK Furosemide (Lasix), 40 MG PO AFTERNOON Furosemide (Lasix), 40 MG PO QAM Hydralazine Hcl (Apresoline), 150 MG PO BID Insulin Glargine (Lantus), 11-15 UNITS SC QPM Insulin Lispro (Human) (Humalog), 1 DOSE SC UD Metoprolol Succinate (Toprol Xl), 200 MG PO QAM Omeprazole (Prilosec), 40 MG PO QAM Rivaroxaban (Xarelto), 15 MG PO HS Scheduled PRN Acetaminophen W/ Codeine (Acetaminophen/Codeine), 1 TAB PO Q4H PRN for Pain Hyoscyamine Sulfate (Hyoscyamine Sulfate), 0.125 MG PO UD PRN for Abdominal Pain Loperamide Hcl (Imodium), 2 MG PO UD PRN for Diarrhea Review of Systems See HPI for pertinent positives & negatives. A total of 10 systems reviewed and were otherwise negative. Physical Ex - H&P Physical Exam Vital Signs Date Time Temp Pulse Resp B/P (MAP) Pulse Ox O2 Delivery O2 Flow Rate FiO2 11/10/16 16:40 69 16 127/78 97 Room Air 11/10/16 14:00 36.5 68 18 138/79 99 Room Air General Appearance: no apparent distress, + thin Head: normocephalic, atraumatic Eyes: normal inspection, PERRL, EOMI ENT: normal ENT inspection, hearing grossly normal Neck: supple, trachea midline Respiratory/Chest: chest non-tender, lungs clear, normal breath sounds, no respiratory distress, no accessory muscle use Cardiovascular: no edema, + irregularly irregular Abdomen/GI: normal bowel sounds, non tender, soft, + pertinent finding (PEG tube) Back: normal inspection Extremities/Musculoskelatal: normal inspection, no pedal edema 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, no motor/sensory deficits, alert, normal mood/affect, oriented x 3 Skin: normal color, warm/dry Diagnostics - H&P Diagnostics Laboratory Results Results Past 24 Hours Test 11/10/16 16:25 Range/Units White Blood Count 6.91 4.8-10.8 K/uL Red Blood Count 2.87 4.7-6.1 M/uL Hemoglobin 8.9 14.0-18.0 g/dL Hematocrit 23.7 42-52 % Mean Corpuscular Volume 82.6 80-100 fL Mean Corpuscular Hemoglobin 31.0 25-34 pg Mean Corpuscular Hemoglobin Concent 37.6 32-36 g/dl Platelet Count 167 130-400 K/uL Mean Platelet Volume 9.6 7.4-10.4 fL Neutrophils (%) (Auto) 76.5 % Lymphocytes (%) (Auto) 8.2 % Monocytes (%) (Auto) 12.2 % Eosinophils (%) (Auto) 2.5 % Basophils (%) (Auto) 0.3 % Neutrophils # (Auto) 5.29 1.4-6.5 K/uL Lymphocytes # (Auto) 0.57 1.2-3.4 K/uL Monocytes # (Auto) 0.84 0.11-0.59 K/uL Eosinophils # (Auto) 0.17 0-0.5 K/uL Basophils # (Auto) 0.02 0-0.2 K/uL RDW Standard Deviation 40.4 36.4-46.3 fL RDW Coefficient of Variation 13.2 11.5-14.5 % Immature Granulocyte % (Auto) 0.3 % Immature Granulocyte # (Auto) 0.02 0.00-0.02 K/uL Anisocytosis PRESENT Sodium Level 118 136-145 mmol/L Potassium Level 4.4 3.5-5.1 mmol/L Chloride Level 80 98-107 mmol/L Carbon Dioxide Level 29 21-32 mmol/L Anion Gap 9.0 3-11 mmol/L Blood Urea Nitrogen 56 7-18 mg/dl Creatinine 2.70 0.60-1.40 mg/dl Est Creatinine Clear Calc Drug Dose 21.5 ml/min Estimated GFR () 24.9 Estimated GFR (Non- 21.4 BUN/Creatinine Ratio 20.6 10-20 Random Glucose 361 70-99 mg/dl Calcium Level 8.4 8.5-10.1 mg/dl Phosphorus Level 3.5 2.5-4.9 mg/dl Magnesium Level 2.4 1.8-2.4 mg/dl Beta-Hydroxybutyric Acid 2.35 0.2-2.81 mg/dL Impression - H&P Impression Assessment and Plan Hyponatremia: In setting of Hyperglycemia H/O chronic Hyponatremia (Usually ranges in Mid 120s) Check BMP Q4H for 24 hours Control blood sugar levels Check Serum/Urine Osmolality, Urine sodium, UA with microscopy, Orthostatics Free water flushes 60ml Before and after tube feeds 1.5 litres fluids/day restriction Discussed with Nephrology . Appreciate Input DM II: uncontrolled on Tube feeds (2cans TID) Accountant Property consulted ISS, Lantus, Accu checks Update A1c Pharmacy Glycemic control consult Free water flushes 60ml Before and after tube feeds CKD IV: Cr at baseline H/O Pancreatic cancer S/P Whipple procedure Follows with [facility] Follows with GI and Oncology HTN: Stable Continue usual meds Atrial fibrillation: Rate controlled continue BB, Xarelto H/O Dysphagia secondary to muscular dysmotility On Tube feeds Dysphagia to solids DVT Px: On Xarelto Code Status: Full Code Disposition: Monitor in Tele VTE Prophylaxis VTE Risk Assessment Done? Y/N: Yes Risk Level: Moderate Physical Exam (per Admitting): General Appearance: no apparent distress, + thin Head: normocephalic, atraumatic Eyes: normal inspection, PERRL, EOMI ENT: normal ENT inspection, hearing grossly normal Neck: supple, trachea midline Respiratory/Chest: chest non-tender, lungs clear, normal breath sounds, no respiratory distress, no accessory muscle use Cardiovascular: no edema, + irregularly irregular Abdomen/GI: normal bowel sounds, non tender, soft, + pertinent finding (PEG tube) Back: normal inspection Extremities/Musculoskelatal: normal inspection, no pedal edema 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, no motor/sensory deficits, alert , normal mood/affect, oriented x 3 Skin: normal color, warm/dry Hospital Course Acute Diastolic CHF complicated by AF with RVR and Volume Overload Complicated by episodes of MAT Regulatory Technician more IV Lasix and a dose of IV Cardizem Was evaluated by the Cardiology and The Database Administration Associate Clinically much better this Morning 11/15 Appreciate Cardiology input Will continue current medications except IVF CXR-shows improvement of the CHF Will get 1 unit of PRBC If the rate is not controlled will need to add a small dose of CCB Continue current Fluid restriction and Diuretics Discussed with the technical intern -can be discharged Hyponatremia: In setting of Hyperglycemia H/O chronic Hyponatremia (Usually ranges in Mid 120s),Causes could be SIADH, Nutritional and Renal loss Control blood sugar levels Urine Osmolality low at 202 and random Sodium 22 Free water flushes 60ml Before and after tube feeds 1.5 liters fluids/day restriction Sodium improved to 122 but again down to 120 Appreciate Nephrology input and recommendation Received small amount of Hypertonic saline and now on Sodium tabs -increased the dose Sodium level remains at 122-will monitor Will need to have a stable Sodium level before discharge Sodium remains low at 121 Aggressive management with IV Saline and Lasix as per early childhood worker Received 1 dose of Tolvaptan yesterday ,Sodium did not show any change Continuation of this med per Nephrology Sodium is 126 today In stable or increasing by tomorrow -can be sent home .please coordinate with Assembling Motor Builder Sodium is improved to 132 and the Kidney function is better DM II:uncontrolled with Hyperglycemia on Tube feeds (2cans TID) Accountant Property consulted Tod MIGUEL Accu checks Update A1c High at 9.5 Pharmacy Glycemic control consult-signed off due to noncompliance Free water flushes 60ml Before and after tube feeds Patient controls his own Insulin doses and does not want any intervention whatsoever Diabetic Education to improve Blood sugar level Dietitian consulted 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 Cr at baseline Nephrology following Creatinine getting worse As per Nephrology Renal function is a little improved H/O Pancreatic cancer S/P Whipple procedure Follows with [facility] Follows with GI and Oncology Not getting any Chemo now Sees Oncologist in [place] once a year Last seen in June this year Will get Ca-19 level -pending May need to communicate with the Oncologist if noted to be high Anemia Secondary to CKD and complicated by Pancreatic cancer Check Occult blood May need transfusion Hb >8 HTN: Stable Continue usual meds Atrial fibrillation: Rate controlled continue BB, Xarelto No acute issue H/O Dysphagia secondary to muscular dysmotility On Tube feeds Dysphagia to solids DVT Px: On Xarelto Code Status: Full Code Disposition: Monitor in Tele D/C Robert,make sure he pees and then Discharge home Total time spent on discharge = 35 minutes This includes examination of the patient, discharge planning, medication reconciliation, and communication with other providers. Discharge Instructions Date of Service Nov 18, 2016. Admission Reason for Admission: Generalized Weakness, Hyponatremia Discharge Discharge Diagnosis / Problem: Hyponatremia,Atrial Fibrillation,Ca Pancreas s/ p Whipple's procedure Discharge Goals Goal(s): Prevent Disease Progression Activity Recommendations Activity Limitations: resume your previous activity . Instructions / Follow-Up Instructions / Follow-Up Dr Rodger Donaldson on 11/21/16 at 11:30 AM.Please have PRP checked and report to Dr Valente Current Hospital Diet Patient's current hospital diet: Diabetes Type 2 Diet Discharge Diet Recommended Diet: Diabetes Type 2 Diet Fluid Restriction: 1500 ml (6 cups) Pending Studies Studies pending at discharge: no Laboratory Results Hemoglobin A1c Test 11/11/16 05:09 Range/Units Estimated Average Glucose 226 mg/dl Hemoglobin A1c 9.5 H 4.5-5.6 % Lipid Panel Test 11/15/16 05:26 Range/Units Triglycerides Level 15 0-150 mg/dl Cholesterol Level 100 0-200 mg/dl HDL Cholesterol 91 mg/dl Cholesterol/HDL Ratio 1.1 LDL Cholesterol, Calculated 6 mg/dl Medical Emergencies . Who to Call and When: Medical Emergencies: If at any time you feel your situation is an emergency, please call 911 immediately. . Non-Emergent Contact Non-Emergency issues call your: Primary Care Provider . Past History Medical & Surgical History: (1) Atrial fibrillation (2) Pancreatic cancer (3) Hypertension (4) Chronic hyponatremia (5) DM type 2 (diabetes mellitus, type 2) (6) Restrictive cardiomyopathy (7) H/o spinal injection (8) S/P appendectomy (9) S/p whipple procedure (10) S/P tonsillectomy and adenoidectomy (11) H/O hand surgery (12) S/P inguinal hernia repair (13) S/P percutaneous endoscopic gastrostomy (PEG) tube placement . "Provider Documentation" section prepared by Mendel Rivas. . VTE Core Measure Inpt VTE Proph given/why not?: Other Anticoagulation <Electronically signed by Mendel Rivas M.D.> Signed: 11/18/16 1112 Additional Copies To Esther Donaldson M.D.
[2016-11-18 17:45] LABS: ALBUMIN 2.8 G/DL (3.8-4.8); GAMMA GLOBULIN 0.6 G/DL (0.8-1.7); TOTAL PROTEIN 5.4 G/DL (6.2-8.3)
== END 2016-11-18 13:24 | disposition home health service (06) | DRG 640 ==
LOC: C.EDB 13:57 → C.2E 18:04 → ENRESERV 18:11
PROVIDERS: ADMIT Internal Medicine; ATTEND Internal Medicine
DX: E87.1 Hypo-osmolality and hyponatremia (principal); I50.31 Acute diastolic (congestive) heart failure; J96.01 Acute respiratory failure with hypoxia; N18.4 Chronic kidney disease, stage 4 (severe); I13.0 Hypertensive heart and chronic kidney disease with heart failure and stage 1 through stage 4 chronic kidney disease, or unspecified chronic kidney disease; N17.9 Acute kidney failure, unspecified; R13.19 Other dysphagia; E11.22 Type 2 diabetes mellitus with diabetic chronic kidney disease; I48.2 Chronic atrial fibrillation; E11.65 Type 2 diabetes mellitus with hyperglycemia; I89.0 Lymphedema, not elsewhere classified; D63.1 Anemia in chronic kidney disease; E11.21 Type 2 diabetes mellitus with diabetic nephropathy; E78.5 Hyperlipidemia, unspecified; K21.9 Gastro-esophageal reflux disease without esophagitis; F32.9 Major depressive disorder, single episode, unspecified; Z79.01 Long term (current) use of anticoagulants; Z79.4 Long term (current) use of insulin; Z79.899 Other long term (current) drug therapy; Z85.07 Personal history of malignant neoplasm of pancreas; Z93.1 Gastrostomy status